=== PATIENT | female | born 1945 | race Caucasian/White ===

== ENCOUNTER 2016-11-23 08:22 | Inpatient (IN) | payer MEDICARE, BC ==
--- NOTE | 2016-11-23 09:18 | C.PDOC ---
History Of Present Illness 71 y/o female with Hx of open heart surgery and pneumonia presents to ED with complaints of sob and occasional dizziness. As per patient had fast breathing which prompted visit to ED today. Patient denies chest pain, fever, chills, n/v/d or any other complaints at this time. Time Seen by Provider: 11/23/16 08:43 Chief Complaint (Nursing): Shortness Of Breath History Per: Patient History/Exam Limitations: no limitations Onset/Duration Of Symptoms: Days Current Symptoms Are (Timing): Still Present Past Medical History Reviewed: Historical Data, Nursing Documentation, Vital Signs Vital Signs: Last Vital Signs Temp 97.5 F L 11/23/16 08:30 Pulse 50 L 11/23/16 11:43 Resp 20 11/23/16 11:43 BP 163/73 H 11/23/16 11:43 Pulse Ox 99 11/23/16 11:43 - Medical History PMH: HTN, Hypercholesterolemia Surgical History: CABG Family History: States: No Known Family Hx - Social History Hx Alcohol Use: No Hx Substance Use: No - Immunization History Hx Tetanus Toxoid Vaccination: No Hx Influenza Vaccination: Yes Hx Pneumococcal Vaccination: No Review Of Systems Except As Marked, All Systems Reviewed And Found Negative. Constitutional: Negative for: Fever, Chills Respiratory: Positive for: Shortness of Breath Gastrointestinal: Negative for: Nausea, Vomiting Skin: Negative for: Rash Neurological: Positive for: Dizziness Physical Exam - Physical Exam Appears: Non-toxic, No Acute Distress Skin: Normal Color, Warm, Dry, No Rash Head: Atraumatic, Normacephalic Eye(s): bilateral: Normal Inspection Oral Mucosa: Moist Neck: Normal ROM, Supple Chest: Symmetrical Cardiovascular: Rhythm Regular, No Murmur Respiratory: Normal Breath Sounds, No Rales, No Rhonchi, No Wheezing Gastrointestinal/Abdominal: Soft, No Tenderness, No Guarding, No Rebound Neurological/Psych: Oriented x3 Gait: Steady ED Course And Treatment - Laboratory Results Result Diagrams: 11/23/16 10:02 11/23/16 10:02 Lab Interpretation: No Acute Changes ECG: Interpreted By Me ECG Rhythm: Sinus Bradycardia, Nonspecific Changes ECG Interpretation: No Acute Changes Rate From EC O2 Sat by Pulse Oximetry: 98 (RA) Pulse Ox Interpretation: Normal - Radiology CXR: Viewed By Me - Other Rad No standard instances Interpretation: FINDINGS: LUNGS: There are diffuse reticular opacity versus prominent lung markings or pulmonary congestion seen. No evidence of focal consolidation in the lungs. PLEURA: No evidence of significant pleural effusion or pneumothorax. CARDIOVASCULAR: The cardiac silhouette is mildly enlarged. Post sternotomy changes are seen. OSSEOUS STRUCTURES: No significant abnormalities. VISUALIZED UPPER ABDOMEN: Normal. OTHER FINDINGS: None. IMPRESSION: Diffuse reticular opacities in the lungs more prominent at the lower lobes may be related to pulmonary vascular congestion. Mild cardiomegaly. Progress Note: Treated with lasix 20 mg IV. On re-evaluation lungs clear - Physician Consult Information Physician Contacted: Jeff Alvarado Outcome Of Conversation: admit Medical Decision Making Medical Decision Making: Plan: * labs * cxr * * Case discussed with Dr Alvarado who request admission to telemetry Disposition Discussed With .: Jeff Alvarado Doctor Will See Patient In The: Hospital - Disposition Disposition: HOSPITALIZED Disposition Time: 11:15 Condition: STABLE - POA Present On Arrival: None - Clinical Impression Clinical Impression: Chronic congestive heart failure, Dyspnea, Chest pain - PA / CELLO TEACHER / Resident Statement MD/DO has reviewed & agrees with the documentation as recorded. - Scribe Statement The provider has reviewed the documentation as recorded by the Jaimeibserafin Sierra All medical record entries made by the Gayla were at my direction and personally dictated by me. I have reviewed the chart and agree that the record accurately reflects my personal performance of the history, physical exam, medical decision making, and the department course for this patient. I have also personally directed, reviewed, and agree with the discharge instructions and disposition. Decision To Admit - Pt Status Changed To: Hospital Disposition Of: Inpatient - Admit Certification Admit to Inpatient:: After my assessment, the patient will require hospitalization for at least two midnights. This is because of the severity of symptoms shown, intensity of services needed, and/or the medical risk in this patient being treated as an outpatient. - InPatient: Physician Admission Certification: I certify that this patient requires 2 or more midnights of care for the following reason:: CHF. Dyspnea. Chest Pain - . Bed Request Type: Telemetry Admitting Physician: Jeff Alvarado Patient Diagnosis: Chronic congestive heart failure, Dyspnea, Chest pain
--- NOTE | 2016-11-23 09:29 | RAD ---
HISTORY: SOB COMPARISON: Comparison is made to previous study dated 01/13/2011 TECHNIQUE: Chest PA and lateral FINDINGS: LUNGS: There are diffuse reticular opacity versus prominent lung markings or pulmonary congestion seen. No evidence of focal consolidation in the lungs. PLEURA: No evidence of significant pleural effusion or pneumothorax. CARDIOVASCULAR: The cardiac silhouette is mildly enlarged. Post sternotomy changes are seen. OSSEOUS STRUCTURES: No significant abnormalities. VISUALIZED UPPER ABDOMEN: Normal. OTHER FINDINGS: None. IMPRESSION: Diffuse reticular opacities in the lungs more prominent at the lower lobes may be related to pulmonary vascular congestion. Mild cardiomegaly.
[2016-11-23 10:13] LABS: BASO % 0.7 % (0.0-2.0); HEMATOCRIT 31.9 % (34.0-47.0); LYMPH # 1.6 K/uL (1.0-4.3); LYMPH % 32.8 % (20.0-40.0); MEAN CELL VOLUME 88.7 fL (81.0-99.0); MEAN CORPUSCULAR HEMOGLOBIN 28.8 pg (27.0-31.0); MEAN CORPUSCULAR HGB CONC 32.4 g/dL (33.0-37.0); MEAN PLATELET VOLUME 9.9 fL (7.2-11.7); MONO # 0.2 K/uL (0.0-0.8); MONO % 3.6 % (0.0-10.0); NRBC % 0.1 % (0.0-2.0); RED CELL DISTRIBUTION WIDTH 18.1 % (11.5-14.5); WHITE BLOOD COUNT 4.8 K/uL (4.8-10.8)
[2016-11-23 10:15] LABS: CHLORIDE 105 mmol/L (98-107)
[2016-11-23 10:16] LABS: POTASSIUM 4.5 mmol/L (3.6-5.2); SODIUM 139 mmol/L (132-148)
[2016-11-23 10:17] LABS: RBC URINE 2 /hpf (0-3); URINE BACTERIA RARE (<OCC); URINE BILIRUBIN NEGATIVE (NEGATIVE); URINE BLOOD NEGATIVE (NEGATIVE); URINE COLOR Yellow (YELLOW); URINE GLUCOSE (UA) NORMAL (Normal); URINE KETONE NEGATIVE (NEGATIVE); URINE LEUKOCYTE ESTERASE 1+ Leu/uL (Negative); URINE PROTEIN NEGATIVE (NEGATIVE); URINE UROBILINOGEN NORMAL mg/dL (0.2-1.0); WBC URINE 5 /hpf (0-5)
[2016-11-23 10:18] LABS: ALKALINE PHOSPHATASE 84 U/L (38-126); AST/SGOT 33 U/L (14-36); BILIRUBIN,TOTAL 0.7 mg/dL (0.2-1.3); BLOOD UREA NITROGEN 28 mg/dL (7-17); CARBON DIOXIDE 21 mmol/L (22-30); GFR AFRICAN-AMERICAN > 60; TOTAL PROTEIN 8.6 g/dL (6.3-8.3)
[2016-11-23 10:19] LABS: ALT/SGPT 37 U/L (9-52); CALCIUM 8.8 mg/dl (8.6-10.4); GLUCOSE,RANDOM 123 mg/dL (65-105)
[2016-11-23] MEDS: Enoxaparin 40 mg Syringe SC SCH (16:50)
[2016-11-23] MEDS: Metoprolol Succinate 50 mg XL Tab PO SCH (17:47)
[2016-11-23] MEDS ORDERED: Metoprolol Succinate 100 mg XL Tab PO SCH (18:00)
--- NOTE | 2016-11-24 02:53 | HP ---
HISTORY OF PRESENT ILLNESS: A 71-year-old female with a history of CAD and hypertension who was brought in with shortness of breath on minimal exertion, also dizziness. Denies any fevers or chills. She has a longstanding history of hypertension and coronary artery disease. MEDICATIONS AT HOME: Includes hydrochlorothiazide 12.5 mg 1 day, Toprol 100 mg twice a day, Vytorin 10/30, valsartan 160, colchicine 0.6 one day, ergocalciferol, and metformin 500 mg p.o. daily. For the past 2 weeks, she was having increasing shortness of breath. Chest x-ray had shown mild CHF. She did not get better so came to the emergency room. PERSONAL HISTORY: As mentioned does not smoke, does not drink. ALLERGIES: DENIED. FAMILY HISTORY: Positive for diabetes and hypertension. Mother was hypertensive. Father had a diabetes. Brother at age of 45 from leukemia. REVIEW OF SYSTEMS: GENERAL: Generalized weakness, easy fatigue, going from back to bathroom she has short of breath. Denies any cough. No fever. No chills. HEENT: No visual disturbances. She does have a history of glaucoma on eye drops. No hearing loss. PULMONARY: She does have occasional cough, under the care of Dr. Turner. No hemoptysis. CARDIAC: As mentioned above. Dyspnea on minimal exertion. No chest pains. History of hypertension. No documented HI. GASTROINTESTINAL: Poor appetite, but otherwise unremarkable. GENITOURINARY: Negative for dysuria or frequency. MUSCULOSKELETAL: Arthritis involving the knee pains. PERIPHERAL VASCULAR SYSTEM: Negative for claudication. NEUROLOGIC: Dizziness. No syncope. PSYCHOLOGIC: No evidence of depression. PHYSICAL EXAMINATION: GENERAL: Shows elderly [place] female, thin built, chronically sick looking, but in no acute distress. She is 4 feet 10 inches and weighs 99 pounds. VITAL SIGNS: Her blood pressure is 163/73, heart rate of 50 and regular sinus on the telemetry, respiratory rate of 20, temperature 97.5, and pulse oximetry is 99% on room air. HEENT: Head is normocephalic. Eyes; no pallor and no icterus. NECK: Supple. LUNGS: Show decreased air entry at the bases. HEART: PMI is not localized. S1 and S2 is distant. Soft S4 gallops. Grade 1-2/6 holosystolic ejection murmur in mitral and aortic area. ABDOMEN: Soft and nontender. EXTREMITIES: No cyanosis, clubbing, or edema. Distal pulses are 1+. NEUROLOGIC: She is awake, alert and oriented x3. No focal signs. MUSCULOSKELETAL: Essentially unremarkable except arthritis changes in the both the hands and knees. PSYCHIATRIC: No evidence of depression. LABORATORY DATA: Shows hemoglobin of 10.3, BUN is 28, creatinine is 0.9, and Pro-BNP is 13,600. EKG; sinus rhythm, nonspecific ST-T changes. ASSESSMENT: A 71-year-old female with a history of congestive heart failure and coronary artery disease. She did have a normal left ventricular systolic function, presumably diastolic dysfunction. PLAN: At this point, small dose of diuretic, we will decrease the beta trudy from 100 b.i.d. to 50 b.i.d. and continue LUIS inhibitors. We will review with the echocardiogram. Jeff Alvarado MD
--- NOTE | 2016-11-24 08:13 | CARD ---
APPROVED REPORT EXAM: Two-dimensional and M-mode echocardiogram with Doppler and color Doppler. Other Information Quality : GoodRhythm : NSR INDICATION Dyspnea CAD Congestive Heart Failure COPD 2D DIMENSIONS IVSd1.5 (0.7-1.1cm)LVDd3.8 (3.9-5.9cm) PWd1.2 (0.7-1.1cm)LVDs2.5 (2.5-4.0cm) FS (%) 33.5 %LVEF (%)63.0 (>50%) M-Mode DIMENSIONS Left Atrium (MM)4.09 (2.5-4.0cm)Aortic Root2.85 (2.2-3.7cm) Aortic Cusp Exc.1.88 (1.5-2.0cm) Mitral Valve MV E Dqcvmjgq56.3cm/sMV A Txkbpsnu18.0cm/sE/A ratio1.6 TDI E/Lateral E'0.0E/Medial E'0.0 Tricuspid Valve TR Peak [id number]/sTR Peak Gr.[id number] LEFT VENTRICLE The left ventricle is normal size. There is mild concentric left ventricular hypertrophy. Left ventricle systolic function is normal. The Ejection Fraction is 60-65%. There is normal LV segmental wall motion. The left ventricular diastolic function is normal. RIGHT VENTRICLE The right ventricle is normal size. There is normal right ventricular wall thickness. The right ventricular systolic function is normal. ATRIA The left atrium size is normal. The right atrium size is normal. The interatrial septum is intact with no evidence for an atrial septal defect. AORTIC VALVE The aortic valve is normal in structure. No aortic regurgitation is present. There is no aortic valvular stenosis. There is no aortic valvular vegetation. MITRAL VALVE Mitral annular calcification is mild. There is no evidence of mitral valve prolapse. There is no mitral valve stenosis. Mitral regurgitation is mild to moderate. TRICUSPID VALVE The tricuspid valve is normal in structure. There is mild tricuspid regurgitation. Right ventricular systolic pressure is estimated at 50-60 mmHg. There is moderate pulmonary hypertension. PULMONIC VALVE The pulmonic valve is not well visualized. There is mild pulmonic valvular regurgitation. GREAT VESSELS The aortic root is normal in size. PERICARDIAL EFFUSION There is no significant pericardial effusion. <Conclusion> Left ventricle systolic function is normal. The Ejection Fraction is 60-65%. Hypertensive heart disease. No aortic regurgitation is present. Mitral regurgitation is mild to moderate. There is mild tricuspid regurgitation. There is moderate pulmonary hypertension. There is mild pulmonic valvular regurgitation.
[2016-11-24] MEDS ORDERED: Latanoprost 2.5 ml Opht Soln OD SCH ×2 (10:00→22:00)
[2016-11-24] MEDS ORDERED: Brimonidine 0.2% Opth Sol (5ml) OD SCH ×2 (10:00→22:00)
[2016-11-24] MEDS: Metoprolol Succinate 50 mg XL Tab PO SCH ×2 (10:59→17:55)
[2016-11-24] MEDS: Enoxaparin 40 mg Syringe SC SCH (11:01)
--- NOTE | 2016-11-24 13:13 | CP.PCM.PN ---
Subjective - Date & Time of Evaluation Date of Evaluation: 11/24/16 Time of Evaluation: 13:11 - Subjective Subjective: sob is better. labs noted. echo noted. normal lv systolic function. lv diastolic dysfunction grade 2. mr Objective - Vital Signs/Intake and Output Vital Signs (last 24 hours): Temp Pulse Resp BP Pulse Ox 97.4 F L 50 L 20 163/80 H 96 11/24/16 07:45 11/24/16 12:01 11/24/16 07:45 11/24/16 07:45 11/24/16 07:45 Intake and Output: 11/24/16 11/24/16 06:59 18:59 Intake Total 120 Balance 120 - Medications Medications: Current Medications Allopurinol (Zyloprim) 100 mg PO DAILY [facility] Last Admin: 11/24/16 11:06 Dose: Not Given Amlodipine Besylate (Norvasc) 5 mg PO DAILY [facility] Brimonidine Tartrate (Alphagan 0.2% Opht) 0 ml OD HS [facility] Colchicine (Colocrys) 0.6 mg PO DAILY [facility] Last Admin: 11/24/16 10:58 Dose: 0.6 mg Ezetimibe (Zetia) 10 mg PO HS [facility] Last Admin: 11/23/16 22:28 Dose: 10 mg Enoxaparin Sodium (Lovenox) 40 mg SC DAILY [facility] Last Admin: 11/24/16 11:01 Dose: 40 mg Furosemide (Lasix) 20 mg PO DAILY [facility] Latanoprost (Xalatan Opht) 0 ml OD HS [facility] Losartan Potassium (Cozaar) 100 mg PO DAILY [facility] Last Admin: 11/24/16 11:00 Dose: 100 mg Metformin HCl (Glucophage) 500 mg PO BID [facility] Last Admin: 11/24/16 10:59 Dose: 500 mg Metoprolol Succinate (Toprol Xl) 50 mg PO BID [facility] Last Admin: 11/24/16 10:59 Dose: 50 mg Pneumococcal Polyvalent Vaccine (Pneumovax 23 Vaccine) 0.5 ml IM .ONCE ONE Stop: 11/25/16 10:01 Rosuvastatin Calcium (Crestor) 5 mg PO HS [facility] Last Admin: 11/23/16 22:28 Dose: 5 mg - Labs Labs: 11/23/16 10:02 11/23/16 10:02 - Constitutional Appears: Chronically Ill - Head Exam Head Exam: NORMOCEPHALIC - Eye Exam Eye Exam: Normal appearance - ENT Exam ENT Exam: Normal Exam - Respiratory Exam Respiratory Exam: Clear to Ausculation Bilateral - Cardiovascular Exam Cardiovascular Exam: REGULAR RHYTHM, Murmur - GI/Abdominal Exam GI & Abdominal Exam: Soft - Extremities Exam Extremities Exam: absent: Pedal Edema - Neurological Exam Neurological Exam: Alert, Oriented x3 Assessment and Plan - Assessment and Plan (Free Text) Assessment: chf,diastolic. will decrease lopressor, add norvasc. hr was in 40s,50s.
[2016-11-24 17:22] LABS: CHLORIDE 103 mmol/L (98-107)
[2016-11-24 17:23] LABS: POTASSIUM 4.6 mmol/L (3.6-5.2); SODIUM 142 mmol/L (132-148)
[2016-11-24 17:25] LABS: GFR AFRICAN-AMERICAN > 60
[2016-11-24 17:26] LABS: BLOOD UREA NITROGEN 27 mg/dL (7-17); CALCIUM 9.1 mg/dl (8.6-10.4); CARBON DIOXIDE 26 mmol/L (22-30); GLUCOSE,RANDOM 112 mg/dL (65-105)
[2016-11-25 08:09] VITALS: RESP 18
[2016-11-25] MEDS: Metoprolol Succinate 50 mg XL Tab PO SCH ×2 (09:36→18:21)
[2016-11-25] MEDS: Enoxaparin 40 mg Syringe SC SCH (09:37)
[2016-11-25] MEDS ORDERED: Pneumococcal 23-Valent Vaccine IM ONE ×2 (10:00→18:24)
[2016-11-25 12:27] VITALS: PULSE 54
--- NOTE | 2016-11-25 13:20 | CP.PCM.CON ---
History of Present Illness - History of Present Illness History of Present Illness: Chief complaint: Shortness of breath. History present illness: 71-year-old female with history of hypertension, CAD, diabetes, status post open -heart surgery history of multiorgan failure in the past, pneumonia, was on ventilatory in 2005, admitted now with the increasing leg swelling, shortness of breath. 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 Patient received Lasix in the hospital, and is slowly got better. Patient also having increasing cough. Minimal wheezing noted. Weakness, generalized noted. Past medical history: History of diabetes, hypertension, renal insufficiency, history of pneumonia, CAD, status post a heart surgery. Surgical history includes appendectomy, polypectomy, carpal tunnel syndrome release, fallopian tube ligation and open-heart surgery. Allergy no known drug allergies. Personal history nonsmoker, nonalcoholic. Medications reviewed. Review of systems: No headache or visual symptoms, cough noted, wheezing noted, shortness of breath and weakness tiredness comptometer operator fatigability. Leg swelling also noted. 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 Labs: Elevated proBNP noted, etc. showing possible pulmonary congestion. CBC anemia noted Assessment/commission: 70-year-old female with history of diabetes, hypertension, hypercholesteremia, CAD, status post a stent. History of pneumonia in the past. Pleural effusion in the past. Now admitted with a possible CHF, fluid overload, and bradycardia. From the point of view patient is having increasing pelvic congestion. Diuretics advised. Blood pressure control. Bronchodilators minimally needed. Currently doing well. Continue the current treatment Past Patient History - Past Medical History & Family History Past Medical History?: Yes - Past Social History Smoking Status: Never Smoked - CARDIAC Hx Cardiac Disorders: Yes Hx Hypercholesterolemia: Yes Hx Hypertension: Yes - PULMONARY Hx Respiratory Disorders: No - NEUROLOGICAL Hx Neurological Disorder: No - HEENT Hx HEENT Problems: Yes Hx Glaucoma: Yes - RENAL Hx Chronic Kidney Disease: No - ENDOCRINE/METABOLIC Hx Diabetes Mellitus Type 2: Yes - HEMATOLOGICAL/ONCOLOGICAL Hx Blood Disorders: No - INTEGUMENTARY Hx Dermatological Problems: No - MUSCULOSKELETAL/RHEUMATOLOGICAL Hx Musculoskeletal Disorders: Yes Hx Falls: No Hx Gout: Yes - GASTROINTESTINAL Hx Gastrointestinal Disorders: No - GENITOURINARY/GYNECOLOGICAL Hx Genitourinary Disorders: No - PSYCHIATRIC Hx Psychophysiologic Disorder: No Hx Substance Use: No - SURGICAL HISTORY Hx Surgeries: Yes Hx Coronary Artery Bypass Graft: Yes - ANESTHESIA Hx Anesthesia: Yes Hx Anesthesia Reactions: No Hx Malignant Hyperthermia: No Has any member of the family had a problem w/ anesthesia?: No Meds Allergies/Adverse Reactions: Allergies Allergy/AdvReac Type Severity Reaction Status Date / Time No Known Allergies Allergy Verified 11/23/16 08:36 - Medications Medications: Current Medications Allopurinol (Zyloprim) 100 mg PO DAILY [facility] Last Admin: 11/25/16 09:36 Dose: 100 mg Amlodipine Besylate (Norvasc) 5 mg PO DAILY [facility] Last Admin: 11/25/16 09:36 Dose: 5 mg Brimonidine Tartrate (Alphagan 0.2% Opht) 0 ml OD HS [facility] Last Admin: 11/24/16 22:02 Dose: 1 drop Colchicine (Colocrys) 0.6 mg PO DAILY [facility] Last Admin: 11/25/16 09:39 Dose: Not Given Ezetimibe (Zetia) 10 mg PO HS [facility] Last Admin: 11/24/16 22:01 Dose: 10 mg Enoxaparin Sodium (Lovenox) 40 mg SC DAILY [facility] Last Admin: 11/25/16 09:37 Dose: 40 mg Furosemide (Lasix) 20 mg PO DAILY [facility] Last Admin: 11/25/16 09:36 Dose: 20 mg Latanoprost (Xalatan Opht) 0 ml OD HS [facility] Last Admin: 11/24/16 22:04 Dose: 1 ml Losartan Potassium (Cozaar) 100 mg PO DAILY [facility] Last Admin: 11/25/16 09:36 Dose: 100 mg Metformin HCl (Glucophage) 500 mg PO BID [facility] Last Admin: 11/25/16 09:36 Dose: 500 mg Metoprolol Succinate (Toprol Xl) 50 mg PO BID [facility] Last Admin: 11/25/16 09:36 Dose: 50 mg Rosuvastatin Calcium (Crestor) 5 mg PO HS [facility] Last Admin: 11/24/16 22:02 Dose: 5 mg Results - Vital Signs Recent Vital Signs: Last Vital Signs Temp 97.4 F L 11/25/16 07:05 Pulse 54 L 11/25/16 12:16 Resp 18 11/25/16 07:05 BP 139/80 11/25/16 09:36 Pulse Ox 97 11/25/16 07:05 - Labs Result Diagrams: 11/23/16 10:02 11/24/16 17:11 Labs: Laboratory Results - last 24 hr 11/24/16 11/24/16 11/24/16 16:20 17:11 21:28 Sodium 142 Potassium 4.6 Chloride 103 Carbon Dioxide 26 Anion Gap 18 BUN 27 H Creatinine 1.0 Est GFR ( Amer) > 60 Est GFR (Non-Af Amer) 54 POC Glucose (mg/dL) 123 H 107 Random Glucose 112 H Calcium 9.1 NT-Pro-B Natriuret Pep 38263 H 11/25/16 11/25/16 06:22 11:27 Sodium Potassium Chloride Carbon Dioxide Anion Gap BUN Creatinine Est GFR ( Amer) Est GFR (Non-Af Amer) POC Glucose (mg/dL) 132 H 100 Random Glucose Calcium NT-Pro-B Natriuret Pep
[2016-11-25 15:27] VITALS: BP 143/74; TEMP 97.7; O2SAT 98
--- NOTE | 2016-11-26 04:53 | DS ---
SUMMARY: A 71-year-old female was brought in with shortness of breath, found to be in mild CHF. She was admitted to telemetry. Echocardiogram had showed normal LV systolic function and LV diastolic dysfunction, moderate degree. She was given IV small dose of diuretic with improvement. Metoprolol was 100 mg twice a day with a heart rate in high 40s, which was tapered down to 50 mg one a day and Norvasc 5 mg p.o. one a day was added. She has done well. Physical therapy has been given. She is ambulating. Vital signs are stable. Lungs are clear. At this point, she will be discharged, to be continued on all other medications including valsartan and metoprolol will be 50 mg one a day in the morning and Norvasc 5 mg p.o. in the evening. She will return to see me in 2 weeks' time. FINAL DIAGNOSIS: Moderate degree of left ventricular dysfunction, hypertension, coronary artery disease status post coronary artery bypass graft. Jeff Alvarado MD
--- NOTE | 2016-11-28 22:27 | CARD ---
APPROVED REPORT EKG Measurement Heart [id number] <Conclusion> Sinus bradycardia with sinus arrhythmia Left axis deviation Left ventricular hypertrophy with repolarization abnormality Cannot rule out Septal infarct, age undetermined Prolonged QT Abnormal ECG
== END 2016-11-25 19:08 | disposition home or self-care (01) | DRG 293 ==
LOC: C.ER 08:22 → C.9E 11:04 → C.6T 17:33
PROVIDERS: ADMIT Internal Medicine Cardiovascular Disease; ATTEND Internal Medicine Cardiovascular Disease
DX: I11.0 Hypertensive heart disease with heart failure (principal); E11.9 Type 2 diabetes mellitus without complications; I50.33 Acute on chronic diastolic (congestive) heart failure; E78.00 Pure hypercholesterolemia, unspecified; H40.9 Unspecified glaucoma; I25.10 Atherosclerotic heart disease of native coronary artery without angina pectoris; N28.9 Disorder of kidney and ureter, unspecified; M10.9 Gout, unspecified; Z79.899 Other long term (current) drug therapy; Z80.6 Family history of leukemia; Z82.49 Family history of ischemic heart disease and other diseases of the circulatory system; Z87.01 Personal history of pneumonia (recurrent)

== ENCOUNTER 2017-02-10 08:09 | Inpatient (IN) | payer MEDICARE, BC ==
[2017-02-10 08:31] LABS: BASO % 0.4 % (0.0-2.0); EOS # 0.1 K/uL (0.0-0.7); EOS % 0.8 % (0.0-4.0); HEMATOCRIT 29.5 % (34.0-47.0); LYMPH # 2.5 K/uL (1.0-4.3); LYMPH % 38.1 % (20.0-40.0); MEAN CORPUSCULAR HEMOGLOBIN 30.6 pg (27.0-31.0); MEAN CORPUSCULAR HGB CONC 33.1 g/dL (33.0-37.0); MEAN PLATELET VOLUME 8.8 fL (7.2-11.7); MONO # 0.2 K/uL (0.0-0.8); MONO % 2.5 % (0.0-10.0); WHITE BLOOD COUNT 6.5 K/uL (4.8-10.8)
[2017-02-10 08:33] LABS: MEAN CELL VOLUME 92.5 fL (81.0-99.0)
[2017-02-10 08:39] LABS: INR 0.9
--- NOTE | 2017-02-10 08:56 | RAD ---
HISTORY: sob/chest pain COMPARISON: Chest x-ray performed 11/23/16 TECHNIQUE: Chest, one view. FINDINGS: LUNGS: Biapical pleural thickening. Diffuse increased interstitial markings may reflect moderate to severe edema/infection. Please note that chest x-ray has limited sensitivity for the detection of pulmonary masses. PLEURA: No significant pleural effusion identified. No definite pneumothorax . CARDIOVASCULAR: Median sternotomy wires. Cardiomegaly. OSSEOUS STRUCTURES: Degenerative changes. VISUALIZED UPPER ABDOMEN: Unremarkable. OTHER FINDINGS: None. IMPRESSION: Diffuse increased interstitial markings may reflect moderate to severe edema/infection. Biapical pleural thickening. Median sternotomy wires. Cardiomegaly.
[2017-02-10] MEDS ORDERED: Aspirin 325 mg EC Tablets PO STA (09:03)
[2017-02-10 09:06] LABS: BILIRUBIN,TOTAL 0.6 mg/dL (0.2-1.3); CALCIUM 8.8 mg/dl (8.6-10.4); POTASSIUM 4.6 mmol/L (3.6-5.2); TOTAL PROTEIN 10.7 g/dL (6.3-8.3)
[2017-02-10 09:14] LABS: TROPONIN I 0.054 ng/mL (0.00-0.120)
[2017-02-10 09:20] LABS: ALB/GLOB RATIO 0.7 (1.0-2.1)
--- NOTE | 2017-02-10 09:48 | C.PDOC ---
History Of Present Illness 71 y/o female, PMHx of CHF, HTN, hypercholesterolemia, brought in by ambulance with c/o SOB and dyspnea on exertion for 1 day. Denies fever, chills, nausea, vomiting, chest pain, weakness/numbness, or other associated symptoms. Time Seen by Provider: 02/10/17 08:23 Chief Complaint (Nursing): Chest Pain History Per: Patient History/Exam Limitations: no limitations Onset/Duration Of Symptoms: Days Current Symptoms Are (Timing): Still Present Associated Symptoms: Dyspnea. denies: Diaphoresis Recent travel outside of the [place]: No Past Medical History Reviewed: Historical Data, Nursing Documentation, Vital Signs Vital Signs: Last Vital Signs Temp 97.5 F L 02/10/17 11:04 Pulse 73 02/10/17 11:04 Resp 20 02/10/17 11:04 BP 148/70 02/10/17 11:04 Pulse Ox 98 02/10/17 11:04 - Medical History PMH: CHF, HTN, Hypercholesterolemia Surgical History: CABG Family History: States: Unknown Family Hx - Social History Hx Alcohol Use: No Hx Substance Use: No - Immunization History Hx Tetanus Toxoid Vaccination: No Hx Influenza Vaccination: No Hx Pneumococcal Vaccination: No Review Of Systems Except As Marked, All Systems Reviewed And Found Negative. Constitutional: Negative for: Fever, Chills Cardiovascular: Negative for: Chest Pain Respiratory: Positive for: Shortness of Breath, SOB with Excertion. Negative for: Cough Gastrointestinal: Negative for: Nausea, Vomiting, Abdominal Pain Skin: Negative for: Rash Physical Exam - Physical Exam Appears: Non-toxic, No Acute Distress Skin: Normal Color, Warm, Dry, No Diaphoretic Head: Atraumatic, Normacephalic Oral Mucosa: Moist Chest: Symmetrical Cardiovascular: Rhythm Regular, JVD (mild) Respiratory: Rales (basilar, mild), No Rhonchi, No Wheezing Gastrointestinal/Abdominal: Soft, No Tenderness, No Guarding, No Rebound Back: Normal Inspection Extremity: Normal ROM, No Pedal Edema, Capillary Refill (< 2 sec.) Neurological/Psych: Oriented x3, Normal Speech, Normal Cognition ED Course And Treatment - Laboratory Results Result Diagrams: 02/10/17 08:22 02/10/17 08:22 Lab Interpretation: Abnormal (elev glu, BNP 9750 H, trop neg.) ECG: Interpreted By Me ECG Rhythm: Sinus Rhythm ECG Interpretation: Normal Rate From EC O2 Sat by Pulse Oximetry: 100 Pulse Ox Interpretation: Normal - Radiology CXR: Interpreted by Me, Read By Radiologist (+CHF) Progress Note: asa given ROUGH CARPENTER, Lasix 20 IV in ER Reevaluation Time: 09:49 Reassessment Condition: Improved - Physician Consult Information Outcome Of Conversation: [phone] and [phone] d/w Dr. Jeff Alvarado- PMD- ok to Admit tele Medical Decision Making Medical Decision Making: mild/mod CHF by BNP 9750 and +CXR Disposition Doctor Will See Patient In The: Hospital Counseled Patient/Family Regarding: Studies Performed, Diagnosis - Disposition Disposition: HOSPITALIZED Disposition Time: 09:50 Condition: GOOD - Clinical Impression Clinical Impression: CHF exacerbation - Scribe Statement The provider has reviewed the documentation as recorded by the Scribe SM All medical record entries made by the Scribe were at my direction and personally dictated by me. I have reviewed the chart and agree that the record accurately reflects my personal performance of the history, physical exam, medical decision making, and the department course for this patient. I have also personally directed, reviewed, and agree with the discharge instructions and disposition.
[2017-02-10 09:55] LABS: RBC URINE 7 /hpf (0-3); URINE BACTERIA RARE (<OCC); URINE BILIRUBIN NEGATIVE (NEGATIVE); URINE BLOOD 1+ (NEGATIVE); URINE COLOR Straw (YELLOW); URINE GLUCOSE (UA) NORMAL (Normal); URINE KETONE NEGATIVE (NEGATIVE); URINE LEUKOCYTE ESTERASE NEG Leu/uL (Negative); URINE PROTEIN NEGATIVE (NEGATIVE); URINE UROBILINOGEN NORMAL mg/dL (0.2-1.0); WBC URINE 1 /hpf (0-5)
[2017-02-10] MEDS: Enoxaparin 30 mg Syringe SC SCH (17:43)
[2017-02-10] MEDS: Brimonidine 0.2% Opth Sol (5ml) OU SCH (21:28)
[2017-02-10] MEDS: Latanoprost 2.5 ml Opht Soln OU SCH (21:29)
--- NOTE | 2017-02-10 22:14 | HP ---
HISTORY OF PRESENT ILLNESS: A 71-year-old female who was brought in with shortness of breath, woke up from the sleep with a shortness of breath and profuse sweating. Came to the emergency room where chest x-ray had shown moderate congestive heart failure. Pro-BNP was 9000 plus. The patient has a longstanding history of hypertension, coronary artery disease. She underwent CABG about 2 years ago. MEDICATIONS AT HOME: Include hydrochlorothiazide 12.5 one a day, metoprolol 50 mg p.o. one a day, Vytorin, valsartan 160, colchicine , and metformin 100 mg p.o. one a day. PERSONAL HISTORY: Does not smoke, does not drink. ALLERGIES: DENIED. FAMILY HISTORY: Positive for diabetes. Mother had hypertension. Father had diabetes. Brother of [place] at 45. He also had leukemia. REVIEW OF SYSTEMS: GENERAL: Generalized weakness is noted. Sleeps on 2 pillows. HEENT: No visual disturbances. No hearing loss. PULMONARY: Negative for cough or hemoptysis. She does have a history of chronic bronchitis, under the care of Dr. Turner. CARDIAC: History of CAD, dyspnea on minimal exertion, hypertension. GASTROINTESTINAL: Appetite is getting better, otherwise unremarkable. GENITOURINARY: Negative for hematuria, dysuria, or frequency. MUSCULOSKELETAL: Joint pains in knees. VASCULAR SYSTEM: Negative for claudication. NEUROLOGIC: Dizziness. No syncope. No TIAs. No CVAs. PSYCHOLOGIC: No evidence of depression. PAST MEDICAL HISTORY: History of CABG about 2 years ago. PHYSICAL EXAMINATION: GENERAL: Shows elderly female who is conscious, alert, chronically sick looking, but in no acute distress. She is 4 feet 10 inches and weighs 102 pounds. VITAL SIGNS: Blood pressure is 158/80, heart rate of 74, respiratory rate of 20, temperature of 97. HEENT: Head is normocephalic. Eyes, no pallor and no icterus. NECK: Supple. No thyroid enlargement. LUNGS: Show decreased air entry at both the bases. Fine rales are also heard in the right lower lobe. HEART: PMI is normal. S1 and S2 is normal. Soft S4 gallop. Grade 1-2/6 early systolic murmur in mitral and aortic area. ABDOMEN: Soft and nontender. EXTREMITIES: No cyanosis, clubbing, or edema. Distal pulses are 2+. MUSCULOSKELETAL: Essentially unremarkable. PSYCHIATRIC: No evidence of depression. SKIN: Healed surgical scar of mid sternotomy is noted. LABORATORY DATA: CBC and Chem-7 were unremarkable; however, pro-BNP was elevated. EKG showed sinus rhythm, left axis deviation, LVH. Chest x-ray was reported to be CHF. PLAN: At this point, is to continue with LUIS inhibitors and beta-blockers. We will add IV Lasix. Care of plan was explained to the patient and her . Jeff Alvarado MD
[2017-02-11 09:03] LABS: CALCIUM 8.8 mg/dl (8.6-10.4); POTASSIUM 3.9 mmol/L (3.6-5.2)
[2017-02-11] MEDS: Enoxaparin 30 mg Syringe SC SCH (09:57)
[2017-02-11] MEDS: Metoprolol Succinate 50 mg XL Tab PO SCH (09:58)
[2017-02-11] MEDS: Latanoprost 2.5 ml Opht Soln OU SCH (21:14)
[2017-02-11] MEDS: Brimonidine 0.2% Opth Sol (5ml) OU SCH (21:15)
[2017-02-12] MEDS: Enoxaparin 30 mg Syringe SC SCH (09:51)
[2017-02-12] MEDS: Metoprolol Succinate 50 mg XL Tab PO SCH (09:52)
--- NOTE | 2017-02-12 15:07 | CP.PCM.PN ---
Subjective - Date & Time of Evaluation Date of Evaluation: 02/12/17 Time of Evaluation: 15:05 - Subjective Subjective: less sob.no edema.labs noted. Objective - Vital Signs/Intake and Output Vital Signs (last 24 hours): Temp Pulse Resp BP Pulse Ox 98.1 F 79 18 119/67 90 L 02/12/17 08:47 02/12/17 12:53 02/12/17 08:47 02/12/17 09:52 02/12/17 12:53 - Medications Medications: Current Medications Allopurinol (Zyloprim) 100 mg PO DAILY [facility] Last Admin: 02/12/17 09:51 Dose: 100 mg Brimonidine Tartrate (Alphagan 0.2% Opht) 0 ml OU HS [facility] Last Admin: 02/11/17 21:15 Dose: 1 drop Enoxaparin Sodium (Lovenox) 30 mg SC DAILY [facility] Last Admin: 02/12/17 09:51 Dose: 30 mg Furosemide (Lasix) 40 mg IVP DAILY [facility] Last Admin: 02/12/17 09:52 Dose: 40 mg Latanoprost (Xalatan Opht) 0 ml OU HS [facility] Last Admin: 02/11/17 21:14 Dose: 2.5 ml Losartan Potassium (Cozaar) 100 mg PO DAILY [facility] Last Admin: 02/12/17 09:51 Dose: 100 mg Metformin HCl (Glucophage) 500 mg PO BID [facility] Last Admin: 02/12/17 09:51 Dose: 500 mg Metoprolol Succinate (Toprol Xl) 50 mg PO DAILY [facility] Last Admin: 02/12/17 09:52 Dose: 50 mg Rosuvastatin Calcium (Crestor) 5 mg PO HS [facility] Last Admin: 02/11/17 21:14 Dose: 5 mg - Labs Labs: 02/10/17 08:22 02/12/17 08:56 PT 10.2 SECONDS (9.7-12.2) 02/10/17 08:22 INR 0.9 02/10/17 08:22 APTT 34 SECONDS (21-34) 02/10/17 08:22 - Constitutional Appears: No Acute Distress, Chronically Ill - Head Exam Head Exam: NORMOCEPHALIC - Respiratory Exam Respiratory Exam: Decreased Breath Sounds - Cardiovascular Exam Cardiovascular Exam: REGULAR RHYTHM - GI/Abdominal Exam GI & Abdominal Exam: Soft - Extremities Exam Extremities Exam: absent: Pedal Edema - Neurological Exam Neurological Exam: Alert, Oriented x3 Assessment and Plan - Assessment and Plan (Free Text) Plan: will recheck chest x ray.d/c in am,
[2017-02-12] MEDS: Latanoprost 2.5 ml Opht Soln OU SCH (21:18)
[2017-02-12] MEDS: Brimonidine 0.2% Opth Sol (5ml) OU SCH (21:19)
[2017-02-13 02:15] VITALS: RESP 20
[2017-02-13 08:52] LABS: CALCIUM 8.8 mg/dl (8.6-10.4); POTASSIUM 3.9 mmol/L (3.6-5.2)
[2017-02-13] MEDS: Enoxaparin 30 mg Syringe SC SCH (09:49)
[2017-02-13] MEDS: Metoprolol Succinate 50 mg XL Tab PO SCH (09:49)
--- NOTE | 2017-02-13 12:29 | RAD ---
HISTORY: COMPARISON: 02/10/2017 TECHNIQUE: Chest PA and lateral FINDINGS: LINES AND TUBES: None. LUNG AND PLEURA: The lungs are well inflated. There is mild pulmonary venous congestion and interstitial pulmonary edema, improved since the prior examination. There is linear atelectasis in the left mid lung. HEART AND MEDIASTINUM: There is persistent mild cardiomegaly and prominent central vasculature. Status post CABG. The hilar and mediastinal contours are within normal limits. SKELETAL STRUCTURES: The bony structures are within normal limits for the patient's age. VISUALIZED UPPER ABDOMEN: Normal. OTHER FINDINGS: None. IMPRESSION: Improving congestive heart failure.
--- NOTE | 2017-02-13 15:16 | PCM.HF ---
Heart Failure Core Measure - Heart Failure Ejection Fraction: 40 % or Greater LUIS Inhibitor Prescribed: No Contraindication/Reason for not providing: ARB Beta-Kristian Prescribed: Metoprolol Succinate Angiotensin II Receptor Kristian Prescribed: Yes AnticoagulationTherapy for Atrial Fibrillation/Atrialflutter: No Contraindication/Reason for not providing: NO HX OF AFIB Aldosterone Antagonist Prescribed: No Contraindication/Reason for not providing: EF IS GREATER THAN 40 Hydralazine Nitrate Prescribed: No Contraindication/Reason for not providing: EF IS GREATER THAN 40 Implantable Cardioverter Defibrillator Therapy: No Contraindication/Reason for not providing: EF IS GREATER THAN 40 Cardiac Resynchronization Therapy Prescribed: No Contraindication/Reason for not providing: EF IS GREATER THAN 40 - Follow up Will be discharged to: Home Follow Up Date (must be within 7 days from discharge): 02/20/17 Follow Up Time: 09:00
--- NOTE | 2017-02-13 15:16 | CP.PCM.PN ---
Subjective - Date & Time of Evaluation Date of Evaluation: 02/13/17 Time of Evaluation: 15:15 - Subjective Subjective: PATIENT WAS ADMITTED FOR CHF; AAOX3 DENIES SOB OR CHEST PAIN NO SIGN OF DISTRESS Objective - Vital Signs/Intake and Output Vital Signs (last 24 hours): Temp Pulse Resp BP Pulse Ox 97.6 F 74 20 109/66 97 02/13/17 07:25 02/13/17 07:25 02/13/17 07:25 02/13/17 09:49 02/13/17 07:25 - Medications Medications: Current Medications Allopurinol (Zyloprim) 100 mg PO DAILY [facility] Last Admin: 02/13/17 09:49 Dose: 100 mg Brimonidine Tartrate (Alphagan 0.2% Opht) 0 ml OU HS [facility] Last Admin: 02/12/17 21:19 Dose: 1 drop Enoxaparin Sodium (Lovenox) 30 mg SC DAILY [facility] Last Admin: 02/13/17 09:49 Dose: 30 mg Furosemide (Lasix) 40 mg IVP DAILY [facility] Last Admin: 02/13/17 09:49 Dose: 40 mg Latanoprost (Xalatan Opht) 0 ml OU HS [facility] Last Admin: 02/12/17 21:18 Dose: 1 ml Losartan Potassium (Cozaar) 100 mg PO DAILY [facility] Last Admin: 02/13/17 09:49 Dose: 100 mg Metformin HCl (Glucophage) 500 mg PO BID [facility] Last Admin: 02/13/17 09:48 Dose: 500 mg Metoprolol Succinate (Toprol Xl) 50 mg PO DAILY [facility] Last Admin: 02/13/17 09:49 Dose: 50 mg Rosuvastatin Calcium (Crestor) 5 mg PO HS [facility] Last Admin: 02/12/17 21:18 Dose: 5 mg - Labs Labs: 02/10/17 08:22 02/13/17 07:19 PT 10.2 SECONDS (9.7-12.2) 02/10/17 08:22 INR 0.9 02/10/17 08:22 APTT 34 SECONDS (21-34) 02/10/17 08:22 Assessment and Plan - Assessment and Plan (Free Text) Assessment: PATIENT WAS SEEN AND EXAMINED AT THE BEDSIDE; PMD MADE AROUND AND CLEAR THE PATIENT FOR D/C PRESCRIPTION GIVEN BY PMD; PATIENT LUNG SOUND CLEAR FOLLOW UP WITH SHELL IN A WEEK AT HIS OFFICE ---CALL HIS OFFICE FOR APPOINTMENT CONTINUE ALL YOUR HOME MEDICATIONS PER MED RECS STOP TAKING HTCZ AND NEW RX GIVEN BY PMD LASIX 40 MG PO DAILY(MONDAY TO MONDAY EXCEPT MONDAY AND MONDAY) CALL [facility] OR GO TO THE NEAREST EMERGENCY ROOM IF SYMPTOMS RETURN OR WORSENING DISCUSS WITH PATIENT FAMILY AND PATIENT WHO AGREE AND VERBALIZED UNDERSTANDING
[2017-02-13 16:05] VITALS: BP 104/61; PULSE 77; TEMP 97.9; O2SAT 99
--- NOTE | 2017-02-14 05:12 | DS ---
HISTORY OF PRESENT ILLNESS: This is a 71-year-old female who was brought in with a history of congestive heart failure. She has a history of hypertension, diabetes and high cholesterol. She previously had a CABG. Her vital signs were monitored. She was given IV Lasix with improvement. Chest x-ray has improved. Labs were acceptable. Her medications, only change was changing HydroDIURIL to Lasix 40 mg p.o. one a day five days a week. Care of plan was explained to the patient and her . She will continue with other medications including valsartan, beta-blockers, and Toprol 50 mg p.o. one a day. Last echocardiogram showed normal LV systolic function. There is no need to do any further cardiac testing at this point. FINAL DIAGNOSES: Congestive heart failure, hypertension, diabetes, coronary artery disease, status post coronary artery bypass graft. Jeff Alvarado MD
--- NOTE | 2017-02-14 11:34 | CARD ---
APPROVED REPORT EKG Measurement Heart [id number] MD [id number] <Conclusion> Sinus rhythm with sinus arrhythmia with 1st degree AV block Left axis deviation Left ventricular hypertrophy with repolarization abnormality Cannot rule out Septal infarct, age undetermined Prolonged QT Abnormal ECG
== END 2017-02-13 17:21 | disposition home or self-care (01) | DRG 292 ==
LOC: C.ER 08:09 → C.9E 09:47 → C.6T 10:21
PROVIDERS: ADMIT Internal Medicine Cardiovascular Disease; ATTEND Internal Medicine Cardiovascular Disease
DX: I11.0 Hypertensive heart disease with heart failure (principal); C95.90 Leukemia, unspecified not having achieved remission; E11.9 Type 2 diabetes mellitus without complications; Z68.1 Body mass index [BMI] 19.9 or less, adult; I25.10 Atherosclerotic heart disease of native coronary artery without angina pectoris; I50.9 Heart failure, unspecified; Z79.84 Long term (current) use of oral hypoglycemic drugs; E78.00 Pure hypercholesterolemia, unspecified; Z95.1 Presence of aortocoronary bypass graft

== ENCOUNTER 2017-04-10 02:29 | Inpatient (IN) | payer MEDICARE, BC ==
[2017-04-10 02:38] VITALS: BMI 25.6
--- NOTE | 2017-04-10 02:38 | C.PDOC ---
History Of Present Illness Patient with a history of CHF, presents to ED accompanied by for evaluation of sudden onset of shortness of breath. reports he gave patient 1 dose of SL Nitro with improvement of symptoms. Patient currently speaking in 2-3 word sentences. No other complaints. Time Seen by Provider: 04/10/17 02:37 Chief Complaint (Nursing): Shortness Of Breath History Per: Patient, Family Onset/Duration Of Symptoms: Mins Current Symptoms Are (Timing): Still Present Initiating Event: Other Exacerbating Factor(s): Exertion, Laying Flat Current Respiratory Medications: See Home Med List Severity: Severe Pain Scale Rating Of: 8 Associated Symptoms: denies: Fever, Chills, Sweating, Productive Cough, Heart Racing Reports Recently: Seen In ED, Treated By A Physician, Hospitalized Recent travel outside of the [place]: No Additional History Per: Family Past Medical History Reviewed: Historical Data, Nursing Documentation, Vital Signs Vital Signs: Last Vital Signs Temp 97.5 F L 04/10/17 02:51 Pulse 58 L 04/10/17 05:03 Resp 13 04/10/17 05:03 BP 116/41 L 04/10/17 05:03 Pulse Ox 97 04/10/17 05:03 - Medical History PMH: CHF, HTN, Hypercholesterolemia Denies: Chronic Kidney Disease Surgical History: CABG Family History: States: No Known Family Hx, Unknown Family Hx - Social History Hx Alcohol Use: No Hx Substance Use: No - Immunization History Hx Tetanus Toxoid Vaccination: No Hx Influenza Vaccination: No Hx Pneumococcal Vaccination: No Review Of Systems Constitutional: Negative for: Fever, Chills Eyes: Negative for: Redness ENT: Negative for: Throat Pain Cardiovascular: Negative for: Chest Pain Respiratory: Positive for: Shortness of Breath, SOB with Excertion Gastrointestinal: Negative for: Nausea, Vomiting Genitourinary: Negative for: Dysuria Musculoskeletal: Negative for: Leg Pain Skin: Negative for: Rash Neurological: Negative for: Weakness Psych: Negative for: Anxiety Physical Exam - Physical Exam Appears: In Acute Distress Skin: Warm, Dry Head: Normacephalic Eye(s): bilateral: Normal Inspection Oral Mucosa: Moist Neck: Trachea Midline, Supple Chest: Symmetrical, Other (CABG scar noted) Cardiovascular: Rhythm Regular, JVD Respiratory: Decreased Breath Sounds, Rales (scattered), No Rhonchi, No Wheezing Gastrointestinal/Abdominal: Bowel Sounds, Soft, No Tenderness, No Guarding, No Rebound Back: Normal Inspection Extremity: Pedal Edema (trace pedal edema bilaterally) Extremity: Bilateral: Atraumatic Pulses: Left Dorsalis Pedis: Normal, Right Dorsalis Pedis: Normal Neurological/Psych: Oriented x3, Normal Speech, Normal Cognition Gait: Unable To Assess ED Course And Treatment - Laboratory Results Result Diagrams: 04/10/17 02:50 04/10/17 02:50 ECG: Interpreted By Me, Viewed By Me ECG Rhythm: Sinus Rhythm (52), Nonspecific Changes (lad, lvh) O2 Sat by Pulse Oximetry: 98 Pulse Ox Interpretation: Normal - Radiology CXR: Interpreted by Me, Viewed By Me CXR Interpretation: Yes: Cardiomegaly, Other (chf, cabg). No: Infiltrates, Fracture Progress Note: 3:42 am repeat ekg, sinus 53 bpm, lad, lvh, 1 degree avb, nsstt changes - no acute changes from the on at 2:45. 4:05 pt not feeling well, heart rate 32. 0.5 mg iv atropine given., pt feels better. spoke with dr cervantes(icu) will come and see the pt in the ed. at bedside. 4:29 ekg nsr 55bpm, 1 degree avb, lvh occ pac's Critical Care Time - Critical Care Note Total Time (in mins): 30 Documented critical care: time excludes all time spent performing seperately billable procedures. Disposition Discussed With : Jeff Alvarado Comment: accepted the pt on his service and took over the care at 5AM Doctor Will See Patient In The: ED Counseled Patient/Family Regarding: Studies Performed, Diagnosis - Disposition Disposition: HOSPITALIZED Disposition Time: 02:37 Condition: CRITICAL Forms: [facility] (Spanish) - POA Present On Arrival: Poor Glycemic Control - Clinical Impression Clinical Impression: Acute pulmonary edema, Symptomatic bradycardia, Renal insufficiency - Scribe Statement The provider has reviewed the documentation as recorded by the Scribe (Bryanna Pagan) Provider Attestation: All medical record entries made by the Scribe were at my direction and personally dictated by me. I have reviewed the chart and agree that the record accurately reflects my personal performance of the history, physical exam, medical decision making, and the department course for this patient. I have also personally directed, reviewed, and agree with the discharge instructions and disposition. Decision To Admit - Pt Status Changed To: Hospital Disposition Of: Inpatient - Admit Certification Admit to Inpatient:: After my assessment, the patient will require hospitalization for at least two midnights. This is because of the severity of symptoms shown, intensity of services needed, and/or the medical risk in this patient being treated as an outpatient. - InPatient: Physician Admission Certification: I certify that this patient requires 2 or more midnights of care for the following reason:: After my assessment, the patient will require hospitalization for at least two midnights. This is because of the severity of symptoms shown, intensity of services needed, and/or the medical risk in this patient being treated as an outpatient. - . Bed Request Type: ICU Admitting Physician: Jeff Alvarado Patient Diagnosis: Acute pulmonary edema, Symptomatic bradycardia, Renal insufficiency
[2017-04-10 02:54] LABS: BASO % 0.4 % (0.0-2.0); EOS # 0.1 K/uL (0.0-0.7); HEMOGLOBIN 7.8 g/dL (11.0-16.0); LYMPH # 2.3 K/uL (1.0-4.3); MEAN CELL VOLUME 98.4 fL (81.0-99.0); MEAN CORPUSCULAR HEMOGLOBIN 32.7 pg (27.0-31.0); MEAN CORPUSCULAR HGB CONC 33.2 g/dL (33.0-37.0); MONO # 0.2 K/uL (0.0-0.8); MONO % 2.4 % (0.0-10.0); NEUT % 61.2 % (50.0-75.0); RBC 2.4 Mil/uL (3.80-5.20); WHITE BLOOD COUNT 6.5 K/uL (4.8-10.8)
[2017-04-10 03:05] LABS: VENOUS BLOOD GAS BASE EXCESS -7.7 mmol/L (0.0-2.0); VENOUS BLOOD GAS PCO2 34 mmHg (40-60); VENOUS BLOOD GAS PO2 16 mm/Hg (30-55); VENOUS BLOOD PH 7.32 (7.32-7.43)
[2017-04-10 03:06] LABS: ALB/GLOB RATIO 0.7 (1.0-2.1)
[2017-04-10 03:21] LABS: TROPONIN I 0.065 ng/mL (0.00-0.120)
[2017-04-10] MEDS ORDERED: Morphine 4 MG/ML VIAL ONE ×2 (03:54→05:25)
[2017-04-10] MEDS ORDERED: Atropine Sulfate 1 mg/ml Vial (1 ml) IVP STA (04:15)
[2017-04-10] MEDS ORDERED: DOPamine 400mg/250ml D5W 400 MG/250 ML BAG IV PRN (04:35)
[2017-04-10 04:47] LABS: SQUAMOUS EPITHIAL 8 /hpf (0-5); URINE AMORPHOUS SEDIMENT MODERATE /ul (<OCC); URINE BACTERIA RARE (<OCC); URINE BILIRUBIN NEGATIVE (NEGATIVE); URINE BLOOD 1+ (NEGATIVE); URINE CLARITY Hazy (Clear); URINE COLOR Yellow (YELLOW); URINE GLUCOSE (UA) NORMAL (Normal); URINE LEUKOCYTE ESTERASE NEG Leu/uL (Negative); URINE NITRATE NEGATIVE (NEGATIVE); URINE PROTEIN 1+ mg/dL (NEGATIVE); URINE UROBILINOGEN NORMAL mg/dL (0.2-1.0)
[2017-04-10] MEDS ORDERED: DOPamine 400mg/250ml D5W 400 MG/250 ML BAG IV ONE (04:50)
[2017-04-10] MEDS ORDERED: Heparin25000 units/250ml 1/2NS 25,000 UNITS/250 ML BAG IV PRN ×2 (07:06→10:34)
--- NOTE | 2017-04-10 07:56 | CP.PCM.CON ---
History of Present Illness - History of Present Illness History of Present Illness: 71 F with h/o cabg 2015, h/o htn, dm, h/o recent sob being treated empirically with ntg and lasix 4/wk, cri, patient early am c/o right lower back pain, sob, felt her being cold and felt that she passed out, gave her sub ling ntg , then she felt better and he called ems. Patient in ER was sob, cxr showed interstitial edema, patient only needed nc 2-3 lit of o2, relatively hypotensive , given lasix in ER, the she was noticed to be having sinus malvin, intermittent with 1st deg av block, when she was started on low dose dopamine. At the time of eval dopamine 3mcg running, bp 120/50, p 60's, rr 18/min, spo2 100% on 3lit nc. Only c/o right mid back ie rib cage pain which started early this morning. Patient denies orthopnea at home. Patient mentions chronic swelling of the right leg post vein harvest, but recent newer swelling in the left. PMH/psh as above Social live with , denies smoking, alcohol Meds reviewed, metformin, metoprolol, losartan, lasix, ntg prn Allergies nkda Family history not contributory Review of Systems - Review of Systems All systems: reviewed and no additional remarkable complaints except (HPI) Past Patient History - Infectious Disease Hx of Infectious Diseases: None - Past Medical History & Family History Past Medical History?: Yes - Past Social History Smoking Status: Never Smoked Alcohol: None Drugs: Denies Home Situation {Lives}: With Family Domestic Violence: Negative - CARDIAC Hx Congestive Heart Failure: Yes Hx Hypercholesterolemia: Yes Hx Hypertension: Yes - PULMONARY Hx Respiratory Disorders: No - NEUROLOGICAL Hx Neurological Disorder: No - HEENT Hx HEENT Problems: Yes Hx Glaucoma: Yes - RENAL Hx Chronic Kidney Disease: No - ENDOCRINE/METABOLIC Hx Diabetes Mellitus Type 2: Yes - HEMATOLOGICAL/ONCOLOGICAL Hx Blood Disorders: No - INTEGUMENTARY Hx Dermatological Problems: No - MUSCULOSKELETAL/RHEUMATOLOGICAL Hx Falls: No - GASTROINTESTINAL Hx Gastrointestinal Disorders: No - GENITOURINARY/GYNECOLOGICAL Hx Genitourinary Disorders: No - PSYCHIATRIC Hx Substance Use: No - SURGICAL HISTORY Hx Coronary Artery Bypass Graft: Yes - ANESTHESIA Hx Anesthesia: Yes Hx Anesthesia Reactions: No Hx Malignant Hyperthermia: No Meds Allergies/Adverse Reactions: Allergies Allergy/AdvReac Type Severity Reaction Status Date / Time No Known Allergies Allergy Verified 02/10/17 08:12 - Medications Medications: Current Medications Allopurinol (Zyloprim) 100 mg PO DAILY AMAN Brimonidine Tartrate (Alphagan 0.2% Opht) 5 ml OU HS AMAN Heparin Sodium (Porcine) (Heparin) 3,100 units 70 units/kg (3100 units) IV ONCE ONE Stop: 04/10/17 07:07 Home Med (Bimatoprost [Lumigan]) 2.5 ml OU HS AMAN Home Med (Ezetimibe/Simvastatin [Vytorin 10-20 Mg Tablet]) 1 tab PO HS AMAN Dopamine HCl/Dextrose (Dopamine 400mg/250ml D5w) 400 mg in 250 mls @ 5.052 mls/ hr IV .Q24H PRN; 3 MCG/KG/MIN PRN Reason: TITRATE PER MD ORDER Last Admin: 04/10/17 05:04 Dose: 5.052 mls/hr Heparin Sodium/Sodium Chloride (Heparin 57301 Units/250ml 1/2 Normal Saline) 25 ,000 units in 250 mls @ 5.389 mls/hr IV .Q24H PRN; Protocol; 12 UNITS/KG/HR PRN Reason: PROTOCOL Physical Exam - Additional Findings Additional findings: * HEENT ANUSHKA * Neck JVD noted, fixed * CVS Regular, bradycardia * PA soft, nt bs present * Ext 2+ edema * DIRECTORY CARRIER awake oriented x3 no fnd * Skin normal turgor Results - Vital Signs Recent Vital Signs: Last Vital Signs Temp 97.5 F L 04/10/17 02:51 Pulse 61 04/10/17 05:57 Resp 17 04/10/17 05:57 BP 119/54 L 04/10/17 05:57 Pulse Ox 99 04/10/17 05:57 - Labs Result Diagrams: 04/10/17 02:50 04/10/17 02:50 Labs: Laboratory Results - last 24 hr 04/10/17 04/10/17 04/10/17 02:38 02:50 02:50 WBC 6.5 RBC 2.40 L Hgb 7.8 L D Hct 23.6 L MCV 98.4 D MCH 32.7 H MCHC 33.2 RDW 18.0 H Plt Count 203 MPV 9.0 Neut % (Auto) 61.2 Lymph % (Auto) 35.0 [place] % (Auto) 2.4 Eos % (Auto) 1.0 Baso % (Auto) 0.4 Neut # (Auto) 4.0 Lymph # (Auto) 2.3 [place] # (Auto) 0.2 Eos # (Auto) 0.1 Baso # (Auto) 0.0 PT 11.0 INR 1.0 APTT 31 pO2 VBG pH VBG pCO2 VBG HCO3 VBG Total CO2 VBG O2 Sat (Calc) VBG Base Excess VBG Potassium Glucose Lactate Crit Value Called To Crit Value Called By Crit Value Read Back Blood Gas Notified Time Sodium Potassium Chloride Carbon Dioxide Anion Gap BUN Creatinine Est GFR ( Amer) Est GFR (Non-Af Amer) Random Glucose Calcium Total Bilirubin AST ALT Alkaline Phosphatase Troponin I NT-Pro-B Natriuret Pep Total Protein Albumin Globulin Albumin/Globulin Ratio Venous Blood Potassium Urine Color Urine Clarity Urine pH Ur Specific [place] Urine Protein Urine Glucose (UA) Urine Ketones Urine Blood Urine Nitrate Urine Bilirubin Urine Urobilinogen Ur Leukocyte Esterase Urine RBC (Auto) Ur Squamous Epith Cells Amorphous Sediment Urine Bacteria Influenza Typ A,B (EIA) Negative for flu a/b 04/10/17 04/10/17 04/10/17 02:50 03:00 04:28 WBC RBC Hgb Hct MCV MCH MCHC RDW Plt Count MPV Neut % (Auto) Lymph % (Auto) [place] % (Auto) Eos % (Auto) Baso % (Auto) Neut # (Auto) Lymph # (Auto) [place] # (Auto) Eos # (Auto) Baso # (Auto) PT INR APTT pO2 16 L VBG pH 7.32 VBG pCO2 34 L VBG HCO3 16.8 VBG Total CO2 18.5 L VBG O2 Sat (Calc) 19.1 L VBG Base Excess -7.7 L VBG Potassium 5.4 H Glucose 155 H Lactate 2.3 H Crit Value Called To Dr gray Crit Value Called By Dionna pike rt Crit Value Read Back Y Blood Gas Notified Time 302 Sodium 136 138.0 Potassium 5.5 H Chloride 104 109.0 H Carbon Dioxide 17 L Anion Gap 21 H BUN 44 H Creatinine 2.2 H Est GFR ( Amer) 26 Est GFR (Non-Af Amer) 22 Random Glucose 151 H Calcium 9.0 Total Bilirubin 0.4 AST 57 H D ALT 40 Alkaline Phosphatase 132 H D Troponin I 0.0650 NT-Pro-B Natriuret Pep 42930 H Total Protein 9.7 H Albumin 4.0 Globulin 5.7 H Albumin/Globulin Ratio 0.7 L Venous Blood Potassium 5.4 H Urine Color Yellow Urine Clarity Hazy Urine pH 5.0 Ur Specific [place] 1.014 Urine Protein 1+ H Urine Glucose (UA) Normal Urine Ketones Negative Urine Blood 1+ H Urine Nitrate Negative Urine Bilirubin Negative Urine Urobilinogen Normal Ur Leukocyte Esterase Neg Urine RBC (Auto) 13 H Ur Squamous Epith Cells 8 H Amorphous Sediment Moderate H Urine Bacteria Rare Influenza Typ A,B (EIA) Assessment & Plan - Assessment and Plan (Free Text) Assessment: * Interstitial edema without orthopnea, without significant drop in spo2 less likely from CHF * Hypergammaglobunimia with anemia macrocytic * CRI * Bradycardia temporary pt on metoprolol at home * CAD s/p cabg 2014 * H/o dm Plan: * Serum prot electrophoresis * v/q scan * echo * Venous doppler * urine prot, creat * iron, tsh, stool occult * Heparin drip mean while * PMD is 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
[2017-04-10 08:05] LABS: BASO % 0.5 % (0.0-2.0); EOS % 0.1 % (0.0-4.0); HEMOGLOBIN 7.1 g/dL (11.0-16.0); LYMPH # 0.6 K/uL (1.0-4.3); LYMPH % 13.7 % (20.0-40.0); MEAN CORPUSCULAR HEMOGLOBIN 33.5 pg (27.0-31.0); MEAN CORPUSCULAR HGB CONC 34.2 g/dL (33.0-37.0); MEAN PLATELET VOLUME 8.9 fL (7.2-11.7); MONO # 0.1 K/uL (0.0-0.8); MONO % 1.4 % (0.0-10.0); NEUT # 3.9 K/uL (1.8-7.0); NEUT % 84.3 % (50.0-75.0); RBC 2.12 Mil/uL (3.80-5.20); RED CELL DISTRIBUTION WIDTH 18.4 % (11.5-14.5); WHITE BLOOD COUNT 4.6 K/uL (4.8-10.8)
[2017-04-10 08:24] LABS: IRON 32 ug/dL (37-170)
[2017-04-10 08:37] LABS: % IRON SATURATION 12 (20-55); TOTAL IRON BINDING CAPACITY 270 ug/dL (250-450)
[2017-04-10] MEDS ORDERED: (Novolin R) Insulin Human Regular 100 units/ml vial IV ONE (08:45)
[2017-04-10] MEDS ORDERED: Dextrose 50% SYRINGE Inj (50 ml) IV ONE (08:45)
[2017-04-10 09:14] LABS: ALB/GLOB RATIO 0.7 (1.0-2.1); ALBUMIN 3.8 g/dL (3.5-5.0); CALCIUM 8.6 mg/dl (8.6-10.4); MAGNESIUM 2.2 mg/dL (1.6-2.3)
--- NOTE | 2017-04-10 09:22 | RAD ---
Chest x-ray single frontal view History: Shortness of breath. Comparison: None available. Findings: Moderate venous congestion. Rounded nodular density seen at the lateral aspect of the right mid to lower lung zone. Cardiomegaly. Status post median sternotomy and CABG. Tortuous ectatic aorta. Degenerative changes in the spine and shoulders. Impression: Moderate venous congestion. Rounded nodular density seen at the lateral aspect of the right mid to lower lung zone. Cardiomegaly. Status post median sternotomy and CABG.
[2017-04-10] MEDS ORDERED: Calcium Gluconate 4.65 mEq/10 ml Inj IVP ONE (09:44)
[2017-04-10] MEDS ORDERED: Sodium Bicarbonate (8.4%) 50 Meq Syringe IVP ONE (09:44)
[2017-04-10] MEDS ORDERED: Sodium Chloride 0.9% 1,000 ML IV SCH (10:00)
[2017-04-10 10:08] LABS: ABG ALLEN TEST POS; ARTERIAL BLOOD GAS HCO3 21.5 mmol/L (21-28); ARTERIAL BLOOD GAS HEMOGLOBIN 8.2 g/dL (11.7-17.4); ARTERIAL BLOOD GAS O2 SAT 99.7 % (95-98); ARTERIAL BLOOD GAS PCO2 29 mm/Hg (35-45); ARTERIAL BLOOD GAS PH 7.43 (7.35-7.45); ARTERIAL BLOOD GAS PO2 155 mm/Hg (80-100); ARTERIAL BLOOD GAS TCO2 20.1 mmol/L (22-28)
[2017-04-10 10:32] LABS: SQUAMOUS EPITHIAL 4 /hpf (0-5); URINE AMORPHOUS SEDIMENT RARE /ul (<OCC); URINE BILIRUBIN NEGATIVE (NEGATIVE); URINE BLOOD NEGATIVE (NEGATIVE); URINE CLARITY Hazy (Clear); URINE GLUCOSE (UA) NORMAL (Normal); URINE LEUKOCYTE ESTERASE NEG Leu/uL (Negative); URINE NITRATE NEGATIVE (NEGATIVE); URINE PROTEIN 2+ mg/dL (NEGATIVE); URINE UROBILINOGEN NORMAL mg/dL (0.2-1.0)
[2017-04-10 10:34] LABS: URINE BACTERIA MOD (<OCC); URINE COLOR YELLOW (YELLOW)
[2017-04-10 11:56] LABS: CREATININE, RANDOM URINE 95.3 mg/dL
--- NOTE | 2017-04-10 13:35 | VASCLAB ---
PROCEDURE: Lower Extremity Venous Duplex Exam. HISTORY: Shortness of breath PRIORS: None. TECHNIQUE: Bilateral common femoral, femoral, popliteal and posterior tibial, peroneal and great saphenous veins were evaluated. Flow was assessed with color Doppler, compressibility, assessment of phasic flow and augmentation response. Report prepared by SUSAN Bui FINDINGS: RIGHT: 1. Common Femoral Vein: 1.1. Compressibility - Fully compressible: Thrombus - None : Flow - Phasic: Augmentation -Normal: Reflux - None. 2. Femoral Vein: 2.1. Compressibility - Fully compressible: Thrombus - None : Flow - Phasic: Augmentation -Normal: Reflux - None. 3. Popliteal Vein: 3.1. Compressibility - Fully compressible: Thrombus - None : Flow - Phasic: Augmentation -Normal: Reflux - None. 4. Posterior Tibial Vein: 4.1. Compressibility - Fully compressible: Thrombus - None: Flow - Phasic: Augmentation -Normal: Reflux - None. 5. Peroneal Vein: 5.1. Compressibility - Fully compressible: Thrombus - None: Flow - Phasic: Augmentation -Normal: Reflux - None. 6. Great Saphenous Vein: 6.1. Previously harvested. LEFT: 1. Common Femoral Vein: 1.1. Compressibility - Fully compressible: Thrombus - None: Flow - Phasic: Augmentation -Normal: Reflux - None. 2. Femoral Vein: 2.1. Compressibility - Fully compressible: Thrombus - None: Flow - Phasic: Augmentation -Normal: Reflux - None. 3. Popliteal Vein: 3.1. Compressibility - Fully compressible: Thrombus - None : Flow - Phasic: Augmentation -Normal: Reflux - None. 4. Posterior Tibial Vein: 4.1. Compressibility - Fully compressible: Thrombus - None: Flow - Phasic: Augmentation -Normal: Reflux - None. 5. Peroneal Vein: 5.1. Compressibility - Fully compressible: Thrombus - None: Flow - Phasic: Augmentation -Normal: Reflux - None. 6. Great Saphenous Vein: 6.1. Previously harvested. OTHER FINDINGS: Right: None significant. Left: None significant. IMPRESSION: Right: No evidence of deep or superficial vein thrombosis of the right lower extremity. Pulsatile venous flow noted. Left: No evidence of deep or superficial vein thrombosis of the left lower extremity. Pulsatile venous flow noted.
[2017-04-10] MEDS: Albuterol-Ipratrop 3 mg / 0.5 (3 ml) UD INH SCH ×2 (14:44→19:15)
[2017-04-10] MEDS ORDERED: Sod Polystyrene Sulf 15 gm/60 ml Susp PO ONE (14:45)
--- NOTE | 2017-04-10 17:18 | US ---
PROCEDURE: Ultrasound of the Kidneys HISTORY: hydro COMPARISON: None available. TECHNIQUE: Sonogram of the kidneys. FINDINGS: Examination limited by bowel gas. RIGHT KIDNEY: Measures: 9.2 x 3.9 x 3.7 cm. Echogenic renal parenchyma. Lower pole perinephric fluid. No obstructing calculus or hydronephrosis identified. LEFT KIDNEY: Measures: 9.4 x 9.4 x 3.4 cm. Echogenic renal parenchyma. No obstructing calculus or hydronephrosis identified. OTHER FINDINGS: Alvarez catheter within a nondistended urinary bladder. IMPRESSION: Small fluid at the level of the right lower pole kidney. Echogenic renal parenchyma may be seen in the setting of medical renal disease. No obstructing calculus or hydronephrosis identified. Alvarez catheter within a nondistended urinary bladder.
[2017-04-10 18:35] LABS: ALB/GLOB RATIO 0.7 (1.0-2.1); ALBUMIN 3.9 g/dL (3.5-5.0); CALCIUM 9.3 mg/dl (8.6-10.4)
--- NOTE | 2017-04-10 20:43 | CARD ---
APPROVED REPORT EXAM: Two-dimensional and M-mode echocardiogram with Doppler and color Doppler. Other Information Quality : GoodRhythm : INDICATION Dyspnea Chest Pain Congestive Heart Failure 2D DIMENSIONS IVSd1.3 (0.7-1.1cm)LVDd3.9 (3.9-5.9cm) PWd1.3 (0.7-1.1cm)LVDs2.6 (2.5-4.0cm) FS (%) 35.1 %LVEF (%)65.0 (>50%) M-Mode DIMENSIONS Left Atrium (MM)4.23 (2.5-4.0cm)Aortic Root2.98 (2.2-3.7cm) Aortic Cusp Exc.1.90 (1.5-2.0cm) Mitral Valve MV E [id number]/sMV A Wbgwmxdo02.8cm/sE/A ratio3.7 TDI E/Lateral E'0.0E/Medial E'0.0 Tricuspid Valve TR Peak [id number]/sTR Peak Gr.[id number] LEFT VENTRICLE The left ventricle is normal size. There is mild concentric left ventricular hypertrophy. The left ventricular function is normal. The left ventricular ejection fraction is within the normal range. No regional wall motion abnormalities noted. No left ventricle thrombus noted on this study. There is no ventricular septal defect visualized. There is no left ventricular aneurysm. There is no mass noted in the left ventricle. RIGHT VENTRICLE The right ventricle is normal size. There is normal right ventricular wall thickness. The right ventricular systolic function is normal. ATRIA The left atrium is moderately dilated. The right atrium size is normal. The interatrial septum is intact with no evidence for an atrial septal defect. AORTIC VALVE The aortic valve is normal in structure and function. No aortic regurgitation is present. There is no aortic valvular stenosis. There is no aortic valvular vegetation. MITRAL VALVE The mitral valve is normal in structure and function. There is no evidence of mitral valve prolapse. There is no mitral valve stenosis. Mitral regurgitation is mild.MV EFFECTIVE REGURGINANT ORIFICE AREA IS 0.2 SQ. CM TRICUSPID VALVE The tricuspid valve is normal in structure and function. There is moderate tricuspid regurgitation. Right ventricular systolic pressure is estimated at greater than 60 mmHg. There is severe pulmonary hypertension. There is no tricuspid valve prolapse or vegetation. There is no tricuspid valve stenosis. PULMONIC VALVE The pulmonary valve is normal in structure and function. There is no pulmonic valvular regurgitation. There is no pulmonic valvular stenosis. GREAT VESSELS The aortic root is normal in size. The ascending aorta is normal in size. The pulmonary artery is normal. The IVC is dilated. PERICARDIAL EFFUSION The pericardium appears normal. There is no pleural effusion. <Conclusion> There is mild concentric left ventricular hypertrophy. The left ventricular function is normal. The left ventricular ejection fraction is within the normal range. No regional wall motion abnormalities noted. The left atrium is moderately dilated. Mitral regurgitation is mild.MV EFFECTIVE REGURGINANT ORIFICE AREA IS 0.2 SQ. CM There is moderate tricuspid regurgitation. Right ventricular systolic pressure is estimated at greater than 60 mmHg. There is severe pulmonary hypertension.
[2017-04-10] MEDS: Sodium Chloride 0.9% 1,000 ML IV SCH (20:54)
[2017-04-10] MEDS: Latanoprost 2.5 ml Opht Soln OU SCH (21:43)
[2017-04-10] MEDS: Brimonidine 0.2% Opth Sol (5ml) OU SCH (21:43)
--- NOTE | 2017-04-10 22:39 | CP.PCM.CON ---
History of Present Illness - History of Present Illness History of Present Illness: pt is seen and examined, full consult is dictated #[id number] Past Patient History - Infectious Disease Hx of Infectious Diseases: None - Past Medical History & Family History Past Medical History?: Yes - Past Social History Smoking Status: Never Smoked Alcohol: None Drugs: Denies Home Situation {Lives}: With Family Domestic Violence: Negative - CARDIAC Hx Congestive Heart Failure: Yes Hx Hypercholesterolemia: Yes Hx Hypertension: Yes - PULMONARY Hx Respiratory Disorders: No - NEUROLOGICAL Hx Neurological Disorder: No - HEENT Hx HEENT Problems: Yes Hx Glaucoma: Yes - RENAL Hx Chronic Kidney Disease: No - ENDOCRINE/METABOLIC Hx Diabetes Mellitus Type 2: Yes - HEMATOLOGICAL/ONCOLOGICAL Hx Blood Disorders: No - INTEGUMENTARY Hx Dermatological Problems: No - MUSCULOSKELETAL/RHEUMATOLOGICAL Hx Falls: No - GASTROINTESTINAL Hx Gastrointestinal Disorders: No - GENITOURINARY/GYNECOLOGICAL Hx Genitourinary Disorders: No - PSYCHIATRIC Hx Substance Use: No - SURGICAL HISTORY Hx Coronary Artery Bypass Graft: Yes - ANESTHESIA Hx Anesthesia: Yes Hx Anesthesia Reactions: No Hx Malignant Hyperthermia: No Meds Allergies/Adverse Reactions: Allergies Allergy/AdvReac Type Severity Reaction Status Date / Time No Known Allergies Allergy Verified 02/10/17 08:12 - Medications Medications: Current Medications Albuterol/Ipratropium (Duoneb 3 Mg/0.5 Mg (3 Ml) Ud) 3 ml INH RQ6 AMAN Last Admin: 04/10/17 19:15 Dose: 3 ml Brimonidine Tartrate (Alphagan 0.2% Opht) 5 ml OU HS AMAN Last Admin: 04/10/17 21:43 Dose: 1 drop Ezetimibe (Zetia) 10 mg PO DAILY AMAN Last Admin: 04/10/17 13:03 Dose: 10 mg Epoetin Krystian (Procrit) 10,000 unit SC TTS [facility] Famotidine (Pepcid) 20 mg PO DAILY AMAN Last Admin: 04/10/17 12:48 Dose: 20 mg Heparin Sodium (Porcine) (Heparin) 5,000 units SC Q12 AMAN Last Admin: 04/10/17 21:45 Dose: 5,000 units Sodium Chloride (Sodium Chloride 0.9%) 1,000 mls @ 50 mls/hr IV .Q20H AMAN Last Admin: 04/10/17 20:54 Dose: 50 mls/hr Latanoprost (Xalatan Opht) 0 ml OU HS AMAN Last Admin: 04/10/17 21:43 Dose: 2.5 ml Rosuvastatin Calcium (Crestor) 5 mg PO HS AMAN Last Admin: 04/10/17 21:44 Dose: 5 mg Vitamin B Complex/Vit C/Folic Acid (Nephro-Lianna) 1 tab PO 0800 [facility] Results - Vital Signs Recent Vital Signs: Last Vital Signs Temp 97.8 F 04/10/17 20:00 Pulse 87 04/10/17 17:07 Resp 18 04/10/17 17:07 BP 155/49 H 04/10/17 17:07 Pulse Ox 100 04/10/17 12:30 - Labs Result Diagrams: 04/10/17 07:56 04/10/17 18:15 Labs: Laboratory Results - last 24 hr 04/10/17 04/10/17 04/10/17 02:38 02:50 02:50 WBC 6.5 RBC 2.40 L Hgb 7.8 L D Hct 23.6 L MCV 98.4 D MCH 32.7 H MCHC 33.2 RDW 18.0 H Plt Count 203 MPV 9.0 Neut % (Auto) 61.2 Lymph % (Auto) 35.0 [place] % (Auto) 2.4 Eos % (Auto) 1.0 Baso % (Auto) 0.4 Neut # (Auto) 4.0 Lymph # (Auto) 2.3 [place] # (Auto) 0.2 Eos # (Auto) 0.1 Baso # (Auto) 0.0 PT 11.0 INR 1.0 APTT 31 Puncture Site pCO2 pO2 HCO3 ABG pH ABG Total CO2 ABG O2 Saturation ABG Base Excess ABG Hemoglobin ABG Carboxyhemoglobin POC ABG HHb (Measured) ABG Methemoglobin [place] Test VBG pH VBG pCO2 VBG HCO3 VBG Total CO2 VBG O2 Sat (Calc) VBG Base Excess VBG Potassium A-a O2 Difference Respiratory Index Hgb O2 Saturation Glucose Lactate Liter Flow FiO2 Crit Value Called To Crit Value Called By Crit Value Read Back Blood Gas Notified Time Sodium Potassium Chloride Carbon Dioxide Anion Gap BUN Creatinine Est GFR ( Amer) Est GFR (Non-Af Amer) POC Glucose (mg/dL) Random Glucose Lactic Acid Calcium Phosphorus Magnesium Iron TIBC % Saturation Total Bilirubin AST ALT Alkaline Phosphatase Troponin I NT-Pro-B Natriuret Pep Total Protein Albumin Globulin Albumin/Globulin Ratio TSH 3rd Generation Venous Blood Potassium Urine Color Urine Clarity Urine pH Ur Specific [place] Urine Protein Urine Glucose (UA) Urine Ketones Urine Blood Urine Nitrate Urine Bilirubin Urine Urobilinogen Ur Leukocyte Esterase Urine WBC (Auto) Urine RBC (Auto) Ur Squamous Epith Cells Amorphous Sediment Urine Bacteria Ur Random Creatinine U Random Total Protein Influenza Typ A,B (EIA) Negative for flu a/b Blood Type Antibody Screen 04/10/17 04/10/17 04/10/17 02:50 03:00 04:28 WBC RBC Hgb Hct MCV MCH MCHC RDW Plt Count MPV Neut % (Auto) Lymph % (Auto) [place] % (Auto) Eos % (Auto) Baso % (Auto) Neut # (Auto) Lymph # (Auto) [place] # (Auto) Eos # (Auto) Baso # (Auto) PT INR APTT Puncture Site pCO2 pO2 16 L HCO3 ABG pH ABG Total CO2 ABG O2 Saturation ABG Base Excess ABG Hemoglobin ABG Carboxyhemoglobin POC ABG HHb (Measured) ABG Methemoglobin [place] Test VBG pH 7.32 VBG pCO2 34 L VBG HCO3 16.8 VBG Total CO2 18.5 L VBG O2 Sat (Calc) 19.1 L VBG Base Excess -7.7 L VBG Potassium 5.4 H A-a O2 Difference Respiratory Index Hgb O2 Saturation Glucose 155 H Lactate 2.3 H Liter Flow FiO2 Crit Value Called To Dr gray Crit Value Called By Dionna pike rt Crit Value Read Back Y Blood Gas Notified Time 302 Sodium 136 138.0 Potassium 5.5 H Chloride 104 109.0 H Carbon Dioxide 17 L Anion Gap 21 H BUN 44 H Creatinine 2.2 H Est GFR ( Amer) 26 Est GFR (Non-Af Amer) 22 POC Glucose (mg/dL) Random Glucose 151 H Lactic Acid Calcium 9.0 Phosphorus Magnesium Iron TIBC % Saturation Total Bilirubin 0.4 AST 57 H D ALT 40 Alkaline Phosphatase 132 H D Troponin I 0.0650 NT-Pro-B Natriuret Pep 30465 H Total Protein 9.7 H Albumin 4.0 Globulin 5.7 H Albumin/Globulin Ratio 0.7 L TSH 3rd Generation Venous Blood Potassium 5.4 H Urine Color Yellow Urine Clarity Hazy Urine pH 5.0 Ur Specific [place] 1.014 Urine Protein 1+ H Urine Glucose (UA) Normal Urine Ketones Negative Urine Blood 1+ H Urine Nitrate Negative Urine Bilirubin Negative Urine Urobilinogen Normal Ur Leukocyte Esterase Neg Urine WBC (Auto) Urine RBC (Auto) 13 H Ur Squamous Epith Cells 8 H Amorphous Sediment Moderate H Urine Bacteria Rare Ur Random Creatinine U Random Total Protein Influenza Typ A,B (EIA) Blood Type Antibody Screen 04/10/17 04/10/17 04/10/17 07:56 07:56 07:56 WBC 4.6 L RBC 2.12 L Hgb 7.1 L Hct 20.8 L MCV 98.0 MCH 33.5 H MCHC 34.2 RDW 18.4 H Plt Count 178 MPV 8.9 Neut % (Auto) 84.3 H Lymph % (Auto) 13.7 L [place] % (Auto) 1.4 Eos % (Auto) 0.1 Baso % (Auto) 0.5 Neut # (Auto) 3.9 Lymph # (Auto) 0.6 L [place] # (Auto) 0.1 Eos # (Auto) 0.0 Baso # (Auto) 0.0 PT INR APTT Puncture Site pCO2 pO2 HCO3 ABG pH ABG Total CO2 ABG O2 Saturation ABG Base Excess ABG Hemoglobin ABG Carboxyhemoglobin POC ABG HHb (Measured) ABG Methemoglobin [place] Test VBG pH VBG pCO2 VBG HCO3 VBG Total CO2 VBG O2 Sat (Calc) VBG Base Excess VBG Potassium A-a O2 Difference Respiratory Index Hgb O2 Saturation Glucose Lactate Liter Flow FiO2 Crit Value Called To Crit Value Called By Crit Value Read Back Blood Gas Notified Time Sodium 132 Potassium 6.4 H* Chloride 104 Carbon Dioxide 17 L Anion Gap 17 BUN 47 H Creatinine 2.5 H Est GFR ( Amer) 23 Est GFR (Non-Af Amer) 19 POC Glucose (mg/dL) Random Glucose 187 H Lactic Acid Calcium 8.6 Phosphorus 6.1 H Magnesium 2.2 Iron 32 L TIBC 270 % Saturation 12 L Total Bilirubin 0.4 AST 56 H ALT 43 Alkaline Phosphatase 115 Troponin I NT-Pro-B Natriuret Pep Total Protein 9.3 H Albumin 3.8 Globulin 5.5 H Albumin/Globulin Ratio 0.7 L TSH 3rd Generation 7.21 H Venous Blood Potassium Urine Color Urine Clarity Urine pH Ur Specific [place] Urine Protein Urine Glucose (UA) Urine Ketones Urine Blood Urine Nitrate Urine Bilirubin Urine Urobilinogen Ur Leukocyte Esterase Urine WBC (Auto) Urine RBC (Auto) Ur Squamous Epith Cells Amorphous Sediment Urine Bacteria Ur Random Creatinine U Random Total Protein Influenza Typ A,B (EIA) Blood Type Antibody Screen 04/10/17 04/10/17 04/10/17 07:56 09:34 10:05 WBC RBC Hgb Hct MCV MCH MCHC RDW Plt Count MPV Neut % (Auto) Lymph % (Auto) [place] % (Auto) Eos % (Auto) Baso % (Auto) Neut # (Auto) Lymph # (Auto) [place] # (Auto) Eos # (Auto) Baso # (Auto) PT INR APTT Puncture Site Rr pCO2 29 L pO2 155 H HCO3 21.5 ABG pH 7.43 ABG Total CO2 20.1 L ABG O2 Saturation 99.7 H ABG Base Excess -4.4 L ABG Hemoglobin 8.2 L ABG Carboxyhemoglobin 1.7 H POC ABG HHb (Measured) 0.3 ABG Methemoglobin 0.6 [place] Test Pos VBG pH VBG pCO2 VBG HCO3 VBG Total CO2 VBG O2 Sat (Calc) VBG Base Excess VBG Potassium A-a O2 Difference 44.0 Respiratory Index 0.3 Hgb O2 Saturation 97.4 Glucose Lactate Liter Flow 4.0 FiO2 33.0 Crit Value Called To Crit Value Called By Crit Value Read Back Blood Gas Notified Time Sodium Potassium Chloride Carbon Dioxide Anion Gap BUN Creatinine Est GFR ( Amer) Est GFR (Non-Af Amer) POC Glucose (mg/dL) Random Glucose Lactic Acid 1.1 Calcium Phosphorus Magnesium Iron TIBC % Saturation Total Bilirubin AST ALT Alkaline Phosphatase Troponin I NT-Pro-B Natriuret Pep Total Protein Albumin Globulin Albumin/Globulin Ratio TSH 3rd Generation Venous Blood Potassium Urine Color Yellow Urine Clarity Hazy Urine pH 5.0 Ur Specific [place] 1.018 Urine Protein 2+ H Urine Glucose (UA) Normal Urine Ketones Trace Urine Blood Negative Urine Nitrate Negative Urine Bilirubin Negative Urine Urobilinogen Normal Ur Leukocyte Esterase Neg Urine WBC (Auto) 5 Urine RBC (Auto) 8 H Ur Squamous Epith Cells 4 Amorphous Sediment Rare H Urine Bacteria Mod H Ur Random Creatinine U Random Total Protein Influenza Typ A,B (EIA) Blood Type Antibody Screen 04/10/17 04/10/17 04/10/17 11:15 11:45 12:04 WBC RBC Hgb Hct MCV MCH MCHC RDW Plt Count MPV Neut % (Auto) Lymph % (Auto) [place] % (Auto) Eos % (Auto) Baso % (Auto) Neut # (Auto) Lymph # (Auto) [place] # (Auto) Eos # (Auto) Baso # (Auto) PT INR APTT Puncture Site pCO2 pO2 HCO3 ABG pH ABG Total CO2 ABG O2 Saturation ABG Base Excess ABG Hemoglobin ABG Carboxyhemoglobin POC ABG HHb (Measured) ABG Methemoglobin [place] Test VBG pH VBG pCO2 VBG HCO3 VBG Total CO2 VBG O2 Sat (Calc) VBG Base Excess VBG Potassium A-a O2 Difference Respiratory Index Hgb O2 Saturation Glucose Lactate Liter Flow FiO2 Crit Value Called To Crit Value Called By Crit Value Read Back Blood Gas Notified Time Sodium Potassium Chloride Carbon Dioxide Anion Gap BUN Creatinine Est GFR ( Amer) Est GFR (Non-Af Amer) POC Glucose (mg/dL) 91 Random Glucose Lactic Acid Calcium Phosphorus Magnesium Iron TIBC % Saturation Total Bilirubin AST ALT Alkaline Phosphatase Troponin I NT-Pro-B Natriuret Pep Total Protein Albumin Globulin Albumin/Globulin Ratio TSH 3rd Generation Venous Blood Potassium Urine Color Urine Clarity Urine pH Ur Specific [place] Urine Protein Urine Glucose (UA) Urine Ketones Urine Blood Urine Nitrate Urine Bilirubin Urine Urobilinogen Ur Leukocyte Esterase Urine WBC (Auto) Urine RBC (Auto) Ur Squamous Epith Cells Amorphous Sediment Urine Bacteria Ur Random Creatinine 95.3 U Random Total Protein 25.0 H Influenza Typ A,B (EIA) Blood Type O POSITIVE Antibody Screen Negative 04/10/17 04/10/17 04/10/17 17:20 18:15 21:05 WBC RBC Hgb Hct MCV MCH MCHC RDW Plt Count MPV Neut % (Auto) Lymph % (Auto) [place] % (Auto) Eos % (Auto) Baso % (Auto) Neut # (Auto) Lymph # (Auto) [place] # (Auto) Eos # (Auto) Baso # (Auto) PT INR APTT Puncture Site pCO2 pO2 HCO3 ABG pH ABG Total CO2 ABG O2 Saturation ABG Base Excess ABG Hemoglobin ABG Carboxyhemoglobin POC ABG HHb (Measured) ABG Methemoglobin [place] Test VBG pH VBG pCO2 VBG HCO3 VBG Total CO2 VBG O2 Sat (Calc) VBG Base Excess VBG Potassium A-a O2 Difference Respiratory Index Hgb O2 Saturation Glucose Lactate Liter Flow FiO2 Crit Value Called To Crit Value Called By Crit Value Read Back Blood Gas Notified Time Sodium 136 Potassium 4.6 Chloride 102 Carbon Dioxide 20 L Anion Gap 19 BUN 42 H Creatinine 2.5 H Est GFR ( Amer) 23 Est GFR (Non-Af Amer) 19 POC Glucose (mg/dL) 141 H 109 Random Glucose 136 H Lactic Acid Calcium 9.3 Phosphorus Magnesium Iron TIBC % Saturation Total Bilirubin 0.6 AST 38 H D ALT 43 Alkaline Phosphatase 113 Troponin I NT-Pro-B Natriuret Pep Total Protein 9.5 H Albumin 3.9 Globulin 5.6 H Albumin/Globulin Ratio 0.7 L TSH 3rd Generation Venous Blood Potassium Urine Color Urine Clarity Urine pH Ur Specific [place] Urine Protein Urine Glucose (UA) Urine Ketones Urine Blood Urine Nitrate Urine Bilirubin Urine Urobilinogen Ur Leukocyte Esterase Urine WBC (Auto) Urine RBC (Auto) Ur Squamous Epith Cells Amorphous Sediment Urine Bacteria Ur Random Creatinine U Random Total Protein Influenza Typ A,B (EIA) Blood Type Antibody Screen
--- NOTE | 2017-04-10 23:58 | HP ---
HISTORY OF PRESENT ILLNESS: This is a 71-year-old female who was brought in with a history of shortness of breath. She was found to have acute renal failure, creatinine jumped from 1.5 to 2.3. For the past 2-3 days, she was short of breath. She had a few episodes of vomiting, subsequently came to emergency room, where she was found to have junctional rhythm, heart rate of 30, treated for acute renal failure with IV sodium bicarb, Kayexalate and reverted back to sinus rhythm. She was subsequently admitted to ICU. About a year ago, she was also admitted to [facility] with mild congestive heart failure. Echocardiogram was unremarkable. She was admitted in 02/2017 about a month ago also for congestive heart failure. Two years ago, she had a bypass surgery. PAST MEDICAL HISTORY: CABG 2 years ago. Diabetic, being followed up by Dr. Crain. COPD, being followed by Dr. Turner. HOME MEDICATIONS: Include Lasix 20 mg one a day, metoprolol 25 mg one a day, Vytorin, valsartan 160 mg and metformin 1000 mg once a day. She has been followed by Dr. Crain. Previous blood work was unremarkable. Hemoglobin was 12 grams. PERSONAL HISTORY: She does not smoke, does not drink. ALLERGIES: DENIED. FAMILY HISTORY: Positive for diabetes in mother and hypertension. Father had diabetes. Brother at 45 of [place]. REVIEW OF SYSTEMS: GENERAL: Generalized weakness is noted, getting more so in the past one week. Sleeps on 1-2 pillows. HEENT: No visual disturbances. No hearing loss. PULMONARY: Nonproductive cough, shortness of breath and wheeze. She has been seen and followed up by Dr. Turner. CARDIAC: History of coronary artery disease. About two years ago, she had a CABG done for severe triple-vessel disease at [facility]. ABDOMEN: Denies any abdominal pain. Vomiting 2-3 days ago. GENITOURINARY: Negative for hematuria. MUSCULOSKELETAL: Negative for edema, but has had multiple joint pains. Does not take any pain medications. VASCULAR SYSTEM: Negative for claudication. NEUROLOGIC: No syncope, no TIAs, no CVAs. PSYCHOLOGIC: No evidence of depression. PHYSICAL EXAMINATION: GENERAL: Shows elderly female who is conscious, alert, chronically sick looking, somewhat pale, but in no acute distress. VITAL SIGNS: She is 4 feet 10 inches and weighs 104 pounds. Blood pressure is 120/70, heart rate of 84 and regular sinus on the monitor, respiratory rate of 20, afebrile. HEENT: Head is normocephalic. Eyes, no pallor, no icterus. NECK: Supple. No thyroid enlargement. LUNGS: Basal rales are noted. HEART: Sounds are normal. No definite gallops. Grade 1-2/6 early systolic murmur in mitral area. ABDOMEN: Soft and nontender. EXTREMITIES: No cyanosis, clubbing or edema. Distal pulses are intact. MUSCULOSKELETAL SYSTEM: Arthritis in her hands. PSYCHIATRIC: No evidence of depression. SKIN: Healed surgical scar of previous surgery of CABG in the mid sternal line. LABORATORY DATA: Hemoglobin was 7 gm, creatinine is 2.5. Chest x-ray, CHF. EKG; sinus rhythm, LVH earlier had junctional escape beats. ASSESSMENT AND PLAN: At this point, is a 71-year-old female with history of coronary artery disease, hypertension, diabetes has presented with congestive heart failure. This is the second or third episode of congestive heart failure in past 2 years post coronary artery bypass grafting. Left ventricular systolic function has been normal. The patient has also sustained acute renal failure which is being seen and followed up by Dr. Rascon at this point, the associate field service engineer. The patient is putting out good urine. We will transfuse IV Lasix, culture her up, Nephrology followup. May need repeat catheterization; however, we will wait for the renal function to stabilize; otherwise we will just schedule for nuclear stress test. Care of plan was explained to the patient's who was at the bedside. Jeff Alvarado MD
[2017-04-11] MEDS: Albuterol-Ipratrop 3 mg / 0.5 (3 ml) UD INH SCH ×4 (02:15→19:23)
--- NOTE | 2017-04-11 04:36 | CON ---
DATE: 04/10/2017 RENAL CONSULTATION LOCATION: ICU bed 14 A. REQUESTING PHYSICIAN: Dr. Jeff Alvarado. REASON FOR FOLLOWUP AND CONSULTATION: Renal failure for further evaluation, rapid deterioration of renal function in the last 3 months and shortness of breath. HISTORY OF PRESENT ILLNESS: Mrs. Alvarado is about 71 years old elderly very pleasant [place]ian female with a past medical history significant for diabetes for about 20 years, hypertension for 20 years and coronary artery disease status post CABG about 2 years ago who was admitted with chief complaints of diarrhea about 3 days ago and vomiting x2 and shortness of breath since last night, sudden onset and hence felt weakness suddenly and family called 911 and the patient was brought to the emergency room and the patient was found to have pulmonary vascular congestion and being treated for CHF and also treated initially for hyperkalemia and metabolic acidosis. The patient was seen and examined this morning. The patient was not in distress on nasal cannula. Denies any chest pain, palpitation. Denies any fever. Denies any cough. The patient has complaints of shortness of breath, no chest pain. Denies any dysuria or frequency. Denies any abdominal pain. The patient also complains of slight swelling of both legs for 1 day. Diarrhea is mostly loose, but no blood or no mucous, vomiting x2, mostly bilious in nature. PAST MEDICAL HISTORY: Significant for diabetes for 20 years, hypertension for 20 years, coronary artery disease and hyperlipidemia. PAST SURGICAL HISTORY: Status post CABG about 2 years ago and status post appendectomy long time ago. SOCIAL HISTORY: Denies any smoking, alcohol or drugs. CURRENT MEDICATIONS: Alphagan eyedrops, Crestor 5 mg at bedtime, DuoNeb inhaler and also subcu heparin 5000 q. 12 hours, Nephro-Lianna 1 tablet daily, Pepcid 20 mg p.o. daily, Procrit 10,000 units just ordered 3 times a week Monday, , Monday, Xalatan eyedrops and Zetia 10 mg p.o. daily. HOME MEDICATIONS: Include Alphagan eyedrops, allopurinol, Vytorin, Diovan, metoprolol, metformin and Lasix daily. FAMILY HISTORY: She is and she has three children. Both parents and she has one brother and four sisters, one brother . REVIEW OF SYSTEMS: Significant for sudden onset shortness of breath and the patient received 1 nitro given by the and she felt slightly better as per the patient. All other systems are reviewed and are negative. PHYSICAL EXAMINATION: VITAL SIGNS: On admission blood pressure this morning 116/41, pulse 58, respiration 13, temperature 97.5, saturation 97%. Height 4 feet 10 inches and weight is 100 pounds. GENERAL: Mrs. Alvarado is a 71 years old very pleasant elderly female, moderately built, moderately nourished, not in acute distress. HEENT: Pupils normal and reactive to light accommodation. Conjunctivae pale. Sclerae anicteric. Tongue is moist and trachea is midline. Lungs: Symmetric on both sides. Bilateral breath sounds present. Bilateral basal crackles present. CVS: [place] at the fifth intercostal space, midclavicular line. S1 and S2 audible. No murmur, no gallop. The patient has midsternal scar present from the previous CABG. ABDOMEN: Normal in appearance, soft, tympanic. No guarding. No rigidity. No hepatosplenomegaly. JUVENILE JUSTICE OFFICER: The patient is alert, awake and oriented x3. Nonfocal neuro examination. Cranial nerves II through XII grossly intact. Sensory and motor system is within normal limits. EXTREMITIES: No cyanosis, no clubbing, no edema. LABORATORY DATA: Include as follows as of 04/10/2017; WBC 4.6, hemoglobin 7.1, hematocrit is 20.8, MCV 98 and platelets 178. ABG; pH 7.43, pCO2 of 29, pO2 155, bicarb is 21.5 and saturation is 99.7. Sodium 132, potassium 6.4, chloride 104, CO2 17, BUN 47, creatinine 2.5, GFR is about 19, glucose 187, lactic acid 1.1, calcium 8.6, phosphorus 6.1, magnesium 2.2. Iron 32 and TIBC 270 and saturation is 12%. Total bili 0.4, AST 16, ALT 43, alkaline phosphatase 115, total protein 9.3, albumin is 3.8, globulin is 5.5 and TSH is 7.21.. As of 04/10/2017; sodium 136, potassium 4.6, chloride 102, CO2 20, BUN 42, creatinine 2.5, glucose 136, calcium 9.3, total bili 0.6, AST 38, ALT 43, alkaline phosphatase 113, total protein 9.5, albumin is 3.9 and globulin is 5.6 which is elevated. Urinalysis as of 04/10/2017; yellow, hazy, pH 5, specific gravity 1.018, protein 2+, glucose normal, ketones trace, blood negative, nitrites negative, bilirubin negative, urobilinogen normal, leukocyte esterase negative, wbc 5 and rbc 8 and squamous epithelial is 4, and bacteria moderate and urine creatinine is 95.3, urine protein is 25. Other laboratory data, renal ultrasound as of 04/10/2017; right kidney 9.2 x 3.9 x 3.7 cm and left kidney 9.4 x 9.4 x 3.4 cm, echogenic renal parenchyma, no obstructing calculus or hydronephrosis identified. Duplex scan of the lower extremity arteries as of 04/10/2017, impression no evidence of deep or superficial venous thrombosis of the right lower extremity, pulsatile venous flow noted and the left no a evidence of deep or superficial venous thrombosis of the left lower extremity, pulsatile venous flow noted. Chest x-ray as of 04/10/2017, status post median sternotomy and CABG and impression moderate venous congestion, rounded nodular density seen at the lateral aspect of the right mid to lower lung zone. Review of the labs from the previous admissions as of 11/23/2016; WBC 4.8, hemoglobin 10.3, hematocrit is 31.9, platelets 181. As of 02/10/2017; WBC 6.5, hemoglobin 9.8, hematocrit is 29.5, platelets 172. Other laboratory data as of 11/23/2016; sodium 139, potassium 4.5, chloride 105, CO2 21, BUN 28, creatinine 0.9, glucose 123, calcium 8.8, AST 33, ALT 37, alkaline phos 84, troponin 0.052 and proBNP 14680, total protein 8.6, albumin is 4.2 and globulin is 4.3 elevated globulin levels. As of 11/24/2016; BUN and creatinine 27/1.0. As of 02/10/2017; sodium 140, potassium 4.6, chloride 107, CO2 23, BUN 38, creatinine 1.6, glucose 161 and proBNP 9750 and total protein 10.7, albumin 4, globulin is 6.3, markedly elevated. As of 02/11/2017; BUN and creatinine 30/1.4. As of ; BUN, creatinine 37/1.6. As of 02/13/2017; BUN and creatinine 48/1.8. Influenza A and B antibodies negative as of 04/10/2017. Other reports a echocardiogram impression as of 04/10/2017; there is mild concentric left ventricular hypertrophy and left ventricular function is normal. Left ventricular ejection fraction is within normal range. No regional wall motion abnormality noted, the left atrium is moderately dilated, mitral regurgitation is mild, mitral wall effect to regurgitant orifice area is 0.2 cm2, there is moderate tricuspid regurgitation, the right ventricular systolic pressure is estimated at greater than 60 mmHg. There is severe pulmonary hypertension. ASSESSMENT: In summary, Mrs. Alvarado is about 71 years old very pleasant elderly [place] female with past medical history significant for hypertension for 20 years, diabetes for 20 years, status post coronary artery bypass graft about 2 years ago who was admitted with worsening renal failure since November 2016 with a baseline creatinine about 0.9, now with creatinine about 2.5 and also low hemoglobin and hematocrit and elevated total proteins and elevated globulins and also low iron saturation and shortness of breath with severe pulmonary hypertension. 1. Renal failure, chronic kidney disease stage IV, etiology is not clear, cannot rule out multiple myeloma in view of renal failure in view of her age and very high globulin levels, need to rule out multiple myeloma at this stage. 2. Gastritis post hyperkalemia secondary to renal failure. 3. Mild metabolic acidosis with mild respiratory alkalosis also on admission. 4. Anemia most likely secondary to multifactorial renal failure, chronic kidney disease IV, iron deficiency and also cannot rule out underlying multiple myeloma. 5. Congestive heart failure. 6. Severe pulmonary hypertension. PLAN: Continue gentle diuresis and also we will add Epogen 10,000 units 3 times a week. We will add Nephrocaps 1 tablet daily and also we will start IV iron 125 mg Ferrlecit daily x8 doses and also we will check hepatitis B and C serology, C3-C4, NANCY, compliment levels and also ANCA, and also urine protein electrophoresis, serum protein electrophoresis and also 24 hour urine protein creatinine, creatinine clearance and urine immunofixation and serum immunofixation and beta-2 microglobulin levels. We will also check serum free light chains. Thank you for allowing me to participate in your patient's care. Valerie Rascon MD [facility] # [phone]
[2017-04-11 06:36] LABS: BASO % 0.3 % (0.0-2.0); EOS % 0.4 % (0.0-4.0); HEMOGLOBIN 9.4 g/dL (11.0-16.0); LYMPH # 1.1 K/uL (1.0-4.3); LYMPH % 19.8 % (20.0-40.0); MEAN CELL VOLUME 96.2 fL (81.0-99.0); MEAN CORPUSCULAR HEMOGLOBIN 33.9 pg (27.0-31.0); MEAN CORPUSCULAR HGB CONC 35.2 g/dL (33.0-37.0); MEAN PLATELET VOLUME 9.3 fL (7.2-11.7); MONO # 0.2 K/uL (0.0-0.8); MONO % 2.9 % (0.0-10.0); NEUT # 4.2 K/uL (1.8-7.0); NEUT % 76.6 % (50.0-75.0); NRBC % 0.2 % (0.0-2.0); RBC 2.77 Mil/uL (3.80-5.20); RED CELL DISTRIBUTION WIDTH 16.7 % (11.5-14.5); WHITE BLOOD COUNT 5.5 K/uL (4.8-10.8)
[2017-04-11 06:55] LABS: ALB/GLOB RATIO 0.7 (1.0-2.1); CALCIUM 9.2 mg/dl (8.6-10.4); MAGNESIUM 1.8 mg/dL (1.6-2.3)
[2017-04-11 07:08] LABS: HEPATITIS B SURFACE AG Negative (NEGATIVE)
[2017-04-11 07:13] LABS: HEPATITIS A IGM NEGATIVE (NEGATIVE); HEPATITIS B CORE AB NEGATIVE (NEGATIVE)
[2017-04-11 07:25] LABS: HEPATITIS C ANTIBODY NEGATIVE (NEGATIVE)
[2017-04-11] MEDS ORDERED: Magnesium Sulfate 1 gm in D5W 1 GM/100 ML BAG IVPB ONE (07:34)
[2017-04-11 09:13] LABS: COMPLEMENT C4 30.3 mg/dL (14.0-44.0)
[2017-04-11] MEDS: Multivitamin Vitamin B Complex (Nephro-Vite) Tab PO SCH (09:23)
--- NOTE | 2017-04-11 09:49 | CP.PCM.PN ---
Subjective - Date & Time of Evaluation Date of Evaluation: 04/11/17 Time of Evaluation: 09:48 - Subjective Subjective: pt is seen and examined, follow up consult is dictated #[id number] consider hematology evaluation Objective - Vital Signs/Intake and Output Vital Signs (last 24 hours): Temp Pulse Resp BP Pulse Ox 98.4 F 79 22 121/47 L 100 04/11/17 00:00 04/11/17 02:00 04/11/17 02:00 04/11/17 01:36 04/11/17 02:00 Intake and Output: 04/11/17 04/11/17 06:59 18:59 Intake Total 490 Output Total 675 Balance -185 - Medications Medications: Current Medications Albuterol/Ipratropium (Duoneb 3 Mg/0.5 Mg (3 Ml) Ud) 3 ml INH RQ6 [facility] Last Admin: 04/11/17 07:08 Dose: 3 ml Brimonidine Tartrate (Alphagan 0.2% Opht) 5 ml OU HS [facility] Last Admin: 04/10/17 21:43 Dose: 1 drop Ezetimibe (Zetia) 10 mg PO DAILY [facility] Last Admin: 04/11/17 09:24 Dose: 10 mg Epoetin Krystian (Procrit) 10,000 unit SC TTS [facility] Famotidine (Pepcid) 20 mg PO DAILY [facility] Last Admin: 04/11/17 09:24 Dose: 20 mg Heparin Sodium (Porcine) (Heparin) 5,000 units SC Q12 [facility] Last Admin: 04/11/17 09:23 Dose: 5,000 units Sodium Chloride (Sodium Chloride 0.9%) 1,000 mls @ 50 mls/hr IV .Q20H [facility] Last Admin: 04/10/17 20:54 Dose: 50 mls/hr Ferric Sodium Gluconate Complex 125 mg/ Sodium Chloride 110 mls @ 110 mls/hr IVPB DAILY [facility] Stop: 04/19/17 10:01 Latanoprost (Xalatan Opht) 0 ml OU HS [facility] Last Admin: 04/10/17 21:43 Dose: 2.5 ml Rosuvastatin Calcium (Crestor) 5 mg PO HS [facility] Last Admin: 04/10/17 21:44 Dose: 5 mg Vitamin B Complex/Vit C/Folic Acid (Nephro-Lianna) 1 tab PO 0800 [facility] Last Admin: 04/11/17 09:23 Dose: 1 tab - Labs Labs: 04/11/17 06:11 04/11/17 06:11 PT 11.0 SECONDS (9.7-12.2) 04/10/17 02:38 INR 1.0 04/10/17 02:38 APTT 31 SECONDS (21-34) 04/10/17 02:38
[2017-04-11] MEDS ORDERED: Ferric Sodium Gluconat Complex 62.5 mg/5 ml Vial IVPB SCH (10:00)
[2017-04-11] MEDS: EPOETIN ALFA 10,000 UNIT/ML ML SC SCH (10:16)
[2017-04-11] MEDS: Ferric Sodium Gluconat Complex 125 MG in Sodium Chloride 0.9% 100 ML IVPB SCH (12:13)
--- NOTE | 2017-04-11 12:45 | NM ---
COMPARISON: 04/10/2017 TECHNIQUE: 11.2 mCi technetium 99-m Xe-133 Gas. 3.4 mCI technetium 99-m MAA administered intravenously. FINDINGS: VENTILATION COMPONENT: Normal. PERFUSION COMPONENT: Heterogeneous distribution of radionuclide. No geographic, segmental, lobar abnormalities apparent on the present examination. IMPRESSION: Low probability ventilation perfusion scan for pulmonary embolism.
[2017-04-11] MEDS: Sodium Chloride 0.9% 1,000 ML IV SCH (16:52)
--- NOTE | 2017-04-11 21:21 | CP.PCM.PN ---
Subjective - Date & Time of Evaluation Date of Evaluation: 04/11/17 Time of Evaluation: 21:20 - Subjective Subjective: better.labs noted. Objective - Vital Signs/Intake and Output Vital Signs (last 24 hours): Temp Pulse Resp BP Pulse Ox 98.0 F 90 22 127/52 L 100 04/11/17 16:00 04/11/17 18:00 04/11/17 02:00 04/11/17 10:16 04/11/17 02:00 Intake and Output: 04/11/17 04/12/17 18:59 06:59 Intake Total 1090 120 Output Total 1650 Balance -560 120 - Medications Medications: Current Medications Albuterol/Ipratropium (Duoneb 3 Mg/0.5 Mg (3 Ml) Ud) 3 ml INH RQ6 [facility] Last Admin: 04/11/17 19:23 Dose: 3 ml Brimonidine Tartrate (Alphagan 0.2% Opht) 5 ml OU HS [facility] Last Admin: 04/10/17 21:43 Dose: 1 drop Ezetimibe (Zetia) 10 mg PO DAILY [facility] Last Admin: 04/11/17 09:24 Dose: 10 mg Epoetin Krystian (Procrit) 10,000 unit SC TTS [facility] Last Admin: 04/11/17 10:16 Dose: 10,000 unit Famotidine (Pepcid) 20 mg PO DAILY [facility] Last Admin: 04/11/17 09:24 Dose: 20 mg Heparin Sodium (Porcine) (Heparin) 5,000 units SC Q12 [facility] Last Admin: 04/11/17 09:23 Dose: 5,000 units Ferric Sodium Gluconate Complex 125 mg/ Sodium Chloride 110 mls @ 110 mls/hr IVPB DAILY [facility] Stop: 04/19/17 10:01 Last Admin: 04/11/17 12:13 Dose: 110 mls/hr Latanoprost (Xalatan Opht) 0 ml OU HS [facility] Last Admin: 04/10/17 21:43 Dose: 2.5 ml Rosuvastatin Calcium (Crestor) 5 mg PO HS [facility] Last Admin: 04/10/17 21:44 Dose: 5 mg Vitamin B Complex/Vit C/Folic Acid (Nephro-Lianna) 1 tab PO 0800 [facility] Last Admin: 04/11/17 09:23 Dose: 1 tab - Labs Labs: 04/11/17 06:11 04/11/17 06:11 PT 11.0 SECONDS (9.7-12.2) 04/10/17 02:38 INR 1.0 04/10/17 02:38 APTT 31 SECONDS (21-34) 04/10/17 02:38 - Constitutional Appears: No Acute Distress, Chronically Ill - Eye Exam Eye Exam: Normal appearance - Respiratory Exam Respiratory Exam: Clear to Ausculation Bilateral - Cardiovascular Exam Cardiovascular Exam: REGULAR RHYTHM - GI/Abdominal Exam GI & Abdominal Exam: Soft - Extremities Exam Extremities Exam: absent: Pedal Edema - Neurological Exam Neurological Exam: Alert, Oriented x3 Assessment and Plan - Assessment and Plan (Free Text) Assessment: chf,better,renal failure better. cpm.hb 9.4.
[2017-04-11] MEDS: Brimonidine 0.2% Opth Sol (5ml) OU SCH (21:58)
[2017-04-11] MEDS: Latanoprost 2.5 ml Opht Soln OU SCH (21:58)
[2017-04-12 00:15] LABS: ALBUMIN (PEP) 3.6 g/dL (3.8-4.8); ALPHA-1-GLOBULIN (PEP) 0.5 g/dL (0.2-0.3)
[2017-04-12] MEDS: Albuterol-Ipratrop 3 mg / 0.5 (3 ml) UD INH SCH ×4 (01:42→23:00)
--- NOTE | 2017-04-12 06:33 | CON ---
DATE: 04/11/2017 FOLLOWUP RENAL CONSULTATION The patient is located in ICU, room 14 A. REQUESTED BY: Jeff Alvarado MD HISTORY OF PRESENT ILLNESS: Mrs. Alvarado is a 71-year-old elderly female with a past medical history significant for longstanding hypertension; diabetes for 20 years; coronary artery disease, status post CABG, was admitted with a baseline creatinine about 0.9 in 11/2016 with sudden onset of shortness of breath and found to be in congestive heart failure and also severe pulmonary hypertension. The patient is feeling slightly better today, status post transfusion of one unit of packed RBC yesterday. Denies any chest pain or palpitation. Denies any fever. Denies any cough. Less short of breath. No swelling of the legs today. PHYSICAL EXAMINATION: VITAL SIGNS: This morning as follows, blood pressure 127/52, pulse about 90, respirations 22, temperature 98.6, saturation 100%. Height 4 feet 10 inches and weight is 100 pounds. BMI 21.0. GENERAL: Mrs. Alvarado is a 71-year-old elderly female, thin built, not in distress. HEENT: Pupils are normal and reactive to light and accommodation. Conjunctivae pink. Sclerae anicteric. Tongue is moist and trachea is midline. LUNGS: Symmetric on both sides. Bilateral breath sounds present. Bilateral basilar crackles present. CVS: [place] at the fifth intercostal space, midclavicular area. S1 and S2 audible. No murmur. No gallop. The patient has a midsternal scar present from the previous CABG. ABDOMEN: Normal in appearance, soft, tympanitic. No guarding. No hepatosplenomegaly. RISK COMPLIANCE ANALYST: The patient is alert, awake, oriented x3. Nonfocal neuro examination. Cranial nerves II through XII grossly intact. Sensory and motor system is within normal limits. EXTREMITIES: No cyanosis, no clubbing, no edema. CURRENT MEDICATIONS: Include as follows: Alphagan eyedrops 0.2%, Crestor 5 mg at bedtime, DuoNeb inhaler 3 mL q. 6 hours, ferric gluconate 125 mg daily, subcu heparin 5000 q.12 hours, Nephro-Lianna one tablet daily, Pepcid 20 mg p.o. daily, Procrit 10,000 units three times a week, Xalatan eye drops and also Zetia 10 mg p.o. daily, Lasix 40 mg p.o. x1 dose this morning, and pneumococcal vaccine was given on 11/25/2016. LABORATORY DATA: Include as follows as of 04/11/2017, WBC 5.5, hemoglobin 9.4, hematocrit is 26.7, MCV 96.2, and platelet 164. Sodium 142, potassium 4.2, chloride 104, CO2 of 21, BUN 36, creatinine 2.2, anion gap is about 17, glucose is 168, calcium is 9.2, phosphorus is 5.9, and magnesium 1.8. Total bilirubin 0.7, AST 33, ALT 35, alkaline phosphatase is 116, total protein is 9.6, albumin is 4.0 and globulin is 5.6, and complement level C3 is 115 and C4 is 30.3. Hepatitis A antibody IgM is negative, hepatitis B surface antigen negative, hepatitis B core antibody IgM is negative, and hepatitis C antibody is negative. Other laboratory data, V/Q scan is low probability for PE. Echocardiogram as of 04/10/2017, there is mild concentric left ventricular hypertrophy and left ventricular ejection fraction is normal. Left ventricular ejection fraction within the normal range. No regional wall motion abnormality noted and the left atrium is moderately dilated, mitral regurgitation is mild and mitral valve effective regurgitant orifice area is 0.2 sq cm. There is moderate tricuspid regurgitation. Right ventricular systolic pressure is estimated greater than 60 mmHg and there is severe pulmonary hypertension. ASSESSMENT AND PLAN: In summary, Mrs. Alvarado is a 71-year-old elderly female with a history of hypertension, diabetes, coronary artery disease, status post coronary artery bypass grafting two years ago with sudden onset of shortness of breath, worsening renal function and low H and H, status post hyperkalemia and metabolic acidosis. 1. Renal failure, most likely chronic kidney disease stage 4, cannot rule out acute on chronic kidney disease versus rapidly progressive glomerulonephritis. Her baseline creatinine was about 0.9 in 11/2016. 2. Anemia secondary to renal failure. 3. Hypertension. 4. Severe pulmonary hypertension, hyperproteinemia, and hyperglobulinemia, rule out multiple myeloma, rule out monoclonal gammopathies of undetermined significance. We will check urine for 24-hour urine protein, creatinine, creatinine clearance, and serum free light chains, beta-2 microglobulins, urine protein electrophoresis, serum protein electrophoresis, urine immunofixation, and serum immunofixation, and also PTH intact level. Follow up the workup and 24-hour urine protein, creatinine clearance. Continue Nephro-Lianna and continue Epogen and continue IV iron. We will give Lasix 40 mg p.o. x1 dose today and we will reevaluate for tomorrow if need additional dose. Thank you for allowing me to participate in your patient's care. Consider Hematology evaluation. Valerie Rascon MD
[2017-04-12 08:35] LABS: U CREAT 24HOUR URINE 666.1 mg/24hr (800-2800); URINE 24 HOUR TOTAL PROTEIN 481.5 mg/24hr (42-225); URINE CREATININE 24.9 mg/dL
[2017-04-12] MEDS: Ferric Sodium Gluconat Complex 125 MG in Sodium Chloride 0.9% 100 ML IVPB SCH (09:58)
[2017-04-12] MEDS: Multivitamin Vitamin B Complex (Nephro-Vite) Tab PO SCH (09:59)
--- NOTE | 2017-04-12 10:56 | CP.PCM.PN ---
Subjective - Date & Time of Evaluation Date of Evaluation: 04/12/17 Time of Evaluation: 10:54 - Subjective Subjective: pt is seen and examined follow up consult is dictated #[id number] need hematology consult to r/o MMd/w dr. coronado requesting consult with Dr doug iDsla Objective - Vital Signs/Intake and Output Vital Signs (last 24 hours): Temp Pulse Resp BP Pulse Ox 98.2 F 91 H 21 152/59 H 94 L 04/12/17 04:00 04/12/17 01:00 04/12/17 01:00 04/11/17 23:30 04/12/17 01:00 Intake and Output: 04/12/17 04/12/17 06:59 18:59 Intake Total 240 0 Output Total 1150 Balance -910 0 - Medications Medications: Current Medications Albuterol/Ipratropium (Duoneb 3 Mg/0.5 Mg (3 Ml) Ud) 3 ml INH RQ6 [facility] Last Admin: 04/12/17 07:11 Dose: 3 ml Brimonidine Tartrate (Alphagan 0.2% Opht) 5 ml OU HS [facility] Last Admin: 04/11/17 21:58 Dose: 1 drop Ezetimibe (Zetia) 10 mg PO DAILY [facility] Last Admin: 04/12/17 09:59 Dose: 10 mg Epoetin Krystian (Procrit) 10,000 unit SC TTS [facility] Last Admin: 04/11/17 10:16 Dose: 10,000 unit Famotidine (Pepcid) 20 mg PO DAILY [facility] Last Admin: 04/12/17 09:59 Dose: 20 mg Heparin Sodium (Porcine) (Heparin) 5,000 units SC Q12 [facility] Last Admin: 04/12/17 09:58 Dose: 5,000 units Ferric Sodium Gluconate Complex 125 mg/ Sodium Chloride 110 mls @ 110 mls/hr IVPB DAILY [facility] Stop: 04/19/17 10:01 Last Admin: 04/12/17 09:58 Dose: 110 mls/hr Latanoprost (Xalatan Opht) 0 ml OU HS [facility] Last Admin: 04/11/17 21:58 Dose: 2.5 ml Rosuvastatin Calcium (Crestor) 5 mg PO HS [facility] Last Admin: 04/11/17 21:59 Dose: Not Given Vitamin B Complex/Vit C/Folic Acid (Nephro-Lianna) 1 tab PO 0800 [facility] Last Admin: 04/12/17 09:59 Dose: 1 tab - Labs Labs: 04/11/17 06:11 04/12/17 07:14 PT 11.0 SECONDS (9.7-12.2) 04/10/17 02:38 INR 1.0 04/10/17 02:38 APTT 31 SECONDS (21-34) 04/10/17 02:38
[2017-04-12 11:03] LABS: ALBUMIN (PEP) 3.7 g/dL (3.8-4.8); ALPHA-1-GLOBULIN (PEP) 0.5 g/dL (0.2-0.3)
--- NOTE | 2017-04-12 11:13 | CP.PCM.CON ---
History of Present Illness - History of Present Illness History of Present Illness: 71 year old female with a history of CAD s/p CABG, HTN, DM, admitted with pulmonary edema s/p diuresis, with monoclonal gammopathy, renal failure,with a concern for possible multiple myeloma. The patient reports to feeling better. She denies blood problems or bone problems in the past. She has not had a bone fracture. Review of her blood work shows an IgG lambda monoclonal protein of 2.7g. Her creatinine is 2.2 and hgb 9.4 Past medical history: CAD, HTN, DM Past surgical history: CABG Family history: Denies hematologic and oncologic problems Social history: Denies tobacco, alcohol, and illicit drug use. Allergies: NKA Review of systems: All remaining review of systems including HEENT, cardiovascular, respiratory, gastrointestinal, genitourinary, musculoskeletal, dermatologic, neurologic, and psychiatric are negative unless mentioned in the HPI. Past Patient History - Infectious Disease Hx of Infectious Diseases: None - Past Medical History & Family History Past Medical History?: Yes - Past Social History Smoking Status: Never Smoked Alcohol: None Drugs: Denies Home Situation {Lives}: With Family Domestic Violence: Negative - CARDIAC Hx Congestive Heart Failure: Yes Hx Hypercholesterolemia: Yes Hx Hypertension: Yes - PULMONARY Hx Respiratory Disorders: No - NEUROLOGICAL Hx Neurological Disorder: No - HEENT Hx HEENT Problems: Yes Hx Glaucoma: Yes - RENAL Hx Chronic Kidney Disease: No - ENDOCRINE/METABOLIC Hx Diabetes Mellitus Type 2: Yes - HEMATOLOGICAL/ONCOLOGICAL Hx Blood Disorders: No - INTEGUMENTARY Hx Dermatological Problems: No - MUSCULOSKELETAL/RHEUMATOLOGICAL Hx Falls: No - GASTROINTESTINAL Hx Gastrointestinal Disorders: No - GENITOURINARY/GYNECOLOGICAL Hx Genitourinary Disorders: No - PSYCHIATRIC Hx Substance Use: No - SURGICAL HISTORY Hx Coronary Artery Bypass Graft: Yes - ANESTHESIA Hx Anesthesia: Yes Hx Anesthesia Reactions: No Hx Malignant Hyperthermia: No Meds Allergies/Adverse Reactions: Allergies Allergy/AdvReac Type Severity Reaction Status Date / Time No Known Allergies Allergy Verified 02/10/17 08:12 - Medications Medications: Current Medications Albuterol/Ipratropium (Duoneb 3 Mg/0.5 Mg (3 Ml) Ud) 3 ml INH RQ6 [facility] Last Admin: 04/12/17 07:11 Dose: 3 ml Brimonidine Tartrate (Alphagan 0.2% Opht) 5 ml OU HS [facility] Last Admin: 04/11/17 21:58 Dose: 1 drop Ezetimibe (Zetia) 10 mg PO DAILY [facility] Last Admin: 04/12/17 09:59 Dose: 10 mg Epoetin Krystian (Procrit) 10,000 unit SC TTS [facility] Last Admin: 04/11/17 10:16 Dose: 10,000 unit Famotidine (Pepcid) 20 mg PO DAILY [facility] Last Admin: 04/12/17 09:59 Dose: 20 mg Furosemide (Lasix) 40 mg PO ONCE ONE Stop: 04/12/17 11:16 Heparin Sodium (Porcine) (Heparin) 5,000 units SC Q12 [facility] Last Admin: 04/12/17 09:58 Dose: 5,000 units Ferric Sodium Gluconate Complex 125 mg/ Sodium Chloride 110 mls @ 110 mls/hr IVPB DAILY [facility] Stop: 04/19/17 10:01 Last Admin: 04/12/17 09:58 Dose: 110 mls/hr Latanoprost (Xalatan Opht) 0 ml OU HS [facility] Last Admin: 04/11/17 21:58 Dose: 2.5 ml Rosuvastatin Calcium (Crestor) 5 mg PO HS [facility] Last Admin: 04/11/17 21:59 Dose: Not Given Vitamin B Complex/Vit C/Folic Acid (Nephro-Lianna) 1 tab PO 0800 [facility] Last Admin: 04/12/17 09:59 Dose: 1 tab Physical Exam - Head Exam Head Exam: ATRAUMATIC - Eye Exam Eye Exam: Normal appearance - ENT Exam ENT Exam: Mucous Membranes Dry - Respiratory Exam Respiratory Exam: NORMAL BREATHING PATTERN - Cardiovascular Exam Cardiovascular Exam: +S1, +S2 - GI/Abdominal Exam GI & Abdominal Exam: Normal Bowel Sounds - Extremities Exam Extremities exam: Positive for: normal inspection - Neurological Exam Neurological exam: Oriented x3 - Psychiatric Exam Psychiatric exam: Normal Affect, Normal Mood - Skin Skin Exam: Warm Results - Vital Signs Recent Vital Signs: Last Vital Signs Temp 98.2 F 04/12/17 04:00 Pulse 91 H 04/12/17 01:00 Resp 21 04/12/17 01:00 BP 152/59 H 04/11/17 23:30 Pulse Ox 94 L 04/12/17 01:00 - Labs Result Diagrams: 04/11/17 06:11 04/12/17 07:14 Labs: Laboratory Results - last 24 hr 04/10/17 04/11/17 04/11/17 07:56 06:11 06:11 Serum Viscosity 1.4 Creatinine POC Glucose (mg/dL) Total Protein (PEP) 9.0 H Albumin (PEP) 3.6 L 3.7 L [place]-0-Evpyruibn 0.5 H 0.5 H [place]-4-Svgcihinz 1.0 H 1.0 H Dish-1-Uqkqhltz 0.4 0.4 Itos-9-Vzjhvewy 0.3 0.3 Mchq-2-Mhxtsmfvsbzrx 8.14 H Gamma Globulins 2.9 H 3.1 H Abnorm Protein Band 1 2.58 H 2.73 H Abnorm Protein Band 2 TEST NOT PERFORMED TEST NOT PERFORMED Abnorm Protein Band 3 TEST NOT PERFORMED TEST NOT PERFORMED Urine Collection Time Urine Total Volume Ur Creatinine 24 Hour Creatinine Clearance Ur Protein 24 Hr Calc MINA & SPEP Interp See note See note Free [place] Light Chains 12.0 Free Lambda Light Chain 1056.6 H Free [place]/Lambda Ratio 0.01 L 04/11/17 04/11/17 04/11/17 12:00 16:10 21:04 Serum Viscosity Creatinine POC Glucose (mg/dL) 133 H 144 H 157 H Total Protein (PEP) Albumin (PEP) Rbqqs-7-Xfligndnx Ocxoo-2-Iyrepagcu Psqx-3-Cxtnutxt Vwza-5-Bxsrzqku Sldh-2-Kdfakrubwujpb Gamma Globulins Abnorm Protein Band 1 Abnorm Protein Band 2 Abnorm Protein Band 3 Urine Collection Time Urine Total Volume Ur Creatinine 24 Hour Creatinine Clearance Ur Protein 24 Hr Calc MINA & SPEP Interp Free [place] Light Chains Free Lambda Light Chain Free [place]/Lambda Ratio 04/12/17 04/12/17 07:14 07:38 Serum Viscosity Creatinine 2.2 H POC Glucose (mg/dL) 147 H Total Protein (PEP) Albumin (PEP) Gdchu-0-Llknsxafv Mapyw-0-Trxvgicph Gqft-9-Legafzdb Kaar-4-Zhianttb Qlib-4-Ryttxxpyffjin Gamma Globulins Abnorm Protein Band 1 Abnorm Protein Band 2 Abnorm Protein Band 3 Urine Collection Time 24 Urine Total Volume 2675 Ur Creatinine 24 Hour 666.1 L Creatinine Clearance 20.0 L Ur Protein 24 Hr Calc 481.5 H MINA & SPEP Interp Free [place] Light Chains Free Lambda Light Chain Free [place]/Lambda Ratio Assessment & Plan (1) Monoclonal gammopathy Assessment and Plan: agree with ruling out multiple myeloma discussed a bone marrow biopsy with the patient, she would like me to speak to her who I will contact will plan for biopsy tomorrow AM Status: Acute (2) Anemia Assessment and Plan: will check iron, b12, folate stores ? anemia of CKD ? multiple myeloma Thank you for this interesting consult. Status: Acute
--- NOTE | 2017-04-12 12:49 | CP.PCM.PN ---
Subjective - Date & Time of Evaluation Date of Evaluation: 04/12/17 Time of Evaluation: 12:48 - Subjective Subjective: comfortable.less sob. Objective - Vital Signs/Intake and Output Vital Signs (last 24 hours): Temp Pulse Resp BP Pulse Ox 98.2 F 91 H 21 155/59 H 94 L 04/12/17 04:00 04/12/17 01:00 04/12/17 01:00 04/12/17 11:21 04/12/17 01:00 Intake and Output: 04/12/17 04/12/17 06:59 18:59 Intake Total 240 0 Output Total 1150 Balance -910 0 - Medications Medications: Current Medications Albuterol/Ipratropium (Duoneb 3 Mg/0.5 Mg (3 Ml) Ud) 3 ml INH RQ6 [facility] Last Admin: 04/12/17 07:11 Dose: 3 ml Brimonidine Tartrate (Alphagan 0.2% Opht) 5 ml OU HS [facility] Last Admin: 04/11/17 21:58 Dose: 1 drop Ezetimibe (Zetia) 10 mg PO DAILY [facility] Last Admin: 04/12/17 09:59 Dose: 10 mg Epoetin Krystian (Procrit) 10,000 unit SC TTS [facility] Last Admin: 04/11/17 10:16 Dose: 10,000 unit Famotidine (Pepcid) 20 mg PO DAILY [facility] Last Admin: 04/12/17 09:59 Dose: 20 mg Heparin Sodium (Porcine) (Heparin) 5,000 units SC Q12 [facility] Last Admin: 04/12/17 09:58 Dose: 5,000 units Ferric Sodium Gluconate Complex 125 mg/ Sodium Chloride 110 mls @ 110 mls/hr IVPB DAILY [facility] Stop: 04/19/17 10:01 Last Admin: 04/12/17 09:58 Dose: 110 mls/hr Latanoprost (Xalatan Opht) 0 ml OU HS [facility] Last Admin: 04/11/17 21:58 Dose: 2.5 ml Rosuvastatin Calcium (Crestor) 5 mg PO HS [facility] Last Admin: 04/11/17 21:59 Dose: Not Given Vitamin B Complex/Vit C/Folic Acid (Nephro-Lianna) 1 tab PO 0800 [facility] Last Admin: 04/12/17 09:59 Dose: 1 tab - Labs Labs: 04/11/17 06:11 04/12/17 07:14 PT 11.0 SECONDS (9.7-12.2) 04/10/17 02:38 INR 1.0 04/10/17 02:38 APTT 31 SECONDS (21-34) 04/10/17 02:38 - Constitutional Appears: No Acute Distress, Chronically Ill - Head Exam Head Exam: NORMOCEPHALIC - Eye Exam Eye Exam: Normal appearance - Neck Exam Neck Exam: Normal Inspection - Respiratory Exam Respiratory Exam: Clear to Ausculation Bilateral - Cardiovascular Exam Cardiovascular Exam: REGULAR RHYTHM - GI/Abdominal Exam GI & Abdominal Exam: Soft - Extremities Exam Extremities Exam: absent: Pedal Edema - Neurological Exam Neurological Exam: Alert, Oriented x3 Assessment and Plan - Assessment and Plan (Free Text) Assessment: chf,better.anaemia,seen by hem,poss myeloma
[2017-04-12] MEDS: Latanoprost 2.5 ml Opht Soln OU SCH (21:25)
[2017-04-12] MEDS: Brimonidine 0.2% Opth Sol (5ml) OU SCH (21:26)
[2017-04-12] MEDS: Promethazine 6.25 MG/5 ML CUP PO PRN (21:34)
[2017-04-13] MEDS: Albuterol-Ipratrop 3 mg / 0.5 (3 ml) UD INH SCH ×4 (01:30→19:37)
--- NOTE | 2017-04-13 03:15 | PN ---
DATE: 04/12/2017 FOLLOWUP RENAL CONSULTATION LOCATION: The patient is located in room 650, bed A. REQUESTED BY: Jeff Alvarado MD REASON FOR RENAL FOLLOWUP: Acute renal failure, anemia, and rule out multiple myeloma. SUBJECTIVE: Mrs. Alvarado is a 71-year-old very pleasant, elderly female with a past medical history significant for longstanding hypertension and diabetes for more than 20 years; coronary artery disease, status post CABG; was admitted with chief complaint of sudden onset of shortness of breath and generalized weakness, and the patient was found to have severe anemia and also CHF. The patient is being treated for CHF and also transfused one unit of packed RBC. The patient is feeling slightly better, not in acute distress. The patient was also found to have a very high total proteins and very high globulin levels. The patient is not in acute distress at this time. OBJECTIVE: VITAL SIGNS: Her vital signs this morning as follows, blood pressure 155/59, pulse 90, respirations about 20, temperature 98.2, and saturation 98%. Height 4 feet 10 inches and weight is 100 pounds. GENERAL: Mrs. Alvarado is a 71-year-old elderly female, thin built, not in distress. HEENT: Pupils are normal and reactive to light and accommodation. Conjunctivae pink. Sclerae nonicteric. Tongue is moist. Trachea is midline. LUNGS: Symmetry on both sides. Bilateral breath sounds present. Bilateral basilar crackles present. CVS: [place] at the fifth intercostal space, midclavicular area. S1 and S2 audible. No murmur, no gallop. The patient has a midsternal scar present from the previous CABG. ABDOMEN: Normal in appearance, soft, tympanitic. No guarding. No hepatosplenomegaly. CHIEF LIBRARIAN BRANCH: The patient is alert, awake and oriented x3. Nonfocal neuro examination. Cranial nerves II through XII grossly intact. Sensory and motor system is within normal limits. EXTREMITIES: No cyanosis, no clubbing, no edema. CURRENT MEDICATIONS: Include as follows, Alphagan eye drops, Crestor 5 mg at bedtime, DuoNeb inhaler, ferric gluconate 125 mg daily, subcu heparin 5000 q.12 hours, Nephro-Lianna one tablet p.o. daily, Pepcid 20 mg p.o. daily, Phenergan syrup q.6 hours, Procrit 10,000 units three times a week, Xalatan eye drops and Zetia 10 mg p.o. daily. LABORATORY DATA: Include as follows, as of 04/12/2017, serum creatinine is 2.2, glucose is 147. A 24-hour urine volume is 2675 and urine creatinine 24 hours is 666.1 mg and creatinine clearance 20 mL. A 24-hour urine protein is 481.5 mg. Other serology, hepatitis B surface antigen negative, hepatitis B core antibody IgM negative, hepatitis C antibody negative, influenza antibody negative. Immunology, serum protein electrophoresis reveals a restricted band M spike migrating in the gamma globulin region. Serum immunofixation, IgG lambda monoclonal protein is present, and NANCY, ANCA is pending, C3 is 115.0, C4 is 30.0, free-kappa light chain is 12 and free-lambda light chain is 1056.6, and free kappa/lambda ratio is 0.01, and PTH intact level is 88. Other laboratory data, beta-2 microglobulin level is 8.14. IMPRESSION: In summary, Mrs. Alvarado is a 71-year-old elderly female with a past medical history significant for hypertension; diabetes; coronary artery disease, status post CABG with severe pulmonary hypertension, congestive heart failure, anemia, abnormal globulin levels and also very high protein levels in the blood and also rapidly deteriorating renal function since 11/2016 and also decreasing H and H for the last 3 months and now found to have abnormal M-spike in SPEP and serum immunofixation is positive for IgG lambda monoclonal protein and also elevated free light chains in the blood about to 1056 mg/L and with TSH of 7.21. 1. 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 2. Anemia secondary to most likely multiple myeloma. 3. Severe pulmonary hypertension. 4. Hypertension. 5. Diabetes. PLAN: We will give Lasix 40 mg p.o. x1 dose today and repeat CBC and CMP in a.m. Case discussed with Dr. Jeff Alvarado regarding possible multiple myeloma and need for Hematology consult who requested Dr. Jesus Alberto Disla for Hematology consult to rule out multiple myeloma and for possible bone marrow biopsy. Continue her current medications. Continue IV iron and continue Epogen, and we will wait for further recommendation by card hand, Dr. Jesus Alberto Disla. Thank you for allowing me to participate in your patient's care. Valerie Rascon MD
[2017-04-13] MEDS ORDERED: Albuterol-Ipratrop 3 mg / 0.5 (3 ml) UD INH PRN (05:20)
[2017-04-13 08:05] LABS: HEMOGLOBIN 10.4 g/dL (11.0-16.0); MEAN CELL VOLUME 96.3 fL (81.0-99.0); MEAN CORPUSCULAR HEMOGLOBIN 33.2 pg (27.0-31.0); MEAN CORPUSCULAR HGB CONC 34.5 g/dL (33.0-37.0); MEAN PLATELET VOLUME 8.9 fL (7.2-11.7); RBC 3.14 Mil/uL (3.80-5.20); RED CELL DISTRIBUTION WIDTH 16.5 % (11.5-14.5); WHITE BLOOD COUNT 4.5 K/uL (4.8-10.8)
[2017-04-13 08:16] LABS: ALB/GLOB RATIO 0.7 (1.0-2.1); ALBUMIN 3.8 g/dL (3.5-5.0); ALT/SGPT 27 U/L (9-52); AST/SGOT 27 U/L (14-36); BLOOD UREA NITROGEN 23 mg/dL (7-17); CALCIUM 9.2 mg/dl (8.6-10.4); GFR AFRICAN-AMERICAN 41; GFR NON-AFRICAN AMERICAN 34
[2017-04-13] MEDS ORDERED: Potassium Chloride 20 mEq/15 ml LIQ UD PO STA (08:20)
[2017-04-13 08:58] LABS: FOLATE > 20.0 ng/mL
[2017-04-13] MEDS: EPOETIN ALFA 10,000 UNIT/ML ML SC SCH (09:17)
[2017-04-13] MEDS: Multivitamin Vitamin B Complex (Nephro-Vite) Tab PO SCH (09:17)
[2017-04-13] MEDS: Ferric Sodium Gluconat Complex 125 MG in Sodium Chloride 0.9% 100 ML IVPB SCH (11:17)
--- NOTE | 2017-04-13 13:11 | CP.PCM.PN ---
Subjective - Date & Time of Evaluation Date of Evaluation: 04/13/17 Time of Evaluation: 13:10 - Subjective Subjective: hb 10.0.k noted.ambulating.feels better. Objective - Vital Signs/Intake and Output Vital Signs (last 24 hours): Temp Pulse Resp BP Pulse Ox 97.9 F 77 18 144/69 99 04/13/17 07:25 04/13/17 11:59 04/13/17 07:25 04/13/17 07:25 04/13/17 07:25 Intake and Output: 04/13/17 04/13/17 06:59 18:59 Intake Total 300 Output Total 250 Balance 50 - Medications Medications: Current Medications Albuterol/Ipratropium (Duoneb 3 Mg/0.5 Mg (3 Ml) Ud) 3 ml INH RQ6 [facility] Last Admin: 04/13/17 07:00 Dose: 3 ml Brimonidine Tartrate (Alphagan 0.2% Opht) 5 ml OU HS [facility] Last Admin: 04/12/17 21:26 Dose: 1 drop Ezetimibe (Zetia) 10 mg PO DAILY [facility] Last Admin: 04/13/17 09:17 Dose: 10 mg Epoetin Krystian (Procrit) 10,000 unit SC TTS [facility] Last Admin: 04/13/17 09:17 Dose: 10,000 unit Famotidine (Pepcid) 20 mg PO DAILY [facility] Last Admin: 04/13/17 09:17 Dose: 20 mg Heparin Sodium (Porcine) (Heparin) 5,000 units SC Q12 [facility] Last Admin: 04/13/17 09:18 Dose: 5,000 units Ferric Sodium Gluconate Complex 125 mg/ Sodium Chloride 110 mls @ 110 mls/hr IVPB DAILY [facility] Stop: 04/19/17 10:01 Last Admin: 04/13/17 11:17 Dose: 110 mls/hr Latanoprost (Xalatan Opht) 0 ml OU HS [facility] Last Admin: 04/12/17 21:25 Dose: 2.5 ml Promethazine HCl (Phenergan Syrup) 6.25 mg PO Q6H PRN PRN Reason: Cough Last Admin: 04/12/17 21:34 Dose: 6.25 mg Rosuvastatin Calcium (Crestor) 5 mg PO HS [facility] Last Admin: 02/07/18 21:05 Dose: 5 mg Sitagliptin Phosphate (Januvia) 25 mg PO DAILY [facility] Vitamin B Complex/Vit C/Folic Acid (Nephro-Lianna) 1 tab PO 0800 [facility] Last Admin: 04/13/17 09:17 Dose: 1 tab - Labs Labs: 04/13/17 07:13 04/13/17 07:13 PT 11.0 SECONDS (9.7-12.2) 04/10/17 02:38 INR 1.0 04/10/17 02:38 APTT 31 SECONDS (21-34) 04/10/17 02:38 - Constitutional Appears: No Acute Distress, Chronically Ill - Eye Exam Eye Exam: Normal appearance - Neck Exam Neck Exam: Normal Inspection - Respiratory Exam Respiratory Exam: Clear to Ausculation Bilateral - Cardiovascular Exam Cardiovascular Exam: REGULAR RHYTHM, Murmur - GI/Abdominal Exam GI & Abdominal Exam: Soft - Extremities Exam Extremities Exam: absent: Pedal Edema - Neurological Exam Neurological Exam: Alert, Oriented x3 Assessment and Plan - Assessment and Plan (Free Text) Assessment: for bone marrow.diss with .will d/c metformin.
--- NOTE | 2017-04-13 16:49 | CP.PCM.PN ---
Subjective - Date & Time of Evaluation Date of Evaluation: 04/13/17 Time of Evaluation: 16:49 - Subjective Subjective: pt is seen and examined, follow up consult is dictated #[id number] Objective - Vital Signs/Intake and Output Vital Signs (last 24 hours): Temp Pulse Resp BP Pulse Ox 98.3 F 95 H 20 144/67 96 04/13/17 16:24 04/13/17 16:24 04/13/17 16:24 04/13/17 16:24 04/13/17 16:24 Intake and Output: 04/13/17 04/13/17 06:59 18:59 Intake Total 300 Output Total 250 Balance 50 - Medications Medications: Current Medications Albuterol/Ipratropium (Duoneb 3 Mg/0.5 Mg (3 Ml) Ud) 3 ml INH RQ6 [facility] Last Admin: 04/13/17 13:23 Dose: 3 ml Brimonidine Tartrate (Alphagan 0.2% Opht) 5 ml OU HS [facility] Last Admin: 04/12/17 21:26 Dose: 1 drop Ezetimibe (Zetia) 10 mg PO DAILY [facility] Last Admin: 04/13/17 09:17 Dose: 10 mg Epoetin Krystian (Procrit) 10,000 unit SC TTS [facility] Last Admin: 04/13/17 09:17 Dose: 10,000 unit Famotidine (Pepcid) 20 mg PO DAILY [facility] Last Admin: 04/13/17 09:17 Dose: 20 mg Heparin Sodium (Porcine) (Heparin) 5,000 units SC Q12 [facility] Last Admin: 04/13/17 09:18 Dose: 5,000 units Ferric Sodium Gluconate Complex 125 mg/ Sodium Chloride 110 mls @ 110 mls/hr IVPB DAILY [facility] Stop: 04/19/17 10:01 Last Admin: 04/13/17 11:17 Dose: 110 mls/hr Latanoprost (Xalatan Opht) 0 ml OU HS [facility] Last Admin: 04/12/17 21:25 Dose: 2.5 ml Promethazine HCl (Phenergan Syrup) 6.25 mg PO Q6H PRN PRN Reason: Cough Last Admin: 04/12/17 21:34 Dose: 6.25 mg Rosuvastatin Calcium (Crestor) 5 mg PO HS [facility] Last Admin: 04/12/17 21:05 Dose: 5 mg Sitagliptin Phosphate (Januvia) 25 mg PO DAILY [facility] Vitamin B Complex/Vit C/Folic Acid (Nephro-Lianna) 1 tab PO 0800 [facility] Last Admin: 04/13/17 09:17 Dose: 1 tab - Labs Labs: 04/13/17 07:13 04/13/17 07:13 PT 11.0 SECONDS (9.7-12.2) 04/10/17 02:38 INR 1.0 04/10/17 02:38 APTT 31 SECONDS (21-34) 04/10/17 02:38
[2017-04-13] MEDS ORDERED: Lidocaine 2% Inj (20ml) INFIL ONE (17:12)
--- NOTE | 2017-04-13 17:45 | RAD ---
PROCEDURE: HISTORY: ELEVATED GAMMA GLOBULINS COMPARISON: None TECHNIQUE: AP and lateral cervical spine ; 2 frontal and 1 lateral skull view ; 2 frontal and 1 lateral view thoracic spine ; 1 frontal and 1 lateral lumbar spine ; one frontal pelvis ; 2 frontal views of the right femur and 2 frontal views of the left femur ; single frontal right humerus and single frontal left humerus views FINDINGS: Lytic lesions: None Alignment:Lumbar prominent levoscoliosis Mineralization: Diffuse generalized osteopenia Joints: Exuberant lumbar spondylosis Degenerative disc disease present especially mid to inferior lumbar spine Other findings: Transitional elements of the lumbar spine and thoracic spine are inferred. There are 6 non rib-bearing lumbar vertebrae present. Mid lumbar vertebrae has degenerative type wedging of its right half prominent anterior spondylosis here noted. No comparisons for stability here or available Status post midline sternotomy and coronary artery bypass clips present IMPRESSION: No gross radiographic evidence of multiple myeloma. Other findings as above please note the above finding regarding the degenerative type compressive wedging of a mid lumbar vertebrae and the prominent scoliosis
--- NOTE | 2017-04-13 19:54 | CP.PCM.PN ---
Subjective - Date & Time of Evaluation Date of Evaluation: 04/13/17 Time of Evaluation: 17:00 - Subjective Subjective: Bone marrow aspiration and biopsy procedure Indication: Monoclonal gammopathy, renal failure; rule out multiple myeloma - Time-out was called to confirm: patients name and date of , procedure, side and site of biopsy, safety procedures followed. - Informed consent: signed by patient. - Aspiration and biopsy site: [right] superior posterior iliac crest. - Patient position: [left lateral decubitus] - Preparation and technique: sterile preparation of site with [place]ady[place], Chloraprep, draped to expose aspirate/biopsy area, local anesthesia with 2% lidocaine (approximately 10ml), frequent pressure application on incision to maintain hemostasis. - Tissue obtained: bone marrow aspirate and biopsy were successfully obtained in sterile manner. - Toleration of procedure and any complications: slight localized bleeding (<1ml ). Patient tolerated procedure well with minimal pain. Objective - Vital Signs/Intake and Output Vital Signs (last 24 hours): Temp Pulse Resp BP Pulse Ox 98.3 F 95 H 20 144/67 96 04/13/17 16:24 04/13/17 16:24 04/13/17 16:24 04/13/17 16:24 04/13/17 16:24 - Medications Medications: Current Medications Albuterol/Ipratropium (Duoneb 3 Mg/0.5 Mg (3 Ml) Ud) 3 ml INH RQ6 [facility] Last Admin: 04/13/17 19:37 Dose: 3 ml Brimonidine Tartrate (Alphagan 0.2% Opht) 5 ml OU HS [facility] Last Admin: 04/12/17 21:26 Dose: 1 drop Ezetimibe (Zetia) 10 mg PO DAILY [facility] Last Admin: 04/13/17 09:17 Dose: 10 mg Epoetin Krystian (Procrit) 10,000 unit SC TTS [facility] Last Admin: 04/13/17 09:17 Dose: 10,000 unit Famotidine (Pepcid) 20 mg PO DAILY [facility] Last Admin: 04/13/17 09:17 Dose: 20 mg Heparin Sodium (Porcine) (Heparin) 5,000 units SC Q12 [facility] Last Admin: 04/13/17 09:18 Dose: 5,000 units Ferric Sodium Gluconate Complex 125 mg/ Sodium Chloride 110 mls @ 110 mls/hr IVPB DAILY [facility] Stop: 04/19/17 10:01 Last Admin: 04/13/17 11:17 Dose: 110 mls/hr Latanoprost (Xalatan Opht) 0 ml OU HS [facility] Last Admin: 04/12/17 21:25 Dose: 2.5 ml Promethazine HCl (Phenergan Syrup) 6.25 mg PO Q6H PRN PRN Reason: Cough Last Admin: 04/12/17 21:34 Dose: 6.25 mg Rosuvastatin Calcium (Crestor) 5 mg PO HS [facility] Last Admin: 04/12/17 21:05 Dose: 5 mg Sitagliptin Phosphate (Januvia) 25 mg PO DAILY [facility] Vitamin B Complex/Vit C/Folic Acid (Nephro-Lianna) 1 tab PO 0800 [facility] Last Admin: 04/13/17 09:17 Dose: 1 tab - Labs Labs: 04/13/17 07:13 04/13/17 07:13 PT 11.0 SECONDS (9.7-12.2) 04/10/17 02:38 INR 1.0 04/10/17 02:38 APTT 31 SECONDS (21-34) 04/10/17 02:38 - Head Exam Head Exam: ATRAUMATIC - Eye Exam Eye Exam: Normal appearance - ENT Exam ENT Exam: Mucous Membranes Dry - Respiratory Exam Respiratory Exam: NORMAL BREATHING PATTERN - Cardiovascular Exam Cardiovascular Exam: +S1, +S2 - GI/Abdominal Exam GI & Abdominal Exam: Normal Bowel Sounds Assessment and Plan (1) Monoclonal gammopathy Assessment & Plan: f/u bone marrow biopsy Status: Acute (2) Anemia Status: Acute
[2017-04-13] MEDS: Brimonidine 0.2% Opth Sol (5ml) OU SCH (21:24)
[2017-04-13] MEDS: Latanoprost 2.5 ml Opht Soln OU SCH (21:24)
[2017-04-14] MEDS: Albuterol-Ipratrop 3 mg / 0.5 (3 ml) UD INH SCH ×4 (01:55→19:20)
--- NOTE | 2017-04-14 07:11 | PN ---
DATE: The patient is located in room 650 bed A. REQUESTED BY: Jeff Alvarado MD REASON FOR FOLLOWUP: Acute renal failure, anemia, for further evaluation. SUBJECTIVE: Mrs. Alvarado is a 71-year-old elderly very pleasant female with a past medical history significant for longstanding hypertension, diabetes for 20 years, coronary artery disease, status post CABG about 2 years ago, was admitted with sudden onset of shortness of breath and generalized weakness. She was found to have a low H and H and worsening renal function, and also elevated total protein, and elevated globulin. Serum immunofixation is positive for IgG lambda and also serum protein electrophoresis positive for M spike and urine protein electrophoresis was pending, but serum free light chains positive for lambda. The patient is feeling better, not in acute distress. Denies any chest pain or palpitations. Denies any fever or cough. No abdominal pain. No nausea, vomiting, or diarrhea. PHYSICAL EXAMINATION: VITAL SIGNS: As follows: Blood pressure 144/67, pulse 95, respirations 20, temperature 98.3, saturation 96%. Height 4 feet 10 inches, weight is 100 pounds. GENERAL: Mrs. Alvarado is a 71 year old elderly female of thin build, not in distress. HEENT: Pupils normal and reactive to light and accommodation. Conjunctivae pink. Sclerae anicteric. Tongue is moist, thick in midline. LUNGS: Symmetric on both sides. Bilateral breath sounds present. Clear on auscultation. CVS: [place] at the fifth intercostal space, midclavicular line. S1 and S2 audible. No murmur or gallop. ABDOMEN: Normal in appearance, soft, tympanic. No guarding, no rigidity. No hepatosplenomegaly. VIDEOGAME DESIGNER: The patient is alert, awake, oriented x3. Nonfocal neuro examination. Cranial nerves II through grossly intact. Sensory and motor system is within normal limits. EXTREMITIES: No cyanosis, no clubbing, no edema. CURRENT MEDICATIONS: Include as follows: Alphagan eye drops, Crestor 5 mg at bedtime, DuoNeb inhaler q.6 hours, ferrous gluconate 125 mg daily, subcu heparin q.12 hours, Januvia 25 mg p.o. daily, Nephro-Lianna 1 tablet daily, Pepcid 20 mg daily, Phenergan cough syrup 5 mL q.6 hours, Epogen 10,000 units 3 times a week, Xalatan eye drops, and also Zetia 10 mg p.o. at bedtime. LABORATORY DATA: Include as follows: As of 04/13/2017, WBC 4.5, hemoglobin 10.4, hematocrit is 30.3, MCV 96, and platelets 200. Sodium 141, potassium 3.3, chloride 103, CO 24, BUN 23, creatinine 1.5, glucose 138, calcium 9.2, ferritin is 354, total bili 0.6, AST 27, ALT 27, alkaline phosphatase 120, total protein 9.5, albumin is 3.8, globulin 5.7, B12 is more than 12,000, folic acid is more than 20. Serum protein electrophoresis positive for M spike, and serum immunofixation positive for IgG lambda, monoclonal protein is present, and urine immunofixation, no IgG lambda monoclonal protein is present. NANCY is negative. 0.01. IMPRESSION: In summary, Mrs. Alvarado is a 71-year-old elderly female with hypertension, diabetes, coronary artery disease, status post coronary artery bypass graft, congestive heart failure with sudden onset of shortness of breath and severe pulmonary hypertension, low hemoglobin and hematocrit, and BUN and creatinine. 1. Renal failure, acute on chronic kidney disease, rule out light chain nephropathy. 2. Anemia, most likely secondary to multifactorial renal failure, light chain disease and iron deficiency anemia. 3. Status post congestive heart failure. 4. Hypertension. 5. Diabetes. Follow up with Dr. Disla for bone marrow biopsy and for further management of possible multiple myeloma, light chain nephropathy. We will follow with you. Thank you for allowing me to participate in your patient's care. Discussed with the patient's at bedside and the patient also. Valerie Rascon MD
[2017-04-14] MEDS: Multivitamin Vitamin B Complex (Nephro-Vite) Tab PO SCH (08:01)
[2017-04-14] MEDS: Ferric Sodium Gluconat Complex 125 MG in Sodium Chloride 0.9% 100 ML IVPB SCH (09:56)
[2017-04-14] MEDS: Promethazine 6.25 MG/5 ML CUP PO PRN (09:56)
[2017-04-14 11:15] LABS: HEMOGLOBIN 10.2 g/dL (11.0-16.0); MEAN CELL VOLUME 97.1 fL (81.0-99.0); MEAN CORPUSCULAR HEMOGLOBIN 33.3 pg (27.0-31.0); MEAN CORPUSCULAR HGB CONC 34.3 g/dL (33.0-37.0); MEAN PLATELET VOLUME 8.7 fL (7.2-11.7); RBC 3.06 Mil/uL (3.80-5.20); RED CELL DISTRIBUTION WIDTH 16.3 % (11.5-14.5); WHITE BLOOD COUNT 4.3 K/uL (4.8-10.8)
--- NOTE | 2017-04-14 11:44 | CP.PCM.PN ---
Subjective - Date & Time of Evaluation Date of Evaluation: 04/14/17 Time of Evaluation: 11:42 - Subjective Subjective: better.bone marrow done. Objective - Vital Signs/Intake and Output Vital Signs (last 24 hours): Temp Pulse Resp BP Pulse Ox 98.0 F 80 16 124/75 100 04/14/17 08:00 04/14/17 08:00 04/14/17 08:00 04/14/17 08:00 04/14/17 08:00 - Medications Medications: Current Medications Albuterol/Ipratropium (Duoneb 3 Mg/0.5 Mg (3 Ml) Ud) 3 ml INH RQ6 [facility] Last Admin: 04/14/17 07:00 Dose: 3 ml Brimonidine Tartrate (Alphagan 0.2% Opht) 5 ml OU HS [facility] Last Admin: 04/13/17 21:24 Dose: 1 drop Ezetimibe (Zetia) 10 mg PO DAILY [facility] Last Admin: 04/14/17 09:55 Dose: 10 mg Epoetin Krystian (Procrit) 10,000 unit SC TTS [facility] Last Admin: 04/13/17 09:17 Dose: 10,000 unit Famotidine (Pepcid) 20 mg PO DAILY [facility] Last Admin: 04/14/17 09:55 Dose: 20 mg Ferric Sodium Gluconate Complex 125 mg/ Sodium Chloride 110 mls @ 110 mls/hr IVPB DAILY [facility] Stop: 04/19/17 10:01 Last Admin: 04/14/17 09:56 Dose: 110 mls/hr Latanoprost (Xalatan Opht) 0 ml OU HS [facility] Last Admin: 04/13/17 21:24 Dose: 2.5 ml Promethazine HCl (Phenergan Syrup) 6.25 mg PO Q6H PRN PRN Reason: Cough Last Admin: 04/14/17 09:56 Dose: 6.25 mg Rosuvastatin Calcium (Crestor) 5 mg PO HS [facility] Last Admin: 04/13/17 21:24 Dose: 5 mg Sitagliptin Phosphate (Januvia) 25 mg PO DAILY [facility] Last Admin: 04/14/17 09:55 Dose: 25 mg Vitamin B Complex/Vit C/Folic Acid (Nephro-Lianna) 1 tab PO 0800 [facility] Last Admin: 04/14/17 08:01 Dose: 1 tab - Labs Labs: 04/14/17 11:05 04/13/17 07:13 PT 11.0 SECONDS (9.7-12.2) 04/10/17 02:38 INR 1.0 04/10/17 02:38 APTT 31 SECONDS (21-34) 04/10/17 02:38 - Constitutional Appears: No Acute Distress, Chronically Ill - Head Exam Head Exam: NORMOCEPHALIC - ENT Exam ENT Exam: Mucous Membranes Moist, Normal Oropharynx - Neck Exam Neck Exam: Normal Inspection - Respiratory Exam Respiratory Exam: Clear to Ausculation Bilateral - Cardiovascular Exam Cardiovascular Exam: REGULAR RHYTHM - GI/Abdominal Exam GI & Abdominal Exam: Soft - Extremities Exam Extremities Exam: absent: Pedal Edema - Neurological Exam Neurological Exam: Alert, Oriented x3 Assessment and Plan - Assessment and Plan (Free Text) Assessment: chf resolved. marrow pending.renal failure.
[2017-04-14 11:51] LABS: CALCIUM 8.8 mg/dl (8.6-10.4)
[2017-04-14 14:47] LABS: ALBUMIN 39.5 Relative %; ALPHA-1 GLOBULIN 7.3 Relative %
--- NOTE | 2017-04-14 17:33 | CP.PCM.PN ---
Subjective - Date & Time of Evaluation Date of Evaluation: 04/14/17 Time of Evaluation: 17:32 - Subjective Subjective: pt is seen and examined, follow up consult is dictated #[id number] f/u bm bx Objective - Vital Signs/Intake and Output Vital Signs (last 24 hours): Temp Pulse Resp BP Pulse Ox 98.1 F 92 H 20 132/67 97 04/14/17 16:00 04/14/17 16:00 04/14/17 16:00 04/14/17 16:00 04/14/17 16:00 - Medications Medications: Current Medications Albuterol/Ipratropium (Duoneb 3 Mg/0.5 Mg (3 Ml) Ud) 3 ml INH RQ6 [facility] Last Admin: 04/14/17 13:22 Dose: 3 ml Brimonidine Tartrate (Alphagan 0.2% Opht) 5 ml OU HS [facility] Last Admin: 04/13/17 21:24 Dose: 1 drop Ezetimibe (Zetia) 10 mg PO DAILY [facility] Last Admin: 04/14/17 09:55 Dose: 10 mg Epoetin Krystian (Procrit) 10,000 unit SC TTS [facility] Last Admin: 04/13/17 09:17 Dose: 10,000 unit Famotidine (Pepcid) 20 mg PO DAILY [facility] Last Admin: 04/14/17 09:55 Dose: 20 mg Ferric Sodium Gluconate Complex 125 mg/ Sodium Chloride 110 mls @ 110 mls/hr IVPB DAILY [facility] Stop: 04/19/17 10:01 Last Admin: 04/14/17 09:56 Dose: 110 mls/hr Latanoprost (Xalatan Opht) 0 ml OU HS [facility] Last Admin: 04/13/17 21:24 Dose: 2.5 ml Promethazine HCl (Phenergan Syrup) 6.25 mg PO Q6H PRN PRN Reason: Cough Last Admin: 04/14/17 09:56 Dose: 6.25 mg Rosuvastatin Calcium (Crestor) 5 mg PO HS [facility] Last Admin: 04/13/17 21:24 Dose: 5 mg Sitagliptin Phosphate (Januvia) 25 mg PO DAILY [facility] Last Admin: 04/14/17 09:55 Dose: 25 mg Vitamin B Complex/Vit C/Folic Acid (Nephro-Lianna) 1 tab PO 0800 [facility] Last Admin: 04/14/17 08:01 Dose: 1 tab - Labs Labs: 04/14/17 11:05 04/14/17 11:05 PT 11.0 SECONDS (9.7-12.2) 04/10/17 02:38 INR 1.0 04/10/17 02:38 APTT 31 SECONDS (21-34) 04/10/17 02:38
--- NOTE | 2017-04-14 21:28 | CP.PCM.PN ---
Subjective - Date & Time of Evaluation Date of Evaluation: 04/14/17 Time of Evaluation: 19:00 - Subjective Subjective: Mild soreness at bone marrow biopsy site Objective - Vital Signs/Intake and Output Vital Signs (last 24 hours): Temp Pulse Resp BP Pulse Ox 98.1 F 92 H 20 132/67 97 04/14/17 16:00 04/14/17 16:00 04/14/17 16:00 04/14/17 16:00 04/14/17 16:00 - Medications Medications: Current Medications Albuterol/Ipratropium (Duoneb 3 Mg/0.5 Mg (3 Ml) Ud) 3 ml INH RQ6 [facility] Last Admin: 04/14/17 19:20 Dose: 3 ml Brimonidine Tartrate (Alphagan 0.2% Opht) 5 ml OU HS [facility] Last Admin: 04/13/17 21:24 Dose: 1 drop Ezetimibe (Zetia) 10 mg PO DAILY [facility] Last Admin: 04/14/17 09:55 Dose: 10 mg Epoetin Krystian (Procrit) 10,000 unit SC TTS [facility] Last Admin: 04/13/17 09:17 Dose: 10,000 unit Famotidine (Pepcid) 20 mg PO DAILY [facility] Last Admin: 04/14/17 09:55 Dose: 20 mg Ferric Sodium Gluconate Complex 125 mg/ Sodium Chloride 110 mls @ 110 mls/hr IVPB DAILY [facility] Stop: 04/19/17 10:01 Last Admin: 04/14/17 09:56 Dose: 110 mls/hr Latanoprost (Xalatan Opht) 0 ml OU HS [facility] Last Admin: 04/13/17 21:24 Dose: 2.5 ml Promethazine HCl (Phenergan Syrup) 6.25 mg PO Q6H PRN PRN Reason: Cough Last Admin: 04/14/17 09:56 Dose: 6.25 mg Rosuvastatin Calcium (Crestor) 5 mg PO HS [facility] Last Admin: 04/13/17 21:24 Dose: 5 mg Sitagliptin Phosphate (Januvia) 25 mg PO DAILY [facility] Last Admin: 04/14/17 09:55 Dose: 25 mg Vitamin B Complex/Vit C/Folic Acid (Nephro-Lianna) 1 tab PO 0800 [facility] Last Admin: 04/14/17 08:01 Dose: 1 tab - Labs Labs: 04/14/17 11:05 04/14/17 11:05 PT 11.0 SECONDS (9.7-12.2) 04/10/17 02:38 INR 1.0 04/10/17 02:38 APTT 31 SECONDS (21-34) 04/10/17 02:38 - Head Exam Head Exam: ATRAUMATIC - Eye Exam Eye Exam: Normal appearance - ENT Exam ENT Exam: Mucous Membranes Dry - Respiratory Exam Respiratory Exam: NORMAL BREATHING PATTERN - Cardiovascular Exam Cardiovascular Exam: +S1, +S2 - GI/Abdominal Exam GI & Abdominal Exam: Normal Bowel Sounds - Extremities Exam Extremities Exam: Normal Inspection Assessment and Plan (1) Monoclonal gammopathy Assessment & Plan: s/p bone marrow biopsy ?multiple myeloma Status: Acute (2) Anemia Assessment & Plan: renal disease ? multiple myeloma Status: Acute
[2017-04-14] MEDS: Brimonidine 0.2% Opth Sol (5ml) OU SCH (22:27)
[2017-04-14] MEDS: Latanoprost 2.5 ml Opht Soln OU SCH (22:27)
[2017-04-15] MEDS: Albuterol-Ipratrop 3 mg / 0.5 (3 ml) UD INH SCH ×3 (01:26→13:20)
[2017-04-15 04:04] LABS: ANCA SCREEN NEGATIVE (NEGATIVE)
--- NOTE | 2017-04-15 04:12 | PN ---
DATE: 04/14/2017 FOLLOWUP RENAL CONSULTATION LOCATION: The patient is located in room 650, bed A. REQUESTED BY: Jeff Alvarado MD REASON FOR FOLLOWUP: Acute renal failure, anemia, rule out multiple myeloma. SUBJECTIVE: Mrs. Alvarado is a 71-year-old elderly, thin-built, female with a history of longstanding hypertension, diabetes for more than 20 years, coronary artery disease, status post CABG, who was admitted with sudden onset of shortness of breath, generalized weakness, and found to have a low H and H and also CHF and increased BUN and creatinine, rapidly deteriorating renal function in the last 3 months from baseline 0.9 in 11/2016, now admitted with 2.5. The patient is feeling better, not in acute distress. No chest pain. No palpitation. No fever. No cough. No abdominal pain. No nausea, vomiting, diarrhea. Status post bone marrow biopsy yesterday. PHYSICAL EXAMINATION: VITAL SIGNS: As follows, blood pressure is 132/67, pulse 92, respirations 20, temperature 98.1, saturation 97%, height 4 feet 10 inches, and weight is 92 pounds. GENERAL: On physical exam, Mrs. Alvarado is a 71-year-old elderly female, thin built, not in distress. HEENT: Pupils normal and reactive to light and accommodation. Conjunctivae pink. Sclerae anicteric. Tongue is moist. Trachea is midline. LUNGS: Symmetric on both sides. Bilateral breath sounds present. Clear on auscultation. CVS: [place] at the fifth intercostal space, midclavicular area. S1 and S2 audible. No murmur. No gallop. Status post CABG and midsternal scar present. ABDOMEN: Normal in appearance, soft, tympanitic. No guarding. No hepatosplenomegaly. DIRECTOR DATA PROCESSING: The patient is alert, awake, and oriented x3. Nonfocal neuro examination. Cranial nerves II through XII grossly intact. Sensory and motor system is within normal limits. Extremities: No cyanosis, no clubbing, no edema. CURRENT MEDICATIONS: Include as follows: Alphagan eye drops, Crestor 5 mg p.o at bedtime, DuoNeb inhaler, ferric gluconate 125 mg p.o. daily, Januvia 25 mg p.o. daily, Nephro-Lianna one tablet daily, Pepcid 20 mg daily, Phenergan syrup 6.25 mg in 5 mL q.6 hours p.r.n, Procrit 10,000 units three times a week, Xalatan eye drops, and Zetia 10 mg p.o. daily. LABORATORY DATA: Her laboratory data include as follows as of 04/14/2017, WBC 4.3, hemoglobin 10.2, hematocrit is 29.7, and platelets 195. Sodium 137, potassium 3.7, chloride 102, CO2 of 22, BUN 27.5, creatinine 1.7, GFR is 29, glucose 254, and calcium is 8.8. Other reports, bone density, status post midline sternotomy and coronary artery bypass clips present and no gross radiographic evidence of multiple myeloma. Other findings as above regarding degenerative type compressive wedging of mid lumbar vertebra and prominent scoliosis and diffuse generalized osteopenia. IMPRESSION: In summary, Mrs. Alvarado is a 71-year-old elderly female with a history of hypertension, diabetes, coronary artery disease, status post coronary artery bypass graft, anemia with worsening renal function since 11/2016 from the baseline creatinine 0.9, was admitted with 2.5, and now the creatinine is 1.7 today. 1. Acute renal failure, rule out light chain disease, rule out multiple myeloma. 2. Anemia secondary to multifactorial renal failure and multiple myeloma and iron-deficiency anemia. Continue IV iron and continue Procrit. Continue Nephrocaps. 3. Hypertension. 4. Status post congestive heart failure, now lungs are much better. 5. Status post bone marrow biopsy on 04/13/2017. PLAN: Continue to follow up with pneumatic jacketer and renal function is slowly improving. We will follow with you. Thank you for allowing me to participate in your patient's care. Valerie Rascon MD
[2017-04-15 08:25] VITALS: BP 120/69; RESP 18; TEMP 98.2; O2SAT 100
[2017-04-15] MEDS: Multivitamin Vitamin B Complex (Nephro-Vite) Tab PO SCH (08:38)
[2017-04-15] MEDS: Ferric Sodium Gluconat Complex 125 MG in Sodium Chloride 0.9% 100 ML IVPB SCH (10:00)
--- NOTE | 2017-04-15 10:48 | CP.PCM.PN ---
Subjective - Date & Time of Evaluation Date of Evaluation: 04/15/17 Time of Evaluation: 10:48 - Subjective Subjective: pt is seen and examined, follow up consult is dictated #[id number] Objective - Vital Signs/Intake and Output Vital Signs (last 24 hours): Temp Pulse Resp BP Pulse Ox 98.2 F 90 18 120/69 100 04/15/17 07:00 04/15/17 07:00 04/15/17 07:00 04/15/17 07:00 04/15/17 07:00 Intake and Output: 04/15/17 04/15/17 06:59 18:59 Intake Total 120 Balance 120 - Medications Medications: Current Medications Albuterol/Ipratropium (Duoneb 3 Mg/0.5 Mg (3 Ml) Ud) 3 ml INH RQ6 [facility] Last Admin: 04/15/17 07:09 Dose: 3 ml Brimonidine Tartrate (Alphagan 0.2% Opht) 5 ml OU HS [facility] Last Admin: 04/14/17 22:27 Dose: 1 drop Ezetimibe (Zetia) 10 mg PO DAILY [facility] Last Admin: 04/15/17 10:14 Dose: 10 mg Epoetin Krystian (Procrit) 10,000 unit SC TTS [facility] Last Admin: 04/13/17 09:17 Dose: 10,000 unit Famotidine (Pepcid) 20 mg PO DAILY [facility] Last Admin: 04/15/17 10:13 Dose: 20 mg Ferric Sodium Gluconate Complex 125 mg/ Sodium Chloride 110 mls @ 110 mls/hr IVPB DAILY [facility] Stop: 04/19/17 10:01 Last Admin: 04/14/17 09:56 Dose: 110 mls/hr Latanoprost (Xalatan Opht) 0 ml OU HS [facility] Last Admin: 04/14/17 22:27 Dose: 2.5 ml Promethazine HCl (Phenergan Syrup) 6.25 mg PO Q6H PRN PRN Reason: Cough Last Admin: 04/14/17 09:56 Dose: 6.25 mg Rosuvastatin Calcium (Crestor) 5 mg PO HS [facility] Last Admin: 04/14/17 22:27 Dose: 5 mg Sitagliptin Phosphate (Januvia) 25 mg PO DAILY [facility] Last Admin: 04/15/17 10:13 Dose: 25 mg Vitamin B Complex/Vit C/Folic Acid (Nephro-Lianna) 1 tab PO 0800 [facility] Last Admin: 04/15/17 08:38 Dose: 1 tab - Labs Labs: 04/14/17 11:05 04/14/17 11:05 PT 11.0 SECONDS (9.7-12.2) 04/10/17 02:38 INR 1.0 04/10/17 02:38 APTT 31 SECONDS (21-34) 04/10/17 02:38
[2017-04-15] MEDS: EPOETIN ALFA 10,000 UNIT/ML ML SC SCH (10:57)
--- NOTE | 2017-04-15 14:54 | PCM.HF ---
Heart Failure Core Measure - Heart Failure Ejection Fraction: 40 % or Greater LUIS Inhibitor Prescribed: No Contraindication/Reason for not providing: on arb Beta-Kristian Prescribed: Metoprolol Succinate Angiotensin II Receptor Kristian Prescribed: Yes Contraindication/Reason for not providing: no hx of a fib Aldosterone Antagonist Prescribed: No Contraindication/Reason for not providing: ef.>45 Hydralazine Nitrate Prescribed: No Contraindication/Reason for not providing: EF >45 Implantable Cardioverter Defibrillator Therapy: No Contraindication/Reason for not providing: ef>45 Cardiac Resynchronization Therapy Prescribed: No Contraindication/Reason for not providing: ef>45 - Follow up Will be discharged to: Home Follow Up Date (must be within 7 days from discharge): 04/21/17 Follow Up Time: 09:00
[2017-04-15 15:59] VITALS: PULSE 95
--- NOTE | 2017-04-15 17:24 | CP.PCM.PN ---
Subjective - Date & Time of Evaluation Date of Evaluation: 04/15/17 Time of Evaluation: 12:00 - Subjective Subjective: No complaints. Objective - Vital Signs/Intake and Output Vital Signs (last 24 hours): Temp Pulse Resp BP Pulse Ox 98.2 F 95 H 18 120/69 100 04/15/17 07:00 04/15/17 07:10 04/15/17 07:00 04/15/17 07:00 04/15/17 07:00 Intake and Output: 04/15/17 04/15/17 06:59 18:59 Intake Total 120 350 Balance 120 350 - Labs Labs: 04/14/17 11:05 04/14/17 11:05 PT 11.0 SECONDS (9.7-12.2) 04/10/17 02:38 INR 1.0 04/10/17 02:38 APTT 31 SECONDS (21-34) 04/10/17 02:38 - Head Exam Head Exam: ATRAUMATIC - Eye Exam Eye Exam: Normal appearance - ENT Exam ENT Exam: Mucous Membranes Dry - Respiratory Exam Respiratory Exam: NORMAL BREATHING PATTERN - Cardiovascular Exam Cardiovascular Exam: +S1, +S2 - GI/Abdominal Exam GI & Abdominal Exam: Normal Bowel Sounds Assessment and Plan (1) Monoclonal gammopathy Assessment & Plan: s/p bone marrow biopsy outpatient f/u of results. Status: Acute (2) Anemia Status: Acute
--- NOTE | 2017-04-16 01:19 | PN ---
DATE: 04/15/2017. LOCATION: Room 650, bed A. REQUESTED BY: Dr. Jeff Alvarado. REASON FOR FOLLOWUP: Acute renal failure, chronic kidney disease versus RPGN. SUBJECTIVE: Mrs. Alvarado is a 71 years old elderly female with a past medical history significant for diabetes, hypertension for about 20 years and coronary artery disease status post CABG about 2 years ago who was admitted with chief complaints of generalized weakness and shortness of breath, sudden onset. The patient was found to have CHF and also severe pulmonary hypertension. The patient was also found to have rapidly deteriorating renal function since November 2016. Initial baseline creatinine was about 0.9, now the patient was admitted with creatinine 2.5 and also severe anemia. The patient was also found to have elevated free lambda light chains in the bladder . Serum immunofixation and urine immunofixation was positive for monoclonal spike and also IgG lambda. The patient underwent bone marrow biopsy 2 days ago. The patient is feeling much better, resting comfortably. No chest pain, no palpitation. No fever. No cough. The patient received pneumococcal vaccine on 11/25/2016. Denies any other complaints. PHYSICAL EXAMINATION: VITAL SIGNS: As follows; blood pressure 120/69, pulse 90, respiration 18, temperature 98.2, saturation 100%. Height 4 feet 10 inches and weight is 93 pounds. GENERAL: Mrs. Alvarado is a 71 years old elderly female, thin built, not in distress. HEENT: Pupils normal, reactive to light and accommodation. Conjunctivae pink. Sclerae anicteric. Tongue is moist. Trachea is midline. LUNGS: Symmetric on both sides. Bilateral breath sounds present. Clear on auscultation. CVS: [place] at the fifth intercostal space, midclavicular area. S1 and S2 audible. No murmur or gallop. ABDOMEN: Normal in appearance, soft, tympanic. No guarding, no rigidity. No hepatosplenomegaly. EMT DRIVER: The patient is alert, awake and oriented x3. Nonfocal neuro examination. Cranial nerves II through XII grossly intact. Sensory and motor system is within normal limits. EXTREMITIES: No cyanosis, no clubbing, no edema. CURRENT MEDICATIONS: Include as follows; Alphagan eyedrops, allopurinol 300 mg p.o. daily, ezetimibe, simvastatin, Vytorin 10/20 mg combination 1 tablet at bedtime, Diovan 160 mg p.o. daily, metoprolol 50 mg p.o. daily, Lasix 40 mg p.o. daily and Januvia 25 mg p.o. daily. LABORATORY DATA: No new labs are available for today. As of 04/14/2017; WBC 4.3, hemoglobin 10.2, hematocrit is 29.7, platelets 195. Sodium 137, potassium 3.7, chloride 102, CO2 22, BUN 25, creatinine 1.7, glucose 254, calcium 8.8 and Accu-Cheks 135 and 225. Hepatitis C antibody IgM is negative, hepatitis B surface antigen negative, hepatitis B core antibody IgM is negative, hepatitis C antibody is negative, influenza antibody is negative and serum protein electrophorese M spike detected and serum immunofixation positive for IgG lambda and urine immunofixation positive for IgG lambda and NANCY is negative, ANCA is negative, C3 is 115, C4 is 30.3, free kappa light chains in the serum is 12 and lambda is 1056, free kappa to lambda ratio 0.01. Bone densitometry consistent with diffuse osteoporosis. ASSESSMENT: In summary, Mrs. Alvarado is a 71 years old elderly female with history of longstanding hypertension, diabetes, coronary artery disease status post coronary artery bypass graft with severe pulmonary hypertension, congestive heart failure, rapidly deteriorating renal function from November from 0.9 to 2.5 with positive urine immunofixation, serum immunofixation and status post bone marrow biopsy and positive for free lambda light chains in the blood, and 24 hour urine protein only about 481 mg. 1. Renal failure most likely acute renal failure and cannot rule out rapidly progressive glomerulonephritis rule out light chain disease, rule out cast nephropathy. 2. Anemia secondary to multifactorial renal failure and iron deficiency and rule out multiple myeloma. 3. Congestive heart failure. 4. Severe pulmonary hypertension. 5. Hypertension. 6. Diabetes status post IV iron therapy and Epogen. PLAN: Continue gentle diuresis and followup with front office supervisor as an outpatient and patient can be followed in the office in 2 to 3 weeks after discharge. We will follow with you. Thank you for allowing me to participate in your patient's care. Valerie Rascon MD
--- NOTE | 2017-04-16 14:21 | DS ---
HOSPITAL COURSE: This is a 71-year-old female with a history of hypertension, coronary artery disease, previous CABG, who was brought in with renal failure. Creatinine was found to be 2.5. Her hemoglobin was 7.1. She was admitted twice here. Transfusions were given. Nephrology consultation was evaluated by Dr. Rascon. The patient was treated with IV bicarb because of the bradyarrhythmias and potassium of 6.4. Renal failure has improved. She was also seen by Dr. Disla. Possibility of myeloma is considered. Bone marrow biopsy has been done. The results are awaited. Repeat hemoglobin is 9.1. Vital signs are stable. She is ambulatory. At this point, she is being discharged. To be continued on Januvia 25 mg p.o. one a day. Metformin was discontinued. She will continue Lipitor, Feosol, multiple vitamin one a day, Pepcid one a day, Zetia one a day along with LUIS inhibitors that she has been on at home. BMP will be repeated in one week's time. She is also on Lasix 40 mg p.o. 4 days a week, will be continued. Her LVEF is normal. Bone marrow results are awaited. She will follow up with Dr. Disla and Dr. Rascon. Outpatient will be taken care by Dr. Rascon daily. FINAL DIAGNOSES: Congestive heart failure, hypertension, electrolyte disorder, acute renal failure, resolving. Today's creatinine is 1.7, creatinine clearance is about 39. Care of plan was explained to the patient and family. Jeff Alvarado MD
--- NOTE | 2017-04-17 11:36 | CARD ---
APPROVED REPORT EKG Measurement Heart [id number] [place] [id number] [id number] <Conclusion> Sinus bradycardia with sinus arrhythmia Left axis deviation Left ventricular hypertrophy with repolarization abnormality Cannot rule out Septal infarct, age undetermined Abnormal ECG
--- NOTE | 2017-04-17 11:36 | CARD ---
APPROVED REPORT EKG Measurement Heart [id number] [place] [id number] <Conclusion> Sinus bradycardia with 1st degree AV block with premature atrial complexes Left axis deviation Minimal voltage criteria for LVH, may be normal variant Septal infarct, age undetermined ST & T wave abnormality, consider lateral ischemia Abnormal ECG
--- NOTE | 2017-04-17 11:36 | CARD ---
APPROVED REPORT EKG Measurement Heart [id number] [place] 240P [id number] <Conclusion> Sinus bradycardia with 1st degree AV block with premature atrial complexes Left axis deviation Left ventricular hypertrophy with QRS widening and repolarization abnormality Anteroseptal infarct, age undetermined Abnormal ECG
== END 2017-04-15 16:25 | disposition home or self-care (01) | DRG 683 ==
LOC: C.ER 02:29 → C.9I 05:09 → C.6T 04-12 14:55
PROVIDERS: ADMIT Internal Medicine Cardiovascular Disease; ATTEND Internal Medicine Cardiovascular Disease
PROC: 07DR3ZX Extraction of Iliac Bone Marrow, Percutaneous Approach, Diagnostic (ICD-10-PCS; principal; 2017-04-13)
DX: N17.9 Acute kidney failure, unspecified (principal); I13.0 Hypertensive heart and chronic kidney disease with heart failure and stage 1 through stage 4 chronic kidney disease, or unspecified chronic kidney disease; E87.4 Mixed disorder of acid-base balance; E11.22 Type 2 diabetes mellitus with diabetic chronic kidney disease; D47.2 Monoclonal gammopathy; E88.09 Other disorders of plasma-protein metabolism, not elsewhere classified; I27.20 Pulmonary hypertension, unspecified; E87.5 Hyperkalemia; N18.4 Chronic kidney disease, stage 4 (severe); J44.9 Chronic obstructive pulmonary disease, unspecified; I25.10 Atherosclerotic heart disease of native coronary artery without angina pectoris; I44.0 Atrioventricular block, first degree; I50.9 Heart failure, unspecified; K29.70 Gastritis, unspecified, without bleeding; N05.9 Unspecified nephritic syndrome with unspecified morphologic changes; R77.1 Abnormality of globulin; D63.1 Anemia in chronic kidney disease; D50.9 Iron deficiency anemia, unspecified; E78.5 Hyperlipidemia, unspecified; E78.00 Pure hypercholesterolemia, unspecified; H40.9 Unspecified glaucoma; Z79.84 Long term (current) use of oral hypoglycemic drugs; Z83.3 Family history of diabetes mellitus; Z90.49 Acquired absence of other specified parts of digestive tract; Z95.1 Presence of aortocoronary bypass graft; Z79.899 Other long term (current) drug therapy

== ENCOUNTER 2017-04-20 03:12 | Inpatient (IN) | payer MEDICARE, BC ==
[2017-04-20 03:13] VITALS: BMI 25.6
--- NOTE | 2017-04-20 03:52 | C.PDOC ---
History Of Present Illness Patient presents with burning sensation in her chest and shortness of breath, worsening over the last few hours. Speaking in 3-4 word sentences. No f/c/n/v Time Seen by Provider: 04/20/17 03:51 Chief Complaint (Nursing): Chest Pain History Per: Patient History/Exam Limitations: no limitations Onset/Duration Of Symptoms: Hrs Current Symptoms Are (Timing): Still Present Context: Other Severity: Moderate Pain Scale Rating Of: 4 Quality: Dull, Burning Associated Symptoms: Dyspnea. denies: Nausea Modifying Factors: None Exacerbating Factors: None Alleviating Factors: None Recent travel outside of the [place]: No Additional History Per: Patient Past Medical History Reviewed: Historical Data, Nursing Documentation, Vital Signs Vital Signs: Last Vital Signs Temp 97.6 F 04/20/17 03:26 Pulse 48 L 04/20/17 04:33 Resp 22 04/20/17 04:33 BP 126/45 L 04/20/17 04:33 Pulse Ox 100 04/20/17 04:33 - Medical History PMH: CHF, HTN, Hypercholesterolemia Denies: Chronic Kidney Disease Surgical History: CABG Family History: States: No Known Family Hx - Social History Hx Alcohol Use: No Hx Substance Use: No - Immunization History Hx Tetanus Toxoid Vaccination: No Hx Influenza Vaccination: No Hx Pneumococcal Vaccination: No Review Of Systems Constitutional: Negative for: Fever, Chills Eyes: Negative for: Redness ENT: Negative for: Throat Pain Cardiovascular: Positive for: Chest Pain Respiratory: Positive for: Shortness of Breath, SOB with Excertion Gastrointestinal: Negative for: Nausea, Vomiting, Abdominal Pain Genitourinary: Negative for: Dysuria Musculoskeletal: Negative for: Back Pain Skin: Negative for: Rash Neurological: Negative for: Weakness Psych: Negative for: Anxiety Physical Exam - Physical Exam Appears: Non-toxic Skin: Warm, Dry Head: Normacephalic Eye(s): bilateral: Normal Inspection Oral Mucosa: Moist Throat: No Erythema Neck: Supple Chest: Symmetrical, Other (cabg scar) Cardiovascular: Rhythm Regular Respiratory: Rales, No Rhonchi, No Wheezing Gastrointestinal/Abdominal: Soft, No Tenderness, No Distention Back: Normal Inspection Extremity: No Tenderness Extremity: Bilateral: Atraumatic Pulses: Left Dorsalis Pedis: Normal, Right Dorsalis Pedis: Normal Neurological/Psych: Oriented x3 Gait: Unable To Assess ED Course And Treatment - Laboratory Results Result Diagrams: 04/20/17 04:20 04/20/17 04:20 ECG: Interpreted By Me, Viewed By Me ECG Rhythm: Sinus Bradycardia (46), 1st Degree HB, Nonspecific Changes (lvh with repol abn) O2 Sat by Pulse Oximetry: 100 Pulse Ox Interpretation: Normal - Radiology CXR: Interpreted by Me, Viewed By Me Disposition Discussed With DrLobo: Jeff Alvarado Comment: accepted the pt on his service and took over the care at 5:45 AM Doctor Will See Patient In The: Hospital Counseled Patient/Family Regarding: Studies Performed, Diagnosis - Disposition Disposition: HOSPITALIZED Disposition Time: 05:45 Condition: FAIR Forms: Product Hunt (Malaysian) - POA Present On Arrival: Poor Glycemic Control - Clinical Impression Clinical Impression: Chest discomfort, Pulmonary edema, Renal insufficiency Decision To Admit - Pt Status Changed To: Hospital Disposition Of: Inpatient - Admit Certification Admit to Inpatient:: After my assessment, the patient will require hospitalization for at least two midnights. This is because of the severity of symptoms shown, intensity of services needed, and/or the medical risk in this patient being treated as an outpatient. - InPatient: Physician Admission Certification: I certify that this patient requires 2 or more midnights of care for the following reason:: After my assessment, the patient will require hospitalization for at least two midnights. This is because of the severity of symptoms shown, intensity of services needed, and/or the medical risk in this patient being treated as an outpatient. - . Bed Request Type: Telemetry Admitting Physician: Jeff Avlarado Patient Diagnosis: Chest discomfort, Pulmonary edema, Renal insufficiency
[2017-04-20] MEDS ORDERED: Aspirin 325 mg EC Tablets PO STA (03:57)
[2017-04-20] MEDS ORDERED: Aspirin 325 mg EC Tablets PO ONE (04:19)
[2017-04-20 04:24] LABS: BASO % 0.4 % (0.0-2.0); EOS % 0.8 % (0.0-4.0); LYMPH # 1.7 K/uL (1.0-4.3); LYMPH % 26.6 % (20.0-40.0); MEAN CELL VOLUME 99.5 fL (81.0-99.0); MEAN CORPUSCULAR HGB CONC 33.2 g/dL (33.0-37.0); MEAN PLATELET VOLUME 9.7 fL (7.2-11.7); MONO # 0.2 K/uL (0.0-0.8); MONO % 3.8 % (0.0-10.0); NEUT # 4.5 K/uL (1.8-7.0); NEUT % 68.4 % (50.0-75.0); NRBC % 0.1 % (0.0-2.0); RBC 3.02 Mil/uL (3.80-5.20); RED CELL DISTRIBUTION WIDTH 17.4 % (11.5-14.5); WHITE BLOOD COUNT 6.5 K/uL (4.8-10.8)
[2017-04-20 04:32] LABS: PROTHROMBIN TIME 11.1 SECONDS (9.7-12.2)
[2017-04-20 04:39] LABS: VENOUS BLOOD GAS BASE EXCESS -4.5 mmol/L (0.0-2.0); VENOUS BLOOD GAS PCO2 36 mmHg (40-60); VENOUS BLOOD GAS PO2 21 mm/Hg (30-55); VENOUS BLOOD PH 7.36 (7.32-7.43)
[2017-04-20 05:11] LABS: TROPONIN I 0.077 ng/mL (0.00-0.120)
[2017-04-20 06:21] LABS: ALB/GLOB RATIO 0.7 (1.0-2.1); ALBUMIN 3.8 g/dL (3.5-5.0); CALCIUM 8.6 mg/dl (8.6-10.4)
[2017-04-20 08:09] LABS: SQUAMOUS EPITHIAL 1 /hpf (0-5); URINE BACTERIA OCC (<OCC); URINE BILIRUBIN NEGATIVE (NEGATIVE); URINE BLOOD 1+ (NEGATIVE); URINE CLARITY Clear (Clear); URINE COLOR Straw (YELLOW); URINE GLUCOSE (UA) NORMAL (Normal); URINE LEUKOCYTE ESTERASE 1+ Leu/uL (Negative); URINE NITRATE NEGATIVE (NEGATIVE); URINE PROTEIN NEGATIVE (NEGATIVE); URINE UROBILINOGEN NORMAL mg/dL (0.2-1.0)
--- NOTE | 2017-04-20 08:36 | RAD ---
PROCEDURE: CHEST RADIOGRAPH, 1 VIEW HISTORY: SOB COMPARISON: 04/10/2017 FINDINGS: LUNGS: Bilateral interstitial and airspace opacities are present. Moderate pulmonary venous congestion -inferred. PLEURA: No pneumothorax or pleural fluid seen. CARDIOVASCULAR: Mild cardiomegaly. Midline sternotomy and coronary artery bypass surgery clips present OSSEOUS STRUCTURES: No significant abnormalities. VISUALIZED UPPER ABDOMEN: Normal. OTHER FINDINGS: None. IMPRESSION: Similar moderate pulmonary venous congestion. No additional pathology noted. (Comments previously referenced rounded nodular density lateral aspect the right mid to lower lung zone not clearly depicted on this exam. For this, consider elective follow-up CT chest imaging
--- NOTE | 2017-04-20 09:05 | CP.PCM.PN ---
Subjective - Date & Time of Evaluation Date of Evaluation: 04/20/17 Time of Evaluation: 09:05 - Subjective Subjective: pt is seen and examined follow up consult is dictated #[id number] Objective - Vital Signs/Intake and Output Vital Signs (last 24 hours): Temp Pulse Resp BP Pulse Ox 97.3 F L 66 18 121/65 97 04/20/17 08:00 04/20/17 08:00 04/20/17 08:00 04/20/17 08:00 04/20/17 08:00 - Medications Medications: Current Medications Furosemide (Lasix) 40 mg IVP BID [facility] Stop: 04/23/17 10:01 Heparin Sodium (Porcine) (Heparin) 5,000 units SC BID [facility] Last Admin: 04/20/17 09:03 Dose: 5,000 units Losartan Potassium (Cozaar) 50 mg PO DAILY [facility] Last Admin: 04/20/17 09:04 Dose: 50 mg Nitroglycerin (Nitro-Bid 2% Oint) 1 ea TOP Q6 [facility] - Labs Labs: 04/20/17 04:20 04/20/17 04:20 PT 11.1 SECONDS (9.7-12.2) 04/20/17 04:20 INR 1.0 04/20/17 04:20 APTT 29 SECONDS (21-34) 04/20/17 04:20
[2017-04-20] MEDS: Nitroglycerin 2% Ointment Foilpak UD TOP SCH ×2 (13:00→18:02)
--- NOTE | 2017-04-20 21:25 | CP.PCM.CON ---
History of Present Illness - History of Present Illness History of Present Illness: 71 year old female with a history of CAD s/p CABG, HTN, DM, recently diagnosed with multiple myeloma, admitted with shortness of breath. The patient underwent a bone marrow biopsy 1 week ago which was consistent with multiple myeloma with anemia and renal failure. A skeletal survey was negative for lytic bone lesions. Past medical history: CAD, HTN, DM Past surgical history: CABG Family history: Denies hematologic and oncologic problems Social history: Denies tobacco, alcohol, and illicit drug use. Allergies: NKA Review of systems: All remaining review of systems including HEENT, cardiovascular, respiratory, gastrointestinal, genitourinary, musculoskeletal, dermatologic, neurologic, and psychiatric are negative unless mentioned in the HPI. Past Patient History - Infectious Disease Hx of Infectious Diseases: None - Past Medical History & Family History Past Medical History?: Yes - Past Social History Smoking Status: Never Smoked - CARDIAC Hx Cardiac Disorders: Yes (CABG) Hx Congestive Heart Failure: Yes Hx Hypercholesterolemia: Yes Hx Hypertension: Yes - PULMONARY Hx Respiratory Disorders: No - NEUROLOGICAL Hx Neurological Disorder: No - HEENT Hx HEENT Problems: Yes Hx Glaucoma: Yes - RENAL Hx Chronic Kidney Disease: No - ENDOCRINE/METABOLIC Hx Diabetes Mellitus Type 2: Yes - HEMATOLOGICAL/ONCOLOGICAL Hx Blood Disorders: No - INTEGUMENTARY Hx Dermatological Problems: No - MUSCULOSKELETAL/RHEUMATOLOGICAL Hx Falls: No - GASTROINTESTINAL Hx Gastrointestinal Disorders: No - GENITOURINARY/GYNECOLOGICAL Hx Genitourinary Disorders: No - PSYCHIATRIC Hx Substance Use: No - SURGICAL HISTORY Hx Surgeries: Yes Hx Coronary Artery Bypass Graft: Yes - ANESTHESIA Hx Anesthesia: Yes Hx Anesthesia Reactions: No Hx Malignant Hyperthermia: No Has any member of the family had a problem w/ anesthesia?: No Meds Allergies/Adverse Reactions: Allergies Allergy/AdvReac Type Severity Reaction Status Date / Time No Known Allergies Allergy Verified 04/20/17 03:32 - Medications Medications: Current Medications Allopurinol (Zyloprim) 100 mg PO DAILY [facility] Brimonidine Tartrate (Alphagan 0.2% Opht) 0 ml OU HS [facility] Carvedilol (Coreg) 3.125 mg PO BID [facility] Last Admin: 04/20/17 18:04 Dose: 3.125 mg Ezetimibe (Zetia) 10 mg PO HS [facility] Furosemide (Lasix) 40 mg IVP BID [facility] Stop: 02/18/18 10:01 Last Admin: 04/20/17 17:55 Dose: 40 mg Heparin Sodium (Porcine) (Heparin) 5,000 units SC Q12H [facility] Losartan Potassium (Cozaar) 50 mg PO DAILY [facility] Last Admin: 04/20/17 09:04 Dose: 50 mg Nitroglycerin (Nitro-Bid 2% Oint) 1 ea TOP Q6 [facility] Last Admin: 04/20/17 18:02 Dose: 1 ea Rosuvastatin Calcium (Crestor) 5 mg PO HS [facility] Sitagliptin Phosphate (Januvia) 25 mg PO DAILY [facility] Physical Exam - Head Exam Head Exam: ATRAUMATIC - Eye Exam Eye Exam: Normal appearance - ENT Exam ENT Exam: Mucous Membranes Dry - Respiratory Exam Respiratory Exam: NORMAL BREATHING PATTERN - Cardiovascular Exam Cardiovascular Exam: +S1, +S2 - GI/Abdominal Exam GI & Abdominal Exam: Normal Bowel Sounds - Extremities Exam Extremities exam: Positive for: normal inspection - Neurological Exam Neurological exam: Oriented x3 - Psychiatric Exam Psychiatric exam: Normal Affect, Normal Mood - Skin Skin Exam: Warm Results - Vital Signs Recent Vital Signs: Last Vital Signs Temp 97.8 F 04/20/17 17:43 Pulse 75 04/20/17 17:43 Resp 20 04/20/17 17:43 BP 142/78 04/20/17 17:55 Pulse Ox 96 04/20/17 17:43 - Labs Result Diagrams: 04/20/17 04:20 04/20/17 04:20 Labs: Laboratory Results - last 24 hr 04/20/17 04/20/17 04/20/17 04:20 04:20 04:20 WBC 6.5 D RBC 3.02 L Hgb 10.0 L Hct 30.1 L MCV 99.5 H D MCH 33.0 H MCHC 33.2 RDW 17.4 H Plt Count 194 MPV 9.7 Neut % (Auto) 68.4 Lymph % (Auto) 26.6 Cottle % (Auto) 3.8 Eos % (Auto) 0.8 Baso % (Auto) 0.4 Neut # (Auto) 4.5 Lymph # (Auto) 1.7 Cottle # (Auto) 0.2 Eos # (Auto) 0.0 Baso # (Auto) 0.0 PT 11.1 INR 1.0 APTT 29 pO2 VBG pH VBG pCO2 VBG HCO3 VBG Total CO2 VBG O2 Sat (Calc) VBG Base Excess VBG Potassium Glucose Lactate Crit Value Called To Crit Value Called By Crit Value Read Back Blood Gas Notified Time Sodium Potassium Chloride Carbon Dioxide Anion Gap BUN Creatinine Est GFR ( Amer) Est GFR (Non-Af Amer) Random Glucose Calcium Total Bilirubin AST ALT Alkaline Phosphatase Troponin I NT-Pro-B Natriuret Pep Total Protein Albumin Globulin Albumin/Globulin Ratio Venous Blood Potassium Urine Color Urine Clarity Urine pH Ur Specific [place] Urine Protein Urine Glucose (UA) Urine Ketones Urine Blood Urine Nitrate Urine Bilirubin Urine Urobilinogen Ur Leukocyte Esterase Urine WBC (Auto) Urine RBC (Auto) Ur Squamous Epith Cells Urine Bacteria Influenza Typ A,B (EIA) Negative for flu a/b 04/20/17 04/20/17 04/20/17 04:20 04:30 07:22 WBC RBC Hgb Hct MCV MCH MCHC RDW Plt Count MPV Neut % (Auto) Lymph % (Auto) [place] % (Auto) Eos % (Auto) Baso % (Auto) Neut # (Auto) Lymph # (Auto) [place] # (Auto) Eos # (Auto) Baso # (Auto) PT INR APTT pO2 21 L VBG pH 7.36 VBG pCO2 36 L VBG HCO3 19.6 VBG Total CO2 21.4 L VBG O2 Sat (Calc) 34.4 L VBG Base Excess -4.5 L VBG Potassium 4.7 Glucose 150 H Lactate 0.8 Crit Value Called To Dr gray Crit Value Called By Dionna pike rt Crit Value Read Back Y Blood Gas Notified Time 438 Sodium 132 135.0 Potassium 5.0 Chloride 99 109.0 H Carbon Dioxide 21 L Anion Gap 18 BUN 58 H Creatinine 2.4 H Est GFR ( Amer) 24 Est GFR (Non-Af Amer) 20 Random Glucose 160 H Calcium 8.6 Total Bilirubin 0.7 AST 130 H D ALT 109 H D Alkaline Phosphatase 162 H D Troponin I 0.0770 NT-Pro-B Natriuret Pep 30149 H Total Protein 9.3 H Albumin 3.8 Globulin 5.5 H Albumin/Globulin Ratio 0.7 L Venous Blood Potassium 4.7 Urine Color Straw Urine Clarity Clear Urine pH 5.0 Ur Specific [place] 1.005 Urine Protein Negative Urine Glucose (UA) Normal Urine Ketones Negative Urine Blood 1+ H Urine Nitrate Negative Urine Bilirubin Negative Urine Urobilinogen Normal Ur Leukocyte Esterase 1+ H Urine WBC (Auto) 4 Urine RBC (Auto) 4 H Ur Squamous Epith Cells 1 Urine Bacteria Occ H Influenza Typ A,B (EIA) Assessment & Plan (1) Multiple myeloma Assessment and Plan: case discussed with hematopathologist today; 50% monoclonal plasma cells detected given anemia and renal failure and monoclonality, this is consistent with multiple myeloma further cytogenetic/FISH analysis pending will give a dose of dexamethasone; wants to confer with family this weekend before deciding on a dose of oral cyclophosphamide I will plan to meet with the patients family on Monday as requested Thank you for this interesting consult. Status: Acute
--- NOTE | 2017-04-20 21:30 | HP ---
DATE: HISTORY OF PRESENT ILLNESS: A 71-year-old female who was brought in with chest discomfort, burning sensation over the chest and she was found to be in CHF. This is one of the recurrent admissions for her. She is known to have a history of hypertension, diabetes, chronic kidney disease, which recently got worse. She has been seen and followed by Dr. Rascon. She was recently found to have anemia also, was seen by Dr. Disla and workup for myeloma was considered. Bone marrow biopsy was done, the reports are pending. She was discharged on diuretic Lasix. Continued Diovan, nitro paste, baby aspirin, and simvastatin. She was in her usual state of health up until last night, when at around 2 o' clock in the morning, she had some substernal burning in the chest, could not breathe, came to the ER and was found to be in CHF. The patient has a history of hypertension, had a coronary artery disease, had a CABG done about two years ago. Recent LV function was normal. Echo was repeated x2. PERSONAL HISTORY: Does not smoke and does not drink. ALLERGIES: Denied. PAST MEDICAL HISTORY: History of hypertension, chronic kidney disease, coronary artery disease, and CABG. FAMILY HISTORY: Negative for premature coronary artery disease. REVIEW OF SYSTEMS: Generalized weakness is noted, but no fever, no chills, no cough, no hemoptysis. Shortness of breath with exertion. GI workup, stool for occult blood has been negative. B12 has been normal. The patient has been seen by GI men's custom hair piece consultant in the past. SKIN: No rash. URINARY: No complaints. No dysuria. No hematuria. NEUROLOGICAL: Negative for TIA or CVA. PSYCH: No evidence of depression. Negative for anxiety. PHYSICAL EXAMINATION: GENERAL: Exam shows elderly female who is in no acute distress. VITAL SIGNS: She is 5 feet 2 inches, weighs 110 pounds. Her blood pressure is 126/50, heart rate of 52 and regular, respiratory rate of 14, afebrile, O2 sat was 100%, and temperature 97.6. HEENT: Head is normocephalic. Eyes, no pallor. No icterus. NECK: Supple. No lymphadenopathy. LUNGS: Shows bibasilar rales. HEART: PMI is normal. S1 and S2 is distant, but normal. Grade 2/6 holosystolic murmur in mitral area. ABDOMEN: Soft, nontender. EXTREMITIES: No cyanosis, clubbing, or edema. Distal pulses are intact. NEUROLOGIC: The patient is awake, alert, and oriented x3. No focal signs. SKIN: Shows healed surgical scar of previous CABG. LABORATORY DATA: Hemoglobin is 10 g, white count is normal, platelet count is 194. BUN is 58, creatinine is 2.4, and potassium is 5. EKG; sinus bradycardia, LVH, U waves. Chest x-ray, CHF. IMPRESSION: This is a 71-year-old female with the history of coronary artery disease, hypertension, diabetes, has presented with recurrent congestive heart failure. PLAN: At this point to stabilize her medically again and we will await the report of the bone marrow biopsy. Possibility to repeat cardiac catheterization will be considered in view of her recurrent CHF with ischemic etiology. However, given the recent worsening of renal failure, we will hold off with that and may be noninvasive nuclear stress test might be of benefit. Care of plan will be discussed again with the patient's for nuclear medicine stress test versus angiograph and will discuss again with Nephrology. Jeff Alvarado MD
[2017-04-20] MEDS: Brimonidine 0.2% Opth Sol (5ml) OU SCH (21:45)
[2017-04-21] MEDS: Nitroglycerin 2% Ointment Foilpak UD TOP SCH ×4 (00:34→17:19)
[2017-04-21 06:37] LABS: BASO % 0.4 % (0.0-2.0); HEMOGLOBIN 10.7 g/dL (11.0-16.0); LYMPH # 0.7 K/uL (1.0-4.3); LYMPH % 20.1 % (20.0-40.0); MEAN CELL VOLUME 98.2 fL (81.0-99.0); MEAN CORPUSCULAR HEMOGLOBIN 33.5 pg (27.0-31.0); MEAN CORPUSCULAR HGB CONC 34.2 g/dL (33.0-37.0); MEAN PLATELET VOLUME 9.3 fL (7.2-11.7); MONO # 0.1 K/uL (0.0-0.8); MONO % 1.8 % (0.0-10.0); NEUT # 2.8 K/uL (1.8-7.0); NEUT % 77.7 % (50.0-75.0); NRBC % 0.1 % (0.0-2.0); RBC 3.19 Mil/uL (3.80-5.20); WHITE BLOOD COUNT 3.6 K/uL (4.8-10.8)
--- NOTE | 2017-04-21 07:12 | PN ---
DATE: 04/20/2017 FOLLOWUP RENAL CONSULTATION LOCATION: The patient is located in room 550, bed A. REQUESTED BY: Jeff Alvarado MD REASON FOR FOLLOWUP: Acute renal failure, chronic kidney disease, shortness of breath, hypertension, diabetes, and rule out multiple myeloma. SUBJECTIVE: Mrs. Alvarado is a 71 years old elderly female, located in room 550, bed A, with a past medical history significant for hypertension for 20 years, diabetes for 20 years, coronary artery disease, status post CABG about 2 years ago who was admitted with chief complaints of shortness of breath, sudden onset and slight chest discomfort. Family decided to bring to the hospital. The patient was found to be in CHF. The patient is resting comfortably, not in acute distress. No chest pain at this time. No nausea, vomiting, diarrhea. No fever. No cough. PAST MEDICAL HISTORY: Significant for diabetes for 20 years, hypertension 20 years, coronary artery disease, status post CABG, anemia, renal failure. PAST SURGICAL HISTORY: CABG done 2 years ago. ALLERGIES: NO KNOWN DRUG ALLERGIES. SOCIAL HISTORY: No smoking. No alcohol. No drugs. FAMILY HISTORY: Not significant. She has a very supportive family. CURRENT MEDICATIONS: Include as follows: Alphagan eye drops and Coreg 3.125 mg p.o. b.i.d., losartan 50 mg p.o. daily, Crestor 5 mg at bedtime, subcu heparin 5000 q.12 hours, Januvia 25 mg p.o. daily, Lasix 40 mg IV b.i.d., and nitroglycerin ointment 1 inch to chest wall q.6 hours, Zetia 10 mg p.o. at bedtime, allopurinol 100 mg p.o. daily. REVIEW OF SYSTEMS: Significant for chest discomfort and shortness of breath. All other review of systems are reviewed and negative. PHYSICAL EXAMINATION: VITAL SIGNS: As follows: This morning, blood pressure 123/63, pulse 79, respirations 20, temperature 97.8, saturation 96%. Height 5 feet 2 inches and weight is 110 pounds. GENERAL: Mrs. Alvarado is a 71 years elderly female, thin-built, not in acute distress. HEENT: Pupils normal and reactive to light and accommodation. Conjunctivae pink. Sclerae anicteric. Tongue is moist. Trachea is midline. LUNGS: Symmetric on both sides. Bilateral breath sounds present. Bilateral basal crackles present. CVS: [place] at the fifth intercostal space, midclavicular line. S1, S2 audible. No murmur or gallop. ABDOMEN: Normal in appearance. Soft, tympanitic. No guarding. No rigidity. No hepatosplenomegaly. LIMOUSINE DRIVER: The patient is alert, awake, oriented x3. Nonfocal neuro examination. Cranial nerves II through XII grossly intact. Sensory and motor system is within normal limits. EXTREMITIES: No cyanosis, no clubbing or edema. LABORATORY DATA: Include as follows: As of 04/20/2017, WBC 6.5, hemoglobin 10, hematocrit is 30.1, and platelets 194. PT 11.1 and PTT 29. ABG, pH 7.36, pO2 of 21, and pCO2 of 36. Sodium 132, potassium is 5, chloride 99, CO2 of 21, BUN 58, creatinine 2.4, glucose 160, calcium 8.6. Total bili 0.7, AST 130, ALT 109, alkaline phosphatase is 162. Troponin 0.077, proBNP 17,300, and total protein 9.3, albumin is 3.8, and globulin is 5.5. Urine is straw color, clear, and pH 5, specific gravity 1.005, protein negative, glucose normal, ketones negative, blood 1+, nitrites negative, and bilirubin negative, urobilinogen normal, leukocyte esterase 1+, wbc 4, rbc 4, bacteria occasional. Influenza A and B antibodies negative. Chest x-ray as of 04/20/2017, impression, similar moderate pulmonary by venous congestion, no additional pathology noted. Comments, previously referenced rounded nodular density in the lateral aspect of the right mid and lower lung zone, not clearly depicted on this exam. For this, consider electively followup CT chest imaging. IMPRESSION: In summary, Mrs. Alvarado is a 71 years old elderly female with a history of longstanding hypertension, diabetes, coronary artery disease, status post coronary artery bypass graft, hyperlipidemia, moderate to severe pulmonary hypertension, congestive heart failure with anemia and with a baseline creatinine about 0.10 in November now with creatinine about 2.4. 1. Renal failure, rapidly progressing renal failure, cannot rule out chronic kidney disease versus acute kidney injury. The patient has a positive UPEP, SPEP, urine immunofixation, serum immunofixation, and also elevated free lambda chains in the blood and ratio of kappa to lambda is 0.12 and status post bone marrow biopsy last week. Continue to monitor renal function. 2. Rule out multiple myeloma, rule out monoclonal gammopathy of renal significance. 3. 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 Follow with the bone marrow biopsy. 4. Hyperglobulinemia. Rule out multiple myeloma again. 5. Congestive heart failure. 6. Moderate severe pulmonary hypertension. Restrict fluids to 1 liter per day, and continue Lasix 40 mg IV b.i.d. We will follow with you. We will also add Nephrocaps 1 tablet p.o. daily. Thank you for allowing me to participate in your patient's care. Valerie Rascon MD
--- NOTE | 2017-04-21 14:04 | CP.PCM.PN ---
Subjective - Date & Time of Evaluation Date of Evaluation: 04/21/17 Time of Evaluation: 14:02 - Subjective Subjective: breathing better.seen by kaity johnson. Objective - Vital Signs/Intake and Output Vital Signs (last 24 hours): Temp Pulse Resp BP Pulse Ox 97.6 F 75 18 123/66 97 04/21/17 07:00 04/21/17 07:30 04/21/17 07:00 04/21/17 09:46 04/21/17 07:00 - Medications Medications: Current Medications Allopurinol (Zyloprim) 100 mg PO DAILY [facility] Last Admin: 04/21/17 09:46 Dose: 100 mg Brimonidine Tartrate (Alphagan 0.2% Opht) 0 ml OU HS [facility] Last Admin: 04/20/17 21:45 Dose: 2 drop Carvedilol (Coreg) 3.125 mg PO BID [facility] Last Admin: 04/21/17 09:46 Dose: 3.125 mg Ezetimibe (Zetia) 10 mg PO HS [facility] Last Admin: 04/20/17 21:40 Dose: 10 mg Furosemide (Lasix) 40 mg IVP DAILY [facility] Stop: 04/22/17 10:01 Furosemide (Lasix) 40 mg PO DAILY [facility] Heparin Sodium (Porcine) (Heparin) 5,000 units SC Q12H [facility] Last Admin: 04/21/17 09:47 Dose: 5,000 units Losartan Potassium (Cozaar) 50 mg PO DAILY [facility] Last Admin: 04/21/17 09:46 Dose: 50 mg Nitroglycerin (Nitro-Bid 2% Oint) 1 ea TOP Q6 [facility] Last Admin: 04/21/17 12:48 Dose: 1 ea Rosuvastatin Calcium (Crestor) 5 mg PO HS [facility] Last Admin: 04/20/17 21:40 Dose: 5 mg Sitagliptin Phosphate (Januvia) 25 mg PO DAILY [facility] Last Admin: 04/21/17 09:46 Dose: 25 mg - Labs Labs: 04/21/17 06:30 04/21/17 06:30 PT 11.1 SECONDS (9.7-12.2) 04/20/17 04:20 INR 1.0 04/20/17 04:20 APTT 29 SECONDS (21-34) 04/20/17 04:20 - Constitutional Appears: No Acute Distress, Chronically Ill - Head Exam Head Exam: NORMOCEPHALIC - ENT Exam ENT Exam: Mucous Membranes Moist - Neck Exam Neck Exam: Normal Inspection - Cardiovascular Exam Cardiovascular Exam: REGULAR RHYTHM - GI/Abdominal Exam GI & Abdominal Exam: Soft - Extremities Exam Extremities Exam: absent: Pedal Edema - Neurological Exam Neurological Exam: Alert, Oriented x3 Assessment and Plan - Assessment and Plan (Free Text) Assessment: chf,better.will decrease lasix to od. accu check while on steroids.diss with ,
--- NOTE | 2017-04-21 19:20 | CP.PCM.PN ---
Subjective - Date & Time of Evaluation Date of Evaluation: 04/21/17 Time of Evaluation: 19:20 - Subjective Subjective: pt is seen and examined, follow up consult is dictated #[id number] Objective - Vital Signs/Intake and Output Vital Signs (last 24 hours): Temp Pulse Resp BP Pulse Ox 97.4 F L 83 18 111/56 L 96 04/21/17 16:05 04/21/17 18:36 04/21/17 16:05 04/21/17 17:21 04/21/17 16:05 Intake and Output: 04/21/17 04/22/17 18:59 06:59 Intake Total 380 Balance 380 - Medications Medications: Current Medications Allopurinol (Zyloprim) 100 mg PO DAILY [facility] Last Admin: 04/21/17 09:46 Dose: 100 mg Benzocaine/Menthol (Cepacol Sore Throat) 1 tamir MT Q4H PRN PRN Reason: Sore Throat Brimonidine Tartrate (Alphagan 0.2% Opht) 0 ml OU HS [facility] Last Admin: 04/20/17 21:45 Dose: 2 drop Carvedilol (Coreg) 3.125 mg PO BID [facility] Last Admin: 04/21/17 17:19 Dose: 3.125 mg Ezetimibe (Zetia) 10 mg PO HS [facility] Last Admin: 04/20/17 21:40 Dose: 10 mg Furosemide (Lasix) 40 mg IVP DAILY [facility] Stop: 04/22/17 10:01 Furosemide (Lasix) 40 mg PO DAILY [facility] Heparin Sodium (Porcine) (Heparin) 5,000 units SC Q12H [facility] Last Admin: 04/21/17 09:47 Dose: 5,000 units Losartan Potassium (Cozaar) 50 mg PO DAILY [facility] Last Admin: 04/21/17 09:46 Dose: 50 mg Nitroglycerin (Nitro-Bid 2% Oint) 1 ea TOP Q6 [facility] Last Admin: 04/21/17 17:19 Dose: 1 ea Rosuvastatin Calcium (Crestor) 5 mg PO HS [facility] Last Admin: 04/20/17 21:40 Dose: 5 mg Sitagliptin Phosphate (Januvia) 25 mg PO DAILY [facility] Last Admin: 04/21/17 09:46 Dose: 25 mg - Labs Labs: 04/21/17 06:30 PT 11.1 SECONDS (9.7-12.2) 04/20/17 04:20 INR 1.0 04/20/17 04:20 APTT 29 SECONDS (21-34) 04/20/17 04:20
--- NOTE | 2017-04-21 21:09 | CP.PCM.PN ---
Subjective - Date & Time of Evaluation Date of Evaluation: 04/21/17 Time of Evaluation: 19:35 - Subjective Subjective: Breathing better s/p dexamethasone family meeting tomorrow Objective - Vital Signs/Intake and Output Vital Signs (last 24 hours): Temp Pulse Resp BP Pulse Ox 97.4 F L 83 18 111/56 L 96 04/21/17 16:05 04/21/17 18:36 04/21/17 16:05 04/21/17 17:21 04/21/17 16:05 Intake and Output: 04/21/17 04/22/17 18:59 06:59 Intake Total 380 Balance 380 - Medications Medications: Current Medications Allopurinol (Zyloprim) 100 mg PO DAILY [facility] Last Admin: 04/21/17 09:46 Dose: 100 mg Benzocaine/Menthol (Cepacol Sore Throat) 1 tamir MT Q4H PRN PRN Reason: Sore Throat Brimonidine Tartrate (Alphagan 0.2% Opht) 0 ml OU HS [facility] Last Admin: 04/20/17 21:45 Dose: 2 drop Carvedilol (Coreg) 3.125 mg PO BID [facility] Last Admin: 04/21/17 17:19 Dose: 3.125 mg Ezetimibe (Zetia) 10 mg PO HS [facility] Last Admin: 04/20/17 21:40 Dose: 10 mg Furosemide (Lasix) 40 mg IVP DAILY [facility] Stop: 18 10:01 Furosemide (Lasix) 40 mg PO DAILY [facility] Heparin Sodium (Porcine) (Heparin) 5,000 units SC Q12H [facility] Last Admin: 04/21/17 20:44 Dose: 5,000 units Losartan Potassium (Cozaar) 50 mg PO DAILY [facility] Last Admin: 04/21/17 09:46 Dose: 50 mg Nitroglycerin (Nitro-Bid 2% Oint) 1 ea TOP Q6 [facility] Last Admin: 04/21/17 17:19 Dose: 1 ea Rosuvastatin Calcium (Crestor) 5 mg PO HS [facility] Last Admin: 04/20/17 21:40 Dose: 5 mg Sitagliptin Phosphate (Januvia) 25 mg PO DAILY [facility] Last Admin: 04/21/17 09:46 Dose: 25 mg - Labs Labs: 04/21/17 06:30 04/21/17 06:30 PT 11.1 SECONDS (9.7-12.2) 04/20/17 04:20 INR 1.0 04/20/17 04:20 APTT 29 SECONDS (21-34) 04/20/17 04:20 - Head Exam Head Exam: ATRAUMATIC - Eye Exam Eye Exam: Normal appearance - ENT Exam ENT Exam: Mucous Membranes Dry - Respiratory Exam Respiratory Exam: NORMAL BREATHING PATTERN - Cardiovascular Exam Cardiovascular Exam: +S1, +S2 - GI/Abdominal Exam GI & Abdominal Exam: Normal Bowel Sounds Assessment and Plan (1) Multiple myeloma Assessment & Plan: s/p dexamethasone inpatient cyclophosphamide if family agreeable tomorrow outpatient treatment Status: Acute
[2017-04-21] MEDS: Brimonidine 0.2% Opth Sol (5ml) OU SCH (21:26)
[2017-04-21] MEDS: Benzocaine/Menthol (Cepacol) Lozenge MT PRN (21:28)
--- NOTE | 2017-04-21 23:22 | CARD ---
APPROVED REPORT EKG Measurement Heart Irrg21QUOD CO [id number] <Conclusion> Sinus bradycardia with premature atrial complexes in a pattern of bigeminy Left axis deviation Left ventricular hypertrophy with repolarization abnormality Anteroseptal infarct, age undetermined Abnormal ECG
[2017-04-22] MEDS: Nitroglycerin 2% Ointment Foilpak UD TOP SCH ×4 (00:39→18:07)
[2017-04-22 08:24] LABS: HEMOGLOBIN 10.7 g/dL (11.0-16.0); LYMPH # 0.6 K/uL (1.0-4.3); LYMPH % 8.7 % (20.0-40.0); MEAN CELL VOLUME 97.8 fL (81.0-99.0); MEAN CORPUSCULAR HEMOGLOBIN 34.2 pg (27.0-31.0); MEAN PLATELET VOLUME 9.8 fL (7.2-11.7); MONO # 0.2 K/uL (0.0-0.8); MONO % 2.8 % (0.0-10.0); NEUT # 6.5 K/uL (1.8-7.0); NEUT % 88.5 % (50.0-75.0); NRBC % 0.1 % (0.0-2.0); PLATELET COUNT 190 K/uL (130-400); RBC 3.13 Mil/uL (3.80-5.20); RED CELL DISTRIBUTION WIDTH 17.7 % (11.5-14.5)
[2017-04-22 08:40] LABS: WHITE BLOOD COUNT 7.3 K/uL (4.8-10.8)
[2017-04-22 08:43] LABS: CALCIUM 8.7 mg/dl (8.6-10.4)
[2017-04-22 09:55] LABS: ANISOCYTOSIS SLIGHT; BANDS 1 % (0-2); LYMPHOCYTE 9 % (20-40); MONOCYTE 2 % (0-10); NEUTROPHIL 88 % (50-75); PLATELET ESTIMATE NORMAL (NORMAL); TOTAL CELLS COUNTED 100
[2017-04-22 09:56] LABS: OVALOCYTES SLIGHT; POLYCHROMIC SLIGHT
[2017-04-22] MEDS: Benzocaine/Menthol (Cepacol) Lozenge MT PRN ×2 (14:22→21:25)
--- NOTE | 2017-04-22 17:28 | CP.PCM.PN ---
Subjective - Date & Time of Evaluation Date of Evaluation: 04/22/17 Time of Evaluation: 15:00 - Subjective Subjective: Breathing better Family at bedside and we had a family meeting to discuss the patients diagnosis , prognosis, and treatment. Objective - Vital Signs/Intake and Output Vital Signs (last 24 hours): Temp Pulse Resp BP Pulse Ox 97.4 F L 76 20 117/64 96 04/22/17 16:00 04/22/17 16:00 04/22/17 16:00 04/22/17 16:00 04/22/17 16:00 Intake and Output: 04/22/17 04/22/17 06:59 18:59 Intake Total 50 650 Balance 50 650 - Medications Medications: Current Medications Allopurinol (Zyloprim) 100 mg PO DAILY [facility] Last Admin: 04/22/17 09:39 Dose: 100 mg Benzocaine/Menthol (Cepacol Sore Throat) 1 tamir MT Q4H PRN PRN Reason: Sore Throat Last Admin: 04/22/17 14:22 Dose: 1 tamir Brimonidine Tartrate (Alphagan 0.2% Opht) 0 ml OU HS [facility] Last Admin: 04/21/17 21:26 Dose: 1 drop Carvedilol (Coreg) 3.125 mg PO BID [facility] Last Admin: 04/22/17 09:38 Dose: 3.125 mg Ezetimibe (Zetia) 10 mg PO HS [facility] Last Admin: 04/21/17 21:26 Dose: 10 mg Furosemide (Lasix) 40 mg PO BID [facility] Heparin Sodium (Porcine) (Heparin) 5,000 units SC Q12H [facility] Last Admin: 04/22/17 09:39 Dose: 5,000 units Losartan Potassium (Cozaar) 50 mg PO DAILY [facility] Last Admin: 04/22/17 09:39 Dose: Not Given Nitroglycerin (Nitro-Bid 2% Oint) 1 ea TOP Q6 [facility] Last Admin: 04/22/17 12:39 Dose: 1 ea Rosuvastatin Calcium (Crestor) 5 mg PO HS [facility] Last Admin: 04/21/17 21:26 Dose: 5 mg Sitagliptin Phosphate (Januvia) 25 mg PO DAILY [facility] Last Admin: 04/22/17 09:38 Dose: 25 mg - Labs Labs: 04/22/17 08:13 04/22/17 08:13 PT 11.1 SECONDS (9.7-12.2) 04/20/17 04:20 INR 1.0 04/20/17 04:20 APTT 29 SECONDS (21-34) 04/20/17 04:20 - Head Exam Head Exam: ATRAUMATIC - Eye Exam Eye Exam: Normal appearance - ENT Exam ENT Exam: Mucous Membranes Dry - Respiratory Exam Respiratory Exam: NORMAL BREATHING PATTERN - Cardiovascular Exam Cardiovascular Exam: +S1, +S2 - GI/Abdominal Exam GI & Abdominal Exam: Normal Bowel Sounds - Extremities Exam Extremities Exam: Normal Inspection Assessment and Plan (1) Multiple myeloma Assessment & Plan: s/p dexamethasone outpatient treatment Status: Acute
--- NOTE | 2017-04-22 18:15 | CP.PCM.PN ---
Subjective - Date & Time of Evaluation Date of Evaluation: 04/22/17 Time of Evaluation: 18:15 - Subjective Subjective: pt is seen and examined, follow up consult is dictated #[id number] Objective - Vital Signs/Intake and Output Vital Signs (last 24 hours): Temp Pulse Resp BP Pulse Ox 97.4 F L 76 20 125/67 96 04/22/17 16:00 04/22/17 16:00 04/22/17 16:00 04/22/17 18:07 04/22/17 16:00 Intake and Output: 04/22/17 04/22/17 06:59 18:59 Intake Total 50 650 Balance 50 650 - Medications Medications: Current Medications Allopurinol (Zyloprim) 100 mg PO DAILY [facility] Last Admin: 04/22/17 09:39 Dose: 100 mg Benzocaine/Menthol (Cepacol Sore Throat) 1 tamir MT Q4H PRN PRN Reason: Sore Throat Last Admin: 04/22/17 14:22 Dose: 1 tamir Brimonidine Tartrate (Alphagan 0.2% Opht) 0 ml OU HS [facility] Last Admin: 04/21/17 21:26 Dose: 1 drop Carvedilol (Coreg) 3.125 mg PO BID [facility] Last Admin: 04/22/17 18:07 Dose: 3.125 mg Ezetimibe (Zetia) 10 mg PO HS [facility] Last Admin: 04/21/17 21:26 Dose: 10 mg Furosemide (Lasix) 40 mg PO BID [facility] Last Admin: 04/22/17 18:07 Dose: 40 mg Heparin Sodium (Porcine) (Heparin) 5,000 units SC Q12H [facility] Last Admin: 04/22/17 09:39 Dose: 5,000 units Losartan Potassium (Cozaar) 50 mg PO DAILY [facility] Last Admin: 04/22/17 09:39 Dose: Not Given Nitroglycerin (Nitro-Bid 2% Oint) 1 ea TOP Q6 [facility] Last Admin: 04/22/17 18:07 Dose: 1 ea Rosuvastatin Calcium (Crestor) 5 mg PO HS [facility] Last Admin: 04/21/17 21:26 Dose: 5 mg Sitagliptin Phosphate (Januvia) 25 mg PO DAILY [facility] Last Admin: 04/22/17 09:38 Dose: 25 mg - Labs Labs: 04/22/17 08:13 04/22/17 08:13 PT 11.1 SECONDS (9.7-12.2) 04/20/17 04:20 INR 1.0 04/20/17 04:20 APTT 29 SECONDS (21-34) 04/20/17 04:20
[2017-04-22] MEDS: Brimonidine 0.2% Opth Sol (5ml) OU SCH (21:26)
[2017-04-23] MEDS: Nitroglycerin 2% Ointment Foilpak UD TOP SCH ×5 (07:16→23:54)
[2017-04-23 09:08] LABS: CALCIUM 8.6 mg/dl (8.6-10.4)
[2017-04-23] MEDS: Benzocaine/Menthol (Cepacol) Lozenge MT PRN (09:40)
[2017-04-23] MEDS: Promethazine DM 12.5 mg-30 mg/10 ml Syrup PO PRN (14:07)
--- NOTE | 2017-04-23 15:18 | CP.PCM.PN ---
Subjective - Date & Time of Evaluation Date of Evaluation: 04/23/17 Time of Evaluation: 15:17 - Subjective Subjective: pt is seen and examined, follow up consult is dictated #[id number] s/p iv steroids x1 for possible MM Objective - Vital Signs/Intake and Output Vital Signs (last 24 hours): Temp Pulse Resp BP Pulse Ox 98.0 F 70 20 114/64 98 04/23/17 07:00 04/23/17 09:35 04/23/17 07:00 04/23/17 09:35 04/23/17 07:00 Intake and Output: 04/23/17 04/23/17 06:59 18:59 Intake Total 100 Balance 100 - Medications Medications: Current Medications Allopurinol (Zyloprim) 100 mg PO DAILY [facility] Last Admin: 04/23/17 09:34 Dose: 100 mg Benzocaine/Menthol (Cepacol Sore Throat) 1 tamir MT Q4H PRN PRN Reason: Sore Throat Last Admin: 04/23/17 09:40 Dose: 1 tamir Brimonidine Tartrate (Alphagan 0.2% Opht) 0 ml OU HS [facility] Last Admin: 04/22/17 21:26 Dose: 1 drop Carvedilol (Coreg) 3.125 mg PO BID [facility] Last Admin: 04/23/17 09:35 Dose: 3.125 mg Ezetimibe (Zetia) 10 mg PO HS [facility] Last Admin: 04/22/17 21:25 Dose: 10 mg Furosemide (Lasix) 40 mg PO BID [facility] Last Admin: 04/23/17 09:35 Dose: 40 mg Heparin Sodium (Porcine) (Heparin) 5,000 units SC Q12H [facility] Last Admin: 04/23/17 09:34 Dose: 5,000 units Losartan Potassium (Cozaar) 50 mg PO DAILY [facility] Last Admin: 04/23/17 09:36 Dose: Not Given Nitroglycerin (Nitro-Bid 2% Oint) 1 ea TOP Q6 [facility] Last Admin: 04/23/17 11:19 Dose: 1 ea Promethazine HCl/Dextromethorphan (Phenergan Dm Syrup) 10 ml PO QID PRN PRN Reason: Cough Last Admin: 04/23/17 14:07 Dose: 10 ml Rosuvastatin Calcium (Crestor) 5 mg PO HS [facility] Last Admin: 04/22/17 21:25 Dose: 5 mg Sitagliptin Phosphate (Januvia) 25 mg PO DAILY [facility] Last Admin: 04/23/17 09:34 Dose: 25 mg - Labs Labs: 04/22/17 08:13 04/23/17 08:24 PT 11.1 SECONDS (9.7-12.2) 04/20/17 04:20 INR 1.0 04/20/17 04:20 APTT 29 SECONDS (21-34) 04/20/17 04:20
--- NOTE | 2017-04-23 15:20 | CP.PCM.PN ---
Subjective - Date & Time of Evaluation Date of Evaluation: 04/23/17 Time of Evaluation: 15:19 - Subjective Subjective: weak,cough Objective - Vital Signs/Intake and Output Vital Signs (last 24 hours): Temp Pulse Resp BP Pulse Ox 98.0 F 70 20 114/64 98 04/23/17 07:00 04/23/17 09:35 04/23/17 07:00 04/23/17 09:35 04/23/17 07:00 Intake and Output: 04/23/17 04/23/17 06:59 18:59 Intake Total 100 Balance 100 - Medications Medications: Current Medications Allopurinol (Zyloprim) 100 mg PO DAILY [facility] Last Admin: 04/23/17 09:34 Dose: 100 mg Benzocaine/Menthol (Cepacol Sore Throat) 1 tamir MT Q4H PRN PRN Reason: Sore Throat Last Admin: 04/23/17 09:40 Dose: 1 tamir Brimonidine Tartrate (Alphagan 0.2% Opht) 0 ml OU HS [facility] Last Admin: 04/22/17 21:26 Dose: 1 drop Carvedilol (Coreg) 3.125 mg PO BID [facility] Last Admin: 04/23/17 09:35 Dose: 3.125 mg Ezetimibe (Zetia) 10 mg PO HS [facility] Last Admin: 04/22/17 21:25 Dose: 10 mg Furosemide (Lasix) 40 mg PO BID [facility] Last Admin: 04/23/17 09:35 Dose: 40 mg Heparin Sodium (Porcine) (Heparin) 5,000 units SC Q12H [facility] Last Admin: 04/23/17 09:34 Dose: 5,000 units Losartan Potassium (Cozaar) 50 mg PO DAILY [facility] Last Admin: 04/23/17 09:36 Dose: Not Given Nitroglycerin (Nitro-Bid 2% Oint) 1 ea TOP Q6 [facility] Last Admin: 04/23/17 11:19 Dose: 1 ea Promethazine HCl/Dextromethorphan (Phenergan Dm Syrup) 10 ml PO QID PRN PRN Reason: Cough Last Admin: 04/23/17 14:07 Dose: 10 ml Rosuvastatin Calcium (Crestor) 5 mg PO HS [facility] Last Admin: 04/22/17 21:25 Dose: 5 mg Sitagliptin Phosphate (Januvia) 25 mg PO DAILY [facility] Last Admin: 04/23/17 09:34 Dose: 25 mg - Labs Labs: 04/22/17 08:13 04/23/17 08:24 PT 11.1 SECONDS (9.7-12.2) 04/20/17 04:20 INR 1.0 04/20/17 04:20 APTT 29 SECONDS (21-34) 04/20/17 04:20 - Constitutional Appears: No Acute Distress, Chronically Ill - Head Exam Head Exam: NORMOCEPHALIC - Neck Exam Neck Exam: Normal Inspection - Respiratory Exam Respiratory Exam: Rhonchi - Cardiovascular Exam Cardiovascular Exam: REGULAR RHYTHM, Murmur - GI/Abdominal Exam GI & Abdominal Exam: Soft - Extremities Exam Extremities Exam: absent: Pedal Edema - Neurological Exam Neurological Exam: Alert, Oriented x3 Assessment and Plan - Assessment and Plan (Free Text) Assessment: [email or web address],[email or web address] d/c in am
--- NOTE | 2017-04-23 18:09 | RAD ---
HISTORY: copd chf COMPARISON: Comparison is made with 04/20/2017 TECHNIQUE: Chest PA and lateral FINDINGS: LUNGS: Interval significant improvement in the lungs since the previous exam. PLEURA: No significant pleural effusion identified. No pneumothorax apparent. CARDIOVASCULAR: Normal. OSSEOUS STRUCTURES: No significant abnormalities. VISUALIZED UPPER ABDOMEN: Normal. OTHER FINDINGS: None. IMPRESSION: Interval improvement in the lungs since the previous exam.
--- NOTE | 2017-04-23 19:10 | CP.PCM.CON ---
History of Present Illness - History of Present Illness History of Present Illness: Chief complaint: Shortness of breath History of present illness: 71-year-old female with a history of CAD, status post CABG, hypertension, diabetes 2 weeks ago patient was hospitalized with anemia and renal failure, found to have multiple myeloma confirmed after the biopsy including bone marrow biopsy, being seen by oncologist. The patient initial skeletal survey was negative for any lytic lesions. Patient now admitted with increasing shortness of breath. Complaining of weakness, easy fatigability, and minimal exertion causes SOB. She denies any chest pain. sob noted Weight loss present. Muscle mass increasingly decreasing. Patient is mostly lying down now. Denies any chest pain. Cough is minimally noted. She has no fever or chills. Past medical history: CAD, status post CABG, hypertension, diabetes, anemia. Surgical history coronary a bypass grafting. Family history significant for anemia and hypertension. Nonalcoholic, nonsmoker. Review of systems: Currently patient is having no headache, but his weakness and generalized fatigability noted. poor appetite present. No sore throat. Minimally cough noted. Exertional dyspnea noted. Chest pain negative No nausea or vomiting. Leg swelling negative Vital signs reviewed No neck vein distention noted minimal bilateral wheezing and as noted CVS regular heart sound, no murmur noted Abdomen soft, nontender. Extremities no pedal edema [employer] alert awake oriented -3, no functional neurological deficit Recent labs reviewed in Hemoglobin is better Chest x-ray showing increasing bronchovascular markings. Initial chest x-ray showing infiltrative pattern, but the current x-ray significant improvement noted Assessment and recommendation: 70-year-old female with a history of CAD, status post CABG, hypertension and diabetes admitted with shortness of breath. Recently diagnosed with multiple myeloma, plasmacytoma. Given the changes in the chest x-ray patient may have infiltrative disease in the lungs secondary to multiple myeloma We'll get a CT of the chest without contrast. Bronchodilators. Follow-up the patient Past Patient History - Infectious Disease Hx of Infectious Diseases: None - Past Medical History & Family History Past Medical History?: Yes - Past Social History Smoking Status: Never Smoked - CARDIAC Hx Cardiac Disorders: Yes (CABG) Hx Congestive Heart Failure: Yes Hx Hypercholesterolemia: Yes Hx Hypertension: Yes - PULMONARY Hx Respiratory Disorders: No - NEUROLOGICAL Hx Neurological Disorder: No - HEENT Hx HEENT Problems: Yes Hx Glaucoma: Yes - RENAL Hx Chronic Kidney Disease: No - ENDOCRINE/METABOLIC Hx Diabetes Mellitus Type 2: Yes - HEMATOLOGICAL/ONCOLOGICAL Hx Blood Disorders: No - INTEGUMENTARY Hx Dermatological Problems: No - MUSCULOSKELETAL/RHEUMATOLOGICAL Hx Falls: No - GASTROINTESTINAL Hx Gastrointestinal Disorders: No - GENITOURINARY/GYNECOLOGICAL Hx Genitourinary Disorders: No - PSYCHIATRIC Hx Substance Use: No - SURGICAL HISTORY Hx Surgeries: Yes Hx Coronary Artery Bypass Graft: Yes - ANESTHESIA Hx Anesthesia: Yes Hx Anesthesia Reactions: No Hx Malignant Hyperthermia: No Has any member of the family had a problem w/ anesthesia?: No Meds Allergies/Adverse Reactions: Allergies Allergy/AdvReac Type Severity Reaction Status Date / Time No Known Allergies Allergy Verified 04/20/17 03:32 - Medications Medications: Current Medications Albuterol/Ipratropium (Duoneb 3 Mg/0.5 Mg (3 Ml) Ud) 3 ml INH RQ6 [facility] Allopurinol (Zyloprim) 100 mg PO DAILY [facility] Last Admin: 04/23/17 09:34 Dose: 100 mg Benzocaine/Menthol (Cepacol Sore Throat) 1 tamir MT Q4H PRN PRN Reason: Sore Throat Last Admin: 04/23/17 09:40 Dose: 1 tamir Brimonidine Tartrate (Alphagan 0.2% Opht) 0 ml OU HS [facility] Last Admin: 04/22/17 21:26 Dose: 1 drop Carvedilol (Coreg) 3.125 mg PO BID [facility] Last Admin: 04/23/17 17:41 Dose: 3.125 mg Ezetimibe (Zetia) 10 mg PO HS [facility] Last Admin: 04/22/17 21:25 Dose: 10 mg Furosemide (Lasix) 40 mg PO BID [facility] Last Admin: 04/23/17 17:41 Dose: 40 mg Heparin Sodium (Porcine) (Heparin) 5,000 units SC Q12H [facility] Last Admin: 04/23/17 09:34 Dose: 5,000 units Losartan Potassium (Cozaar) 50 mg PO DAILY [facility] Last Admin: 04/23/17 09:36 Dose: Not Given Nitroglycerin (Nitro-Bid 2% Oint) 1 ea TOP Q6 [facility] Last Admin: 04/23/17 17:41 Dose: 1 ea Promethazine HCl/Dextromethorphan (Phenergan Dm Syrup) 10 ml PO QID PRN PRN Reason: Cough Last Admin: 04/23/17 14:07 Dose: 10 ml Rosuvastatin Calcium (Crestor) 5 mg PO HS [facility] Last Admin: 04/22/17 21:25 Dose: 5 mg Sitagliptin Phosphate (Januvia) 25 mg PO DAILY [facility] Last Admin: 04/23/17 09:34 Dose: 25 mg Results - Vital Signs Recent Vital Signs: Last Vital Signs Temp 98.0 F 04/23/17 16:39 Pulse 71 04/23/17 16:39 Resp 20 04/23/17 16:39 BP 128/72 04/23/17 17:41 Pulse Ox 99 04/23/17 16:39 - Labs Result Diagrams: 04/22/17 08:13 04/23/17 08:24 Labs: Laboratory Results - last 24 hr 04/22/17 04/22/17 04/23/17 16:52 21:13 06:42 Sodium Potassium Chloride Carbon Dioxide Anion Gap BUN Creatinine Est GFR ( Amer) Est GFR (Non-Af Amer) POC Glucose (mg/dL) 202 H 208 H 158 H Random Glucose Calcium Lactate Dehydrogenase 04/23/17 04/23/17 08:24 11:12 Sodium 136 Potassium 3.7 Chloride 99 Carbon Dioxide 25 Anion Gap 16 BUN 69 H Creatinine 2.0 H Est GFR ( Amer) 30 Est GFR (Non-Af Amer) 24 POC Glucose (mg/dL) 144 H Random Glucose 150 H Calcium 8.6 Lactate Dehydrogenase 586
[2017-04-23] MEDS: Albuterol-Ipratrop 3 mg / 0.5 (3 ml) UD INH SCH (20:39)
[2017-04-23] MEDS: Brimonidine 0.2% Opth Sol (5ml) OU SCH (22:01)
[2017-04-24] MEDS: Albuterol-Ipratrop 3 mg / 0.5 (3 ml) UD INH SCH ×4 (02:00→19:50)
[2017-04-24] MEDS: Nitroglycerin 2% Ointment Foilpak UD TOP SCH ×3 (06:11→18:13)
--- NOTE | 2017-04-24 07:35 | PN ---
DATE: 04/23/2017 FOLLOWUP RENAL CONSULTATION LOCATION: The patient is located in room 550, bed A. REQUESTED BY: Dr. Jeff Alvarado HISTORY OF PRESENT ILLNESS: Mrs. Alvarado is a 71 years elderly female with a past medical history significant for longstanding hypertension; diabetes for more than 20 years; coronary artery disease, status post CABG; and severe pulmonary hypertension, and CHF, was admitted with shortness of breath, sudden onset, and also mild chest discomfort and the patient is being treated for exacerbation of acute CHF. The patient is feeling much better with diuretics. No chest pain or palpitation. No fever. No cough. No swelling of the legs. PHYSICAL EXAMINATION: As follows - VITAL SIGNS: Blood pressure 130/71, pulse 71, respirations 20, temperature 98, saturation 99%. Height 5 feet 2 inches and weight is 110 pounds. On 2 liters nasal cannula. GENERAL: On physical exam, Mrs. Alvarado is a 71 years elderly female, thin built, not in acute distress. HEENT: Pupils normal and reactive to light and accommodation. Conjunctivae pink. Sclerae anicteric. Tongue is moist. Trachea is midline. LUNGS: Symmetric on both sides. Bilateral breath sounds present. Occasional basal crackles present. CVS: [place] at the fifth intercostal space, midclavicular area. S1 and S2 audible. No murmur or gallop. ABDOMEN: Normal in appearance, soft, tympanic. No guarding. No hepatosplenomegaly. 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 Nonfocal neuro examination. Cranial nerves II through XII grossly intact. Sensory and motor system is within normal limits. EXTREMITIES: No cyanosis, no clubbing, no edema. CURRENT MEDICATIONS: Include as follows, Alphagan eye drops, Cepacol throat lozenges, Coreg 3.125 mg p.o. b.i.d., losartan 50 mg p.o. daily, Crestor 5 mg at bedtime, DuoNeb inhaler 3 mL q.6h. and Januvia 25 mg p.o. daily, Lasix 40 mg p.o. b.i.d., and nitroglycerin ointment 1 inch topical q.6h., and Phenergan DM syrup 10 mL p.o. q.i.d. p.r.n., and GTN 10 mg p.o. at bedtime, allopurinol 100 mg p.o. daily. LABORATORY DATA: Includes as follows as of 04/23/2017, sodium 136; potassium 3.7; chloride 99; CO2 27; BUN 69; creatinine 2.0; and glucose is 150; calcium 8.6; LDH is 586; and Accu-Cheks 158, 144. ASSESSMENT: In summary, Mrs. Alvarado is a 71 years old elderly female with a history of hypertension; diabetes; hyperlipidemia; and coronary artery disease, status post CABG, with anemia, renal failure with a baseline creatinine about 0.9 in November and subsequently renal function deteriorated to creatinine 2.5 during her previous admission and also found to be anemic and found to have a positive SPEP, UPEP urine immunofixation and serum immunofixation, elevated beta-2 globulins, and also elevated IgG lambda free light chains, and kappa to lambda ratio 0.12, and subsequently the patient underwent bone marrow biopsy. FINAL DIAGNOSES: Now bone marrow biopsy, normocellular marrow shows myeloma, IgG lambda with more than 50% cellularity involvement and residual trilineage hematopoiesis. Bone marrow aspirate was done on 04/13/2017. 1. Chronic kidney disease, stage IV, most likely secondary to multiple myeloma, rule out light chain nephropathy, cannot rule out cast nephropathy or myeloma kidney. 2. Anemia secondary to multiple myeloma and iron-deficiency anemia, H and H is improving, continue p.o. iron supplement. 3. Hypertension. Blood pressure is stable. Continue her current medications Coreg, losartan. 4. Severe pulmonary hypertension. 5. Status post CHF. 6. Multiple myeloma. 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 Jesus Alberto Disla and for further recommendations. Renal function is stable today, creatinine 2.0. We will follow with you. Thank you for allowing me to participate in your patient's care. Valerie Rascon MD
--- NOTE | 2017-04-24 10:22 | CT ---
PROCEDURE: CT Chest without contrast HISTORY: plasmocytoma COMPARISON: None. TECHNIQUE: Contiguous axial images were obtained through the chest without intravenous contrast enhancement. Sagittal and coronal reconstructions were performed. Radiation dose (DLP): 135.29 mGy-cm. This CT exam was performed using one or more of the following dose reduction techniques: Automated exposure control, adjustment of the mA and/or kV according to patient size, and/or use of iterative reconstruction technique. FINDINGS: LUNGS: No pulmonary infiltrate. There is a 4 mm noncalcified nodule in the anterior segment of the right upper lobe, for which no follow-up is advised as per Fleischner society criteria. No other pulmonary mass is identified. There is mild mosaic attenuation at the lung bases which may reflect obstructive small airways disease or parenchymal disease. Vascular occlusive disease is felt to be less likely. MEDIASTINUM: Unremarkable thoracic aorta. No aneurysm. Cardiomegaly. CABG. Main pulmonary artery unremarkable. No vascular congestion. Shotty subcentimeter lymph nodes. PLEURA: No pleural fluid. No pneumothorax. BONES: No fracture. Minimal thoracic dextroscoliotic curvature. UPPER ABDOMEN: Bilateral adrenal hypertrophy, nonspecific. OTHER FINDINGS: None. IMPRESSION: 4 mm noncalcified nodule anterior segment right upper lobe. No other pulmonary mass. Mild mosaic attenuation in lower lobes common nonspecific.
--- NOTE | 2017-04-24 10:30 | PN ---
FOLLOWUP RENAL CONSULTATION DATE: 04/22/2017 LOCATION: The patient is located in room 550, bed A. REQUESTED BY: Jeff Alvarado MD REASON FOR FOLLOWUP: Chronic kidney disease. SUBJECTIVE: Mrs. Alvarado is a 71-year-old very pleasant elderly female with history of hypertension, diabetes for more than 20 years, coronary artery disease, status post CABG, was admitted with shortness of breath, and also found to have CHF, and also with severe pulmonary hypertension. The patient was initially treated with diuretics. The patient is feeling much better after diuresis. No chest pain. No palpitation. No fever. No cough. No abdominal pain. No nausea, vomiting, or diarrhea. The patient was also found to have elevated proteins, elevated globulins, positive for urine immunofixation, serum immunofixation, UPEP, SPEP for abnormal monoclonal spike, and the patient was also found to have elevated beta-2 globulins and elevated IgG lambda light chains in the blood, status post bone marrow biopsy, preliminary consistent with more than 50% of plasma cells in the bone marrow, status post Decadron high dose x1 dose as per the Hematology recommendation. The patient is not in acute distress. Denies any complaints today. PHYSICAL EXAMINATION: GENERAL: Mrs. Alvarado is a 71-year-old very pleasant elderly female, moderately-built, moderately nourished, and not in distress. VITAL SIGNS: As follows; blood pressure 125/67, pulse 76, respirations 20, temperature 97.4, and saturation 96%. Height 5 feet 2 inches and weight is 110 pounds. HEENT: Pupils are normal and reactive to light and accommodation. Conjunctivae pink. Sclerae anicteric. Tongue is moist and trachea is midline. LUNGS: Symmetric on both sides. Bilateral breath sounds present. Occasional basal crackles present. CARDIOVASCULAR: [place] at the fifth intercostal space, midclavicular line. S1 and S2 audible. No murmur or gallop. ABDOMEN: Normal in appearance, soft, and tympanic. No guarding. No rigidity. No hepatosplenomegaly. CENTRAL NERVOUS SYSTEM: The patient is alert, awake, and oriented x3. Nonfocal neuro examination. Cranial nerves II through XII grossly intact. Sensory and motor system is within normal limits. EXTREMITIES: No cyanosis. No clubbing. No edema. CURRENT MEDICATIONS: Include as follows; Alphagan eyedrops, Cepacol throat lozenges, Coreg 3.125 mg p.o. b.i.d., losartan 50 mg p.o. daily, Crestor 5 mg p.o. at bedtime, subcutaneous heparin 5000 q.12 hours, Januvia 25 mg p.o. daily, Lasix 40 mg p.o. b.i.d., Nitro-Bid ointment 1-inch topical q.6 hours, Zetia 10 mg p.o. at bedtime, and allopurinol 100 mg p.o. daily. LABORATORY DATA: Include as follows: As of 04/22/2017; WBC 7.3, hemoglobin 10.7, hematocrit 30.6, MCV 97.8, platelets 190, neutrophils 88, bands 1, lymph 9, and monos 2. Sodium 136, potassium 4.3, chloride 102, CO2 of 21, BUN 66, creatinine 2.1, glucose 187, and calcium 8.7. Accu-checks 188 and 102. ASSESSMENT: In summary, Mrs. Alvarado is a 71-year-old elderly female with hypertension, diabetes, coronary artery disease, status post coronary artery bypass grafting, severe pulmonary hypertension, congestive heart failure with increased BUN and creatinine since 11/2016 with baseline creatinine 0.9, subsequently her creatinine went up to 2.7 during her last admission 2 weeks ago with low hemoglobin and hematocrit and found to have positive SPEP, UPEP, urine immunofixation, serum immunofixation, and elevated IgG lambda light chains in the blood and beta-2 microglobulins, status post bone marrow biopsy, and readmitted with shortness of breath. 1. Chronic kidney disease stage III, rule out light chain disease, rule out cast nephropathy. 2. Anemia, hemoglobin and hematocrit is improving secondary to iron deficiency anemia and multiple myeloma. 3. Hypertension. 4. Congestive heart failure. 5. Severe pulmonary hypertension. PLAN: Restrict fluids to 1 L per day and continue Lasix 40 mg p.o. b.i.d. as per Dr. Jeff Alvarado, status post Decadron x1 dose yesterday. Follow up with member services coordinator, Dr. Jesus Alberto Disla for his further recommendation. As per the patient's , he had a meeting with Dr. Disla. He went over with the options. We will follow with you. Thank you for allowing me to participate in your patient's care. Valerie Rascon MD
[2017-04-24 12:00] LABS: BASO % 0.3 % (0.0-2.0); EOS % 0.1 % (0.0-4.0); HEMOGLOBIN 11.7 g/dL (11.0-16.0); LYMPH # 0.9 K/uL (1.0-4.3); LYMPH % 19.7 % (20.0-40.0); MEAN CELL VOLUME 98.3 fL (81.0-99.0); MEAN CORPUSCULAR HEMOGLOBIN 33.8 pg (27.0-31.0); MEAN CORPUSCULAR HGB CONC 34.4 g/dL (33.0-37.0); MEAN PLATELET VOLUME 9.7 fL (7.2-11.7); MONO # 0.4 K/uL (0.0-0.8); MONO % 7.5 % (0.0-10.0); NEUT # 3.4 K/uL (1.8-7.0); NEUT % 72.4 % (50.0-75.0); NRBC % 0.1 % (0.0-2.0); RBC 3.46 Mil/uL (3.80-5.20); RED CELL DISTRIBUTION WIDTH 18.3 % (11.5-14.5); WHITE BLOOD COUNT 4.7 K/uL (4.8-10.8)
[2017-04-24 12:21] LABS: ALB/GLOB RATIO 0.7 (1.0-2.1); ALBUMIN 3.6 g/dL (3.5-5.0); CALCIUM 8.8 mg/dl (8.6-10.4)
[2017-04-24] MEDS ORDERED: Potassium Chloride 20 mEq ER Tab PO ONE (13:15)
--- NOTE | 2017-04-24 13:41 | CP.PCM.PN ---
Subjective - Date & Time of Evaluation Date of Evaluation: 04/24/17 Time of Evaluation: 13:38 - Subjective Subjective: headaches,dizzy spells.labs noted. Objective - Vital Signs/Intake and Output Vital Signs (last 24 hours): Temp Pulse Resp BP Pulse Ox 98.2 F 77 18 111/60 96 04/24/17 07:00 04/24/17 07:00 04/24/17 07:00 04/24/17 13:13 04/24/17 07:00 - Medications Medications: Current Medications Albuterol/Ipratropium (Duoneb 3 Mg/0.5 Mg (3 Ml) Ud) 3 ml INH RQ6 [facility] Last Admin: 04/24/17 07:10 Dose: 3 ml Allopurinol (Zyloprim) 100 mg PO DAILY [facility] Last Admin: 04/24/17 10:14 Dose: 100 mg Benzocaine/Menthol (Cepacol Sore Throat) 1 tamir MT Q4H PRN PRN Reason: Sore Throat Last Admin: 04/23/17 09:40 Dose: 1 tamir Brimonidine Tartrate (Alphagan 0.2% Opht) 0 ml OU HS [facility] Last Admin: 04/23/17 22:01 Dose: 1 drop Carvedilol (Coreg) 3.125 mg PO BID [facility] Last Admin: 04/24/17 10:14 Dose: 3.125 mg Ezetimibe (Zetia) 10 mg PO HS [facility] Last Admin: 04/23/17 22:01 Dose: 10 mg Furosemide (Lasix) 40 mg PO BID [facility] Last Admin: 04/24/17 13:13 Dose: 40 mg Losartan Potassium (Cozaar) 25 mg PO DAILY [facility] Nitroglycerin (Nitro-Bid 2% Oint) 1 ea TOP Q6 [facility] Last Admin: 04/24/17 13:36 Dose: Not Given Promethazine HCl/Dextromethorphan (Phenergan Dm Syrup) 10 ml PO QID PRN PRN Reason: Cough Last Admin: 04/23/17 14:07 Dose: 10 ml Rosuvastatin Calcium (Crestor) 5 mg PO HS [facility] Last Admin: 04/23/17 22:00 Dose: 5 mg Sitagliptin Phosphate (Januvia) 25 mg PO DAILY [facility] Last Admin: 04/24/17 10:14 Dose: 25 mg - Labs Labs: 04/24/17 11:48 04/24/17 11:48 PT 11.1 SECONDS (9.7-12.2) 04/20/17 04:20 INR 1.0 04/20/17 04:20 APTT 29 SECONDS (21-34) 04/20/17 04:20 - Constitutional Appears: No Acute Distress, Chronically Ill - Eye Exam Eye Exam: Normal appearance - ENT Exam ENT Exam: Normal Exam - Respiratory Exam Respiratory Exam: Clear to Ausculation Bilateral - GI/Abdominal Exam GI & Abdominal Exam: Soft - Extremities Exam Extremities Exam: absent: Pedal Edema - Neurological Exam Neurological Exam: Alert, Oriented x3 Assessment and Plan - Assessment and Plan (Free Text) Assessment: cr is 2.5,will holds lasix.ct & chest x ray noted.will obtain ct head.
--- NOTE | 2017-04-24 13:42 | CP.PCM.PN ---
Subjective - Date & Time of Evaluation Date of Evaluation: 04/24/17 Time of Evaluation: 13:41 - Subjective Subjective: pt is seen and examined, follow up consult is dictated #[id number] agree to hlod lasix as per dr Lobo Alvarado encourage po intake bmp in am Objective - Vital Signs/Intake and Output Vital Signs (last 24 hours): Temp Pulse Resp BP Pulse Ox 98.2 F 77 18 111/60 96 04/24/17 07:00 04/24/17 07:00 04/24/17 07:00 04/24/17 13:13 04/24/17 07:00 - Medications Medications: Current Medications Albuterol/Ipratropium (Duoneb 3 Mg/0.5 Mg (3 Ml) Ud) 3 ml INH RQ6 [facility] Last Admin: 04/24/17 07:10 Dose: 3 ml Allopurinol (Zyloprim) 100 mg PO DAILY [facility] Last Admin: 04/24/17 10:14 Dose: 100 mg Benzocaine/Menthol (Cepacol Sore Throat) 1 tamir MT Q4H PRN PRN Reason: Sore Throat Last Admin: 04/23/17 09:40 Dose: 1 tamir Brimonidine Tartrate (Alphagan 0.2% Opht) 0 ml OU HS [facility] Last Admin: 04/23/17 22:01 Dose: 1 drop Carvedilol (Coreg) 3.125 mg PO BID [facility] Last Admin: 04/24/17 10:14 Dose: 3.125 mg Ezetimibe (Zetia) 10 mg PO HS [facility] Last Admin: 04/23/17 22:01 Dose: 10 mg Furosemide (Lasix) 40 mg PO BID [facility] Last Admin: 04/24/17 13:13 Dose: 40 mg Losartan Potassium (Cozaar) 25 mg PO DAILY [facility] Nitroglycerin (Nitro-Bid 2% Oint) 1 ea TOP Q6 [facility] Last Admin: 04/24/17 13:36 Dose: Not Given Promethazine HCl/Dextromethorphan (Phenergan Dm Syrup) 10 ml PO QID PRN PRN Reason: Cough Last Admin: 04/23/17 14:07 Dose: 10 ml Rosuvastatin Calcium (Crestor) 5 mg PO HS [facility] Last Admin: 04/23/17 22:00 Dose: 5 mg Sitagliptin Phosphate (Januvia) 25 mg PO DAILY [facility] Last Admin: 04/24/17 10:14 Dose: 25 mg - Labs Labs: 04/24/17 11:48 04/24/17 11:48 PT 11.1 SECONDS (9.7-12.2) 04/20/17 04:20 INR 1.0 04/20/17 04:20 APTT 29 SECONDS (21-34) 04/20/17 04:20
[2017-04-24] MEDS ORDERED: Potassium Chloride 20 mEq/15 ml LIQ UD PO STA ×2 (13:44→13:48)
--- NOTE | 2017-04-24 15:14 | CT ---
PROCEDURE: CT HEAD WITHOUT CONTRAST. HISTORY: headache COMPARISON: None available. TECHNIQUE: Axial computed tomography images were obtained through the head/brain without intravenous contrast. Radiation dose: Total exam DLP = 639.80 mGy-cm. This CT exam was performed using one or more of the following dose reduction techniques: Automated exposure control, adjustment of the mA and/or kV according to patient size, and/or use of iterative reconstruction technique. FINDINGS: HEMORRHAGE: No intracranial hemorrhage. BRAIN: No mass effect or edema. Mild to moderate diffuse age-appropriate cerebral atrophy. Mild to moderate periventricular white matter lucency consistent with age-related microvascular ischemic change. No evidence of acute infarct. VENTRICLES: Unremarkable. No hydrocephalus. CALVARIUM: Unremarkable. PARANASAL SINUSES: Unremarkable as visualized. No significant inflammatory changes. MASTOID AIR CELLS: Unremarkable as visualized. No inflammatory changes. OTHER FINDINGS: None. IMPRESSION: No intracranial mass, hemorrhage or evidence of acute infarct. Age related involutional change.
[2017-04-24] MEDS: Promethazine DM 12.5 mg-30 mg/10 ml Syrup PO PRN (21:44)
[2017-04-24] MEDS: Brimonidine 0.2% Opth Sol (5ml) OU SCH (21:44)
--- NOTE | 2017-04-24 23:29 | CP.PCM.PN ---
Subjective - Date & Time of Evaluation Date of Evaluation: 04/24/17 Time of Evaluation: 18:15 - Subjective Subjective: [place] dizzy. Oral chemo medication authorized, for home delivery updated Objective - Vital Signs/Intake and Output Vital Signs (last 24 hours): Temp Pulse Resp BP Pulse Ox 97.9 F 67 20 99/57 L 96 04/24/17 16:27 04/24/17 18:00 04/24/17 16:27 04/24/17 16:27 04/24/17 16:27 Intake and Output: 04/24/17 04/25/17 18:59 06:59 Intake Total 480 Balance 480 - Medications Medications: Current Medications Albuterol/Ipratropium (Duoneb 3 Mg/0.5 Mg (3 Ml) Ud) 3 ml INH RQ6 [facility] Last Admin: 04/24/17 19:50 Dose: 3 ml Allopurinol (Zyloprim) 100 mg PO DAILY [facility] Last Admin: 04/24/17 10:14 Dose: 100 mg Benzocaine/Menthol (Cepacol Sore Throat) 1 tamir MT Q4H PRN PRN Reason: Sore Throat Last Admin: 04/23/17 09:40 Dose: 1 tamir Brimonidine Tartrate (Alphagan 0.2% Opht) 0 ml OU HS [facility] Last Admin: 04/24/17 21:44 Dose: 1 drop Carvedilol (Coreg) 3.125 mg PO BID [facility] Last Admin: 04/24/17 18:13 Dose: Not Given Ezetimibe (Zetia) 10 mg PO HS [facility] Last Admin: 04/24/17 21:43 Dose: 10 mg Furosemide (Lasix) 40 mg PO BID [facility] Last Admin: 04/24/17 13:13 Dose: 40 mg Losartan Potassium (Cozaar) 25 mg PO DAILY [facility] Nitroglycerin (Nitro-Bid 2% Oint) 1 ea TOP Q6 [facility] Last Admin: 04/24/17 18:13 Dose: Not Given Promethazine HCl/Dextromethorphan (Phenergan Dm Syrup) 10 ml PO QID PRN PRN Reason: Cough Last Admin: 04/24/17 21:44 Dose: 10 ml Rosuvastatin Calcium (Crestor) 5 mg PO HS [facility] Last Admin: 04/24/17 21:43 Dose: 5 mg Sitagliptin Phosphate (Januvia) 25 mg PO DAILY [facility] Last Admin: 04/24/17 10:14 Dose: 25 mg - Labs Labs: 04/24/17 11:48 04/24/17 11:48 PT 11.1 SECONDS (9.7-12.2) 04/20/17 04:20 INR 1.0 04/20/17 04:20 APTT 29 SECONDS (21-34) 04/20/17 04:20 - Head Exam Head Exam: ATRAUMATIC - Eye Exam Eye Exam: Normal appearance - ENT Exam ENT Exam: Mucous Membranes Dry - Respiratory Exam Respiratory Exam: NORMAL BREATHING PATTERN - Cardiovascular Exam Cardiovascular Exam: +S1, +S2 - GI/Abdominal Exam GI & Abdominal Exam: Normal Bowel Sounds Assessment and Plan (1) Multiple myeloma Assessment & Plan: s/p dexamethasone oral chemo to be delivered at home Status: Acute
[2017-04-25] MEDS: Sodium Chloride 0.45% 1,000 ML IV SCH ×3 (00:21→21:35)
[2017-04-25] MEDS: Nitroglycerin 2% Ointment Foilpak UD TOP SCH ×4 (00:21→17:14)
[2017-04-25] MEDS: Albuterol-Ipratrop 3 mg / 0.5 (3 ml) UD INH SCH ×4 (01:03→20:29)
[2017-04-25 07:41] LABS: BASO % 0.2 % (0.0-2.0); EOS % 0.5 % (0.0-4.0); HEMOGLOBIN 12.2 g/dL (11.0-16.0); LYMPH # 1.3 K/uL (1.0-4.3); LYMPH % 22.3 % (20.0-40.0); MEAN CELL VOLUME 99.3 fL (81.0-99.0); MEAN CORPUSCULAR HEMOGLOBIN 33.4 pg (27.0-31.0); MEAN CORPUSCULAR HGB CONC 33.7 g/dL (33.0-37.0); MEAN PLATELET VOLUME 9.6 fL (7.2-11.7); MONO # 0.2 K/uL (0.0-0.8); NEUT # 4.1 K/uL (1.8-7.0); NRBC % 0.1 % (0.0-2.0); RBC 3.64 Mil/uL (3.80-5.20); RED CELL DISTRIBUTION WIDTH 18.2 % (11.5-14.5); WHITE BLOOD COUNT 5.6 K/uL (4.8-10.8)
[2017-04-25 07:44] LABS: ALB/GLOB RATIO 0.7 (1.0-2.1); ALBUMIN 3.5 g/dL (3.5-5.0); CALCIUM 8.6 mg/dl (8.6-10.4)
--- NOTE | 2017-04-25 10:14 | CON ---
DATE: 04/24/2017 LOCATION: The patient is located in room 550, bed A. REQUESTING PHYSICIAN: Jeff Alvarado MD REASON FOR FOLLOWUP: Acute renal failure, chronic kidney disease and multiple myeloma. HISTORY OF PRESENT ILLNESS: Mrs. Alvarado is 71 years elderly, very pleasant female with a history of hypertension, diabetes, coronary artery disease status post CABG and was admitted with shortness of breath and also chest x-ray with CHF and being treated for exacerbation of CHF and also severe pulmonary hypertension. The patient was recently diagnosed during this admission with multiple myeloma by bone marrow biopsy from the last visit. The patient is not in acute distress. Denies any headache or dizziness. Denies any chest pain or palpitation. Denies any fever or cough. No abdominal pain. No nausea, vomiting, or diarrhea. PHYSICAL EXAMINATION: VITAL SIGNS: As follows. Blood pressure 101/56, pulse 77, respirations 18, temperature 98.2, saturation 96%. Height 5 feet 2 inches, weight is 110 pounds. GENERAL: Mrs. Alvarado is a 71-year-old elderly female, moderately built, moderate nourished, not in distress. HEENT: Pupils are normal and reactive to light and accommodation. Conjunctivae pink. Sclerae anicteric. Tongue is moist and trachea is midline. LUNGS: Symmetry on both sides. Bilateral breath sounds present. Occasional left basal crackles present. CVS: [place] at the fifth intercostal space, midclavicular line. S1 and S2 audible. No murmur, gallop. ABDOMEN: Normal in appearance, soft, tympanic. No guarding. No rigidity. No hepatosplenomegaly. GEOSCIENCE LABORATORY TECHNICIAN: The patient is alert, awake, oriented x3. Nonfocal neuro examination. Cranial nerves II through XII grossly intact.. Sensory motor system is within normal limits. EXTREMITIES: No cyanosis, no clubbing, no edema. CURRENT MEDICATIONS: Include as follows; Alphagan eyedrops, Cepacol throat lozenges, Coreg 3.125 mg p.o. b.i.d., losartan 25 mg p.o. daily, Crestor 5 mg daily, DuoNeb inhaler, Januvia 25 mg daily, Lasix on hold, nitroglycerin ointment 1 inch topical q. 6 hours, Phenergan syrup, Zetia, and allopurinol 100 mg p.o. daily. LABORATORY DATA: Include as follows as of 04/24/2017, WBC 4.7, hemoglobin 11.7, hematocrit is 34, platelets 176. Sodium 134, potassium 3.5, chloride 96, CO2 of 23, BUN 72, creatinine 2.5, glucose 179, calcium 8.8 and total bili 0.4, AST 28, ALT 51, alkaline phos is 122, total protein 8.9, albumin is 3.6, globulin 5.3. CT of the chest and head as follows. CT of the chest: Impression 4-mm noncalcified nodule anterior segment right upper lobe, no other primary pulmonary mass, mild mosaic attenuation in the lower lobes, nonspecific. bilateral adrenal hypertrophy, nonspecific. No vascular congestion, short subcentimeter lymph nodes. CT of the head as of 04/24/2017, no intracranial mass, hemorrhage, evidence of acute infarct, is related involutional change. IMPRESSION: In summary, Mrs. Alvarado is a 71-year-old elderly female with hypertension, diabetes, status for congestive heart failure, status post bone marrow biopsy consisted multiple myeloma, renal failure with a baseline creatinine about 0.9 in 11/2016, now creatinine is about 2.5. 1. Acute renal failure on chronic kidney disease. 2. Multiple myeloma. 3. Diabetes. 4. Severe pulmonary hypertension. 5. Hypertension despite holding Lasix. PLAN: Continue to start IV fluids half normal saline at 50 mL/hour for 12 hours and repeat BMP in a.m. We will follow with you. Thank you for allowing me to participate in your patient's care. Valerie Rascon MD
--- NOTE | 2017-04-25 10:16 | PN ---
FOLLOWUP RENAL CONSULTATION DATE: 04/21/2017 The patient is located in room 550, bed 8. REQUESTED BY: Jeff Alvarado MD HISTORY OF PRESENT ILLNESS: Mrs. Alvarado is a 71-year-old elderly female with past medical history significant for longstanding hypertension, diabetes more than 20 years, coronary artery disease status post CABG who was admitted with chief complaints of shortness of breath and CHF, x2 in the last 2 weeks. The patient is feeling much better. The patient was also found to have a rapidly deteriorating renal function since the November and during the last admission, the patient was found to have positive UPEP/SPEP, urine immunofixation, serum immunofixation and high elevated beta 2 microglobulins and also increased free light chains, IgG lambda and status post bone marrow biopsy during her last admission and now consistent with plasma cells more than 50% on bone marrow biopsy. Awaiting for the final results. The patient is not in acute distress today. Resting comfortably. No chest pain. No palpitation. No fever. No cough and no abdominal pain. No nausea, vomiting or diarrhea. No swelling of the legs. PHYSICAL EXAMINATION VITAL SIGNS: Blood pressure 111/56, pulse 84, respirations 18, temperature 97.4 and saturation 96%. Height 5 feet 2 inches and weight is 110 pounds. GENERAL: Mrs. Alvarado is a 71-year-old elderly female, thin build, not in distress. HEENT: Pupils normal reactive to light and accommodation. Conjunctivae pink. Sclerae anicteric. Tongue is moist. Trachea is midline. LUNGS: Symmetrical on both side. Bilateral breath sounds present. Bilateral crackles present on both sides, left more than the right. CARDIOVASCULAR: [place] at the fifth intercostal space, midclavicular line. S1 and S2 audible. No murmur or gallop. ABDOMEN: Normal in appearance, soft, tympanic. No guarding. No rigidity. No hepatosplenomegaly. CATERING SALES MANAGER: The patient is alert, awake and oriented x3. Nonfocal neuro examination. Cranial nerves II through XII grossly intact. Sensory motor system is within normal limits. EXTREMITIES: No cyanosis, no clubbing, no edema. CURRENT MEDICATIONS: Include as follows; Alphagan eyedrops, Cepacol throat lozenges, Coreg 3.125 mg p.o. b.i.d., Cozaar 50 mg p.o. daily, Crestor 50 mg p.o. at bedtime and Decadron 40 mg p.o. x1 dose, aspirin 325 mg p.o. daily, subcutaneous heparin 5000 q.12 hours, Januvia 25 mg p.o. daily, Lasix 40 mg IV daily, nitroglycerin ointment 2% one inch topical q.6 hours, Pepcid 20 mg IV daily, Zetia 10 mg at bedtime and allopurinol 100 mg p.o. daily. LABORATORY DATA: As follows; as of WBC 3.6, hemoglobin 10.7, hematocrit is 31.4 and platelets 192. Sodium 136, potassium 4.3, chloride 99, CO2 of 24, BUN 55, creatinine 2.4, glucose 214, calcium is 9.0 and influenza A and B antibody is negative. ASSESSMENT: In summary, Mrs. Alvarado is a 71-year-old elderly female with stable longstanding hypertension, diabetes, coronary artery disease status post coronary artery bypass grafting with rapidly deteriorating renal function in the last 4 months and now positive for urine protein electrophoresis/serum protein electrophoresis, urine immunofixation, serum immunofixation, elevated IgG lambda and free light chain in the blood with low H and H and also admitted with shortness of breath. 1. 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 2. Anemia most likely secondary to combination of iron-deficiency anemia and rule out multiple myeloma. 3. Congestive heart failure. 4. Hypertension. 5. Diabetes. PLAN: The patient was given one dose of Decadron today by sterile instrument technician Dr. Jesus Alberto Disla. Continue to monitor BMP and renal function. We will follow with you. Thank you for allowing me to participate in your patient's care. Case discussed with Dr. Jesus Alberto Disla in rounds. Valerie Rascon MD
--- NOTE | 2017-04-25 12:18 | CP.PCM.PN ---
Subjective - Date & Time of Evaluation Date of Evaluation: 04/25/17 Time of Evaluation: 12:18 - Subjective Subjective: pt is sen and examined, follow up consult is dictated #[id number] Objective - Vital Signs/Intake and Output Vital Signs (last 24 hours): Temp Pulse Resp BP Pulse Ox 97.9 F 61 18 106/61 96 04/25/17 07:05 04/25/17 07:05 04/25/17 07:05 04/25/17 07:05 04/25/17 07:05 Intake and Output: 04/25/17 04/25/17 06:59 18:59 Intake Total 450 Balance 450 - Medications Medications: Current Medications Albuterol/Ipratropium (Duoneb 3 Mg/0.5 Mg (3 Ml) Ud) 3 ml INH RQ6 [facility] Last Admin: 04/25/17 07:00 Dose: 3 ml Allopurinol (Zyloprim) 100 mg PO DAILY [facility] Last Admin: 04/25/17 10:16 Dose: 100 mg Benzocaine/Menthol (Cepacol Sore Throat) 1 tamir MT Q4H PRN PRN Reason: Sore Throat Last Admin: 04/23/17 09:40 Dose: 1 tamir Brimonidine Tartrate (Alphagan 0.2% Opht) 0 ml OU HS [facility] Last Admin: 04/24/17 21:44 Dose: 1 drop Carvedilol (Coreg) 3.125 mg PO BID [facility] Last Admin: 04/25/17 10:17 Dose: Not Given Ezetimibe (Zetia) 10 mg PO HS [facility] Last Admin: 04/24/17 21:43 Dose: 10 mg Furosemide (Lasix) 40 mg PO BID [facility] Last Admin: 04/24/17 13:13 Dose: 40 mg Sodium Chloride (Sodium Chloride 0.45%) 1,000 mls @ 50 mls/hr IV .Q20H [facility] Last Admin: 04/25/17 00:21 Dose: 50 mls/hr Losartan Potassium (Cozaar) 25 mg PO DAILY [facility] Last Admin: 04/25/17 10:16 Dose: Not Given Nitroglycerin (Nitro-Bid 2% Oint) 1 ea TOP Q6 [facility] Last Admin: 04/25/17 05:10 Dose: Not Given Promethazine HCl/Dextromethorphan (Phenergan Dm Syrup) 10 ml PO QID PRN PRN Reason: Cough Last Admin: 04/24/17 21:44 Dose: 10 ml Rosuvastatin Calcium (Crestor) 5 mg PO HS [facility] Last Admin: 04/24/17 21:43 Dose: 5 mg Sitagliptin Phosphate (Januvia) 25 mg PO DAILY [facility] Last Admin: 04/25/17 10:16 Dose: 25 mg - Labs Labs: 04/25/17 07:16 04/25/17 07:16 PT 11.1 SECONDS (9.7-12.2) 04/20/17 04:20 INR 1.0 04/20/17 04:20 APTT 29 SECONDS (21-34) 04/20/17 04:20
--- NOTE | 2017-04-25 13:27 | CP.PCM.PN ---
Subjective - Date & Time of Evaluation Date of Evaluation: 04/25/17 Time of Evaluation: 13:25 - Subjective Subjective: cr still same.on iv fluids Objective - Vital Signs/Intake and Output Vital Signs (last 24 hours): Temp Pulse Resp BP Pulse Ox 97.9 F 85 18 103/61 96 04/25/17 07:05 04/25/17 10:15 04/25/17 07:05 04/25/17 10:15 04/25/17 07:05 Intake and Output: 04/25/17 04/25/17 06:59 18:59 Intake Total 450 Balance 450 - Medications Medications: Current Medications Albuterol/Ipratropium (Duoneb 3 Mg/0.5 Mg (3 Ml) Ud) 3 ml INH RQ6 [facility] Last Admin: 04/25/17 13:14 Dose: 3 ml Allopurinol (Zyloprim) 100 mg PO DAILY [facility] Last Admin: 04/25/17 10:16 Dose: 100 mg Benzocaine/Menthol (Cepacol Sore Throat) 1 tamir MT Q4H PRN PRN Reason: Sore Throat Last Admin: 04/23/17 09:40 Dose: 1 tamir Brimonidine Tartrate (Alphagan 0.2% Opht) 0 ml OU HS [facility] Last Admin: 04/24/17 21:44 Dose: 1 drop Carvedilol (Coreg) 3.125 mg PO BID [facility] Last Admin: 04/25/17 10:17 Dose: Not Given Ezetimibe (Zetia) 10 mg PO HS [facility] Last Admin: 04/24/17 21:43 Dose: 10 mg Furosemide (Lasix) 40 mg PO BID [facility] Last Admin: 04/24/17 13:13 Dose: 40 mg Sodium Chloride (Sodium Chloride 0.45%) 1,000 mls @ 50 mls/hr IV .Q20H [facility] Last Admin: 04/25/17 00:21 Dose: 50 mls/hr Losartan Potassium (Cozaar) 25 mg PO DAILY [facility] Last Admin: 04/25/17 10:16 Dose: Not Given Nitroglycerin (Nitro-Bid 2% Oint) 1 ea TOP Q6 [facility] Last Admin: 04/25/17 12:21 Dose: 1 ea Promethazine HCl/Dextromethorphan (Phenergan Dm Syrup) 10 ml PO QID PRN PRN Reason: Cough Last Admin: 04/24/17 21:44 Dose: 10 ml Rosuvastatin Calcium (Crestor) 5 mg PO HS [facility] Last Admin: 04/24/17 21:43 Dose: 5 mg Sitagliptin Phosphate (Januvia) 25 mg PO DAILY [facility] Last Admin: 04/25/17 10:16 Dose: 25 mg - Labs Labs: 04/25/17 07:16 04/25/17 07:16 PT 11.1 SECONDS (9.7-12.2) 04/20/17 04:20 INR 1.0 04/20/17 04:20 APTT 29 SECONDS (21-34) 04/20/17 04:20 - Respiratory Exam Respiratory Exam: Clear to Ausculation Bilateral - Cardiovascular Exam Cardiovascular Exam: REGULAR RHYTHM - GI/Abdominal Exam GI & Abdominal Exam: Soft - Extremities Exam Extremities Exam: absent: Pedal Edema - Neurological Exam Neurological Exam: Alert, Oriented x3 Assessment and Plan - Assessment and Plan (Free Text) Assessment: chf,copd.ckd. will ct hydration.hold the d/c.recheck labs in am
[2017-04-25 15:46] VITALS: RESP 20
[2017-04-25] MEDS: Benzocaine/Menthol (Cepacol) Lozenge MT PRN (17:17)
--- NOTE | 2017-04-25 21:29 | CP.PCM.PN ---
Subjective - Date & Time of Evaluation Date of Evaluation: 04/25/17 Time of Evaluation: 21:29 - Subjective Subjective: Patient is feeling slightly weaker this morning. Less cough noted. She's not eating well. Poor appetite noted. Generalized weakness On examination: Vital signs stable. Room air oxygen saturation is 96%. Chest good air entry. Minimal expiratory wheezing noted. Regular heart sounds nontender abdomen No pedal edema CT of the chest is showing evidence of a geographic pattern, possibility of air trapping with the bronchiolitis, right upper lung nodule noted. Assessment and recommendation: 70-year-old female with a history of CAD, status post CABG, hypertension. Recently diagnosed with multiple myeloma, and acute renal insufficiency and anemia. Patient is having some nonspecific CT of the chest, likely interstitial changes. Bronchiolitis noted. Continue the bronchodilators. Patient may benefit by a Zithromax for the bronchiolitis. I'll follow the patient. Patient also has evidence of right upper lung nodule, nonspecific, may need to be followed up. Objective - Vital Signs/Intake and Output Vital Signs (last 24 hours): Temp Pulse Resp BP Pulse Ox 98.2 F 71 20 112/61 96 04/25/17 15:00 04/25/17 15:00 04/25/17 15:00 04/25/17 15:00 04/25/17 15:00 Intake and Output: 04/25/17 04/26/17 18:59 06:59 Intake Total 730 Balance 730 - Medications Medications: Current Medications Albuterol/Ipratropium (Duoneb 3 Mg/0.5 Mg (3 Ml) Ud) 3 ml INH RQ6 [facility] Last Admin: 04/25/17 20:29 Dose: 3 ml Allopurinol (Zyloprim) 100 mg PO DAILY [facility] Last Admin: 04/25/17 10:16 Dose: 100 mg Benzocaine/Menthol (Cepacol Sore Throat) 1 tamir MT Q4H PRN PRN Reason: Sore Throat Last Admin: 04/25/17 17:17 Dose: 1 tamir Brimonidine Tartrate (Alphagan 0.2% Opht) 0 ml OU HS [facility] Last Admin: 04/24/17 21:44 Dose: 1 drop Carvedilol (Coreg) 3.125 mg PO BID [facility] Last Admin: 04/25/17 17:14 Dose: Not Given Ezetimibe (Zetia) 10 mg PO HS [facility] Last Admin: 04/24/17 21:43 Dose: 10 mg Furosemide (Lasix) 40 mg PO BID [facility] Last Admin: 04/24/17 13:13 Dose: 40 mg Sodium Chloride (Sodium Chloride 0.45%) 1,000 mls @ 50 mls/hr IV .Q20H [facility] Last Admin: 04/25/17 20:43 Dose: Not Given Losartan Potassium (Cozaar) 25 mg PO DAILY [facility] Last Admin: 04/25/17 10:16 Dose: Not Given Nitroglycerin (Nitro-Bid 2% Oint) 1 ea TOP Q6 [facility] Last Admin: 04/25/17 17:14 Dose: Not Given Promethazine HCl/Dextromethorphan (Phenergan Dm Syrup) 10 ml PO QID PRN PRN Reason: Cough Last Admin: 04/24/17 21:44 Dose: 10 ml Rosuvastatin Calcium (Crestor) 5 mg PO HS [facility] Last Admin: 04/24/17 21:43 Dose: 5 mg Sitagliptin Phosphate (Januvia) 25 mg PO DAILY [facility] Last Admin: 04/25/17 10:16 Dose: 25 mg - Labs Labs: 04/25/17 07:16 04/25/17 07:16 PT 11.1 SECONDS (9.7-12.2) 04/20/17 04:20 INR 1.0 04/20/17 04:20 APTT 29 SECONDS (21-34) 04/20/17 04:20
[2017-04-25] MEDS: Promethazine DM 12.5 mg-30 mg/10 ml Syrup PO PRN (21:34)
[2017-04-25] MEDS: Brimonidine 0.2% Opth Sol (5ml) OU SCH (21:34)
--- NOTE | 2017-04-25 22:46 | CP.PCM.PN ---
Subjective - Date & Time of Evaluation Date of Evaluation: 04/25/17 Time of Evaluation: 18:30 - Subjective Subjective: No complaints. Objective - Vital Signs/Intake and Output Vital Signs (last 24 hours): Temp Pulse Resp BP Pulse Ox 98.2 F 71 20 112/61 96 04/25/17 15:00 04/25/17 15:00 04/25/17 15:00 04/25/17 15:00 04/25/17 15:00 Intake and Output: 04/25/17 04/26/17 18:59 06:59 Intake Total 730 Balance 730 - Medications Medications: Current Medications Albuterol/Ipratropium (Duoneb 3 Mg/0.5 Mg (3 Ml) Ud) 3 ml INH RQ6 [facility] Last Admin: 04/25/17 20:29 Dose: 3 ml Allopurinol (Zyloprim) 100 mg PO DAILY [facility] Last Admin: 04/25/17 10:16 Dose: 100 mg Benzocaine/Menthol (Cepacol Sore Throat) 1 tamir MT Q4H PRN PRN Reason: Sore Throat Last Admin: 04/25/17 17:17 Dose: 1 tamir Brimonidine Tartrate (Alphagan 0.2% Opht) 0 ml OU HS [facility] Last Admin: 04/25/17 21:34 Dose: 1 drop Carvedilol (Coreg) 3.125 mg PO BID [facility] Last Admin: 04/25/17 17:14 Dose: Not Given Ezetimibe (Zetia) 10 mg PO HS [facility] Last Admin: 04/25/17 21:34 Dose: 10 mg Furosemide (Lasix) 40 mg PO BID [facility] Last Admin: 04/24/17 13:13 Dose: 40 mg Sodium Chloride (Sodium Chloride 0.45%) 1,000 mls @ 50 mls/hr IV .Q20H [facility] Last Admin: 04/25/17 21:35 Dose: 50 mls/hr Losartan Potassium (Cozaar) 25 mg PO DAILY [facility] Last Admin: 04/25/17 10:16 Dose: Not Given Nitroglycerin (Nitro-Bid 2% Oint) 1 ea TOP Q6 [facility] Last Admin: 04/25/17 17:14 Dose: Not Given Promethazine HCl/Dextromethorphan (Phenergan Dm Syrup) 10 ml PO QID PRN PRN Reason: Cough Last Admin: 04/25/17 21:34 Dose: 10 ml Rosuvastatin Calcium (Crestor) 5 mg PO HS [facility] Last Admin: 04/25/17 21:34 Dose: 5 mg Sitagliptin Phosphate (Januvia) 25 mg PO DAILY [facility] Last Admin: 04/25/17 10:16 Dose: 25 mg - Labs Labs: 04/25/17 07:16 04/25/17 07:16 PT 11.1 SECONDS (9.7-12.2) 04/20/17 04:20 INR 1.0 04/20/17 04:20 APTT 29 SECONDS (21-34) 04/20/17 04:20 - Head Exam Head Exam: ATRAUMATIC - Eye Exam Eye Exam: Normal appearance - ENT Exam ENT Exam: Mucous Membranes Dry - Respiratory Exam Respiratory Exam: NORMAL BREATHING PATTERN - Cardiovascular Exam Cardiovascular Exam: +S1, +S2 - GI/Abdominal Exam GI & Abdominal Exam: Normal Bowel Sounds Assessment and Plan (1) Multiple myeloma Assessment & Plan: s/p dexamethasone outpatient treatment Status: Acute
[2017-04-26] MEDS: Albuterol-Ipratrop 3 mg / 0.5 (3 ml) UD INH SCH ×3 (01:44→13:25)
--- NOTE | 2017-04-26 06:57 | PN ---
DATE: FOLLOWUP RENAL CONSULTATION LOCATION: The patient is located in room 550, Bed A. REQUESTED BY: Jeff Alvarado MD REASON FOR FOLLOWUP: Acute renal failure, chronic kidney disease, multiple myeloma. HISTORY OF PRESENT ILLNESS: Mrs. Alvarado is a 71 years elderly, very pleasant female with a past medical history significant for longstanding hypertension, diabetes, coronary artery disease, status post CABG about 2 years ago, was found to have a worsening renal function two weeks ago with baseline creatinine of 0.9 and admitted with 2.5 and shortness of breath, and also severe pulmonary hypertension and CHF. The patient was found to have anemia and also found to have abnormal UPEP, SPEP, urine immunofixation, serum immunofixation, elevated beta-2 globulins, and elevated IgG lambda light chains in the blood, and subsequently, the patient underwent a bone marrow biopsy and discharged home now. The patient was admitted last week with shortness of breath against sudden onset and being treated for CHF. The patient went hypotensive yesterday and started on IV fluids. Due to vigorous diuresis, Lasix is on hold. The patient is started on half normal saline at 50 mL/hour. The patient is feeling better, not in acute distress and denies any complaints this morning. PHYSICAL EXAMINATION: VITAL SIGNS: This morning as follows, blood pressure 103/61, pulse 85, respirations 20, temperature 98.2, saturation 96%. Height 5 feet 2 inches and weight is 108 pounds. GENERAL: Mrs. Alvarado is a 71 years elderly female, moderately built, moderate nourished, not in distress. HEENT: Pupils normal and reactive to light and accommodation. Conjunctivae pink. Sclerae anicteric. Tongue is moist. Trachea is midline. LUNGS: Symmetric on both sides. Bilateral breath sounds present. Bilateral occasional basal crackles present, left more than the right. CVS: [place] at the fifth intercostal space, midclavicular line. S1, S2 audible. No murmur or gallop. ABDOMEN: Normal in appearance, soft, tympanic. No guarding. No rigidity. No hepatosplenomegaly. CERT OCCUPATIONAL THERAPY ASST: The patient is alert, awake, oriented x3. Nonfocal neuro examination. Cranial nerves II through XII grossly intact. Sensory and motor system is within normal limits. EXTREMITIES: No cyanosis, no clubbing, no edema. CURRENT MEDICATIONS: Include as follows: Alphagan eyedrops, Cepacol throat lozenges, Coreg 3.125 mg p.o. b.i.d., Cozaar 25 mg daily, Crestor 5 mg at bedtime, DuoNeb inhaler, Januvia 25 mg p.o. daily, Lasix on hold, nitroglycerin ointment 1 inch topical q.6 hours, Phenergan DM syrup 4 times daily, and IV fluids half-normal saline at 50 mL/hour, Zetia 10 mg at bedtime, allopurinol 100 mg p.o. daily. LABORATORY DATA: Include as follows. As of 04/25/2017, WBC 5.6, hemoglobin 12.2, hematocrit is 36.1, and platelets 174. Sodium 134, potassium of 4.2, chloride 101, CO of 22, BUN 72, creatinine 2.5, glucose 143, calcium 8.6. Total bili 0.5, AST 30, ALT 41, alkaline phosphatase 117, total protein 8.7, albumin is 3.5, and globulin is 5.2. IMPRESSION: In summary, Mrs. Alvarado is a 71 years old elderly female with hypertension, diabetes, coronary artery disease, status post coronary artery bypass graft, severe pulmonary hypertension, and congestive heart failure with recently diagnosed multiple myeloma, on diuretics. 1. Chronic kidney disease stage IV versus acute on chronic kidney disease. 2. Hypotension secondary to vigorous diuresis. 3. Multiple myeloma. 4. Congestive heart failure. 5. Severe pulmonary hypertension. Agreed to hold Lasix, and blood pressure is stable, we will hold IV fluids now, and continue to follow up with Hematology for further treatment options for multiple myeloma. We will follow with you. Thank you for allowing me to participate in your patient's care Valerie Rascon MD
[2017-04-26] MEDS: Nitroglycerin 2% Ointment Foilpak UD TOP SCH ×3 (06:59→12:00)
[2017-04-26 08:37] LABS: BASO % 0.3 % (0.0-2.0); EOS # 0.1 K/uL (0.0-0.7); EOS % 1.1 % (0.0-4.0); HEMOGLOBIN 12.1 g/dL (11.0-16.0); LYMPH # 1.2 K/uL (1.0-4.3); LYMPH % 19.3 % (20.0-40.0); MEAN CELL VOLUME 97.6 fL (81.0-99.0); MEAN CORPUSCULAR HEMOGLOBIN 33.8 pg (27.0-31.0); MEAN CORPUSCULAR HGB CONC 34.6 g/dL (33.0-37.0); MONO # 0.3 K/uL (0.0-0.8); MONO % 5.2 % (0.0-10.0); NEUT # 4.5 K/uL (1.8-7.0); NEUT % 74.1 % (50.0-75.0); RBC 3.57 Mil/uL (3.80-5.20); RED CELL DISTRIBUTION WIDTH 18.2 % (11.5-14.5); WHITE BLOOD COUNT 6.1 K/uL (4.8-10.8)
[2017-04-26 09:23] LABS: ALB/GLOB RATIO 0.7 (1.0-2.1); ALBUMIN 3.5 g/dL (3.5-5.0); CALCIUM 8.9 mg/dl (8.6-10.4)
--- NOTE | 2017-04-26 12:23 | CP.PCM.PN ---
Subjective - Date & Time of Evaluation Date of Evaluation: 04/26/17 Time of Evaluation: 12:23 - Subjective Subjective: PATIENT WAS SEEN AND EXAMINED AT THE BEDSIDE LUNG SOUND CLEAR PER DR WHITAKER PATIENT WILL DO OUT PATIENT CHEMO HEAD CT WAS DONE AND NEG FOR MASS OR INFARCT CREATINE IMPROVE LAST LEVEL IS 1.[address] WU WHO AGREE AND CLEAR PATIENT FOR DC FOLLOW UP WITH DR WU IN ONE WEEK---CALL FOR APPOINTMENT HAVE YOUR BLOOD CHEMISTRY WORK DONE AT YOUR VISIT FOLLOW UP WITH DR WHITAKER IN 1-2 WEEK AT HIS OFFICE ---CALL FOR APPOINTMENT CONTINUE ALL YOUR HOME MEDICATION ORDER ACTIVITY TOLERATED CALL DR WU OR GO TO THE EMERGENCY ROOM IF SYMPTOMS RETURN OR WORSENING DISCUSS WITH PATIENT AND PATIENT'S FAMILY WHO AGREE AND VERBALIZED UNDERSTANDING Objective - Vital Signs/Intake and Output Vital Signs (last 24 hours): Temp Pulse Resp BP Pulse Ox 98.2 F 59 L 20 126/62 96 04/25/17 15:00 04/26/17 10:15 04/25/17 15:00 04/26/17 10:15 04/25/17 15:00 - Medications Medications: Current Medications Albuterol/Ipratropium (Duoneb 3 Mg/0.5 Mg (3 Ml) Ud) 3 ml INH RQ6 [facility] Last Admin: 04/26/17 07:00 Dose: 3 ml Allopurinol (Zyloprim) 100 mg PO DAILY [facility] Last Admin: 04/26/17 10:20 Dose: 100 mg Benzocaine/Menthol (Cepacol Sore Throat) 1 tamir MT Q4H PRN PRN Reason: Sore Throat Last Admin: 04/25/17 17:17 Dose: 1 tamir Brimonidine Tartrate (Alphagan 0.2% Opht) 0 ml OU HS [facility] Last Admin: 04/25/17 21:34 Dose: 1 drop Carvedilol (Coreg) 3.125 mg PO BID [facility] Last Admin: 04/26/17 10:20 Dose: Not Given Ezetimibe (Zetia) 10 mg PO HS [facility] Last Admin: 04/25/17 21:34 Dose: 10 mg Furosemide (Lasix) 40 mg PO BID [facility] Last Admin: 04/24/17 13:13 Dose: 40 mg Losartan Potassium (Cozaar) 25 mg PO DAILY [facility] Last Admin: 04/26/17 10:20 Dose: 25 mg Nitroglycerin (Nitro-Bid 2% Oint) 1 ea TOP Q6 [facility] Last Admin: 04/26/17 06:59 Dose: Not Given Promethazine HCl/Dextromethorphan (Phenergan Dm Syrup) 10 ml PO QID PRN PRN Reason: Cough Last Admin: 04/25/17 21:34 Dose: 10 ml Rosuvastatin Calcium (Crestor) 5 mg PO HS [facility] Last Admin: 04/25/17 21:34 Dose: 5 mg Fluticasone/Salmeterol (Advair Diskus 250/50) 1 puff INH RQ12 [facility] Sitagliptin Phosphate (Januvia) 25 mg PO DAILY [facility] Last Admin: 04/26/17 10:19 Dose: 25 mg - Labs Labs: 04/26/17 08:23 04/26/17 08:23 PT 11.1 SECONDS (9.7-12.2) 04/20/17 04:20 INR 1.0 04/20/17 04:20 APTT 29 SECONDS (21-34) 04/20/17 04:20
[2017-04-26 16:42] VITALS: BP 133/68; PULSE 68; TEMP 98.9; O2SAT 96
[2017-04-26] MEDS ORDERED: Fluticasone-Salmeterol 250-50mcg Diskus INH SCH (20:00)
--- NOTE | 2017-04-26 23:58 | CP.PCM.PN ---
Subjective - Date & Time of Evaluation Date of Evaluation: 04/26/17 Time of Evaluation: 23:58 - Subjective Subjective: Patient is currently stable. No chest pain noted. But because some tiredness and easy fatigability noted. Patient scheduled to have a CAT scan. Vital signs reviewed No neck vein distention noted Chest good air entry bilaterally, no wheezing or rales noted CVS regular heart sound, no murmur noted Abdomen soft, nontender. 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 Elevated creatinine level noted Assessment and recognition: 71-year-old female with a history of coronary artery disease, status post CABG hypertension and diabetes. Patient admitted with acute renal insufficiency, and renal failure. Multiple myeloma recently diagnosed. Chronic bronchitis, stable. Mrs. Saba stable. She can be discharged home. Will follow the patient as needed pulmonary point of view stable Objective - Vital Signs/Intake and Output Vital Signs (last 24 hours): Temp Pulse Resp BP Pulse Ox 98.9 F 68 20 133/68 96 04/26/17 16:41 04/26/17 16:41 04/26/17 16:41 04/26/17 16:41 04/26/17 16:41 - Labs Labs: 04/26/17 08:23 04/26/17 08:23 PT 11.1 SECONDS (9.7-12.2) 04/20/17 04:20 INR 1.0 04/20/17 04:20 APTT 29 SECONDS (21-34) 04/20/17 04:20
--- NOTE | 2017-04-27 00:03 | CP.PCM.PN ---
Subjective - Date & Time of Evaluation Date of Evaluation: 04/24/17 Time of Evaluation: 17:25 - Subjective Subjective: Patient is currently stable. No chest pain noted. But because some tiredness and easy fatigability noted. Patient scheduled to have a CAT scan. Vital signs reviewed No neck vein distention noted Chest good air entry bilaterally, no wheezing or rales noted CVS regular heart sound, no murmur noted Abdomen soft, nontender. 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 Elevated creatinine level noted Assessment and recognition: 71-year-old female with a history of coronary artery disease, status post CABG hypertension and diabetes. Patient admitted with acute renal insufficiency, and renal failure. Multiple myeloma recently diagnosed. Chronic bronchitis, stable. We'll get the CAT scan and will start the patient Objective - Vital Signs/Intake and Output Vital Signs (last 24 hours): Temp Pulse Resp BP Pulse Ox 98.9 F 68 20 133/68 96 04/26/17 16:41 04/26/17 16:41 04/26/17 16:41 04/26/17 16:41 04/26/17 16:41 - Labs Labs: 04/26/17 08:23 04/26/17 08:23 PT 11.1 SECONDS (9.7-12.2) 04/20/17 04:20 INR 1.0 04/20/17 04:20 APTT 29 SECONDS (21-34) 04/20/17 04:20
--- NOTE | 2017-04-27 10:27 | DS ---
HOSPITAL COURSE: A 71-year-old female was brought in with congestive heart failure. She was in pulmonary edema. IV diuretic was given with improvement. Her creatinine was 2.2. She does have chronic kidney disease. She also had anemia and workup including biopsy had been done. Bone marrow biopsy was done by Dr. Disla and biopsy turned out to be multiple myeloma. Care of plan was explained to the patient, because of the myeloma, her heart failure might have gotten worse. She was treated with steroids and for further chemotherapy to be treated as an outpatient. Care of plan was explained by me to the patient and the family. The patient also had a long discussion with Dr. Disla and Dr. Rascon, the Senior Qc Technician. Her creatinine got worse to 2.7 and was hydrated and Lasix was withheld and current creatinine is 1.9. She does have cough. Lungs are clear. CT of the chest was unremarkable. She is afebrile. Vital signs are stable. At this point, she will be discharged to be followed up as an outpatient. She is on allopurinol 100 mg one a day, valsartan will be continued, Lasix was decreased to 40 mg one a day, Januvia 25 mg p.o. one a day. CT of the head was unremarkable. The patient was seen and followed by Dr. Turner. At the time of discharge she was advised a sales expert home theater, visiting nurse and also given a prescription for cane. FINAL DIAGNOSES: 1. Congestive heart failure. 2. Hypertension. 3. Diabetes. 4. Acute kidney injury, gotten worse on chronic kidney disease. 5. Multiple myeloma. FOLLOWUPS: The patient will see Dr. Disla next week and Dr. Rascon, Dr. Turner and myself. Jeff Alvarado MD
--- NOTE | 2017-04-27 21:16 | PQF CHF ---
This form is a permanent part of the medical record PLEASE, CLARIFY TYPE OF CHF Clarification of your documentation is requested to better reflect the severity of illness and intensity of treatment of your patient. Indicators present [X] Diagnosis of CHF and/or history of CHF [X] BNP > 200 [] Imaging Finding of Pulmonary Edema /Pleural Effusions [] Fluid/Volume Overload [] Pitting edema [] Ejection Fraction < 40% (Indicative of Systolic Heart Failure) [] Ejection Fraction > 40% (Indicative of Diastolic Heart Failure) [X] Dyspnea / Orthopenea / Paroxysmal Nocturnal Dyspnea [X] Other: SOB Location in the medical record that reflects the above clinical findings: [ P.NOTES, D/C SUMMARY] Treatment Provided: [IV LASIX 40MG ] PHYSICIAN'S RESPONSE Based on your medical judgment of the clinical indicators outlined above, are you treating this patient for a known or suspected: [] Acute CHF [] Systolic [] Diastolic [] Combined [] Chronic CHF [] Systolic [] Diastolic [] Combined [] Acute on Chronic CHF []Systolic [] Diastolic [] Combined [] CHF due hypertension [] Acute systolic []Chronic systolic [] Acute/ chronic systolic [] Other, please indicate: [] [] If Unable to Determine, please check the box, sign and date. Present On Admission (POA) Indicator: [] Present at the time of admission [] Not present at the time of admission [] Clinically Undetermined In responding to this query, please exercise your independent professional judgment. The fact that a question is asked does not imply that any particular answer is desired or expected. Thank you for your clarification on this documentation. If you have any questions please call:[ [phone]] * Thank you, [ Bebe Martinez, CCS, SCRAP SORTER] parts control clerk ALBERT
--- NOTE | 2017-04-28 08:51 | PCM.HF ---
Heart Failure Core Measure - Heart Failure Ejection Fraction: 40 % or Greater LUIS Inhibitor Prescribed: No Contraindication/Reason for not providing: ON ARB Beta-Kristian Prescribed: Metoprolol Succinate Angiotensin II Receptor Kristian Prescribed: Yes AnticoagulationTherapy for Atrial Fibrillation/Atrialflutter: No Contraindication/Reason for not providing: NO HX OF AFIB Aldosterone Antagonist Prescribed: No Contraindication/Reason for not providing: EF IS GREATER THAN 45% Hydralazine Nitrate Prescribed: No Contraindication/Reason for not providing: EF IS GREATER THAN 45% Implantable Cardioverter Defibrillator Therapy: No Contraindication/Reason for not providing: EF IS GREATER THAN 45% Cardiac Resynchronization Therapy Prescribed: No Contraindication/Reason for not providing: EF IS GREATER THAN 45% - Follow up Will be discharged to: Home Follow Up Date (must be within 7 days from discharge): 05/03/17 Follow Up Time: 09:00
== END 2017-04-26 17:30 | disposition home or self-care (01) | DRG 291 ==
LOC: C.ER 03:12 → C.9E 05:47 → C.5S 07:06
PROVIDERS: ADMIT Internal Medicine Cardiovascular Disease; ATTEND Internal Medicine Cardiovascular Disease
DX: I13.0 Hypertensive heart and chronic kidney disease with heart failure and stage 1 through stage 4 chronic kidney disease, or unspecified chronic kidney disease (principal); I50.31 Acute diastolic (congestive) heart failure; N18.4 Chronic kidney disease, stage 4 (severe); C90.00 Multiple myeloma not having achieved remission; D89.2 Hypergammaglobulinemia, unspecified; N17.9 Acute kidney failure, unspecified; I27.20 Pulmonary hypertension, unspecified; E11.22 Type 2 diabetes mellitus with diabetic chronic kidney disease; J44.9 Chronic obstructive pulmonary disease, unspecified; I25.10 Atherosclerotic heart disease of native coronary artery without angina pectoris; D50.9 Iron deficiency anemia, unspecified; D63.0 Anemia in neoplastic disease; E78.5 Hyperlipidemia, unspecified; E78.00 Pure hypercholesterolemia, unspecified; R77.1 Abnormality of globulin; H40.9 Unspecified glaucoma; Z79.84 Long term (current) use of oral hypoglycemic drugs; Z95.1 Presence of aortocoronary bypass graft

== ENCOUNTER 2017-05-29 14:56 | Inpatient (IN) | payer MEDICARE, BC ==
[2017-05-29 14:56] VITALS: BMI 25.6
[2017-05-29] MEDS ORDERED: Sodium Chloride 0.9% 500 ML IV STA (15:27)
[2017-05-29] MEDS ORDERED: Sodium Chloride 0.9% 1,000 ML ONE (15:47)
[2017-05-29 16:18] LABS: BASO % 0.3 % (0.0-2.0); LYMPH # 0.9 K/uL (1.0-4.3); LYMPH % 12.1 % (20.0-40.0); MEAN CORPUSCULAR HEMOGLOBIN 32.7 pg (27.0-31.0); MEAN CORPUSCULAR HGB CONC 32.7 g/dL (33.0-37.0); MEAN PLATELET VOLUME 10.6 fL (7.2-11.7); MONO # 0.3 K/uL (0.0-0.8); MONO % 3.5 % (0.0-10.0); NEUT % 84.1 % (50.0-75.0); NRBC % 0.1 % (0.0-2.0); RBC 2.65 Mil/uL (3.80-5.20); RED CELL DISTRIBUTION WIDTH 19.3 % (11.5-14.5); WHITE BLOOD COUNT 7.1 K/uL (4.8-10.8)
--- NOTE | 2017-05-29 16:18 | C.PDOC ---
History Of Present Illness 71 year old female with PMHx of HTN, DM, multiple Myeloma is sent to the ED by her PMD Dr. Alvarado for evaluation of generalized weakness. Patient's reports patient has been feeling weak for approximately a month now. Patient is also not able to swallow fluids very well. Patient had bypass surgery done 2 years ago. Patient also started feeling SOB yesterday, it was noted by her family. Patient denies CP, nausea, vomit, diarrhea, headache, recent travel, sick contacts. Time Seen by Provider: 05/29/17 15:26 Chief Complaint (Nursing): Weakness/Neurological Deficit History Per: Family History/Exam Limitations: no limitations Onset/Duration Of Symptoms: Days Current Symptoms Are (Timing): Still Present Activity At Onset Of Symptoms: Walking Associated Symptoms Preceding Syncopal Episode: No Predromal Symptoms (Sudden Onset) Seizure Or Post-ictal Symptoms: None Fall Associated With With Symptoms: No Severity: None Recent travel outside of the [place]: No Additional History Per: EMS Past Medical History Reviewed: Historical Data, Nursing Documentation, Vital Signs Vital Signs: Last Vital Signs Temp 97.5 F L 05/29/17 15:03 Pulse 62 05/29/17 15:03 Resp 18 05/29/17 15:03 BP 147/77 05/29/17 15:03 Pulse Ox 98 05/29/17 18:31 - Medical History PMH: CHF, HTN, Hypercholesterolemia Denies: Chronic Kidney Disease Surgical History: CABG - [facility] Procedures EXTRACTION OF ILIAC BONE MARROW, PERC APPROACH, DIAGN (04/10/17) Family History: States: Unknown Family Hx - Social History Hx Alcohol Use: No Hx Substance Use: No - Immunization History Hx Tetanus Toxoid Vaccination: No Hx Influenza Vaccination: No Hx Pneumococcal Vaccination: No Review Of Systems Constitutional: Positive for: Weakness. Negative for: Fever, Chills Cardiovascular: Negative for: Chest Pain Respiratory: Negative for: Cough, Shortness of Breath Gastrointestinal: Negative for: Nausea, Vomiting, Abdominal Pain Genitourinary: Negative for: Dysuria Neurological: Positive for: Dizziness. Negative for: Weakness, Numbness, Headache Physical Exam - Physical Exam Appears: Non-toxic, Chronically Ill Skin: Warm, Dry, Pale Head: Atraumatic, Normacephalic Eye(s): bilateral: Normal Inspection Nose: No Discharge Oral Mucosa: Moist Neck: Normal ROM, Supple Chest: Symmetrical, Other (Midsternal scar noted) Cardiovascular: Rhythm Regular, No Murmur Respiratory: Rales (crackles B/L), No Rhonchi, No Wheezing Gastrointestinal/Abdominal: Soft, No Tenderness, No Guarding, No Rebound Extremity: Normal ROM, No Calf Tenderness, Capillary Refill (< 2 seconds), Swelling (B/L edema right leg > left leg) Pulses: Left Dorsalis Pedis: Normal, Right Dorsalis Pedis: Normal Neurological/Psych: Oriented x3 Gait: Unable To Assess ED Course And Treatment - Laboratory Results Result Diagrams: 05/29/17 16:13 05/29/17 16:13 O2 Sat by Pulse Oximetry: 98 (On RA) Pulse Ox Interpretation: Normal - Other Rad CXR X-Ray: Viewed By Me, Read By Radiologist Interpretation: Accession No. : [id number]. Patient Name / ID : BRYCE BELTRE / [id number]. Exam Date : 05/29/2017 15:58:49 ( Approved ). Study Comment : Sex / Age : F / 71Y. Creator : Yoshi Ruiz MD. Dictator : Yoshi Ruiz MD. Final Application Reviewer : Sole Layer : Yoshi Ruiz MD. Approver2 : Report Date : 05/29/2017 17:47:16. My Comment : . PROCEDURE: CHEST RADIOGRAPH, 1 VIEW. HISTORY: weakness. COMPARISON: 04/23/2017. FINDINGS: LUNGS: Clear. PLEURA: No pneumothorax or pleural fluid seen. CARDIOVASCULAR: No radiographic findings to suggest acute or significant cardiovascular disease. Incidental Finding(s): Postoperative changes related to sternotomy. OSSEOUS STRUCTURES: No significant abnormalities. VISUALIZED UPPER ABDOMEN: Normal. OTHER FINDINGS: None. IMPRESSION: No active disease. No acute/significant interval changes. Progress Note: Case was d/w . Rocephin IV started. Patient will be admitted to telemetry. Medical Decision Making Medical Decision Making: Impression: generalized weakness Plan: * Labs * VBG * CXR * IV fluids * UA Disposition - Disposition Disposition: HOSPITALIZED Disposition Time: 17:46 Condition: FAIR - Clinical Impression Clinical Impression: Chest pain, Multiple myeloma, UTI (urinary tract infection) - PA / BOTTLE LINE WORKER / Resident Statement MD/DO has reviewed & agrees with the documentation as recorded. - Scribe Statement The provider has reviewed the documentation as recorded by the Scribe Gaudencio Valdovinos All medical record entries made by the Scribe were at my direction and personally dictated by me. I have reviewed the chart and agree that the record accurately reflects my personal performance of the history, physical exam, medical decision making, and the department course for this patient. I have also personally directed, reviewed, and agree with the discharge instructions and disposition. Decision To Admit - Pt Status Changed To: Hospital Disposition Of: Inpatient - Admit Certification Admit to Inpatient:: After my assessment, the patient will require hospitalization for at least two midnights. This is because of the severity of symptoms shown, intensity of services needed, and/or the medical risk in this patient being treated as an outpatient. - InPatient: Physician Admission Certification: I certify that this patient requires 2 or more midnights of care for the following reason:: Patient with CP, positive troponin, UTI, h/o multiple myeloma, DM, Anemia. She will need more then 2 days of admission. - . Bed Request Type: Telemetry Admitting Physician: Jeff Alvarado Patient Diagnosis: Chest pain, Multiple myeloma, UTI (urinary tract infection)
[2017-05-29 16:22] LABS: HEMOGLOBIN 8.7 g/dL (11.0-16.0); MEAN CELL VOLUME 100.1 fL (81.0-99.0)
[2017-05-29 16:26] LABS: INR 1.5; PROTHROMBIN TIME 17.2 SECONDS (9.7-12.2)
[2017-05-29 16:29] LABS: VENOUS BLOOD GAS BASE EXCESS -0.2 mmol/L (0.0-2.0); VENOUS BLOOD GAS PCO2 41 mmHg (40-60); VENOUS BLOOD GAS PO2 20 mm/Hg (30-55); VENOUS BLOOD PH 7.39 (7.32-7.43)
[2017-05-29 16:30] LABS: ALB/GLOB RATIO 0.6 (1.0-2.1); ALBUMIN 2.3 g/dL (3.5-5.0); ALT/SGPT 28 U/L (9-52); AMYLASE 104 U/L (30-110); AST/SGOT 30 U/L (14-36); BLOOD UREA NITROGEN 23 mg/dL (7-17); CALCIUM 7.7 mg/dl (8.6-10.4); GFR AFRICAN-AMERICAN > 60; GFR NON-AFRICAN AMERICAN > 60; LIPASE 183 U/L (23-300)
[2017-05-29 16:43] LABS: CK-MB 8.48 ng/mL (0.0-3.38)
[2017-05-29 16:54] LABS: SQUAMOUS EPITHIAL 1 /hpf (0-5); URINE BACTERIA OCC (<OCC); URINE BILIRUBIN NEGATIVE (NEGATIVE); URINE CLARITY Hazy (Clear); URINE COLOR Yellow (YELLOW); URINE GLUCOSE (UA) 3+ mg/dL (Normal); URINE PROTEIN NEGATIVE (NEGATIVE); URINE UROBILINOGEN NORMAL mg/dL (0.2-1.0)
[2017-05-29 16:55] LABS: URINE BLOOD 3+ (NEGATIVE); URINE LEUKOCYTE ESTERASE 3+ Leu/uL (Negative)
[2017-05-29 17:04] LABS: B-TYPE NATRIURETIC PEPTIDE 37600 pg/mL (0-900)
[2017-05-29] MEDS ORDERED: cefTRIAXone IV 1 gm in Dextros 50 ML IVPB STA (17:42)
--- NOTE | 2017-05-29 17:48 | RAD ---
PROCEDURE: CHEST RADIOGRAPH, 1 VIEW HISTORY: weakness COMPARISON: 04/23/2017 FINDINGS: LUNGS: Clear. PLEURA: No pneumothorax or pleural fluid seen. CARDIOVASCULAR: No radiographic findings to suggest acute or significant cardiovascular disease. Incidental Finding(s): Postoperative changes related to sternotomy. OSSEOUS STRUCTURES: No significant abnormalities. VISUALIZED UPPER ABDOMEN: Normal. OTHER FINDINGS: None. IMPRESSION: No active disease. No acute/significant interval changes.
[2017-05-29] MEDS ORDERED: cefTRIAXone IV 1 gm in Dextros 50 ML IVPB ONE (17:51)
[2017-05-29] MEDS ORDERED: guaiFENesin DM 100 mg-10 mg/5 ml UD PO PRN (21:14)
[2017-05-29] MEDS ORDERED: Sodium Chloride 0.9% 1,000 ML IV SCH (21:45)
[2017-05-29] MEDS: (Novolin R) Insulin Human Regular 100 units/ml vial SC SCH (22:04)
[2017-05-30 01:09] LABS: CK-MB 9.81 ng/mL (0.0-3.38); TROPONIN I 0.142 ng/mL (0.00-0.120)
[2017-05-30] MEDS: Albuterol 0.042% Inhal Sol (1.25 mg/3 mL) UD IH SCH ×5 (03:00→20:17)
[2017-05-30] MEDS: (Novolin R) Insulin Human Regular 100 units/ml vial SC SCH ×4 (07:22→21:23)
[2017-05-30 08:31] LABS: CK-MB 10.1 ng/mL (0.0-3.38); TROPONIN I 0.13 ng/mL (0.00-0.120)
--- NOTE | 2017-05-30 08:52 | HP ---
HISTORY OF PRESENT ILLNESS: A 71-year-old female was brought in with history of generalized weakness, shortness of breath, fatigue, increasing over past few days and Accu-Cheks running in 300s. She has known to have history of multiple myeloma, chronic kidney disease, history of coronary artery disease, previous CABG. She was seen in the office with the extreme weakness, fatigue, and appeared acutely sick, sent to the emergency room. PERSONAL HISTORY: Does not smoke. Does not drink. ALLERGIES: DENIED. PAST MEDICAL HISTORY: History of CABG in 1995. Diabetes history followed by Dr. Crain. COPD, she has been seen by Dr. Turner. MEDICATIONS AT HOME: Include Lasix, Medrol 8 mg once a day, metoprolol 20 mg, Vytorin. She used to be on valsartan and Januvia 25 mg p.o. once a day. FAMILY HISTORY: Positive for diabetes in her mother with hypertension. Father had diabetes. Brother at 45 of [place]. REVIEW OF SYSTEMS: CONSTITUTIONAL: Generalized weakness, extremely fatigue. Unable to walk from bed to bathroom. Sleeps on two pillows. Walks around with the walker. HEENT: No visual disturbances. No hearing loss. PULMONARY: Nonproductive cough, shortness of breath, wheeze. CARDIAC: History of CAD. Denies any chest pains. ABDOMEN: GI negative for hematemesis or melena. NEUROLOGICAL: Negative for TIAs or CVAs. : Negative for hematuria. Current urine test showed UTI. MUSCULOSKELETAL: She does have history of knee pain. NEUROLOGICAL: No TIAs, no CVAs, no syncope. PSYCHIATRIC: No evidence of depression. PHYSICAL EXAMINATION: GENERAL: Shows elderly female who is acutely and chronically sick looking, in no acute distress. VITAL SIGNS: She is 4 feet 10 inches and weighs 100 pounds. Blood pressure is 132/70, heart rate of 80, respiratory rate of 20, temperature of 97. HEENT: Head is normocephalic. Eyes, no pallor, no icterus. LUNGS: Few basal rales. HEART: PMI is normal. S1, S2 is normal. Soft holosystolic murmur in mitral area. ABDOMEN: Soft and nontender. EXTREMITIES: 1 to 2+ edema in both ankles. Distal pulses are feeble. MUSCULOSKELETAL: Arthritis in hands. PSYCH: No evidence of depression. SKIN: Healed surgical scar of previous CABG in the mid sternal line. LABORATORY DATA: CBC and Chem-7 are acceptable. BUN is 23, creatinine is 0.7. Troponin was mildly elevated. Hemoglobin is 8.4. Platelet counts are 80,000. ASSESSMENT AND PLAN: A 71-year-old female with history of coronary artery disease, coronary artery bypass graft, hypertension, diabetes, presented with generalized weakness, possible non-ST elevation myocardial infarction. The patient was recently admitted to [facility]. During that time, findings were discussed with . The patient does have a history of nonsustained supraventricular tachycardia, bradycardia, and nonsustained ventricular tachycardia. Consideration for permanent pacemaker was explained to the patient. At this point, the plan is to admit to telemetry, obtain serial EKGs, cardiac enzymes and may need permanent pacemaker, IV hydration. Follow with Dr. Disla and Dr. Rascon. Care of plan was explained to the patient's . Jeff Alvarado MD
--- NOTE | 2017-05-30 11:53 | CP.PCM.CON ---
History of Present Illness - History of Present Illness History of Present Illness: pt is seen and examined, full consult is dictated #[id number] Past Patient History - Infectious Disease Hx of Infectious Diseases: None - Past Medical History & Family History Past Medical History?: Yes - Past Social History Smoking Status: Never Smoked - CARDIAC Hx Congestive Heart Failure: Yes Hx Hypertension: Yes - PULMONARY Hx Respiratory Disorders: No - NEUROLOGICAL Hx Neurological Disorder: No - HEENT Hx HEENT Problems: Yes Hx Glaucoma: Yes - RENAL Hx Chronic Kidney Disease: No - ENDOCRINE/METABOLIC Hx Diabetes Mellitus Type 2: Yes - HEMATOLOGICAL/ONCOLOGICAL Hx Blood Disorders: No - INTEGUMENTARY Hx Dermatological Problems: No - MUSCULOSKELETAL/RHEUMATOLOGICAL Hx Falls: No - GASTROINTESTINAL Hx Gastrointestinal Disorders: No - GENITOURINARY/GYNECOLOGICAL Hx Genitourinary Disorders: No - PSYCHIATRIC Hx Substance Use: No - SURGICAL HISTORY Hx Coronary Artery Bypass Graft: Yes - ANESTHESIA Hx Anesthesia: Yes Hx Anesthesia Reactions: No Hx Malignant Hyperthermia: No Meds Allergies/Adverse Reactions: Allergies Allergy/AdvReac Type Severity Reaction Status Date / Time No Known Allergies Allergy Verified 04/20/17 03:32 - Medications Medications: Current Medications Albuterol Sulfate (Albuterol 0.042% Inhal Radha (1.25mg/3ml) Ud) 1.25 mg IH RQ6 [facility] Last Admin: 05/30/17 08:44 Dose: 1.25 mg Allopurinol (Zyloprim) 100 mg PO DAILY [facility] Last Admin: 05/30/17 09:17 Dose: 100 mg Famotidine (Pepcid) 20 mg PO DAILY [facility] Last Admin: 05/30/17 09:17 Dose: 20 mg Ferrous Sulfate (Feosol) 325 mg PO TID [facility] Last Admin: 05/30/17 09:17 Dose: 325 mg Guaifenesin/Dextromethorphan (Robitussin Dm) 5 ml PO Q6 PRN PRN Reason: Cough Sodium Chloride (Sodium Chloride 0.9%) 1,000 mls @ 30 mls/hr IV .Q24H [facility] Last Admin: 05/29/17 22:05 Dose: 30 mls/hr Insulin Human Regular (Novolin R) 0 unit SC ACHS [facility] PRN Reason: Protocol Last Admin: 05/30/17 11:16 Dose: Not Given Rosuvastatin Calcium (Crestor) 5 mg PO HS [facility] Sitagliptin Phosphate (Januvia) 25 mg PO DAILY [facility] Last Admin: 05/30/17 09:17 Dose: 25 mg Results - Vital Signs Recent Vital Signs: Last Vital Signs Temp 97.6 F 05/30/17 07:50 Pulse 55 L 05/30/17 07:50 Resp 18 05/30/17 07:50 BP 136/67 05/30/17 07:50 Pulse Ox 96 05/30/17 07:50 - Labs Result Diagrams: 05/29/17 16:13 05/29/17 16:13 Labs: Laboratory Results - last 24 hr 05/29/17 05/29/17 05/29/17 16:13 16:13 16:13 WBC 7.1 RBC 2.65 L Hgb 8.7 L D Hct 26.6 L MCV 100.1 H D MCH 32.7 H MCHC 32.7 L RDW 19.3 H Plt Count 80 L D MPV 10.6 Neut % (Auto) 84.1 H Lymph % (Auto) 12.1 L [place] % (Auto) 3.5 Eos % (Auto) 0.0 Baso % (Auto) 0.3 Neut # (Auto) 6.0 Lymph # (Auto) 0.9 L [place] # (Auto) 0.3 Eos # (Auto) 0.0 Baso # (Auto) 0.0 Differential Comment Retic Count 1.7 H D PT 17.2 H INR 1.5 APTT 32 pO2 VBG pH VBG pCO2 VBG HCO3 VBG Total CO2 VBG O2 Sat (Calc) VBG Base Excess VBG Potassium Glucose Lactate FiO2 Sodium 138 Potassium 4.1 Chloride 105 Carbon Dioxide 24 Anion Gap 13 BUN 23 H Creatinine 0.9 Est GFR ( Amer) > 60 Est GFR (Non-Af Amer) > 60 POC Glucose (mg/dL) Random Glucose 263 H Calcium 7.7 L Magnesium 1.6 Total Bilirubin 0.4 AST 30 ALT 28 Alkaline Phosphatase 126 Total Creatine Kinase 47 CK-MB (Mass) 8.48 H Troponin I 0.1270 H* NT-Pro-B Natriuret Pep 62553 H Total Protein 6.3 Albumin 2.3 L D Globulin 3.9 Albumin/Globulin Ratio 0.6 L Amylase 104 Lipase 183 Venous Blood Potassium Urine Color Urine Clarity Urine pH Ur Specific [place] Urine Protein Urine Glucose (UA) Urine Ketones Urine Blood Urine Nitrate Urine Bilirubin Urine Urobilinogen Ur Leukocyte Esterase Urine WBC (Auto) Urine RBC (Auto) Ur Squamous Epith Cells Ur Transition Epith Cell Urine Bacteria Urine Yeast (Budding) Blood Type Antibody Screen 05/29/17 05/29/17 05/29/17 16:25 16:45 17:29 WBC RBC Hgb Hct MCV MCH MCHC RDW Plt Count MPV Neut % (Auto) Lymph % (Auto) [place] % (Auto) Eos % (Auto) Baso % (Auto) Neut # (Auto) Lymph # (Auto) [place] # (Auto) Eos # (Auto) Baso # (Auto) Differential Comment Retic Count PT INR APTT pO2 20 L VBG pH 7.39 VBG pCO2 41 VBG HCO3 23.0 VBG Total CO2 26.1 VBG O2 Sat (Calc) 42.0 VBG Base Excess -0.2 L VBG Potassium 3.7 Glucose 243 H Lactate 2.8 H FiO2 21.0 Sodium 142.0 Potassium Chloride 112.0 H Carbon Dioxide Anion Gap BUN Creatinine Est GFR ( Amer) Est GFR (Non-Af Amer) POC Glucose (mg/dL) Random Glucose Calcium Magnesium Total Bilirubin AST ALT Alkaline Phosphatase Total Creatine Kinase CK-MB (Mass) Troponin I NT-Pro-B Natriuret Pep Total Protein Albumin Globulin Albumin/Globulin Ratio Amylase Lipase Venous Blood Potassium 3.7 Urine Color Yellow Urine Clarity Hazy Urine pH 5.0 Ur Specific [place] 1.016 Urine Protein Negative Urine Glucose (UA) 3+ H Urine Ketones Negative Urine Blood 3+ H Urine Nitrate Negative Urine Bilirubin Negative Urine Urobilinogen Normal Ur Leukocyte Esterase 3+ H Urine WBC (Auto) 88 H Urine RBC (Auto) 79 H Ur Squamous Epith Cells 1 Ur Transition Epith Cell 3 Urine Bacteria Occ H Urine Yeast (Budding) Many H Blood Type O POSITIVE Antibody Screen Negative 05/29/17 05/30/17 05/30/17 21:08 00:26 06:42 WBC RBC Hgb Hct MCV MCH MCHC RDW Plt Count MPV Neut % (Auto) Lymph % (Auto) [place] % (Auto) Eos % (Auto) Baso % (Auto) Neut # (Auto) Lymph # (Auto) [place] # (Auto) Eos # (Auto) Baso # (Auto) Differential Comment Retic Count PT INR APTT pO2 VBG pH VBG pCO2 VBG HCO3 VBG Total CO2 VBG O2 Sat (Calc) VBG Base Excess VBG Potassium Glucose Lactate FiO2 Sodium Potassium Chloride Carbon Dioxide Anion Gap BUN Creatinine Est GFR ( Amer) Est GFR (Non-Af Amer) POC Glucose (mg/dL) 173 H 124 H Random Glucose Calcium Magnesium Total Bilirubin AST ALT Alkaline Phosphatase Total Creatine Kinase 45 CK-MB (Mass) 9.81 H Troponin I 0.1420 H* NT-Pro-B Natriuret Pep Total Protein Albumin Globulin Albumin/Globulin Ratio Amylase Lipase Venous Blood Potassium Urine Color Urine Clarity Urine pH Ur Specific [place] Urine Protein Urine Glucose (UA) Urine Ketones Urine Blood Urine Nitrate Urine Bilirubin Urine Urobilinogen Ur Leukocyte Esterase Urine WBC (Auto) Urine RBC (Auto) Ur Squamous Epith Cells Ur Transition Epith Cell Urine Bacteria Urine Yeast (Budding) Blood Type Antibody Screen 05/30/17 07:40 WBC RBC Hgb Hct MCV MCH MCHC RDW Plt Count MPV Neut % (Auto) Lymph % (Auto) [place] % (Auto) Eos % (Auto) Baso % (Auto) Neut # (Auto) Lymph # (Auto) [place] # (Auto) Eos # (Auto) Baso # (Auto) Differential Comment Retic Count PT INR APTT pO2 VBG pH VBG pCO2 VBG HCO3 VBG Total CO2 VBG O2 Sat (Calc) VBG Base Excess VBG Potassium Glucose Lactate FiO2 Sodium Potassium Chloride Carbon Dioxide Anion Gap BUN Creatinine Est GFR ( Amer) Est GFR (Non-Af Amer) POC Glucose (mg/dL) Random Glucose Calcium Magnesium Total Bilirubin AST ALT Alkaline Phosphatase Total Creatine Kinase 42 CK-MB (Mass) 10.1 H Troponin I 0.1300 H* NT-Pro-B Natriuret Pep Total Protein Albumin Globulin Albumin/Globulin Ratio Amylase Lipase Venous Blood Potassium Urine Color Urine Clarity Urine pH Ur Specific [place] Urine Protein Urine Glucose (UA) Urine Ketones Urine Blood Urine Nitrate Urine Bilirubin Urine Urobilinogen Ur Leukocyte Esterase Urine WBC (Auto) Urine RBC (Auto) Ur Squamous Epith Cells Ur Transition Epith Cell Urine Bacteria Urine Yeast (Budding) Blood Type Antibody Screen
--- NOTE | 2017-05-30 12:29 | CP.PCM.PN ---
Subjective - Date & Time of Evaluation Date of Evaluation: 05/30/17 Time of Evaluation: 12:27 - Subjective Subjective: weak.fell x 2 this am. Objective - Vital Signs/Intake and Output Vital Signs (last 24 hours): Temp Pulse Resp BP Pulse Ox 97.6 F 55 L 18 136/67 96 05/30/17 07:50 05/30/17 07:50 05/30/17 07:50 05/30/17 07:50 05/30/17 07:50 Intake and Output: 05/30/17 05/30/17 06:59 18:59 Intake Total 240 240 Balance 240 240 - Medications Medications: Current Medications Albuterol Sulfate (Albuterol 0.042% Inhal Radha (1.25mg/3ml) Ud) 1.25 mg IH RQ6 [facility] Last Admin: 05/30/17 08:44 Dose: 1.25 mg Allopurinol (Zyloprim) 100 mg PO DAILY [facility] Last Admin: 05/30/17 09:17 Dose: 100 mg Famotidine (Pepcid) 20 mg PO DAILY [facility] Last Admin: 05/30/17 09:17 Dose: 20 mg Ferrous Sulfate (Feosol) 325 mg PO TID [facility] Last Admin: 05/30/17 09:17 Dose: 325 mg Guaifenesin/Dextromethorphan (Robitussin Dm) 5 ml PO Q6 PRN PRN Reason: Cough Insulin Human Regular (Novolin R) 0 unit SC ACHS [facility] PRN Reason: Protocol Last Admin: 05/30/17 11:16 Dose: Not Given Rosuvastatin Calcium (Crestor) 5 mg PO [facility] Sitagliptin Phosphate (Januvia) 25 mg PO DAILY [facility] Last Admin: 05/30/17 09:17 Dose: 25 mg - Labs Labs: 05/29/17 16:13 05/29/17 16:13 PT 17.2 SECONDS (9.7-12.2) H 05/29/17 16:13 INR 1.5 05/29/17 16:13 APTT 32 SECONDS (21-34) 05/29/17 16:13 - Constitutional Appears: No Acute Distress, Chronically Ill - Head Exam Head Exam: NORMOCEPHALIC - Neck Exam Neck Exam: Normal Inspection - Respiratory Exam Respiratory Exam: Rhonchi - Cardiovascular Exam Cardiovascular Exam: REGULAR RHYTHM, Murmur - GI/Abdominal Exam GI & Abdominal Exam: Soft - Extremities Exam Extremities Exam: absent: Pedal Edema - Neurological Exam Neurological Exam: Alert, Oriented x3 Assessment and Plan - Assessment and Plan (Free Text) Plan: will d/c iv.tro up,no ekg changes.doubt cardiac.nsr & sinus malvin on tele.will observe.holter.
--- NOTE | 2017-05-30 17:29 | CP.PCM.CON ---
History of Present Illness - History of Present Illness History of Present Illness: This is a 71 year old woman diagnosed with multiple myeloma last month who was admitted with generalized weakness. GI is consulted for difficulty swallowing. Patient was diagnosed with multiple myeloma by bone marrow biopsy 04/13/2017 showing 50% plasma cells with renal failure and anemia. She was started on dexamethasone. Patient was referred to [facility] ER for [place]. fatigue, shortness of breath and DM out of control, with Accu-Cheks over 300. Patient was evaluated by the speech therapist. During the evaluation, she took only small amounts of pureed solids and thin liquids during testing without obvious aspiration. She did, however, complain that liquids "don't go down properly" and feels discomfort in the mid/upper chest. Patient confirms today that she must limit herself to small amounts of food. She denies having chest pain or abdominal pain, nausea, vomiting, heartburn. She also denies having constipation, diarrhea, and rectal bleeding. Review of Systems - Constitutional Constitutional: Fatigue, Weakness. absent: Chills, Fever - Cardiovascular Cardiovascular: absent: Chest Pain - Respiratory Respiratory: Cough, Dyspnea, Wheezing - Gastrointestinal Gastrointestinal: Dysphagia. absent: Constipation, Diarrhea, Heartburn, Hematemesis, Melena, Nausea, Vomiting - Genitourinary Genitourinary: absent: Dysuria - Neurological Neurological: Dizziness. absent: Numbness Past Patient History - Infectious Disease Hx of Infectious Diseases: None - Past Medical History & Family History Past Medical History?: Yes - Past Social History Smoking Status: Never Smoked - CARDIAC Hx Congestive Heart Failure: Yes Hx Hypertension: Yes - PULMONARY Hx Respiratory Disorders: No - NEUROLOGICAL Hx Neurological Disorder: No - HEENT Hx HEENT Problems: Yes Hx Glaucoma: Yes - RENAL Hx Chronic Kidney Disease: No - ENDOCRINE/METABOLIC Hx Diabetes Mellitus Type 2: Yes - HEMATOLOGICAL/ONCOLOGICAL Hx Blood Disorders: No - INTEGUMENTARY Hx Dermatological Problems: No - MUSCULOSKELETAL/RHEUMATOLOGICAL Hx Falls: No - GASTROINTESTINAL Hx Gastrointestinal Disorders: No - GENITOURINARY/GYNECOLOGICAL Hx Genitourinary Disorders: No - PSYCHIATRIC Hx Substance Use: No - SURGICAL HISTORY Hx Coronary Artery Bypass Graft: Yes - ANESTHESIA Hx Anesthesia: Yes Hx Anesthesia Reactions: No Hx Malignant Hyperthermia: No Meds Allergies/Adverse Reactions: Allergies Allergy/AdvReac Type Severity Reaction Status Date / Time No Known Allergies Allergy Verified 04/20/17 03:32 - Medications Medications: Current Medications Albuterol Sulfate (Albuterol 0.042% Inhal Radha (1.25mg/3ml) Ud) 1.25 mg IH RQ6 [facility] Last Admin: 05/30/17 13:58 Dose: Not Given Allopurinol (Zyloprim) 100 mg PO DAILY [facility] Last Admin: 05/30/17 09:17 Dose: 100 mg Famotidine (Pepcid) 20 mg PO DAILY [facility] Last Admin: 05/30/17 09:17 Dose: 20 mg Ferrous Sulfate (Feosol) 325 mg PO TID [facility] Last Admin: 05/30/17 13:54 Dose: 325 mg Guaifenesin/Dextromethorphan (Robitussin Dm) 5 ml PO Q6 PRN PRN Reason: Cough Ceftriaxone Sodium 1 gm/ (Sodium Chloride) 100 mls @ 100 mls/hr IVPB DAILY [facility] PRN Reason: Protocol Stop: 06/04/17 13:01 Last Admin: 05/30/17 13:54 Dose: 100 mls/hr Insulin Human Regular (Novolin R) 0 unit SC ACHS [facility] PRN Reason: Protocol Last Admin: 05/30/17 17:08 Dose: Not Given Rosuvastatin Calcium (Crestor) 5 mg PO [facility] Sitagliptin Phosphate (Januvia) 25 mg PO DAILY [facility] Last Admin: 05/30/17 09:17 Dose: 25 mg Physical Exam - Constitutional Appears: No Acute Distress - Head Exam Head Exam: ATRAUMATIC, NORMOCEPHALIC - Eye Exam Eye Exam: EOMI, PERRL - Neck Exam Neck exam: Negative for: Lymphadenopathy, Thyromegaly - Respiratory Exam Respiratory Exam: NORMAL BREATHING PATTERN. absent: Rales, Rhonchi, Wheezes - Cardiovascular Exam Cardiovascular Exam: REGULAR RHYTHM, +S1, +S2. absent: Gallop, Rubs, Systolic Murmur - GI/Abdominal Exam GI & Abdominal Exam: Normal Bowel Sounds, Soft. absent: Mass, Organomegaly, Tenderness - Rectal Exam Rectal Exam: Deferred - Extremities Exam Extremities exam: Negative for: calf tenderness, pedal edema Results - Vital Signs Recent Vital Signs: Last Vital Signs Temp 97.6 F 05/30/17 15:14 Pulse 62 05/30/17 15:14 Resp 20 05/30/17 15:14 BP 145/70 03/27/18 15:14 Pulse Ox 95 05/30/17 15:14 - Labs Result Diagrams: 05/29/17 16:13 05/29/17 16:13 Labs: Laboratory Results - last 24 hr 05/29/17 05/29/17 05/30/17 17:29 21:08 00:26 POC Glucose (mg/dL) 173 H Total Creatine Kinase 45 CK-MB (Mass) 9.81 H Troponin I 0.1420 H* Blood Type O POSITIVE Antibody Screen Negative 05/30/17 05/30/17 05/30/17 06:42 07:40 11:14 POC Glucose (mg/dL) 124 H 143 H Total Creatine Kinase 42 CK-MB (Mass) 10.1 H Troponin I 0.1300 H* Blood Type Antibody Screen 05/30/17 16:57 POC Glucose (mg/dL) 118 H Total Creatine Kinase CK-MB (Mass) Troponin I Blood Type Antibody Screen Assessment & Plan (1) Other dysphagia Assessment and Plan: Patient has recent difficulty swallowing more than small amounts of food. Patient was recently diagnosed with multiple myeloma and has been started on dexamethasone and medrol. In this setting, candidiasis or viral infection would be the most likely explanation for new-onset dysphagia. Suggest EGD, which will be scheduled. Status: Acute
--- NOTE | 2017-05-30 18:09 | CP.PCM.CON ---
History of Present Illness - History of Present Illness History of Present Illness: 71 year old female with a history of CAD s/p CABG, HTN, DM, multiple myeloma diagnosed in 04/2017, admitted with fatigue, weakness and dehydration, hyperglycemia. The patient was recently discharged from [facility] for similar complaints. In regards to her myeloma treatment, she has been receiving dexamethasone and Velcade intermittently. She was on acyclovir prophylaxis which was most recently discontinued during her hospitalization at [facility]. Due to hyperglycemia, she has had her dexamethasone tapered from 40mg once weekly to now 8mg once weekly with continued hyperglycemia. She notes to inability to tolerate much PO due to chest pain and food not going down well. She does note to feeling better after IV hydration. Past medical history: CAD, HTN, DM Past surgical history: CABG Family history: Denies hematologic and oncologic problems Social history: Denies tobacco, alcohol, and illicit drug use. Allergies: NKA Review of systems: All remaining review of systems including HEENT, cardiovascular, respiratory, gastrointestinal, genitourinary, musculoskeletal, dermatologic, neurologic, and psychiatric are negative unless mentioned in the HPI. Past Patient History - Infectious Disease Hx of Infectious Diseases: None - Past Medical History & Family History Past Medical History?: Yes - Past Social History Smoking Status: Never Smoked - CARDIAC Hx Congestive Heart Failure: Yes Hx Hypertension: Yes - PULMONARY Hx Respiratory Disorders: No - NEUROLOGICAL Hx Neurological Disorder: No - HEENT Hx HEENT Problems: Yes Hx Glaucoma: Yes - RENAL Hx Chronic Kidney Disease: No - ENDOCRINE/METABOLIC Hx Diabetes Mellitus Type 2: Yes - HEMATOLOGICAL/ONCOLOGICAL Hx Blood Disorders: No - INTEGUMENTARY Hx Dermatological Problems: No - MUSCULOSKELETAL/RHEUMATOLOGICAL Hx Falls: No - GASTROINTESTINAL Hx Gastrointestinal Disorders: No - GENITOURINARY/GYNECOLOGICAL Hx Genitourinary Disorders: No - PSYCHIATRIC Hx Substance Use: No - SURGICAL HISTORY Hx Coronary Artery Bypass Graft: Yes - ANESTHESIA Hx Anesthesia: Yes Hx Anesthesia Reactions: No Hx Malignant Hyperthermia: No Meds Allergies/Adverse Reactions: Allergies Allergy/AdvReac Type Severity Reaction Status Date / Time No Known Allergies Allergy Verified 04/20/17 03:32 - Medications Medications: Current Medications Albuterol Sulfate (Albuterol 0.042% Inhal Radha (1.25mg/3ml) Ud) 1.25 mg IH RQ6 [facility] Last Admin: 05/30/17 13:58 Dose: Not Given Allopurinol (Zyloprim) 100 mg PO DAILY [facility] Last Admin: 05/30/17 09:17 Dose: 100 mg Famotidine (Pepcid) 20 mg PO DAILY [facility] Last Admin: 05/30/17 09:17 Dose: 20 mg Ferrous Sulfate (Feosol) 325 mg PO TID [facility] Last Admin: 05/30/17 13:54 Dose: 325 mg Guaifenesin/Dextromethorphan (Robitussin Dm) 5 ml PO Q6 PRN PRN Reason: Cough Ceftriaxone Sodium 1 gm/ (Sodium Chloride) 100 mls @ 100 mls/hr IVPB DAILY [facility] PRN Reason: Protocol Stop: 06/04/17 13:01 Last Admin: 05/30/17 13:54 Dose: 100 mls/hr Insulin Human Regular (Novolin R) 0 unit SC ACHS [facility] PRN Reason: Protocol Last Admin: 05/30/17 17:08 Dose: Not Given Rosuvastatin Calcium (Crestor) 5 mg PO [facility] Sitagliptin Phosphate (Januvia) 25 mg PO DAILY [facility] Last Admin: 05/30/17 09:17 Dose: 25 mg Physical Exam - Head Exam Head Exam: ATRAUMATIC - Eye Exam Eye Exam: Normal appearance - ENT Exam ENT Exam: Mucous Membranes Dry - Respiratory Exam Respiratory Exam: NORMAL BREATHING PATTERN - Cardiovascular Exam Cardiovascular Exam: +S1, +S2 - GI/Abdominal Exam GI & Abdominal Exam: Normal Bowel Sounds Results - Vital Signs Recent Vital Signs: Last Vital Signs Temp 97.6 F 05/30/17 15:14 Pulse 62 05/30/17 15:14 Resp 20 05/30/17 15:14 BP 145/70 05/30/17 15:14 Pulse Ox 95 05/30/17 15:14 - Labs Result Diagrams: 05/29/17 16:13 05/29/17 16:13 Labs: Laboratory Results - last 24 hr 05/29/17 05/30/17 05/30/17 21:08 00:26 06:42 POC Glucose (mg/dL) 173 H 124 H Total Creatine Kinase 45 CK-MB (Mass) 9.81 H Troponin I 0.1420 H* 05/30/17 05/30/17 05/30/17 07:40 11:14 16:57 POC Glucose (mg/dL) 143 H 118 H Total Creatine Kinase 42 CK-MB (Mass) 10.1 H Troponin I 0.1300 H* Assessment & Plan (1) Thrombocytopenia Assessment and Plan: may be related to infection, cont. to monitor Status: Acute (2) Anemia Assessment and Plan: anemia of CKD and chronic disease multiple myeloma Status: Acute (3) Multiple myeloma Assessment and Plan: Newly diagnosed steroid treatment attempt has been complicated by hyperglycemia and subsequent dehydration will plan to hold steroids she has received intermittent Velcade opportunistic infection of GI tract evaluation given dysphagia; of note, pt was on acyclovir and had this discontinued at [facility] outpatient treatment Thank you for this interesting consult. Status: Acute
[2017-05-31] MEDS: Albuterol 0.042% Inhal Sol (1.25 mg/3 mL) UD IH SCH ×4 (02:36→19:47)
--- NOTE | 2017-05-31 03:36 | PN ---
DATE: 05/30/2017 FOLLOWUP RENAL CONSULTATION LOCATION: The patient is located in room 568, bed B. REQUESTED BY: Jeff Alvarado MD REASON FOR FOLLOWUP: Mrs. Alvarado is a 71 years old elderly very pleasant thin-built, female with a past medical history significant for longstanding hypertension, diabetes, hyperlipidemia, coronary artery disease, status post CABG, CHF, COPD, severe pulmonary hypertension, recently diagnosed with multiple myeloma, acute renal failure, anemia, thrombocytopenia, status post acute renal failure, hyperkalemia, and cardiac arrhythmias requiring hemodialysis x1 in the past in [facility] about 3 to 4 weeks ago, now the patient was admitted with chief complaints of severe weakness and uncontrolled sugars. The patient is not in acute distress. Denies any chest pain. Denies any palpitation. Denies any nausea, vomiting, diarrhea. Denies any abdominal pain. The patient has complaints of weakness and weight loss and decreased appetite. PAST MEDICAL HISTORY: Significant for longstanding hypertension, diabetes, hyperlipidemia, coronary artery disease, status post CABG, status post treatment for pneumonia many years ago, COPD, severe pulmonary hypertension. PAST SURGICAL HISTORY: Status post CABG and status post bone marrow biopsy, consistent with multiple myeloma. ALLERGIES: NO KNOWN DRUG ALLERGIES. SOCIAL HISTORY: No smoking. No alcohol or drugs. PERSONAL HISTORY: She is and she has a very supportive family. FAMILY HISTORY: Not significant. MEDICATIONS: Her current medications include as follows, albuterol inhaler 125 mg every 6 hours, Rocephin 1 gm daily, Crestor 5 mg at bedtime, Feosol 325 mg p.o. t.i.d., Januvia 25 mg p.o. daily, Novolin R for sliding scale, Pepcid 20 mg p.o. daily, Robitussin DM 5 mL p.o. every 6 hours, allopurinol 100 mg p.o. daily. REVIEW OF SYSTEMS: Significant for decreased appetite, weakness, and uncontrolled diabetes, and also positive for anemia. PHYSICAL EXAMINATION: VITAL SIGNS: Blood pressure 136/67, pulse 55, respirations 18, temperature 97.6, saturation 96%. Height 4 feet 10 inches and weight is 98 pounds. GENERAL: Mrs. Alvarado is a 71 years old elderly female, thin built, not in distress, on nasal cannula. HEENT: Pupils normal and reactive to light and accommodation. Conjunctivae slightly pale. Sclerae anicteric. Tongue is moist. Trachea is midline. LUNGS: Symmetric on both sides. Bilateral crackles present up to half of the chest, left more than the right. CVS: [place] at the fifth intercostal space, midclavicular line. S1, S2 audible. No murmur, no gallop. The patient has a midsternal scar present from the previous CABG. ABDOMEN: Normal in appearance, soft, tympanic. No guarding. No rigidity. No hepatosplenomegaly. 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 Nonfocal neuro examination. Cranial nerves II through XII grossly intact. Sensory and motor system is within normal limits. EXTREMITIES: No cyanosis, no clubbing, no edema. LABORATORY DATA: Her lab data include as follows, as of 05/29/2017, WBC 7.1, hemoglobin 8.7, hematocrit is 26.6, MCV 100.1, platelets 80. Retic count 1.7. PT 17.2, PTT 32. ABG, pH 7.39, pO2 of 20, pCO2 of 41, bicarb is 23. Sodium 138, potassium 4.1, chloride 105, CO2 of 24, BUN 23, creatinine 0.9, glucose is 263, calcium 7.7, magnesium 1.6. Total bili 0.4, AST 30, ALT 28, alkaline phosphatase 126, CPK 47, CK-MB is 8.48. Troponin 0.127, 0.142, 0.130; and proBNP 37,600. Total protein 6.3, albumin is 2.3. Amylase is 104 and lipase is 183. Urinalysis, yellow, hazy, pH 5 , specific gravity 1.016, protein negative, glucose 3+, ketones negative, blood 3+, nitrites negative, bilirubin is negative, urobilinogen normal, leukocyte esterase 3+, wbc 88, rbc 79, epithelial cells 1, bacteria occasional, budding yeast many. Urine culture positive for yeast identified today, and other laboratory data, and chest x-ray as of 05/29 2017, no active disease. No acute or significant interval change. No pneumothorax or pleural fluid seen. IMPRESSION: In summary, Mrs. Alvarado is about 71 years old elderly female with a history of hypertension, diabetes, hyperlipidemia, coronary artery disease, chronic obstructive pulmonary disease, congestive heart failure, severe pulmonary hypertension, status post acute renal failure, multiple myeloma, on chemotherapy, Decadron, and Velcade. 1. Status post acute renal failure. Renal function improved from her baseline creatinine about 2 to 2.5. Now creatinine is back to her baseline about 6 months ago which was about 0.9 to 1.0. 2. Anemia. 3. Thrombocytopenia, most likely secondary to multiple myeloma. 4. Uncontrolled diabetes secondary to steroids. 5. Hypertension. 6. Non-ST elevation myocardial infarction. 7. Urinary tract infection. The patient was started on Rocephin yesterday and continued. Now the urine culture is positive for yeast. We will discontinue Rocephin, and we will start her on Diflucan 100 mg IV daily. We will follow with you. Thank you for allowing me to participate in your patient's care and followup with table machine operator, Dr. Jesus Alberto Disla. Discussed with Dr. Jeff Alvarado in rounds this morning. Valerie Rascon MD
[2017-05-31] MEDS: (Novolin R) Insulin Human Regular 100 units/ml vial SC SCH ×4 (07:49→22:11)
--- NOTE | 2017-05-31 11:08 | CP.PCM.PN ---
Subjective - Date & Time of Evaluation Date of Evaluation: 05/31/17 Time of Evaluation: 11:06 - Subjective Subjective: gi & hem consult [email or web address] cancelled.tro up.[email or web address] on. Objective - Vital Signs/Intake and Output Vital Signs (last 24 hours): Temp Pulse Resp BP Pulse Ox 97.4 F L 70 18 147/72 95 05/31/17 07:00 05/31/17 08:00 05/31/17 07:00 05/31/17 07:00 05/31/17 07:00 - Medications Medications: Current Medications Albuterol Sulfate (Albuterol 0.042% Inhal Radha (1.25mg/3ml) Ud) 1.25 mg IH RQ6 [facility] Last Admin: 05/31/17 08:01 Dose: 1.25 mg Allopurinol (Zyloprim) 100 mg PO DAILY [facility] Last Admin: 05/31/17 10:41 Dose: 100 mg Famotidine (Pepcid) 20 mg PO DAILY [facility] Last Admin: 05/31/17 10:40 Dose: 20 mg Ferrous Sulfate (Feosol) 325 mg PO TID [facility] Last Admin: 05/31/17 10:41 Dose: 325 mg Guaifenesin/Dextromethorphan (Robitussin Dm) 5 ml PO Q6 PRN PRN Reason: Cough Ceftriaxone Sodium 1 gm/ (Sodium Chloride) 100 mls @ 100 mls/hr IVPB DAILY [facility] PRN Reason: Protocol Stop: 06/04/17 13:01 Last Admin: 05/31/17 10:41 Dose: 100 mls/hr Insulin Human Regular (Novolin R) 0 unit SC ACHS [facility] PRN Reason: Protocol Last Admin: 05/31/17 07:49 Dose: Not Given Rosuvastatin Calcium (Crestor) 5 mg PO HS [facility] Last Admin: 05/30/17 22:44 Dose: 5 mg Sitagliptin Phosphate (Januvia) 25 mg PO DAILY [facility] Last Admin: 05/31/17 10:41 Dose: Not Given - Labs Labs: 05/29/17 16:13 05/29/17 16:13 PT 17.2 SECONDS (9.7-12.2) H 05/29/17 16:13 INR 1.5 05/29/17 16:13 APTT 32 SECONDS (21-34) 03/26/18 16:13 - Constitutional Appears: No Acute Distress, Chronically Ill - Head Exam Head Exam: NORMOCEPHALIC - Neck Exam Neck Exam: Normal Inspection - Respiratory Exam Respiratory Exam: Rales - Cardiovascular Exam Cardiovascular Exam: REGULAR RHYTHM, Murmur - GI/Abdominal Exam GI & Abdominal Exam: Soft - Extremities Exam Extremities Exam: absent: Pedal Edema - Neurological Exam Neurological Exam: Alert, Oriented x3 Assessment and Plan - Assessment and Plan (Free Text) Assessment: will obtain holter.check ekg.hold off for egd for 48 hrs.
[2017-05-31 11:19] LABS: BASO % 0.7 % (0.0-2.0); EOS % 0.1 % (0.0-4.0); HEMOGLOBIN 9.2 g/dL (11.0-16.0); LYMPH # 0.8 K/uL (1.0-4.3); LYMPH % 17.3 % (20.0-40.0); MEAN CORPUSCULAR HEMOGLOBIN 32.9 pg (27.0-31.0); MEAN CORPUSCULAR HGB CONC 32.9 g/dL (33.0-37.0); MEAN PLATELET VOLUME 10.8 fL (7.2-11.7); MONO # 0.1 K/uL (0.0-0.8); MONO % 2.2 % (0.0-10.0); NEUT # 3.7 K/uL (1.8-7.0); NEUT % 79.7 % (50.0-75.0); NRBC % 0.1 % (0.0-2.0); RBC 2.81 Mil/uL (3.80-5.20); RED CELL DISTRIBUTION WIDTH 20.4 % (11.5-14.5); WHITE BLOOD COUNT 4.7 K/uL (4.8-10.8)
[2017-05-31 11:29] LABS: ALB/GLOB RATIO 0.6 (1.0-2.1); ALBUMIN 2.2 g/dL (3.5-5.0); ALT/SGPT 16 U/L (9-52); AST/SGOT 27 U/L (14-36); BLOOD UREA NITROGEN 14 mg/dL (7-17); CALCIUM 7.6 mg/dl (8.6-10.4); GFR AFRICAN-AMERICAN > 60; GFR NON-AFRICAN AMERICAN > 60
--- NOTE | 2017-05-31 16:51 | CP.PCM.PN ---
Subjective - Date & Time of Evaluation Date of Evaluation: 05/31/17 Time of Evaluation: 16:49 - Subjective Subjective: Patient states that the swallowing is unchanged. She denies having nausea or vomiting. Her appetite is poor. She had one formed bowel movment today. EGD has been postponed so that the cardiac work up can be completed. Objective - Vital Signs/Intake and Output Vital Signs (last 24 hours): Temp Pulse Resp BP Pulse Ox 98 F 77 20 135/69 100 05/31/17 15:25 05/31/17 15:25 05/31/17 15:25 05/31/17 15:25 05/31/17 15:25 Intake and Output: 05/31/17 05/31/17 06:59 18:59 Intake Total 400 Output Total 400 Balance 0 - Medications Medications: Current Medications Albuterol Sulfate (Albuterol 0.042% Inhal Radha (1.25mg/3ml) Ud) 1.25 mg IH RQ6 [facility] Last Admin: 05/31/17 13:43 Dose: 1.25 mg Allopurinol (Zyloprim) 100 mg PO DAILY [facility] Last Admin: 05/31/17 10:41 Dose: 100 mg Famotidine (Pepcid) 20 mg PO DAILY [facility] Last Admin: 05/31/17 10:40 Dose: 20 mg Ferrous Sulfate (Feosol) 325 mg PO TID [facility] Last Admin: 05/31/17 14:04 Dose: 325 mg Guaifenesin/Dextromethorphan (Robitussin Dm) 5 ml PO Q6 PRN PRN Reason: Cough Ceftriaxone Sodium 1 gm/ (Sodium Chloride) 100 mls @ 100 mls/hr IVPB DAILY [facility] PRN Reason: Protocol Stop: 06/04/17 13:01 Last Admin: 05/31/17 10:41 Dose: 100 mls/hr Insulin Human Regular (Novolin R) 0 unit SC ACHS [facility] PRN Reason: Protocol Last Admin: 05/31/17 12:02 Dose: Not Given Rosuvastatin Calcium (Crestor) 5 mg PO HS [facility] Last Admin: 05/30/17 22:44 Dose: 5 mg Sitagliptin Phosphate (Januvia) 25 mg PO DAILY [facility] Last Admin: 05/31/17 10:41 Dose: Not Given - Labs Labs: 05/31/17 11:09 05/31/17 11:09 PT 17.2 SECONDS (9.7-12.2) H 05/29/17 16:13 INR 1.5 05/29/17 16:13 APTT 32 SECONDS (21-34) 05/29/17 16:13 - Constitutional Appears: No Acute Distress - Head Exam Head Exam: ATRAUMATIC, NORMOCEPHALIC - Eye Exam Eye Exam: EOMI, PERRL - Neck Exam Neck Exam: absent: Lymphadenopathy, Thyromegaly - Respiratory Exam Respiratory Exam: NORMAL BREATHING PATTERN. absent: Rales, Rhonchi, Wheezes - Cardiovascular Exam Cardiovascular Exam: REGULAR RHYTHM, +S1, +S2. absent: Gallop, Rubs, Murmur - GI/Abdominal Exam GI & Abdominal Exam: Soft, Normal Bowel Sounds. absent: Tenderness, Mass, Organomegaly - Rectal Exam Rectal Exam: Deferred - Extremities Exam Extremities Exam: absent: Calf Tenderness, Pedal Edema Assessment and Plan (1) Other dysphagia Assessment & Plan: Dysphagia is unchanged. Plan is for EGD when cleared by cardiology, possibly Monday. Status: Acute
--- NOTE | 2017-05-31 18:20 | CP.PCM.PN ---
Subjective - Date & Time of Evaluation Date of Evaluation: 05/31/17 Time of Evaluation: 18:20 - Subjective Subjective: pt is seen and examined, follow up consult is dictated #[id number] Objective - Vital Signs/Intake and Output Vital Signs (last 24 hours): Temp Pulse Resp BP Pulse Ox 98 F 77 20 135/69 100 05/31/17 15:25 05/31/17 15:25 05/31/17 15:25 05/31/17 15:25 05/31/17 15:25 Intake and Output: 05/31/17 05/31/17 06:59 18:59 Intake Total 400 Output Total 400 Balance 0 - Medications Medications: Current Medications Albuterol Sulfate (Albuterol 0.042% Inhal Radha (1.25mg/3ml) Ud) 1.25 mg IH RQ6 [facility] Last Admin: 05/31/17 13:43 Dose: 1.25 mg Allopurinol (Zyloprim) 100 mg PO DAILY [facility] Last Admin: 05/31/17 10:41 Dose: 100 mg Famotidine (Pepcid) 20 mg PO DAILY [facility] Last Admin: 05/31/17 10:40 Dose: 20 mg Ferrous Sulfate (Feosol) 325 mg PO TID [facility] Last Admin: 05/31/17 14:04 Dose: 325 mg Guaifenesin/Dextromethorphan (Robitussin Dm) 5 ml PO Q6 PRN PRN Reason: Cough Ceftriaxone Sodium 1 gm/ (Sodium Chloride) 100 mls @ 100 mls/hr IVPB DAILY [facility] PRN Reason: Protocol Stop: 06/04/17 13:01 Last Admin: 05/31/17 10:41 Dose: 100 mls/hr Insulin Human Regular (Novolin R) 0 unit SC ACHS [facility] PRN Reason: Protocol Last Admin: 05/31/17 17:29 Dose: 1 unit Rosuvastatin Calcium (Crestor) 5 mg PO HS [facility] Last Admin: 05/30/17 22:44 Dose: 5 mg Sitagliptin Phosphate (Januvia) 25 mg PO DAILY [facility] Last Admin: 05/31/17 10:41 Dose: Not Given - Labs Labs: 05/31/17 11:09 05/31/17 11:09 PT 17.2 SECONDS (9.7-12.2) H 05/29/17 16:13 INR 1.5 05/29/17 16:13 APTT 32 SECONDS (21-34) 05/29/17 16:13
[2017-05-31] MEDS: Fluconazole IV 100mg/50 ml NS 50 ML IVPB SCH (20:22)
--- NOTE | 2017-05-31 23:09 | CARD ---
APPROVED REPORT EKG Measurement Heart [id number] [place] [id number] <Conclusion> Sinus bradycardia Incomplete left bundle branch block ST & T wave abnormality, consider lateral ischemia Abnormal ECG
--- NOTE | 2017-05-31 23:24 | CARD ---
APPROVED REPORT EKG Measurement Heart [id number] [place] [id number] <Conclusion> Normal sinus rhythm Left axis deviation Incomplete left bundle branch block Left ventricular hypertrophy with repolarization abnormality Abnormal ECG
[2017-06-01] MEDS: Albuterol 0.042% Inhal Sol (1.25 mg/3 mL) UD IH SCH ×4 (01:52→19:40)
--- NOTE | 2017-06-01 02:38 | CON ---
DATE: 05/31/2017 RENAL PROGRESS NOTE LOCATION: The patient is located in room 568, bed B. REQUESTING PHYSICIAN: Jeff Alvarado MD REASON FOR FOLLOWUP: Status post acute renal failure and UTI. HISTORY OF PRESENT ILLNESS: Mrs. Alvarado is a 71-year-old very thin-built [place]ian female with a past medical history significant for longstanding hypertension, diabetes, hyperlipidemia, coronary artery disease status post CABG who was recently diagnosed with acute renal failure and found to have hyperproteinemia, hyperglobulinemia, anemia. Subsequently, the patient underwent bone marrow biopsy with positive SPEP, UPEP, and found to have multiple myeloma; started on chemotherapy, steroids, and also Velcade. Subsequently, the patient was also admitted to [facility] with cardiac arrhythmias, severe hyperkalemia, metabolic acidosis, and acute renal failure, chronic kidney disease, requiring initiation of the acute hemodialysis. Subsequently, the patient was discharged home. Now the patient was admitted with the chief complaints of feeling weak and difficulty to swallow and also uncontrolled sugars and generalized weakness. The patient is feeling slightly better today, not in acute distress. Denies any headache. Denies any dizziness. No chest pain, palpitation. No edema of the legs. PHYSICAL EXAMINATION: VITAL SIGNS: As follows: Blood pressure 135/69, pulse 77, respiration 20, temperature 98, saturation 100%. Height 4 feet 10 inches, weight is 98 pounds. GENERAL: Mrs. Alvarado is a 71-year-old elderly female, thin-built, not in distress, resting comfortably. HEENT: Pupils normal and reactive to light and accommodation. Conjunctivae slightly pale. Sclerae anicteric. Tongue is moist and trachea is midline. LUNGS: Symmetric on both sides. Bilateral breath sounds present. Bilateral diffuse crackles present. CVS: Slemp at the fifth intercostal space, midclavicular line. S1 and S2 audible. No murmur or gallop. ABDOMEN: Normal in appearance, soft, tympanic. No guarding. No rigidity. No hepatosplenomegaly. 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 Nonfocal neuro examination. Cranial nerves II through XII grossly intact. Sensory and motor system is within normal limits. EXTREMITIES: No cyanosis, no clubbing, no edema. CURRENT MEDICATIONS: Include as follows; albuterol inhaler q.6h. and Crestor 5 mg at bedtime and Rocephin 1 g daily and Feosol 325 mg p.o. t.i.d., Januvia 25 mg p.o. daily, Novolin R for sliding scale and Pepcid 20 mg p.o. daily, Robitussin DM 5 mL p.o. q.6h. and allopurinol 100 mg p.o. daily. LABORATORY DATA: Includes as follows; As of 05/31/2017, WBC 4.7, hemoglobin 9.2, hematocrit is 28.1, platelets 70. Sodium 141, potassium 3.7, chloride 108, CO2 of 24, BUN 14, creatinine 0.8, glucose 140, calcium 7.6. Total bili 0.6, AST 27, ALT 16, alkaline phosphatase 116, total protein 5.8, albumin is 2.2. Urine culture positive for yeast as of 05/29/2017. In summary, Mrs. Alvarado is a 71-year-old elderly female with hypertension, diabetes, coronary artery disease, severe pulmonary hypertension, acute renal failure, recently diagnosed multiple myeloma status post hemodialysis x1 with acute renal failure, hyperkalemia, now admitted with uncontrolled sugars with Decadron for chemotherapy and also occasional dysphagia. 1. 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 Now renal function is normal with chemotherapy. 2. Pancytopenia most likely secondary to chemotherapy. 3. Hypertension. 4. Uncontrolled diabetes. Continue Januvia. Continue insulin coverage. 5. Urinary tract infection. We will discontinue Rocephin and we will start her on Diflucan 100 mg IV piggyback daily, first dose now. Follow up with guest service aide, Dr. Jesus Alberto Disla. We will follow with you. Thank you for allowing me to participate in your patient's care. Valerie Rascon MD MTDD
[2017-06-01] MEDS: (Novolin R) Insulin Human Regular 100 units/ml vial SC SCH ×4 (07:35→21:19)
[2017-06-01 07:42] LABS: BASO % 0.5 % (0.0-2.0); EOS % 0.2 % (0.0-4.0); HEMOGLOBIN 8.5 g/dL (11.0-16.0); LYMPH # 0.9 K/uL (1.0-4.3); LYMPH % 18.2 % (20.0-40.0); MEAN CELL VOLUME 99.5 fL (81.0-99.0); MEAN CORPUSCULAR HEMOGLOBIN 32.9 pg (27.0-31.0); MEAN CORPUSCULAR HGB CONC 33.1 g/dL (33.0-37.0); MEAN PLATELET VOLUME 11.5 fL (7.2-11.7); MONO # 0.2 K/uL (0.0-0.8); MONO % 5.1 % (0.0-10.0); NEUT # 3.7 K/uL (1.8-7.0); NRBC % 0.1 % (0.0-2.0); RBC 2.58 Mil/uL (3.80-5.20); RED CELL DISTRIBUTION WIDTH 20.5 % (11.5-14.5); WHITE BLOOD COUNT 4.8 K/uL (4.8-10.8)
--- NOTE | 2017-06-01 09:06 | CP.PCM.PN ---
Subjective - Date & Time of Evaluation Date of Evaluation: 06/01/17 Time of Evaluation: 09:05 - Subjective Subjective: pt is seen and examined, follow up consult is dictated# Objective - Vital Signs/Intake and Output Vital Signs (last 24 hours): Temp Pulse Resp BP Pulse Ox 97.4 F L 69 20 156/81 H 100 06/01/17 07:30 06/01/17 07:30 06/01/17 07:30 06/01/17 07:30 06/01/17 07:30 Intake and Output: 06/01/17 06/01/17 06:59 18:59 Intake Total 530 Balance 530 - Medications Medications: Current Medications Albuterol Sulfate (Albuterol 0.042% Inhal Radha (1.25mg/3ml) Ud) 1.25 mg IH RQ6 [facility] Last Admin: 06/01/17 07:58 Dose: 1.25 mg Allopurinol (Zyloprim) 100 mg PO DAILY [facility] Last Admin: 05/31/17 10:41 Dose: 100 mg Famotidine (Pepcid) 20 mg PO DAILY [facility] Last Admin: 05/31/17 10:40 Dose: 20 mg Ferrous Sulfate (Feosol) 325 mg PO TID [facility] Last Admin: 05/31/17 19:05 Dose: 325 mg Guaifenesin/Dextromethorphan (Robitussin Dm) 5 ml PO Q6 PRN PRN Reason: Cough Fluconazole (Diflucan Iv 100 Mg/50 Ml Ns) 50 mls @ 50 mls/hr IVPB Q24H [facility] PRN Reason: Protocol Last Admin: 05/31/17 20:22 Dose: 50 mls/hr Insulin Human Regular (Novolin R) 0 unit SC ACHS [facility] PRN Reason: Protocol Last Admin: 06/01/17 07:35 Dose: Not Given Rosuvastatin Calcium (Crestor) 5 mg PO HS [facility] Last Admin: 05/31/17 21:12 Dose: 5 mg Sitagliptin Phosphate (Januvia) 25 mg PO DAILY [facility] Last Admin: 05/31/17 10:41 Dose: Not Given - Labs Labs: 06/01/17 07:13 05/31/17 11:09 PT 17.2 SECONDS (9.7-12.2) H 05/29/17 16:13 INR 1.5 05/29/17 16:13 APTT 32 SECONDS (21-34) 05/29/17 16:13
[2017-06-01 09:46] LABS: ALB/GLOB RATIO 0.6 (1.0-2.1); ALT/SGPT 16 U/L (9-52); AST/SGOT 30 U/L (14-36); BLOOD UREA NITROGEN 13 mg/dL (7-17); CALCIUM 7.4 mg/dl (8.6-10.4); GFR AFRICAN-AMERICAN > 60; GFR NON-AFRICAN AMERICAN > 60
--- NOTE | 2017-06-01 11:15 | CP.PCM.PN ---
Subjective - Date & Time of Evaluation Date of Evaluation: 06/01/17 Time of Evaluation: 11:13 - Subjective Subjective: weak.holter is off.nsr on tele Objective - Vital Signs/Intake and Output Vital Signs (last 24 hours): Temp Pulse Resp BP Pulse Ox 97.4 F L 69 20 156/81 H 100 06/01/17 07:30 06/01/17 07:30 06/01/17 07:30 06/01/17 07:30 06/01/17 07:30 Intake and Output: 06/01/17 06/01/17 06:59 18:59 Intake Total 530 Balance 530 - Medications Medications: Current Medications Albuterol Sulfate (Albuterol 0.042% Inhal Radha (1.25mg/3ml) Ud) 1.25 mg IH RQ6 [facility] Last Admin: 06/01/17 07:58 Dose: 1.25 mg Allopurinol (Zyloprim) 100 mg PO DAILY [facility] Last Admin: 06/01/17 09:10 Dose: 100 mg Famotidine (Pepcid) 20 mg PO DAILY [facility] Last Admin: 06/01/17 09:10 Dose: 20 mg Ferrous Sulfate (Feosol) 325 mg PO TID [facility] Last Admin: 06/01/17 09:10 Dose: 325 mg Guaifenesin/Dextromethorphan (Robitussin Dm) 5 ml PO Q6 PRN PRN Reason: Cough Fluconazole (Diflucan Iv 100 Mg/50 Ml Ns) 50 mls @ 50 mls/hr IVPB Q24H [facility] PRN Reason: Protocol Last Admin: 05/31/17 20:22 Dose: 50 mls/hr Insulin Human Regular (Novolin R) 0 unit SC ACHS [facility] PRN Reason: Protocol Last Admin: 06/01/17 07:35 Dose: Not Given Rosuvastatin Calcium (Crestor) 5 mg PO HS [facility] Last Admin: 05/31/17 21:12 Dose: 5 mg Sitagliptin Phosphate (Januvia) 25 mg PO DAILY [facility] Last Admin: 06/01/17 09:10 Dose: 25 mg - Labs Labs: 06/01/17 07:13 06/01/17 07:13 PT 17.2 SECONDS (9.7-12.2) H 05/29/17 16:13 INR 1.5 05/29/17 16:13 APTT 32 SECONDS (21-34) 05/29/17 16:13 - Constitutional Appears: No Acute Distress, Chronically Ill - Head Exam Head Exam: NORMOCEPHALIC - Neck Exam Neck Exam: Normal Inspection - Respiratory Exam Respiratory Exam: Rales - Cardiovascular Exam Cardiovascular Exam: REGULAR RHYTHM, Murmur - GI/Abdominal Exam GI & Abdominal Exam: Soft - Extremities Exam Extremities Exam: absent: Pedal Edema - Neurological Exam Neurological Exam: Alert, Oriented x3 Assessment and Plan - Assessment and Plan (Free Text) Assessment: poss nstemi.nsr,cleared for egd in am at low risk.
--- NOTE | 2017-06-01 14:13 | PN ---
DATE: 06/01/2017 The patient is located in room 568, bed B. Requested by Dr. Jeff Alvarado. REASON FOR FOLLOWUP: Status post acute renal failure, multiple myeloma, and UTI. SUBJECTIVE: Ms. Alvarado is a 71-year-old elderly [place] female with past medical history significant for longstanding hypertension, diabetes, coronary artery disease, status post CABG, pulmonary hypertension, was recently diagnosed with multiple myeloma when patient was presented with shortness of breath, anemia, hyperproteinemia, and hyperglobulinemia. Workup consistent with multiple myeloma in the SPEP and UPEP and subsequently underwent bone marrow biopsy which showed more than 30% of plasma cells and was started on chemotherapy, steroids, and Velcade. The patient was admitted to [facility] a few days ago with chief complaint of generalized weakness, uncontrolled sugars, and difficult to swallow on and off, able to manage thick liquids. The patient is feeling better, not in distress. No chest pain. No palpitation. No fever. No cough. No abdominal pain. No nausea, vomiting, or diarrhea today. She started having Diflucan yesterday. PHYSICAL EXAMINATION VITAL SIGNS: As follows: Blood pressure 156/81, pulse 69, respirations 20, temperature 97.4, saturation 100%. Height 4 feet 10 inches, weight is 98 pounds. GENERAL: Ms. Alvarado is a 71-year-old elderly female, thin-built, not in distress, resting comfortably. HEENT: Pupils normal and reactive to light and accommodation. Conjunctivae slightly pale. Sclerae anicteric. Tongue is moist. Trachea is midline. LUNGS: Symmetric on both sides. Bilateral breath sounds present. Occasional basal crackles present. CVS: [place] at the fifth intercostal space, midclavicular line. S1 and S2 audible. No murmur or gallop. ABDOMEN: Normal in appearance, soft, tympanic. No guarding. No rigidity. No hepatosplenomegaly. 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 Nonfocal neuro examination. Cranial nerves II through XII grossly intact. Sensory and motor system are within normal limits. EXTREMITIES: No cyanosis, no clubbing, no edema. CURRENT MEDICATIONS: Include as follows: Albuterol inhaler, Crestor 5 mg at bedtime, Diflucan 100 mg daily, Feosol 325 mg p.o. t.i.d., Januvia 25 mg p.o. daily, Pepcid 20 mg p.o. daily, Robitussin DM 5 mL every 6 hours, allopurinol 100 mg p.o. daily. LABORATORY DATA: Include as follows, as of 06/01/2017; WBC is 4.8, hemoglobin 8.5, hematocrit is 25.6, platelets 71. Accu-Cheks yesterday 140, 180, and 193. As of this morning, Accu-Chek is 101. As of 05/31/2017, sodium 141, potassium 3.7, chloride 108, CO2 24, BUN 14, creatinine 0.8, baseline creatinine as of 11/23/2016 is 0.9, as of 11/24/2016 is 1.0, and as of 02/10/2017 is 1.6, as of 04/12/2017 is 2.2, as of 04/10/2017 is 2.5, as of 04/25/2017 creatinine is 2.5, as of 04/26/2017 creatinine is 1.9. ASSESSMENT AND PLAN: In summary, Mrs. Alvarado is a 71-year-old elderly female with history of hypertension, diabetes, coronary artery disease, status post coronary artery bypass graft, pulmonary hypertension, multiple myeloma, was started on chemotherapy. 1. 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 Renal function is back to her baseline at 0.8 to 0.9, which was about 5 months ago. PLAN: 1. Continue to follow up with Hematology, Dr. Jesus Alberto Disla. 2. Hypertension, blood pressure is stable. Continue on current medications. 3. Uncontrolled sugars. Her sugars are better now after discontinuing steroids. 4. Anemia, thrombocytopenia, leukopenia secondary to myeloma and chemotherapy. 5. UTI. Continue Diflucan 100 mg IV daily. We will follow with you. Thank you for allowing me to participate in your patient's care. Valerie Rascon MD 06/01/201711:05:58<
--- NOTE | 2017-06-01 14:53 | CARD ---
APPROVED REPORT EKG Measurement Heart [id number] FL [id number] [id number] <Conclusion> Normal sinus rhythm, intraventricular conduction delay Left axis deviation Septal infarct, age undetermined ST & T wave abnormality, consider lateral ischemia Abnormal ECG
[2017-06-01] MEDS: Fluconazole IV 100mg/50 ml NS 50 ML IVPB SCH (19:45)
--- NOTE | 2017-06-01 23:25 | CP.PCM.PN ---
Subjective - Date & Time of Evaluation Date of Evaluation: 06/01/17 Time of Evaluation: 19:40 - Subjective Subjective: Feels weak, tired. Objective - Vital Signs/Intake and Output Vital Signs (last 24 hours): Temp Pulse Resp BP Pulse Ox 97.5 F L 87 20 127/67 96 06/01/17 16:00 06/01/17 16:00 06/01/17 16:00 06/01/17 16:00 06/01/17 16:00 - Medications Medications: Current Medications Albuterol Sulfate (Albuterol 0.042% Inhal Radha (1.25mg/3ml) Ud) 1.25 mg IH RQ6 [facility] Last Admin: 06/01/17 19:40 Dose: Not Given Allopurinol (Zyloprim) 100 mg PO DAILY [facility] Last Admin: 06/01/17 09:10 Dose: 100 mg Famotidine (Pepcid) 20 mg PO DAILY [facility] Last Admin: 06/01/17 09:10 Dose: 20 mg Ferrous Sulfate (Feosol) 325 mg PO TID [facility] Last Admin: 06/01/17 19:45 Dose: 325 mg Guaifenesin/Dextromethorphan (Robitussin Dm) 5 ml PO Q6 PRN PRN Reason: Cough Fluconazole (Diflucan Iv 100 Mg/50 Ml Ns) 50 mls @ 50 mls/hr IVPB Q24H [facility] PRN Reason: Protocol Last Admin: 06/01/17 19:45 Dose: 50 mls/hr Insulin Human Regular (Novolin R) 0 unit SC ACHS [facility] PRN Reason: Protocol Last Admin: 06/01/17 21:19 Dose: Not Given Rosuvastatin Calcium (Crestor) 5 mg PO HS [facility] Last Admin: 06/01/17 21:20 Dose: 5 mg Sitagliptin Phosphate (Januvia) 25 mg PO DAILY [facility] Last Admin: 06/01/17 09:10 Dose: 25 mg - Labs Labs: 06/01/17 07:13 06/01/17 07:13 PT 17.2 SECONDS (9.7-12.2) H 05/29/17 16:13 INR 1.5 05/29/17 16:13 APTT 32 SECONDS (21-34) 05/29/17 16:13 - Head Exam Head Exam: ATRAUMATIC - Eye Exam Eye Exam: Normal appearance - ENT Exam ENT Exam: Mucous Membranes Dry - Respiratory Exam Respiratory Exam: NORMAL BREATHING PATTERN - Cardiovascular Exam Cardiovascular Exam: +S1, +S2 - GI/Abdominal Exam GI & Abdominal Exam: Normal Bowel Sounds Assessment and Plan (1) Thrombocytopenia Assessment & Plan: mild likely infection related Status: Acute (2) Anemia Assessment & Plan: chronic disease, multiple myeloma transfusion support PRN Status: Acute (3) Multiple myeloma Assessment & Plan: off steroids treatment on hold until more clinically improved Status: Acute
[2017-06-02] MEDS: Albuterol 0.042% Inhal Sol (1.25 mg/3 mL) UD IH SCH ×5 (01:58→19:41)
[2017-06-02] MEDS ORDERED: Lactated Ringer's 1,000 ML IV ONE (07:55)
[2017-06-02] MEDS ORDERED: Propofol 10 mg/ml Inj (20 ML) ONE (08:00)
[2017-06-02] MEDS: (Novolin R) Insulin Human Regular 100 units/ml vial SC SCH ×4 (08:10→21:44)
[2017-06-02] MEDS ORDERED: Phenylephrine 10 mg/ml Inj ONE (08:18)
[2017-06-02] MEDS ORDERED: Esmolol 100 mg/10ml Inj IV ONE (08:18)
[2017-06-02] MEDS ORDERED: Etomidate 20 mg/10ml Inj IV ONE (08:18)
[2017-06-02] MEDS ORDERED: Lactated Ringer's 500 ML IV ONE (08:20)
--- NOTE | 2017-06-02 11:40 | CP.PCM.PN ---
Subjective - Date & Time of Evaluation Date of Evaluation: 06/02/17 Time of Evaluation: 11:38 - Subjective Subjective: weak.seen by dr orozco & dr matamoros,for egd. Objective - Vital Signs/Intake and Output Vital Signs (last 24 hours): Temp Pulse Resp BP Pulse Ox 99.5 F 78 20 155/87 H 100 06/02/17 08:39 06/02/17 08:50 06/02/17 08:50 06/02/17 08:50 06/02/17 08:50 Intake and Output: 06/02/17 06/02/17 06:59 18:59 Intake Total 290 Output Total 300 Balance -10 - Medications Medications: Current Medications Albuterol Sulfate (Albuterol 0.042% Inhal Radha (1.25mg/3ml) Ud) 1.25 mg IH RQ6 [facility] Last Admin: 06/02/17 10:38 Dose: 1.25 mg Allopurinol (Zyloprim) 100 mg PO DAILY [facility] Last Admin: 06/02/17 09:58 Dose: 100 mg Famotidine (Pepcid) 20 mg PO DAILY [facility] Last Admin: 06/02/17 09:58 Dose: 20 mg Ferrous Sulfate (Feosol) 325 mg PO TID [facility] Last Admin: 06/02/17 09:58 Dose: 325 mg Guaifenesin/Dextromethorphan (Robitussin Dm) 5 ml PO Q6 PRN PRN Reason: Cough Fluconazole (Diflucan Iv 100 Mg/50 Ml Ns) 50 mls @ 50 mls/hr IVPB Q24H [facility] PRN Reason: Protocol Last Admin: 06/01/17 19:45 Dose: 50 mls/hr Insulin Human Regular (Novolin R) 0 unit SC ACHS [facility] PRN Reason: Protocol Last Admin: 06/02/17 08:10 Dose: Not Given Rosuvastatin Calcium (Crestor) 5 mg PO HS [facility] Last Admin: 06/01/17 21:20 Dose: 5 mg Sitagliptin Phosphate (Januvia) 25 mg PO DAILY [facility] Last Admin: 06/02/17 09:58 Dose: 25 mg - Labs Labs: 06/01/17 07:13 06/01/17 07:13 PT 17.2 SECONDS (9.7-12.2) H 05/29/17 16:13 INR 1.5 05/29/17 16:13 APTT 32 SECONDS (21-34) 05/29/17 16:13 - Constitutional Appears: No Acute Distress, Chronically Ill - Head Exam Head Exam: NORMOCEPHALIC - Neck Exam Neck Exam: Normal Inspection - Respiratory Exam Respiratory Exam: Clear to Ausculation Bilateral - Cardiovascular Exam Cardiovascular Exam: REGULAR RHYTHM - GI/Abdominal Exam GI & Abdominal Exam: Soft - Extremities Exam Extremities Exam: absent: Pedal Edema - Neurological Exam Neurological Exam: Alert, Oriented x3 Assessment and Plan - Assessment and Plan (Free Text) Assessment: holter has non sustained v tach. will add small dose of toprol.no malvin arry seen.
--- NOTE | 2017-06-02 17:45 | CARD ---
APPROVED REPORT EKG Measurement Heart [id number] DE 180P45 [id number] <Conclusion> Normal sinus rhythm Left axis deviation Left ventricular hypertrophy with repolarization abnormality Cannot rule out Septal infarct, age undetermined versus LVH Abnormal ECG
[2017-06-02] MEDS: Fluconazole IV 100mg/50 ml NS 50 ML IVPB SCH (20:39)
--- NOTE | 2017-06-02 22:47 | CP.PCM.PN ---
Subjective - Date & Time of Evaluation Date of Evaluation: 06/02/17 Time of Evaluation: 12:00 - Subjective Subjective: Weak but reports shes better today. s/p EGD Objective - Vital Signs/Intake and Output Vital Signs (last 24 hours): Temp Pulse Resp BP Pulse Ox 97.9 F 79 20 150/70 100 06/02/17 15:25 06/02/17 15:25 06/02/17 15:25 06/02/17 15:25 06/02/17 15:25 - Medications Medications: Current Medications Albuterol Sulfate (Albuterol 0.042% Inhal Radha (1.25mg/3ml) Ud) 1.25 mg IH RQ6 [facility] Last Admin: 06/02/17 19:41 Dose: 1.25 mg Allopurinol (Zyloprim) 100 mg PO DAILY [facility] Last Admin: 06/02/17 09:58 Dose: 100 mg Famotidine (Pepcid) 20 mg PO DAILY [facility] Last Admin: 06/02/17 09:58 Dose: 20 mg Ferrous Sulfate (Feosol) 325 mg PO TID [facility] Last Admin: 06/02/17 18:22 Dose: 325 mg Guaifenesin/Dextromethorphan (Robitussin Dm) 5 ml PO Q6 PRN PRN Reason: Cough Fluconazole (Diflucan Iv 100 Mg/50 Ml Ns) 50 mls @ 50 mls/hr IVPB Q24H [facility] PRN Reason: Protocol Last Admin: 06/02/17 20:39 Dose: 50 mls/hr Insulin Human Regular (Novolin R) 0 unit SC ACHS [facility] PRN Reason: Protocol Last Admin: 06/02/17 21:44 Dose: Not Given Metoprolol Succinate (Toprol Xl) 12.5 mg PO DAILY [facility] Rosuvastatin Calcium (Crestor) 5 mg PO HS [facility] Last Admin: 06/02/17 21:14 Dose: 5 mg Sitagliptin Phosphate (Januvia) 25 mg PO DAILY [facility] Last Admin: 06/02/17 09:58 Dose: 25 mg - Labs Labs: 06/01/17 07:13 06/01/17 07:13 PT 17.2 SECONDS (9.7-12.2) H 05/29/17 16:13 INR 1.5 05/29/17 16:13 APTT 32 SECONDS (21-34) 05/29/17 16:13 - Head Exam Head Exam: ATRAUMATIC - Eye Exam Eye Exam: Normal appearance - ENT Exam ENT Exam: Mucous Membranes Dry - Respiratory Exam Respiratory Exam: NORMAL BREATHING PATTERN - Cardiovascular Exam Cardiovascular Exam: +S1, +S2 - GI/Abdominal Exam GI & Abdominal Exam: Normal Bowel Sounds Assessment and Plan (1) Thrombocytopenia Assessment & Plan: mild, stable ? infection related Status: Acute (2) Anemia Assessment & Plan: chronic disease and multiple myeloma Status: Acute (3) Multiple myeloma Assessment & Plan: steroids discontinued due to hyperglycemia outpatient treatment Status: Acute
[2017-06-03] MEDS: Albuterol 0.042% Inhal Sol (1.25 mg/3 mL) UD IH SCH ×4 (01:05→19:27)
[2017-06-03 07:41] LABS: HEMOGLOBIN 8.8 g/dL (11.0-16.0); MEAN CELL VOLUME 99.2 fL (81.0-99.0); MEAN CORPUSCULAR HEMOGLOBIN 33.2 pg (27.0-31.0); MEAN CORPUSCULAR HGB CONC 33.5 g/dL (33.0-37.0); RBC 2.64 Mil/uL (3.80-5.20); WHITE BLOOD COUNT 5.6 K/uL (4.8-10.8)
[2017-06-03] MEDS: (Novolin R) Insulin Human Regular 100 units/ml vial SC SCH ×4 (07:59→21:20)
[2017-06-03] MEDS: Metoprolol Succinate 12.5 mg XL PO SCH (10:31)
--- NOTE | 2017-06-03 11:18 | CP.PCM.PN ---
Subjective - Date & Time of Evaluation Date of Evaluation: 06/03/17 Time of Evaluation: 11:16 - Subjective Subjective: Covering Dr Cruz Failure to thrive, fair appetite EGD- negative Objective - Vital Signs/Intake and Output Vital Signs (last 24 hours): Temp Pulse Resp BP Pulse Ox 97.7 F 71 20 152/70 H 95 06/03/17 07:00 06/03/17 07:00 06/03/17 07:00 06/03/17 07:00 06/03/17 07:00 Intake and Output: 06/03/17 06/03/17 06:59 18:59 Intake Total 350 Balance 350 - Medications Medications: Current Medications Albuterol Sulfate (Albuterol 0.042% Inhal Radha (1.25mg/3ml) Ud) 1.25 mg IH RQ6 [facility] Last Admin: 06/03/17 07:43 Dose: 1.25 mg Allopurinol (Zyloprim) 100 mg PO DAILY [facility] Last Admin: 06/03/17 10:31 Dose: 100 mg Famotidine (Pepcid) 20 mg PO DAILY [facility] Last Admin: 06/03/17 10:31 Dose: 20 mg Ferrous Sulfate (Feosol) 325 mg PO TID [facility] Last Admin: 06/03/17 10:31 Dose: 325 mg Guaifenesin/Dextromethorphan (Robitussin Dm) 5 ml PO Q6 PRN PRN Reason: Cough Fluconazole (Diflucan Iv 100 Mg/50 Ml Ns) 50 mls @ 50 mls/hr IVPB Q24H [facility] PRN Reason: Protocol Last Admin: 06/02/17 20:39 Dose: 50 mls/hr Insulin Human Regular (Novolin R) 0 unit SC ACHS [facility] PRN Reason: Protocol Last Admin: 06/03/17 07:59 Dose: Not Given Metoprolol Succinate (Toprol Xl) 12.5 mg PO DAILY [facility] Last Admin: 06/03/17 10:31 Dose: 12.5 mg Rosuvastatin Calcium (Crestor) 5 mg PO HS [facility] Last Admin: 06/02/17 21:14 Dose: 5 mg Sitagliptin Phosphate (Januvia) 25 mg PO DAILY [facility] Last Admin: 06/03/17 10:31 Dose: 25 mg - Labs Labs: 06/03/17 07:25 03/29/18 07:13 PT 17.2 SECONDS (9.7-12.2) H 05/29/17 16:13 INR 1.5 05/29/17 16:13 APTT 32 SECONDS (21-34) 05/29/17 16:13 - Constitutional Appears: Chronically Ill - Head Exam Head Exam: NORMOCEPHALIC - Eye Exam Eye Exam: absent: Scleral icterus - Respiratory Exam Respiratory Exam: NORMAL BREATHING PATTERN - Cardiovascular Exam Cardiovascular Exam: REGULAR RHYTHM - GI/Abdominal Exam GI & Abdominal Exam: Soft. absent: Tenderness Assessment and Plan (1) Multiple myeloma Assessment & Plan: Followed by Oncologist Status: Acute (2) Other dysphagia Assessment & Plan: Normal EGD. ? Treated Eulalia Esophagitis? Complete empiric Fluconazole Status: Acute
--- NOTE | 2017-06-03 12:30 | CP.PCM.PN ---
Subjective - Date & Time of Evaluation Date of Evaluation: 06/03/17 Time of Evaluation: 12:27 - Subjective Subjective: weak.labs oted on iv diflucan.holter noted. Objective - Vital Signs/Intake and Output Vital Signs (last 24 hours): Temp Pulse Resp BP Pulse Ox 97.7 F 71 20 152/70 H 95 06/03/17 07:00 06/03/17 07:00 06/03/17 07:00 06/03/17 07:00 06/03/17 07:00 Intake and Output: 06/03/17 06/03/17 06:59 18:59 Intake Total 350 Balance 350 - Medications Medications: Current Medications Albuterol Sulfate (Albuterol 0.042% Inhal Radha (1.25mg/3ml) Ud) 1.25 mg IH RQ6 [facility] Last Admin: 06/03/17 07:43 Dose: 1.25 mg Allopurinol (Zyloprim) 100 mg PO DAILY [facility] Last Admin: 06/03/17 10:31 Dose: 100 mg Famotidine (Pepcid) 20 mg PO DAILY [facility] Last Admin: 06/03/17 10:31 Dose: 20 mg Ferrous Sulfate (Feosol) 325 mg PO TID [facility] Last Admin: 06/03/17 10:31 Dose: 325 mg Guaifenesin/Dextromethorphan (Robitussin Dm) 5 ml PO Q6 PRN PRN Reason: Cough Fluconazole (Diflucan Iv 100 Mg/50 Ml Ns) 50 mls @ 50 mls/hr IVPB Q24H [facility] PRN Reason: Protocol Last Admin: 06/02/17 20:39 Dose: 50 mls/hr Insulin Human Regular (Novolin R) 0 unit SC ACHS [facility] PRN Reason: Protocol Last Admin: 06/03/17 07:59 Dose: Not Given Metoprolol Succinate (Toprol Xl) 12.5 mg PO DAILY [facility] Last Admin: 06/03/17 10:31 Dose: 12.5 mg Rosuvastatin Calcium (Crestor) 5 mg PO HS [facility] Last Admin: 06/02/17 21:14 Dose: 5 mg Sitagliptin Phosphate (Januvia) 25 mg PO DAILY [facility] Last Admin: 06/03/17 10:31 Dose: 25 mg - Labs Labs: 06/03/17 07:25 06/01/17 07:13 PT 17.2 SECONDS (9.7-12.2) H 05/29/17 16:13 INR 1.5 05/29/17 16:13 APTT 32 SECONDS (21-34) 05/29/17 16:13 - Constitutional Appears: No Acute Distress, Chronically Ill - Head Exam Head Exam: NORMOCEPHALIC - Neck Exam Neck Exam: Normal Inspection - Respiratory Exam Respiratory Exam: Clear to Ausculation Bilateral - Cardiovascular Exam Cardiovascular Exam: REGULAR RHYTHM, Murmur - GI/Abdominal Exam GI & Abdominal Exam: Soft - Neurological Exam Neurological Exam: Alert, Oriented x3 Assessment and Plan - Assessment and Plan (Free Text) Assessment: uti,v tach on holter.will add small dose of toprol.no need for pacemaker at this time.wheel chair.
[2017-06-03] MEDS: Fluconazole IV 100mg/50 ml NS 50 ML IVPB SCH (20:08)
--- NOTE | 2017-06-03 20:41 | CP.PCM.PN ---
Subjective - Date & Time of Evaluation Date of Evaluation: 06/03/17 Time of Evaluation: 14:00 - Subjective Subjective: Feeling better, ambulated today Objective - Vital Signs/Intake and Output Vital Signs (last 24 hours): Temp Pulse Resp BP Pulse Ox 98.3 F 80 18 128/66 95 06/03/17 15:50 06/03/17 16:00 06/03/17 15:50 06/03/17 15:50 06/03/17 15:50 - Medications Medications: Current Medications Albuterol Sulfate (Albuterol 0.042% Inhal Radha (1.25mg/3ml) Ud) 1.25 mg IH RQ6 [facility] Last Admin: 06/03/17 19:27 Dose: 1.25 mg Allopurinol (Zyloprim) 100 mg PO DAILY [facility] Last Admin: 06/03/17 10:31 Dose: 100 mg Famotidine (Pepcid) 20 mg PO DAILY [facility] Last Admin: 06/03/17 10:31 Dose: 20 mg Ferrous Sulfate (Feosol) 325 mg PO TID [facility] Last Admin: 06/03/17 17:24 Dose: 325 mg Guaifenesin/Dextromethorphan (Robitussin Dm) 5 ml PO Q6 PRN PRN Reason: Cough Fluconazole (Diflucan Iv 100 Mg/50 Ml Ns) 50 mls @ 50 mls/hr IVPB Q24H [facility] PRN Reason: Protocol Last Admin: 06/03/17 20:08 Dose: 50 mls/hr Insulin Human Regular (Novolin R) 0 unit SC ACHS [facility] PRN Reason: Protocol Last Admin: 06/03/17 16:46 Dose: Not Given Metoprolol Succinate (Toprol Xl) 12.5 mg PO DAILY [facility] Last Admin: 06/03/17 10:31 Dose: 12.5 mg Rosuvastatin Calcium (Crestor) 5 mg PO HS [facility] Last Admin: 06/02/17 21:14 Dose: 5 mg Sitagliptin Phosphate (Januvia) 25 mg PO DAILY [facility] Last Admin: 06/03/17 10:31 Dose: 25 mg - Labs Labs: 06/03/17 07:25 06/01/17 07:13 PT 17.2 SECONDS (9.7-12.2) H 05/29/17 16:13 INR 1.5 05/29/17 16:13 APTT 32 SECONDS (21-34) 05/29/17 16:13 - Head Exam Head Exam: ATRAUMATIC - Eye Exam Eye Exam: Normal appearance - ENT Exam ENT Exam: Mucous Membranes Dry - Respiratory Exam Respiratory Exam: NORMAL BREATHING PATTERN - Cardiovascular Exam Cardiovascular Exam: +S1, +S2 - GI/Abdominal Exam GI & Abdominal Exam: Normal Bowel Sounds Assessment and Plan (1) Thrombocytopenia Assessment & Plan: ? related to infection cont. to monitor Status: Acute (2) Anemia Assessment & Plan: chronic disease and myeloma Status: Acute (3) Multiple myeloma Assessment & Plan: steroids discontinued outpatient treatment Status: Acute
[2017-06-04] MEDS: (Novolin R) Insulin Human Regular 100 units/ml vial SC SCH ×4 (08:43→20:59)
[2017-06-04] MEDS: Metoprolol Succinate 12.5 mg XL PO SCH (09:39)
[2017-06-04] MEDS: Fluconazole IV 100mg/50 ml NS 50 ML IVPB SCH (20:02)
[2017-06-05] MEDS: (Novolin R) Insulin Human Regular 100 units/ml vial SC SCH ×4 (07:30→21:50)
[2017-06-05] MEDS: Metoprolol Succinate 12.5 mg XL PO SCH (09:35)
[2017-06-05] MEDS ORDERED: DEXAMETHASONE 8 MG PO SCH (10:00)
--- NOTE | 2017-06-05 13:15 | CARD ---
APPROVED REPORT Reason for Test: CHEST PAIN / SSS Hookup date: 2017-05-31 Scan date: 2017-06-02 Recording time: 23 HR 59 MIN Heart Rate Data Total Beats: 04262 Min HR: 50 BPM at 5:29AM Avg HR: 71 BPM Max HR: 88 BPM at 9:41PM Ventricular Ectopy Total VE Beats: 310 (0.3%) Vent Runs: 4 Beats: 32 Longest: 11 Fastest: 141 BPM Triplets: 2 Events Couplets: 6 Events Single/Interp PVC: 238/0 Single/Late VE's: 22/0 Supraventricular Ectopy Total VE Beats: 83 (0.1%) Atrial Runs: 1 Beats: 3 Longest: 3 Fastest: 158 BPM Atrial Pairs: 3 Events Drop/Late: 0/14 Longest R-R: 1.8 sec at 4:27 AM Single PAC's: 60 Conclusion 23 hours and 59 minutes of adequate Holter recording were analyzed. Baseline rhythm is sinus between 50 and 88 beats per minutes, bradycardia was at the hours of sleep. Frequent atrial premature contractions with occasional runs of triplets. 4 runs of wide-complex tachycardia up to 11 beats and rate of 140. It is irregular suggestive of supraventricular origin with aberration. Infrequent ventricular premature contractions. No entry into the diary to evaluate symptoms. Significant for frequent atrial premature contractions and runs of probable atrial fibrillation.
--- NOTE | 2017-06-05 14:21 | CP.PCM.PN ---
Subjective - Date & Time of Evaluation Date of Evaluation: 06/05/17 Time of Evaluation: 14:18 - Subjective Subjective: PT SEEN BY DR. WU, CLEARED FOR D/C TODAY. PLAN IS TO D/C TO [facility] PER PT'S 'S REQUEST ON MONDAY. DISCUSSED WITH TRE LORENZO AND PT IS JUST PENDING A BED AVAILABILITY AT [facility]--MAY BE TODAY OR TOMORROW. I HAVE NOTIFIED THE PT AND OF THIS AND THEY ARE IN AGREEMENT WITH PLAN. PT MEDICALLY CLEARED AND D/C TODAY; PENDING BED AT [facility]. RX IN CHART PER DR. WU TO BE GIVEN UPON D/C. NO FURTHER ORDERS. Objective - Vital Signs/Intake and Output Vital Signs (last 24 hours): Temp Pulse Resp BP Pulse Ox 97.4 F L 72 18 155/77 H 96 06/05/17 07:00 06/05/17 07:05 06/05/17 07:00 06/05/17 07:00 06/05/17 07:00 Intake and Output: 06/05/17 06/05/17 06:59 18:59 Intake Total 300 Balance 300 - Medications Medications: Current Medications Allopurinol (Zyloprim) 100 mg PO DAILY [facility] Last Admin: 06/05/17 09:22 Dose: 100 mg Famotidine (Pepcid) 20 mg PO DAILY [facility] Last Admin: 06/05/17 09:22 Dose: 20 mg Ferrous Sulfate (Feosol) 325 mg PO TID [facility] Last Admin: 06/05/17 12:59 Dose: 325 mg Guaifenesin/Dextromethorphan (Robitussin Dm) 5 ml PO Q6 PRN PRN Reason: Cough Fluconazole (Diflucan Iv 100 Mg/50 Ml Ns) 50 mls @ 50 mls/hr IVPB Q24H [facility] PRN Reason: Protocol Last Admin: 06/04/17 20:02 Dose: 50 mls/hr Insulin Human Regular (Novolin R) 0 unit SC ACHS [facility] PRN Reason: Protocol Last Admin: 06/05/17 11:30 Dose: Not Given Metoprolol Succinate (Toprol Xl) 12.5 mg PO DAILY [facility] Last Admin: 06/05/17 09:35 Dose: 12.5 mg Rosuvastatin Calcium (Crestor) 5 mg PO HS [facility] Last Admin: 04/01/18 21:15 Dose: 5 mg Sitagliptin Phosphate (Januvia) 25 mg PO DAILY [facility] Last Admin: 06/05/17 09:22 Dose: 25 mg - Labs Labs: 06/03/17 07:25 06/01/17 07:13 PT 17.2 SECONDS (9.7-12.2) H 05/29/17 16:13 INR 1.5 05/29/17 16:13 APTT 32 SECONDS (21-34) 05/29/17 16:13
[2017-06-05 15:55] VITALS: RESP 20
--- NOTE | 2017-06-05 19:52 | CP.PCM.PN ---
Subjective - Date & Time of Evaluation Date of Evaluation: 06/05/17 Time of Evaluation: 19:15 - Subjective Subjective: No complaints Objective - Vital Signs/Intake and Output Vital Signs (last 24 hours): Temp Pulse Resp BP Pulse Ox 97.4 F L 78 20 149/72 97 06/05/17 15:00 06/05/17 15:00 06/05/17 15:00 06/05/17 15:00 06/05/17 15:00 Intake and Output: 06/05/17 06/06/17 18:59 06:59 Intake Total 300 Balance 300 - Medications Medications: Current Medications Allopurinol (Zyloprim) 100 mg PO DAILY [facility] Last Admin: 06/05/17 09:22 Dose: 100 mg Famotidine (Pepcid) 20 mg PO DAILY [facility] Last Admin: 06/05/17 09:22 Dose: 20 mg Ferrous Sulfate (Feosol) 325 mg PO TID [facility] Last Admin: 06/05/17 17:20 Dose: 325 mg Guaifenesin/Dextromethorphan (Robitussin Dm) 5 ml PO Q6 PRN PRN Reason: Cough Fluconazole (Diflucan Iv 100 Mg/50 Ml Ns) 50 mls @ 50 mls/hr IVPB Q24H [facility] PRN Reason: Protocol Last Admin: 06/04/17 20:02 Dose: 50 mls/hr Insulin Human Regular (Novolin R) 0 unit SC ACHS [facility] PRN Reason: Protocol Last Admin: 06/05/17 16:39 Dose: Not Given Metoprolol Succinate (Toprol Xl) 12.5 mg PO DAILY [facility] Last Admin: 06/05/17 09:35 Dose: 12.5 mg Rosuvastatin Calcium (Crestor) 5 mg PO HS [facility] Last Admin: 06/04/17 21:15 Dose: 5 mg Sitagliptin Phosphate (Januvia) 25 mg PO DAILY [facility] Last Admin: 06/05/17 09:22 Dose: 25 mg - Labs Labs: 06/03/17 07:25 06/01/17 07:13 PT 17.2 SECONDS (9.7-12.2) H 05/29/17 16:13 INR 1.5 05/29/17 16:13 APTT 32 SECONDS (21-34) 05/29/17 16:13 - Head Exam Head Exam: ATRAUMATIC - Eye Exam Eye Exam: Normal appearance - ENT Exam ENT Exam: Mucous Membranes Dry - Respiratory Exam Respiratory Exam: NORMAL BREATHING PATTERN - Cardiovascular Exam Cardiovascular Exam: +S1, +S2 - GI/Abdominal Exam GI & Abdominal Exam: Normal Bowel Sounds Assessment and Plan (1) Thrombocytopenia Assessment & Plan: mild ? infection related Status: Acute (2) Anemia Assessment & Plan: chronic disease, multiple myeloma Status: Acute (3) Multiple myeloma Assessment & Plan: outpatient treatment Status: Acute
[2017-06-05] MEDS: Fluconazole IV 100mg/50 ml NS 50 ML IVPB SCH (20:06)
[2017-06-06 00:58] VITALS: O2SAT 96
--- NOTE | 2017-06-06 01:44 | DS ---
SUBJECTIVE: A 71-year-old female who was brought in with generalized weakness and chest pain. Three sets of troponins were elevated. The patient has [id number] MD. She is also diabetic, continue with the Januvia. Creatinine was stable. She has multiple myelomas, seen by Dr. Disla. Chemotherapy with Medrol was stopped. The patient was treated conservatively. She had upper endoscopy done because of recurrent dysphagia and swallowing evaluation. Gastritis was noted. This was done by Dr. Cruz. The patient is on Pepcid 20 mg. Holter monitor had shown nonsustained ventricular tachycardia. Metoprolol 12.5 mg p.o. was added. She is stable now. Telemetry had shown sinus rhythm. At this point, she would be discharged to be followed up as an outpatient. She will be on metoprolol 12.5 mg along with other medications that she is at home which includes Januvia 25 mg, Crestor, iron pill, Pepcid, and allopurinol 100 mg p.o. one a day. She will be followed by Dr. Disla for myeloma. I will see her back in two weeks' time. She may go to rehab. Care of plan was explained to the patient's family on several occasions. FINAL DIAGNOSES: [id number] myocardial infarction, multiple myeloma, hypertension, diabetes, coronary artery disease, status post coronary artery bypass graft. Jeff Alvarado MD
[2017-06-06 04:43] VITALS: TEMP 97.6
[2017-06-06] MEDS: (Novolin R) Insulin Human Regular 100 units/ml vial SC SCH ×2 (07:29→11:45)
[2017-06-06 07:53] VITALS: BP 149/76; PULSE 67
[2017-06-06] MEDS: Metoprolol Succinate 12.5 mg XL PO SCH (11:28)
== END 2017-06-06 12:38 | DRG 280 ==
LOC: C.ER 14:56 → C.9E 17:43 → C.5S 18:25 → C.6T 06-01 14:00
PROVIDERS: ADMIT Internal Medicine Cardiovascular Disease; ATTEND Internal Medicine Cardiovascular Disease
PROC: 0DB68ZX Excision of Stomach, Via Natural or Artificial Opening Endoscopic, Diagnostic (ICD-10-PCS; principal; 2017-06-02 08:00)
DX: I21.4 Non-ST elevation (NSTEMI) myocardial infarction (principal); D61.810 Antineoplastic chemotherapy induced pancytopenia; C90.00 Multiple myeloma not having achieved remission; I47.1 Supraventricular tachycardia; N39.0 Urinary tract infection, site not specified; B37.0 Candidal stomatitis; I13.0 Hypertensive heart and chronic kidney disease with heart failure and stage 1 through stage 4 chronic kidney disease, or unspecified chronic kidney disease; N17.9 Acute kidney failure, unspecified; E11.65 Type 2 diabetes mellitus with hyperglycemia; E11.22 Type 2 diabetes mellitus with diabetic chronic kidney disease; I25.10 Atherosclerotic heart disease of native coronary artery without angina pectoris; J44.9 Chronic obstructive pulmonary disease, unspecified; Z95.1 Presence of aortocoronary bypass graft; I27.20 Pulmonary hypertension, unspecified; N18.9 Chronic kidney disease, unspecified; Z79.4 Long term (current) use of insulin; E86.0 Dehydration; T45.1X5A Adverse effect of antineoplastic and immunosuppressive drugs, initial encounter; T38.0X5A Adverse effect of glucocorticoids and synthetic analogues, initial encounter; I50.9 Heart failure, unspecified; N05.9 Unspecified nephritic syndrome with unspecified morphologic changes

== ENCOUNTER 2017-07-10 04:39 | Inpatient (IN) | payer MEDICARE, BC ==
[2017-07-10 04:39] VITALS: BMI 18.8
--- NOTE | 2017-07-10 04:44 | C.PDOC ---
History Of Present Illness Patient presents to the ER via EMS for a complaint of SOB and chest discomfort that began [employer]. Patient received 324mg of aspirin, 3 sublingual nitro, and 20mg IV lasix enroute. Patient is currently speaking in 4-5 word sentences; denies fever or chills. Time Seen by Provider: 07/10/17 04:44 Chief Complaint (Nursing): Chest Pain History Per: Patient History/Exam Limitations: no limitations Onset/Duration Of Symptoms: Hrs Current Symptoms Are (Timing): Still Present Severity: Moderate Pain Scale Rating Of: 5 Quality: Other (Discomfort) Associated Symptoms: Dyspnea. denies: Nausea, Diaphoresis, Syncope Modifying Factors: None Exacerbating Factors: None Alleviating Factors: None Nitro Therapy Administered: 3, Per EMS Recent travel outside of the [place]: No Past Medical History Reviewed: Historical Data, Nursing Documentation, Vital Signs Vital Signs: Last Vital Signs Temp 97.7 F 07/10/17 04:41 Pulse 67 07/10/17 04:41 Resp 22 07/10/17 04:41 BP 134/63 07/10/17 04:41 Pulse Ox 100 07/10/17 04:41 - Medical History PMH: Anemia, CHF, COPD, HTN, Hypercholesterolemia Surgical History: CABG - [facility] Procedures EXCISION OF STOMACH, ENDO, DIAGN (05/29/17) EXERCISE TREATMENT OF MUSCULOSK WHOLE USING ASSIST EQUIPMENT (06/06/17) EXTRACTION OF ILIAC BONE MARROW, PERC APPROACH, DIAGN (04/10/17) GAIT TRAINING/AMBULAT TREATMENT USING ASSIST EQUIPMENT (06/06/17) HOME MANAGEMENT TREATMENT USING ASSIST EQUIPMENT (06/06/17) Family History: States: No Known Family Hx - Social History Hx Alcohol Use: No Hx Substance Use: No - Immunization History Hx Tetanus Toxoid Vaccination: No Hx Influenza Vaccination: No Hx Pneumococcal Vaccination: No Review Of Systems Constitutional: Negative for: Fever, Chills Cardiovascular: Positive for: Chest Pain. Negative for: Palpitations Respiratory: Positive for: Shortness of Breath Gastrointestinal: Negative for: Nausea, Vomiting Genitourinary: Negative for: Dysuria, Hematuria Musculoskeletal: Negative for: Neck Pain Skin: Negative for: Rash Neurological: Negative for: Weakness, Numbness Physical Exam - Physical Exam Appears: Non-toxic Skin: Warm, Dry Head: Normacephalic Eye(s): bilateral: Normal Inspection Oral Mucosa: Moist Throat: No Erythema, No Exudate Neck: Trachea Midline, No Midline Cervical Tenderness, No Paracervical Tenderness, No Step Off Deformity, Supple Chest: No Tenderness, Other (CABG scar) Cardiovascular: Rhythm Regular Respiratory: Rales (At the bases), No Rhonchi, No Wheezing Gastrointestinal/Abdominal: Soft, No Tenderness Back: No CVA Tenderness Extremity: Pedal Edema (Bilateral pitting) Neurological/Psych: Oriented x3 ED Course And Treatment - Laboratory Results Result Diagrams: 07/10/17 04:57 07/10/17 04:57 ECG: Interpreted By Me, Viewed By Me ECG Rhythm: Sinus Rhythm (65), Nonspecific Changes (lvh) Pulse Ox Interpretation: Normal - Radiology CXR: Interpreted by Me, Viewed By Me CXR Interpretation: Yes: Cardiomegaly, Other (chf, cabg). No: Infiltrates, Fracture Progress Note: EKG, blood work, CXR, and urinalysis ordered. Aspirin and lasix administered. Disposition Discussed With DrLobo: Jeff Alvarado Comment: accepted the pt on his service and took over the care at 5:50 AM Doctor Will See Patient In The: Hospital Counseled Patient/Family Regarding: Studies Performed, Diagnosis - Disposition Disposition: HOSPITALIZED Disposition Time: 04:44 Condition: FAIR Forms: Embedded Chat (Uzbek) - Clinical Impression Clinical Impression: Chest pain, Dyspnea, Congestive heart failure - Scribe Statement The provider has reviewed the documentation as recorded by the Scribe Eddy Melendez All medical record entries made by the Scribe were at my direction and personally dictated by me. I have reviewed the chart and agree that the record accurately reflects my personal performance of the history, physical exam, medical decision making, and the department course for this patient. I have also personally directed, reviewed, and agree with the discharge instructions and disposition. Decision To Admit - Pt Status Changed To: Hospital Disposition Of: Inpatient - Admit Certification Admit to Inpatient:: After my assessment, the patient will require hospitalization for at least two midnights. This is because of the severity of symptoms shown, intensity of services needed, and/or the medical risk in this patient being treated as an outpatient. - InPatient: Physician Admission Certification: I certify that this patient requires 2 or more midnights of care for the following reason:: After my assessment, the patient will require hospitalization for at least two midnights. This is because of the severity of symptoms shown, intensity of services needed, and/or the medical risk in this patient being treated as an outpatient. - . Bed Request Type: Telemetry Admitting Physician: Jeff Alvarado Patient Diagnosis: Chest pain, Dyspnea, Congestive heart failure
[2017-07-10] MEDS ORDERED: Aspirin 325 mg EC Tablets PO STA (04:48)
[2017-07-10 05:00] LABS: EOS # 0.1 K/uL (0.0-0.7); HEMOGLOBIN 7.9 g/dL (11.0-16.0); MONO # 0.1 K/uL (0.0-0.8); WHITE BLOOD COUNT 4.5 K/uL (4.8-10.8)
[2017-07-10 05:08] LABS: PROTHROMBIN TIME 11.2 SECONDS (9.7-12.2)
[2017-07-10 05:08] LABS: BASO % 0.4 % (0.0-2.0); EOS % 1.2 % (0.0-4.0); LYMPH # 1.2 K/uL (1.0-4.3); LYMPH % 25.6 % (20.0-40.0); MEAN CELL VOLUME 101.9 fL (81.0-99.0); MEAN CORPUSCULAR HEMOGLOBIN 33.3 pg (27.0-31.0); MEAN CORPUSCULAR HGB CONC 32.6 g/dL (33.0-37.0); MEAN PLATELET VOLUME 12.9 fL (7.2-11.7); MONO % 3.2 % (0.0-10.0); NEUT # 3.2 K/uL (1.8-7.0); NEUT % 69.6 % (50.0-75.0); NRBC % 0.4 % (0.0-2.0); RBC 2.38 Mil/uL (3.80-5.20); RED CELL DISTRIBUTION WIDTH 20.2 % (11.5-14.5)
[2017-07-10 05:15] LABS: ALB/GLOB RATIO 0.7 (1.0-2.1); ALBUMIN 2.8 g/dL (3.5-5.0); CALCIUM 8.2 mg/dl (8.6-10.4)
[2017-07-10 05:30] LABS: TROPONIN I 0.141 ng/mL (0.00-0.120)
[2017-07-10 06:15] LABS: SQUAMOUS EPITHIAL < 1 /hpf (0-5); URINE BILIRUBIN NEGATIVE (NEGATIVE); URINE CLARITY Clear (Clear); URINE COLOR Colorless (YELLOW); URINE GLUCOSE (UA) NORMAL (Normal); URINE LEUKOCYTE ESTERASE NEG Leu/uL (Negative); URINE PROTEIN NEGATIVE (NEGATIVE); URINE UROBILINOGEN NORMAL mg/dL (0.2-1.0)
[2017-07-10 06:25] LABS: URINE BLOOD TRACE (NEGATIVE)
[2017-07-10] MEDS: Nitroglycerin 2% Ointment Foilpak UD TOP SCH ×3 (07:18→17:59)
[2017-07-10] MEDS ORDERED: Nitroglycerin 2% Ointment Foilpak UD TOP ONE (07:20)
[2017-07-10] MEDS: (Novolin R) Insulin Human Regular 100 units/ml vial SC SCH ×4 (08:21→21:54)
--- NOTE | 2017-07-10 08:23 | RAD ---
Chest x-ray single frontal view History: Chest pain. Comparison: 05/29/2017 Findings: Prominent diffuse increased interstitial lung markings which may represent edema versus infiltrate versus venous congestion versus chronic fibrosis. Status post median sternotomy and CABG. Patchy increased markings in the left mid to lower lung zone as well as the right lung base. Degenerative changes in the spine. Mild nodularity at the right costophrenic angle. Impression: Prominent diffuse increased interstitial lung markings which may represent edema versus infiltrate versus venous congestion versus chronic fibrosis. Status post median sternotomy and CABG. Patchy increased markings in the left mid to lower lung zone as well as the right lung base. Degenerative changes in the spine. Mild nodularity at the right costophrenic angle.
[2017-07-10] MEDS ORDERED: Home Med 1 UNIT (Simvastatin [Simvastatin] 20 MG) PO SCH (10:00)
[2017-07-10] MEDS: Metoprolol Succinate 12.5 mg XL PO SCH (11:55)
[2017-07-10 14:55] LABS: CK-MB 2.69 ng/mL (0.0-3.38); TROPONIN I 0.132 ng/mL (0.00-0.120)
--- NOTE | 2017-07-10 21:41 | CARD ---
APPROVED REPORT EKG Measurement Heart [id number] <Conclusion> Normal sinus rhythm Left axis deviation Left ventricular hypertrophy with QRS widening and repolarization abnormality Cannot rule out Septal infarct, age undetermined Abnormal ECG
[2017-07-10] MEDS: Brimonidine 0.2% Opth Sol (5ml) OU SCH (21:58)
--- NOTE | 2017-07-10 22:40 | CP.PCM.CON ---
History of Present Illness - History of Present Illness History of Present Illness: 71 year old female with a history of CAD s/p CABG, HTN, DM, multiple myeloma on treatment, admitted with shortness of breath and chest pain. The patient reports to shortness of breath associated with chest pain and dizziness which prompted her to come to the hospital. She is s/p lasix and reports to feeling better. She denies fevers and chills. In regard to her multiple myeloma, she has been receiving Velcade and Revlimid (reduced dosing). She had been on dexamethasone which was discontinued due to hyperglycemia complications. Past medical history: CAD, HTN, DM, multiple myeloma Past surgical history: CABG Family history: Denies hematologic and oncologic problems Social history: Denies tobacco, alcohol, and illicit drug use. Allergies: NKA Review of systems: All remaining review of systems including HEENT, cardiovascular, respiratory, gastrointestinal, genitourinary, musculoskeletal, dermatologic, neurologic, and psychiatric are negative unless mentioned in the HPI. Past Patient History - Infectious Disease Hx of Infectious Diseases: None - Past Medical History & Family History Past Medical History?: Yes - Past Social History Smoking Status: Never Smoked - CARDIAC Hx Cardiac Disorders: Yes Hx Congestive Heart Failure: Yes Hx Hypercholesterolemia: Yes Hx Hypertension: Yes - PULMONARY Hx Respiratory Disorders: Yes Hx Chronic Obstructive Pulmonary Disease (COPD): Yes - NEUROLOGICAL Hx Neurological Disorder: No - HEENT Hx HEENT Problems: Yes Hx Glaucoma: Yes - RENAL Hx Chronic Kidney Disease: Yes - ENDOCRINE/METABOLIC Hx Endocrine Disorders: Yes Hx Diabetes Mellitus Type 2: Yes - HEMATOLOGICAL/ONCOLOGICAL Hx Blood Disorders: Yes Hx Anemia: Yes Other/Comment: multiple myeloma - INTEGUMENTARY Hx Dermatological Problems: No - MUSCULOSKELETAL/RHEUMATOLOGICAL Hx Falls: No - GASTROINTESTINAL Hx Gastrointestinal Disorders: No - GENITOURINARY/GYNECOLOGICAL Hx Genitourinary Disorders: No - PSYCHIATRIC Hx Substance Use: No - SURGICAL HISTORY Hx Surgeries: Yes Hx Coronary Artery Bypass Graft: Yes - ANESTHESIA Hx Anesthesia: Yes Hx Anesthesia Reactions: No Hx Malignant Hyperthermia: No Has any member of the family had a problem w/ anesthesia?: No Meds Allergies/Adverse Reactions: Allergies Allergy/AdvReac Type Severity Reaction Status Date / Time No Known Allergies Allergy Verified 07/10/17 04:49 - Medications Medications: Current Medications Allopurinol (Zyloprim) 100 mg PO DAILY [facility] Last Admin: 07/10/17 11:55 Dose: 100 mg Aspirin (Ecotrin) 81 mg PO DAILY [facility] Last Admin: 07/10/17 11:54 Dose: 81 mg Brimonidine Tartrate (Alphagan 0.2% Opht) 5 ml OU HS [facility] Last Admin: 07/10/17 21:58 Dose: 1 drop Famotidine (Pepcid) 20 mg PO DAILY [facility] Last Admin: 07/10/17 11:55 Dose: 20 mg Ferrous Sulfate (Feosol) 325 mg PO TID [facility] Last Admin: 07/10/17 18:00 Dose: 325 mg Furosemide (Lasix) 40 mg IVP BID [facility] Last Admin: 07/10/17 17:59 Dose: 40 mg Insulin Human Regular (Novolin R) 0 unit [facility] PRN Reason: Protocol Last Admin: 07/10/17 21:54 Dose: Not Given Metoprolol Succinate (Toprol Xl) 12.5 mg PO DAILY [facility] Last Admin: 07/10/17 11:55 Dose: 12.5 mg Nitroglycerin (Nitro-Bid 2% Oint) 1 ea TOP Q6H [facility] Last Admin: 07/10/17 17:59 Dose: 1 ea Rosuvastatin Calcium (Crestor) 5 mg PO HS [facility] Last Admin: 07/10/17 21:54 Dose: 5 mg Sitagliptin Phosphate (Januvia) 25 mg PO DAILY [facility] Last Admin: 07/10/17 11:55 Dose: 25 mg Physical Exam - Head Exam Head Exam: ATRAUMATIC - Eye Exam Eye Exam: Normal appearance - ENT Exam ENT Exam: Mucous Membranes Dry - Respiratory Exam Respiratory Exam: Decreased Breath Sounds - Cardiovascular Exam Cardiovascular Exam: +S1, +S2 - GI/Abdominal Exam GI & Abdominal Exam: Normal Bowel Sounds - Neurological Exam Neurological exam: Oriented x3 - Psychiatric Exam Psychiatric exam: Normal Affect, Normal Mood - Skin Skin Exam: Warm Results - Vital Signs Recent Vital Signs: Last Vital Signs Temp 97.7 F 07/10/17 16:33 Pulse 70 07/10/17 20:07 Resp 20 07/10/17 16:33 BP 138/68 07/10/17 17:59 Pulse Ox 100 07/10/17 16:33 - Labs Result Diagrams: 07/10/17 04:57 07/10/17 04:57 Labs: Laboratory Results - last 24 hr 07/10/17 07/10/17 07/10/17 04:48 04:57 04:57 WBC 4.5 L RBC 2.38 L Hgb 7.9 L Hct 24.2 L MCV 101.9 H D MCH 33.3 H MCHC 32.6 L RDW 20.2 H Plt Count 61 L MPV 12.9 H Neut % (Auto) 69.6 Lymph % (Auto) 25.6 [place] % (Auto) 3.2 Eos % (Auto) 1.2 Baso % (Auto) 0.4 Neut # (Auto) 3.2 Lymph # (Auto) 1.2 [place] # (Auto) 0.1 Eos # (Auto) 0.1 Baso # (Auto) 0.0 PT INR APTT Sodium 141 Potassium 4.5 Chloride 108 H Carbon Dioxide 24 Anion Gap 13 BUN 18 H Creatinine 1.1 Est GFR ( Amer) 59 Est GFR (Non-Af Amer) 49 POC Glucose (mg/dL) Random Glucose 137 H Calcium 8.2 L Total Bilirubin 0.6 AST 59 H D ALT 24 Alkaline Phosphatase 127 H Total Creatine Kinase CK-MB (Mass) Troponin I 0.1410 H* NT-Pro-B Natriuret Pep 57544 H Total Protein 6.8 Albumin 2.8 L D Globulin 4.1 H Albumin/Globulin Ratio 0.7 L Urine Color Colorless Urine Clarity Clear Urine pH 5.0 Ur Specific [place] 1.005 Urine Protein Negative Urine Glucose (UA) Normal Urine Ketones Negative Urine Blood Trace H Urine Nitrate Negative Urine Bilirubin Negative Urine Urobilinogen Normal Ur Leukocyte Esterase Neg Urine WBC (Auto) 1 Urine RBC (Auto) 2 Ur Squamous Epith Cells < 1 07/10/17 07/10/17 07/10/17 05:16 08:19 11:39 WBC RBC Hgb Hct MCV MCH MCHC RDW Plt Count MPV Neut % (Auto) Lymph % (Auto) [place] % (Auto) Eos % (Auto) Baso % (Auto) Neut # (Auto) Lymph # (Auto) [place] # (Auto) Eos # (Auto) Baso # (Auto) PT 11.2 INR 1.0 APTT 22 Sodium Potassium Chloride Carbon Dioxide Anion Gap BUN Creatinine Est GFR ( Amer) Est GFR (Non-Af Amer) POC Glucose (mg/dL) 105 146 H Random Glucose Calcium Total Bilirubin AST ALT Alkaline Phosphatase Total Creatine Kinase CK-MB (Mass) Troponin I NT-Pro-B Natriuret Pep Total Protein Albumin Globulin Albumin/Globulin Ratio Urine Color Urine Clarity Urine pH Ur Specific [place] Urine Protein Urine Glucose (UA) Urine Ketones Urine Blood Urine Nitrate Urine Bilirubin Urine Urobilinogen Ur Leukocyte Esterase Urine WBC (Auto) Urine RBC (Auto) Ur Squamous Epith Cells 07/10/17 07/10/17 07/10/17 14:20 16:48 21:26 WBC RBC Hgb Hct MCV MCH MCHC RDW Plt Count MPV Neut % (Auto) Lymph % (Auto) [place] % (Auto) Eos % (Auto) Baso % (Auto) Neut # (Auto) Lymph # (Auto) [place] # (Auto) Eos # (Auto) Baso # (Auto) PT INR APTT Sodium Potassium Chloride Carbon Dioxide Anion Gap BUN Creatinine Est GFR ( Amer) Est GFR (Non-Af Amer) POC Glucose (mg/dL) 102 121 H Random Glucose Calcium Total Bilirubin AST ALT Alkaline Phosphatase Total Creatine Kinase 49 CK-MB (Mass) 2.69 Troponin I 0.1320 H* NT-Pro-B Natriuret Pep Total Protein Albumin Globulin Albumin/Globulin Ratio Urine Color Urine Clarity Urine pH Ur Specific [place] Urine Protein Urine Glucose (UA) Urine Ketones Urine Blood Urine Nitrate Urine Bilirubin Urine Urobilinogen Ur Leukocyte Esterase Urine WBC (Auto) Urine RBC (Auto) Ur Squamous Epith Cells 07/10/17 22:10 WBC RBC Hgb Hct MCV MCH MCHC RDW Plt Count MPV Neut % (Auto) Lymph % (Auto) [place] % (Auto) Eos % (Auto) Baso % (Auto) Neut # (Auto) Lymph # (Auto) [place] # (Auto) Eos # (Auto) Baso # (Auto) PT INR APTT Sodium Potassium Chloride Carbon Dioxide Anion Gap BUN Creatinine Est GFR ( Amer) Est GFR (Non-Af Amer) POC Glucose (mg/dL) Random Glucose Calcium Total Bilirubin AST ALT Alkaline Phosphatase Total Creatine Kinase 28 L CK-MB (Mass) Troponin I NT-Pro-B Natriuret Pep Total Protein Albumin Globulin Albumin/Globulin Ratio Urine Color Urine Clarity Urine pH Ur Specific [place] Urine Protein Urine Glucose (UA) Urine Ketones Urine Blood Urine Nitrate Urine Bilirubin Urine Urobilinogen Ur Leukocyte Esterase Urine WBC (Auto) Urine RBC (Auto) Ur Squamous Epith Cells Assessment & Plan (1) Pancytopenia Assessment and Plan: likely secondary to multiple myeloma treatment anemia of ckd Status: Acute (2) Multiple myeloma Assessment and Plan: outpatient treatment Thank you for this interesting consult. Status: Acute
[2017-07-10 22:43] LABS: CK-MB 2.38 ng/mL (0.0-3.38); TROPONIN I 0.186 ng/mL (0.00-0.120)
[2017-07-11] MEDS: Nitroglycerin 2% Ointment Foilpak UD TOP SCH ×5 (00:06→18:11)
--- NOTE | 2017-07-11 00:10 | HP ---
HISTORY OF PRESENT ILLNESS: A 71-year-old female who was brought in with history of shortness of breath and was found to be in congestive heart failure. The patient does have history of coronary artery disease, had a CABG done in 2015 to my recollection at [facility] for severe triple-vessel disease. She has a normal LV systolic function to my recollection. She has been admitted in the past on several occasions with congestive heart failure. She also was recently discovered to have multiple myeloma, being treated with chemotherapy by Dr. Disla. She also has chronic kidney disease. MEDICATIONS AT HOME: Include Lasix 40 mg twice a day and every other day she takes 80 mg in the morning, metoprolol 12.5 mg one a day, Vytorin, valsartan which was discontinued; and she is on Crestor, Januvia 25 mg, nitroglycerin paste. She is also on allopurinol 100 mg p.o. once a day. She was in usual of health up until yesterday when she developed sudden shortness of breath, came to the emergency room where she had chest x-ray showing CHF, and first set of troponin was elevated. She has been recommended admission, telemetry showed sinus rhythm. EKG, I was told to have no acute changes. PAST MEDICAL HISTORY: History of CABG, hypertension, repeated admission for CHF, multiple myeloma. ALLERGIES: DENIED. PERSONAL HISTORY: Does not smoke. Does not drink. EXERCISE: She walks around in the house. She does use walker at times. FAMILY HISTORY: Mother had hypertension. Father had diabetes. Brother of [place] at 45. REVIEW OF SYSTEMS: Generalized weakness is noted. Mild to moderate fatigue. Sleeps on one pillow. No PND up until yesterday. Mouth: No sore throat. Pulmonary: Negative for cough or hemoptysis. She does have mild bronchitis and has been seen and followed by Dr. Turner. Cardiac: History of CAD, dyspnea on minimal exertion, hypertension. GI: Negative for hematemesis or melena. She had a problem swallowing and had endoscopy done and has shown gastritis. The patient is able to eat currently regular food. : Negative for hematuria. She does have a chronic kidney disease. Musculoskeletal: No back pain or knee pain. Neurologic: Dizziness, but no syncope. No TIAs. No CVS. Psych: No evidence of depression. PHYSICAL EXAMINATION: GENERAL: Shows an elderly female who is conscious, alert, chronically sick looking, but in no acute distress. VITAL SIGNS: Her blood pressure is 150/70, heart rate of 68 and regular, sinus in the telemetry, respiratory rate of 14, afebrile. She is 5 feet, weighs 100 pounds. HEENT: Head is normocephalic. Eyes, no pallor, no icterus. Mouth: No exudates. NECK: Supple. LUNGS: Shows coarse rales half the way at the lungs. HEART: PMI is normal. S1, S2 normal. Grade 2/6 early systolic ejection murmur in mitral and aortic area. No gallops. ABDOMEN: Soft and nontender. EXTREMITIES: No cyanosis, clubbing or edema. Distal pulses are intact. NEUROLOGIC: She is awake, alert and oriented x3. No focal signs. PSYCH: No evidence of depression. SKIN: Healed surgical scar of previous CABG in the mid sternotomy line is noted, which is well healed. LABORATORY DATA: White count is 4.5, hemoglobin is 7.9, platelet count of 61,000. BUN is 18, creatinine is 1.1. Troponin is 0.14. Chest x-ray, CHF. ProBNP is 34,500. ASSESSMENT: A 71-year-old female with history of multiple myeloma; chronic kidney disease, which is currently stable; coronary artery disease; previous coronary artery bypass graft; has presented with repeat pulmonary edema. PLAN: Diuretic, nitrates, and calcium beta blockers. May resume LUIS inhibitors, if she can tolerate. We will have Dr. Disla follow up for low hemoglobin and platelets of 61,000 on chemotherapy. Not an ideal candidate for invasive workup including catheterization, and patient was scheduled for Lexiscan as an outpatient. We will discuss with the family. Jeff Alvarado MD
[2017-07-11] MEDS: (Novolin R) Insulin Human Regular 100 units/ml vial SC SCH ×4 (08:03→21:25)
[2017-07-11] MEDS: Metoprolol Succinate 12.5 mg XL PO SCH (10:25)
--- NOTE | 2017-07-11 12:49 | CARD ---
APPROVED REPORT EKG Measurement Heart [id number] <Conclusion> Normal sinus rhythm Left axis deviation Left ventricular hypertrophy with QRS widening and repolarization abnormality Abnormal ECG
[2017-07-11] MEDS: guaiFENesin 100 mg/5 ml Syrup UD PO PRN (14:12)
--- NOTE | 2017-07-11 19:04 | CP.PCM.PN ---
Subjective - Date & Time of Evaluation Date of Evaluation: 07/11/17 Time of Evaluation: 19:03 - Subjective Subjective: weak,fever,chills.bradycardia Objective - Vital Signs/Intake and Output Vital Signs (last 24 hours): Temp Pulse Resp BP Pulse Ox 102 F H 79 20 144/59 L 97 07/11/17 16:21 07/11/17 16:21 07/11/17 16:21 07/11/17 18:11 07/11/17 16:21 - Medications Medications: Current Medications Allopurinol (Zyloprim) 100 mg PO DAILY [facility] Last Admin: 07/11/17 10:25 Dose: 100 mg Aspirin (Ecotrin) 81 mg PO DAILY [facility] Last Admin: 07/11/17 10:25 Dose: 81 mg Brimonidine Tartrate (Alphagan 0.2% Opht) 5 ml OU HS [facility] Last Admin: 07/10/17 21:58 Dose: 1 drop Famotidine (Pepcid) 20 mg PO DAILY [facility] Last Admin: 07/11/17 10:25 Dose: 20 mg Ferrous Sulfate (Feosol) 325 mg PO TID [facility] Last Admin: 07/11/17 18:11 Dose: 325 mg Furosemide (Lasix) 40 mg IVP BID [facility] Last Admin: 07/11/17 18:11 Dose: 40 mg Guaifenesin (Robitussin) 5 mg PO QID PRN PRN Reason: cough Last Admin: 07/11/17 14:12 Dose: 5 mg Azithromycin 250 mg/ Sodium (Chloride) 250 mls @ 250 mls/hr IVPB DAILY [facility] PRN Reason: Protocol Stop: 07/14/17 10:59 Insulin Human Regular (Novolin R) 0 unit SC ACHS [facility] PRN Reason: Protocol Last Admin: 07/11/17 16:40 Dose: Not Given Nitroglycerin (Nitro-Bid 2% Oint) 1 ea TOP Q6H [facility] Last Admin: 07/11/17 18:11 Dose: 1 ea Rosuvastatin Calcium (Crestor) 5 mg PO HS [facility] Last Admin: 07/10/17 21:54 Dose: 5 mg Sitagliptin Phosphate (Januvia) 25 mg PO DAILY [facility] Last Admin: 07/11/17 10:25 Dose: 25 mg - Labs Labs: 07/10/17 04:57 07/11/17 14:24 PT 11.2 SECONDS (9.7-12.2) 07/10/17 05:16 INR 1.0 07/10/17 05:16 APTT 22 SECONDS (21-34) 07/10/17 05:16 - Constitutional Appears: No Acute Distress, Chronically Ill - Head Exam Head Exam: NORMOCEPHALIC - Eye Exam Eye Exam: Normal appearance - ENT Exam ENT Exam: Mucous Membranes Moist - Respiratory Exam Respiratory Exam: Rhonchi, Wheezes - Cardiovascular Exam Cardiovascular Exam: REGULAR RHYTHM, Murmur - GI/Abdominal Exam GI & Abdominal Exam: Soft - Extremities Exam Extremities Exam: absent: Pedal Edema - Neurological Exam Neurological Exam: Alert, Oriented x3 Assessment and Plan - Assessment and Plan (Free Text) Assessment: chf,poss pneumonia. will d/c toprol.add z pack.pul & id consult.diss with .
[2017-07-11] MEDS: Brimonidine 0.2% Opth Sol (5ml) OU SCH (21:48)
[2017-07-12] MEDS: Nitroglycerin 2% Ointment Foilpak UD TOP SCH ×5 (00:23→23:44)
[2017-07-12] MEDS: (Novolin R) Insulin Human Regular 100 units/ml vial SC SCH ×4 (07:48→21:26)
[2017-07-12 08:36] LABS: BASO % 0.2 % (0.0-2.0); LYMPH # 1.1 K/uL (1.0-4.3); LYMPH % 9.5 % (20.0-40.0); MEAN CELL VOLUME 100.3 fL (81.0-99.0); MEAN CORPUSCULAR HEMOGLOBIN 32.8 pg (27.0-31.0); MEAN CORPUSCULAR HGB CONC 32.7 g/dL (33.0-37.0); MEAN PLATELET VOLUME 12.3 fL (7.2-11.7); MONO # 0.4 K/uL (0.0-0.8); MONO % 3.4 % (0.0-10.0); NEUT # 10.1 K/uL (1.8-7.0); NEUT % 86.9 % (50.0-75.0); NRBC % 0.1 % (0.0-2.0); PLATELET COUNT 48 K/uL (130-400); RBC 2.43 Mil/uL (3.80-5.20); RED CELL DISTRIBUTION WIDTH 19.3 % (11.5-14.5)
[2017-07-12 08:39] LABS: WHITE BLOOD COUNT 11.7 K/uL (4.8-10.8)
[2017-07-12 08:55] LABS: CALCIUM 7.9 mg/dl (8.6-10.4)
[2017-07-12 09:56] LABS: BANDS 20 % (0-2); MONOCYTE 5 % (0-10); NUCLEATED RED BLOOD CELL 1 % (0-0); TOTAL CELLS COUNTED 100
[2017-07-12 09:57] LABS: ANISOCYTOSIS SLIGHT; HYPOCHROMIC SLIGHT; LYMPHOCYTE 10 % (20-40); MICROCYTOSIS SLIGHT; NEUTROPHIL 15 % (50-75); OVALOCYTES SLIGHT; PLATELET ESTIMATE DECREASED (NORMAL); POIKILOCYTOSIS SLIGHT; TARGET CELLS SLIGHT
[2017-07-12 09:58] LABS: LARGE PLATELETS PRESENT
--- NOTE | 2017-07-12 10:09 | CP.PCM.PN ---
Subjective - Date & Time of Evaluation Date of Evaluation: 07/12/17 - Subjective Subjective: Hematology- Oncology Progress Note- Dr. Disla's service Objective - Vital Signs/Intake and Output Vital Signs (last 24 hours): Temp Pulse Resp BP Pulse Ox 98.6 F 69 18 107/58 L 100 07/12/17 08:05 07/12/17 08:49 07/12/17 08:05 07/12/17 08:05 07/12/17 08:05 - Medications Medications: Current Medications Allopurinol (Zyloprim) 100 mg PO DAILY [facility] Last Admin: 07/11/17 10:25 Dose: 100 mg Aspirin (Ecotrin) 81 mg PO DAILY [facility] Last Admin: 07/11/17 10:25 Dose: 81 mg Brimonidine Tartrate (Alphagan 0.2% Opht) 5 ml OU HS [facility] Last Admin: 07/11/17 21:48 Dose: 1 drop Famotidine (Pepcid) 20 mg PO DAILY [facility] Last Admin: 07/11/17 10:25 Dose: 20 mg Ferrous Sulfate (Feosol) 325 mg PO TID [facility] Last Admin: 07/11/17 18:11 Dose: 325 mg Furosemide (Lasix) 40 mg IVP BID [facility] Last Admin: 07/11/17 18:11 Dose: 40 mg Guaifenesin (Robitussin) 5 mg PO QID PRN PRN Reason: cough Last Admin: 07/11/17 14:12 Dose: 5 mg Azithromycin 250 mg/ Sodium (Chloride) 250 mls @ 250 mls/hr IVPB DAILY [facility] PRN Reason: Protocol Stop: 07/14/17 10:59 Insulin Human Regular (Novolin R) 0 unit SC ACHS [facility] PRN Reason: Protocol Last Admin: 07/12/17 07:48 Dose: Not Given Nitroglycerin (Nitro-Bid 2% Oint) 1 ea TOP Q6H [facility] Last Admin: 07/12/17 05:49 Dose: Not Given Rosuvastatin Calcium (Crestor) 5 mg PO HS [facility] Last Admin: 07/11/17 21:48 Dose: 5 mg Sitagliptin Phosphate (Januvia) 25 mg PO DAILY [facility] Last Admin: 07/11/17 10:25 Dose: 25 mg - Labs Labs: 07/12/17 08:20 07/12/17 08:20 PT 11.2 SECONDS (9.7-12.2) 07/10/17 05:16 INR 1.0 07/10/17 05:16 APTT 22 SECONDS (21-34) 07/10/17 05:16 Assessment and Plan - Assessment and Plan (Free Text) Assessment: Pancytopenia Assessment and Plan: Status: Acute Multiple myeloma Assessment and Plan: Status: Chronic Prophylactic Measure
[2017-07-12] MEDS: Azithromycin 250 MG in Sodium Chloride 0.9% 250 ML IVPB SCH (10:43)
--- NOTE | 2017-07-12 12:21 | CP.PCM.PN ---
Subjective - Date & Time of Evaluation Date of Evaluation: 07/11/17 Time of Evaluation: 13:00 - Subjective Subjective: No complaints. Objective - Vital Signs/Intake and Output Vital Signs (last 24 hours): Temp Pulse Resp BP Pulse Ox 98.6 F 69 18 108/64 100 07/12/17 08:05 07/12/17 08:49 07/12/17 08:05 07/12/17 10:43 07/12/17 08:05 - Medications Medications: Current Medications Albuterol/Ipratropium (Duoneb 3 Mg/0.5 Mg (3 Ml) Ud) 3 ml INH RQ6 PRN PRN Reason: wheezing Allopurinol (Zyloprim) 100 mg PO DAILY [facility] Last Admin: 07/12/17 10:44 Dose: 100 mg Aspirin (Ecotrin) 81 mg PO DAILY [facility] Last Admin: 07/12/17 10:43 Dose: 81 mg Brimonidine Tartrate (Alphagan 0.2% Opht) 5 ml OU HS [facility] Last Admin: 07/11/17 21:48 Dose: 1 drop Famotidine (Pepcid) 20 mg PO DAILY [facility] Last Admin: 07/12/17 10:43 Dose: 20 mg Ferrous Sulfate (Feosol) 325 mg PO TID [facility] Last Admin: 07/12/17 10:43 Dose: 325 mg Furosemide (Lasix) 40 mg IVP BID [facility] Last Admin: 07/12/17 10:43 Dose: 40 mg Guaifenesin (Robitussin) 5 mg PO QID PRN PRN Reason: cough Last Admin: 07/11/17 14:12 Dose: 5 mg Azithromycin 250 mg/ Sodium (Chloride) 250 mls @ 250 mls/hr IVPB DAILY [facility] PRN Reason: Protocol Stop: 07/14/17 10:59 Last Admin: 07/12/17 10:43 Dose: 250 mls/hr Vancomycin/Sodium Chloride (Vancomycin 1 Gm/Ns 200 Ml) 1 gm in 200 mls @ 133 mls/hr IVPB 1300 [facility] PRN Reason: Protocol Stop: 07/12/17 14:31 Insulin Human Regular (Novolin R) 0 unit SC ACHS [facility] PRN Reason: Protocol Last Admin: 07/12/17 12:13 Dose: Not Given Nitroglycerin (Nitro-Bid 2% Oint) 1 ea TOP Q6H [facility] Last Admin: 07/12/17 05:49 Dose: Not Given Rosuvastatin Calcium (Crestor) 5 mg PO HS [facility] Last Admin: 07/11/17 21:48 Dose: 5 mg Sitagliptin Phosphate (Januvia) 25 mg PO DAILY [facility] Last Admin: 07/12/17 10:43 Dose: 25 mg - Labs Labs: 07/12/17 08:20 07/12/17 08:20 PT 11.2 SECONDS (9.7-12.2) 07/10/17 05:16 INR 1.0 07/10/17 05:16 APTT 22 SECONDS (21-34) 07/10/17 05:16 - Head Exam Head Exam: ATRAUMATIC - Eye Exam Eye Exam: Normal appearance - ENT Exam ENT Exam: Mucous Membranes Dry - Respiratory Exam Respiratory Exam: NORMAL BREATHING PATTERN - Cardiovascular Exam Cardiovascular Exam: +S1, +S2 - GI/Abdominal Exam GI & Abdominal Exam: Normal Bowel Sounds Assessment and Plan (1) Pancytopenia Assessment & Plan: secondary to myeloma treatment; on hold element of anemia of chronic disease repeat CBC in AM Status: Acute (2) Multiple myeloma Assessment & Plan: on outpatient Revlimid and Velcade Status: Acute
--- NOTE | 2017-07-12 12:22 | CP.PCM.PN ---
Subjective - Date & Time of Evaluation Date of Evaluation: 07/12/17 Time of Evaluation: 11:00 - Subjective Subjective: No complaints but audible wheezing Objective - Vital Signs/Intake and Output Vital Signs (last 24 hours): Temp Pulse Resp BP Pulse Ox 98.6 F 69 18 108/64 100 07/12/17 08:05 07/12/17 08:49 07/12/17 08:05 07/12/17 10:43 07/12/17 08:05 - Medications Medications: Current Medications Albuterol/Ipratropium (Duoneb 3 Mg/0.5 Mg (3 Ml) Ud) 3 ml INH RQ6 PRN PRN Reason: wheezing Allopurinol (Zyloprim) 100 mg PO DAILY [facility] Last Admin: 07/12/17 10:44 Dose: 100 mg Aspirin (Ecotrin) 81 mg PO DAILY [facility] Last Admin: 07/12/17 10:43 Dose: 81 mg Brimonidine Tartrate (Alphagan 0.2% Opht) 5 ml OU HS [facility] Last Admin: 07/11/17 21:48 Dose: 1 drop Famotidine (Pepcid) 20 mg PO DAILY [facility] Last Admin: 07/12/17 10:43 Dose: 20 mg Ferrous Sulfate (Feosol) 325 mg PO TID [facility] Last Admin: 07/12/17 10:43 Dose: 325 mg Furosemide (Lasix) 40 mg IVP BID [facility] Last Admin: 07/12/17 10:43 Dose: 40 mg Guaifenesin (Robitussin) 5 mg PO QID PRN PRN Reason: cough Last Admin: 07/11/17 14:12 Dose: 5 mg Azithromycin 250 mg/ Sodium (Chloride) 250 mls @ 250 mls/hr IVPB DAILY [facility] PRN Reason: Protocol Stop: 07/14/17 10:59 Last Admin: 07/12/17 10:43 Dose: 250 mls/hr Vancomycin/Sodium Chloride (Vancomycin 1 Gm/Ns 200 Ml) 1 gm in 200 mls @ 133 mls/hr IVPB 1300 [facility] PRN Reason: Protocol Stop: 07/12/17 14:31 Insulin Human Regular (Novolin R) 0 unit SC ACHS [facility] PRN Reason: Protocol Last Admin: 07/12/17 12:13 Dose: Not Given Nitroglycerin (Nitro-Bid 2% Oint) 1 ea TOP Q6H [facility] Last Admin: 07/12/17 05:49 Dose: Not Given Rosuvastatin Calcium (Crestor) 5 mg PO HS [facility] Last Admin: 07/11/17 21:48 Dose: 5 mg Sitagliptin Phosphate (Januvia) 25 mg PO DAILY [facility] Last Admin: 07/12/17 10:43 Dose: 25 mg - Labs Labs: 07/12/17 08:20 07/12/17 08:20 PT 11.2 SECONDS (9.7-12.2) 07/10/17 05:16 INR 1.0 07/10/17 05:16 APTT 22 SECONDS (21-34) 07/10/17 05:16 - Head Exam Head Exam: ATRAUMATIC - Eye Exam Eye Exam: Normal appearance - ENT Exam ENT Exam: Mucous Membranes Dry - Respiratory Exam Respiratory Exam: Wheezes - Cardiovascular Exam Cardiovascular Exam: +S1, +S2 - GI/Abdominal Exam GI & Abdominal Exam: Normal Bowel Sounds Assessment and Plan (1) Pancytopenia Assessment & Plan: secondary to myeloma treatment WBC rising element of anemia of chronic disease H/H slightly improved Status: Acute (2) Multiple myeloma Assessment & Plan: outpatient treatment Status: Acute
[2017-07-12] MEDS ORDERED: Vancomycin 1 gm/NS 200 ml 1 GM/200 ML BAG IVPB SCH (13:00)
--- NOTE | 2017-07-12 13:54 | CP.PCM.PN ---
Subjective - Date & Time of Evaluation Date of Evaluation: 07/12/17 Time of Evaluation: 13:52 - Subjective Subjective: chest pains when she coughs, Objective - Vital Signs/Intake and Output Vital Signs (last 24 hours): Temp Pulse Resp BP Pulse Ox 98.6 F 69 18 108/64 100 07/12/17 08:05 07/12/17 08:49 07/12/17 08:05 07/12/17 10:43 07/12/17 08:05 - Medications Medications: Current Medications Albuterol/Ipratropium (Duoneb 3 Mg/0.5 Mg (3 Ml) Ud) 3 ml INH RQ6 PRN PRN Reason: wheezing Allopurinol (Zyloprim) 100 mg PO DAILY [facility] Last Admin: 07/12/17 10:44 Dose: 100 mg Aspirin (Ecotrin) 81 mg PO DAILY [facility] Last Admin: 07/12/17 10:43 Dose: 81 mg Brimonidine Tartrate (Alphagan 0.2% Opht) 5 ml OU HS [facility] Last Admin: 07/11/17 21:48 Dose: 1 drop Famotidine (Pepcid) 20 mg PO DAILY [facility] Last Admin: 07/12/17 10:43 Dose: 20 mg Ferrous Sulfate (Feosol) 325 mg PO TID [facility] Last Admin: 07/12/17 10:43 Dose: 325 mg Furosemide (Lasix) 40 mg IVP BID [facility] Last Admin: 07/12/17 10:43 Dose: 40 mg Guaifenesin (Robitussin) 5 mg PO QID PRN PRN Reason: cough Last Admin: 07/11/17 14:12 Dose: 5 mg Azithromycin 250 mg/ Sodium (Chloride) 250 mls @ 250 mls/hr IVPB DAILY [facility] PRN Reason: Protocol Stop: 07/14/17 10:59 Last Admin: 07/12/17 10:43 Dose: 250 mls/hr Vancomycin/Sodium Chloride (Vancomycin 1 Gm/Ns 200 Ml) 1 gm in 200 mls @ 133 mls/hr IVPB 1300 [facility] PRN Reason: Protocol Stop: 07/12/17 14:31 Last Admin: 07/12/17 13:38 Dose: 133 mls/hr Insulin Human Regular (Novolin R) 0 unit SC ACHS [facility] PRN Reason: Protocol Last Admin: 05/09/18 12:13 Dose: Not Given Nitroglycerin (Nitro-Bid 2% Oint) 1 ea TOP Q6H [facility] Last Admin: 07/12/17 13:38 Dose: 1 ea Rosuvastatin Calcium (Crestor) 5 mg PO HS [facility] Last Admin: 07/11/17 21:48 Dose: 5 mg Sitagliptin Phosphate (Januvia) 25 mg PO DAILY [facility] Last Admin: 07/12/17 10:43 Dose: 25 mg - Labs Labs: 07/12/17 08:20 07/12/17 08:20 PT 11.2 SECONDS (9.7-12.2) 07/10/17 05:16 INR 1.0 07/10/17 05:16 APTT 22 SECONDS (21-34) 07/10/17 05:16 - Constitutional Appears: Toxic, Chronically Ill - Head Exam Head Exam: NORMOCEPHALIC - Neck Exam Neck Exam: Normal Inspection - Respiratory Exam Respiratory Exam: Rhonchi, Wheezes - Cardiovascular Exam Cardiovascular Exam: REGULAR RHYTHM - GI/Abdominal Exam GI & Abdominal Exam: Soft - Extremities Exam Extremities Exam: absent: Pedal Edema - Neurological Exam Neurological Exam: Alert, Oriented x3 Assessment and Plan - Assessment and Plan (Free Text) Plan: poss pneumonia.platlets & hb is low.cr is up 1.6.will call pul again.needs nephro f/u. poor prognosis
--- NOTE | 2017-07-12 14:22 | RAD ---
HISTORY: chf COMPARISON: Chest radiograph dated 07/10/2017. FINDINGS: LUNGS: Stable chronic prominence of the bilateral interstitial markings with superimposed pulmonary vascular congestion not excluded. New left midlung opacity may represent new consolidation versus atelectasis. PLEURA: Trace effusions not excluded. No pneumothorax apparent. CARDIOVASCULAR: Sternotomy with sternal wires and surgical clips redemonstrated. Atherosclerotic aortic calcifications. Cardiomediastinal silhouette stably enlarged. OSSEOUS STRUCTURES: Unchanged. VISUALIZED UPPER ABDOMEN: Normal. OTHER FINDINGS: None. IMPRESSION: Stable chronic prominence of the bilateral interstitial markings with superimposed pulmonary vascular congestion not excluded. New left midlung opacity which may represent focal consolidation versus atelectasis.
--- NOTE | 2017-07-12 15:38 | CP.PCM.CON ---
History of Present Illness - History of Present Illness History of Present Illness: 71 year old female with a history of CAD s/p CABG, HTN, DM, multiple myeloma on treatment, admitted with shortness of breath and chest pain. Referred for ID eval fore bacteremia sepsis with positive blood cultures The patient reports to shortness of breath associated with chest pain and dizziness which prompted her to come to the hospital. She is s/p lasix and reports to feeling better. She denies fevers and chills. In regard to her multiple myeloma, she has been receiving Velcade and Revlimid (reduced dosing). She had been on dexamethasone which was discontinued due to hyperglycemia complications. Past medical history: CAD, HTN, DM, multiple myeloma Past surgical history: CABG Family history: Denies hematologic and oncologic problems Social history: Denies tobacco, alcohol, and illicit drug use. Allergies: NKA Review of systems: All remaining review of systems including HEENT, cardiovascular, respiratory, gastrointestinal, genitourinary, musculoskeletal, dermatologic, neurologic, and psychiatric are negative unless mentioned in the HPI. Review of Systems - Review of Systems All systems: reviewed and no additional remarkable complaints except - Constitutional Constitutional: As Per HPI - EENT Eyes: absent: As Per HPI, Blind Spots, Blurred Vision, Change in Vision, Decreased Night Vision, Diplopia, Discharge, Dry Eye, Exophthalmos, Floaters, Irritation, Itchy Eyes, Loss of Peripheral Vision, Pain, Photophobia, Requires Corrective Lenses, Sees Flashes, Spots in Vision, Tunnel Vision, Other Visual Disturbances, Loss of Vision, Other Ears: absent: As Per HPI, Decreased Hearing, Ear Discharge, Ear Pain, Tinnitus, Abnormal Hearing, Disequilibrium, Dizziness, Other Nose/Mouth/Throat: absent: As Per HPI, Epistaxis, Nasal Congestion, Nasal Discharge, Nasal Obstruction, Nasal Trauma, Nose Pain, Post Nasal Drip, Sinus Pain, Sinus Pressure, Bleeding Gums, Change in Voice, Dental Pain, Dry Mouth, Dysphagia, Halitosis, Hoarsness, Lip Swelling, Mouth Lesions, Mouth Pain, Odynophagia, Sore Throat, Throat Swelling, Tongue Swelling, Facial Pain, Neck Pain, Neck Mass, Other - Breasts Breasts: absent: As Per HPI, Change in Shape, Mass, Pain, Nipple Discharge, Nipple Inversion, Skin Changes, Swelling, Other - Cardiovascular Cardiovascular: As Per HPI - Respiratory Respiratory: As Per HPI, Cough, Dyspnea - Gastrointestinal Gastrointestinal: absent: As Per HPI, Abdominal Pain, Belching, Bloating, Change in Bowel Habits, Change in Stool Character, Coffee Ground Emesis, Constipation, Cramping, Diarrhea, Dyspepsia, Dysphagia, Early Satiety, Excessive Flatus, Fecal Incontinence, Heartburn, Hematemesis, Hematochezia, Loose Stools, Melena, Nausea, Odynophagia, Temesmus, Vomiting, Other - Genitourinary Genitourinary: absent: As Per HPI, Change in Urinary Stream, Difficulty Urinating, Dysuria, Flank Pain, Hematuria, Pyuria, Nocturia, Urinary Incontinence, Urinary Frequency, Urinary Hesitance, Urinary Urgency, Voiding Freq/Small Amts, Freq UTI, Hx Renal/Bladder Calculi, Hx /Renal Surgery, Bladder Distension, Other - Reproductive: Female Reproductive:Female: absent: As Per HPI, Amenorrhea, Amenorrhea/ Control, Currently Menstual, Cycle <21 Days, Cycle >35 Days, Cycle Variable, Menses 1-7 Days, Menses >/= 8 Days, Menses Variable, Cycle > 4 Weeks Between, No Menses for 6 Months, Heavy Menses, Light Menses, Normal Menses, Spotting Between Cycles , S/P Hysterectomy, Menopausal, Post Menopausal, Premenarche, Abnormal Vaginal Bleeding, Dysmenorrhea, Dyspareunia, Genital Lesions, Genital Pruritis, Pelvic Pain, Prolapse Symptoms, Sexual Dysfunction, Vaginal Discharge, Vaginal Dryness , Vaginal Odor, Vaginal Pruritis, Other - Menstruation Menstruation: absent: As Per HPI, Amenorrhea, Amenorrhea/ Control, Currently Menstual, Cycle <21 Days, Cycle >35 Days, Cycle Variable, Menses 1-7 Days, Menses >/= 8 Days, Menses Variable, Cycle > 4 Weeks Between, No Menses for 6 Months, Heavy Menses, Light Menses, Normal Menses, Spotting Between Cycles , S/P Hysterectomy, Menopausal, Post Menopausal, Premenarche, Abnormal Vaginal Bleeding, Dysmenorrhea, Other - Musculoskeletal Musculoskeletal: absent: As Per HPI, Abnormal Gait, Arthralgias, Atrophy, Back Pain, Deformity, Joint Swelling, Limited Range of Motion, Loss of Height, Muscle Cramps, Muscle Weakness, Myalgias, Neck Pain, Numbness, Radiating Pain into Limb, Stiffness, Tingling, Other - Integumentary Integumentary: absent: As Per HPI, Acne, Alopecia, Bleeding Lesions, Change in Hair, Change in Nails, Change in Pigmentation, Changing Lesions, Dry Skin, Erythema, Furuncle, Hirsutism, Lesions, New Lesions, Non-Healing Lesions, Photosensitivity, Pruritus, Rash, Skin Pain, Skin Ulcer, Sores, Striae, Swelling , Unusual Bruising, Wounds, Jaundice, Other - Neurological Neurological: absent: As Per HPI, Abnormal Gait, Abnormal Hearing, Abnormal Movements, Abnormal Speech, Behavioral Changes, Burning Sensations, Confusion, Convulsions, Disequilibrium, Dizziness, Numbness, Focal Weakness, Frequent Falls , Headaches, Lack of Coordination, Loss of Vision, Memory Loss, Paresthesias, Radicular Pain, Restless Legs, Sensory Deficit, Syncope, Tingling, Tremor, Vertigo, Weakness, Other Visual Disturbances, Other - Psychiatric Psychiatric: absent: As Per HPI, Abnormal Sleep Pattern, Anhedonia, Anxiety, Auditory Hallucinations, Behavioral Changes, Change in Appetite, Change in Libido, Confusion, Depression, Difficulty Concentrating, Hallucinations, Homicidal Ideation, Hopelessness, Irritability, Memory Loss, Mood Swings, Panic Attacks, Paranoia, Suicidal Ideation, Visual Hallucinations, Tactile Hallucinations, Other - Endocrine Endocrine: absent: As Per HPI, Change in Body Appearance, Change in Libido, Cold Intolorance, Deepening of Voice, Excessive Sweating, Fatigue, Flushing, Heat Intolorance, Increase in Ring/Shoe/Hat Size, Palpitations, Polydipsia, Polyphagia, Polyuria, Other - Hematologic/Lymphatic Hematologic: absent: As Per HPI, Easy Bleeding, Easy Bruising, Lymphadenopathy, Other Past Patient History - Infectious Disease Hx of Infectious Diseases: None - Past Medical History & Family History Past Medical History?: Yes - Past Social History Smoking Status: Never Smoked - CARDIAC Hx Cardiac Disorders: Yes Hx Congestive Heart Failure: Yes Hx Hypercholesterolemia: Yes Hx Hypertension: Yes - PULMONARY Hx Respiratory Disorders: Yes Hx Chronic Obstructive Pulmonary Disease (COPD): Yes - NEUROLOGICAL Hx Neurological Disorder: No - HEENT Hx HEENT Problems: Yes Hx Glaucoma: Yes - RENAL Hx Chronic Kidney Disease: Yes - ENDOCRINE/METABOLIC Hx Endocrine Disorders: Yes Hx Diabetes Mellitus Type 2: Yes - HEMATOLOGICAL/ONCOLOGICAL Hx Blood Disorders: Yes Hx Anemia: Yes Other/Comment: multiple myeloma - INTEGUMENTARY Hx Dermatological Problems: No - MUSCULOSKELETAL/RHEUMATOLOGICAL Hx Falls: No - GASTROINTESTINAL Hx Gastrointestinal Disorders: No - GENITOURINARY/GYNECOLOGICAL Hx Genitourinary Disorders: No - PSYCHIATRIC Hx Substance Use: No - SURGICAL HISTORY Hx Surgeries: Yes Hx Coronary Artery Bypass Graft: Yes - ANESTHESIA Hx Anesthesia: Yes Hx Anesthesia Reactions: No Hx Malignant Hyperthermia: No Has any member of the family had a problem w/ anesthesia?: No Meds Allergies/Adverse Reactions: Allergies Allergy/AdvReac Type Severity Reaction Status Date / Time No Known Allergies Allergy Verified 07/10/17 04:49 - Medications Medications: Current Medications Albuterol/Ipratropium (Duoneb 3 Mg/0.5 Mg (3 Ml) Ud) 3 ml INH RQ6 PRN PRN Reason: wheezing Allopurinol (Zyloprim) 100 mg PO DAILY [facility] Last Admin: 07/12/17 10:44 Dose: 100 mg Aspirin (Ecotrin) 81 mg PO DAILY [facility] Last Admin: 07/12/17 10:43 Dose: 81 mg Brimonidine Tartrate (Alphagan 0.2% Opht) 5 ml OU HS [facility] Last Admin: 07/11/17 21:48 Dose: 1 drop Famotidine (Pepcid) 20 mg PO DAILY [facility] Last Admin: 07/12/17 10:43 Dose: 20 mg Ferrous Sulfate (Feosol) 325 mg PO TID [facility] Last Admin: 07/12/17 10:43 Dose: 325 mg Furosemide (Lasix) 40 mg IVP BID [facility] Last Admin: 07/12/17 10:43 Dose: 40 mg Guaifenesin (Robitussin) 5 mg PO QID PRN PRN Reason: cough Last Admin: 07/11/17 14:12 Dose: 5 mg Azithromycin 250 mg/ Sodium (Chloride) 250 mls @ 250 mls/hr IVPB DAILY [facility] PRN Reason: Protocol Stop: 07/14/17 10:59 Last Admin: 07/12/17 10:43 Dose: 250 mls/hr Insulin Human Regular (Novolin R) 0 unit SC ACHS [facility] PRN Reason: Protocol Last Admin: 07/12/17 12:13 Dose: Not Given Nitroglycerin (Nitro-Bid 2% Oint) 1 ea TOP Q6H [facility] Last Admin: 07/12/17 13:38 Dose: 1 ea Rosuvastatin Calcium (Crestor) 5 mg PO HS [facility] Last Admin: 07/11/17 21:48 Dose: 5 mg Sitagliptin Phosphate (Januvia) 25 mg PO DAILY [facility] Last Admin: 07/12/17 10:43 Dose: 25 mg Physical Exam - Constitutional Appears: Non-toxic, Chronically Ill - Head Exam Head Exam: NORMOCEPHALIC - Eye Exam Eye Exam: PERRL. absent: Scleral icterus - ENT Exam ENT Exam: Mucous Membranes Dry, Normal External Ear Exam - Neck Exam Neck exam: Negative for: Lymphadenopathy - Respiratory Exam Respiratory Exam: Decreased Breath Sounds, Prolonged Expiratory Phase, Rales, Rhonchi - Cardiovascular Exam Cardiovascular Exam: REGULAR RHYTHM, +S1, +S2 - GI/Abdominal Exam GI & Abdominal Exam: Diminished Bowel Sounds, Distended, Soft. absent: Rebound , Rigid, Tenderness - Rectal Exam Rectal Exam: Deferred - Exam Exam: NORMAL INSPECTION - Extremities Exam Extremities exam: Positive for: pedal pulses present. Negative for: calf tenderness, pedal edema, tenderness - Back Exam Back exam: absent: CVA tenderness (L), CVA tenderness (R), paraspinal tenderness - Neurological Exam Neurological exam: Alert, CN II-XII Intact, Oriented x3, Reflexes Normal - Psychiatric Exam Psychiatric exam: Normal Mood - Skin Skin Exam: Dry, Intact Results - Vital Signs Recent Vital Signs: Last Vital Signs Temp 98.6 F 07/12/17 08:05 Pulse 69 07/12/17 08:49 Resp 18 07/12/17 08:05 BP 108/64 07/12/17 10:43 Pulse Ox 100 07/12/17 08:05 - Labs Result Diagrams: 07/12/17 08:20 07/12/17 08:20 Labs: Laboratory Results - last 24 hr 07/11/17 07/11/17 07/12/17 16:07 21:10 06:14 WBC RBC Hgb Hct MCV MCH MCHC RDW Plt Count MPV Neut % (Auto) Lymph % (Auto) [place] % (Auto) Eos % (Auto) Baso % (Auto) Neut # (Auto) Lymph # (Auto) [place] # (Auto) Eos # (Auto) Baso # (Auto) Neutrophils % (Manual) Band Neutrophils % Lymphocytes % (Manual) Monocytes % (Manual) Nucleated RBC % Platelet Estimate Large Platelets Hypochromasia (manual) Poikilocytosis (manual Anisocytosis (manual) Microcytosis (manual) Macrocytosis (manual) Target Cells Ovalocytes Sodium Potassium Chloride Carbon Dioxide Anion Gap BUN Creatinine Est GFR ( Amer) Est GFR (Non-Af Amer) POC Glucose (mg/dL) 136 H 122 H 115 H Random Glucose Calcium 07/12/17 07/12/17 07/12/17 08:20 08:20 10:58 WBC 11.7 H D RBC 2.43 L Hgb 8.0 L Hct 24.4 L MCV 100.3 H MCH 32.8 H MCHC 32.7 L RDW 19.3 H Plt Count 48 L MPV 12.3 H Neut % (Auto) 86.9 H Lymph % (Auto) 9.5 L [place] % (Auto) 3.4 Eos % (Auto) 0.0 Baso % (Auto) 0.2 Neut # (Auto) 10.1 H Lymph # (Auto) 1.1 [place] # (Auto) 0.4 Eos # (Auto) 0.0 Baso # (Auto) 0.0 Neutrophils % (Manual) 15 L Band Neutrophils % 20 H* Lymphocytes % (Manual) 10 L Monocytes % (Manual) 5 Nucleated RBC % 1 H Platelet Estimate Decreased L Large Platelets Present Hypochromasia (manual) Slight Poikilocytosis (manual Slight Anisocytosis (manual) Slight Microcytosis (manual) Slight Macrocytosis (manual) Slight Target Cells Slight Ovalocytes Slight Sodium 135 Potassium 3.9 Chloride 97 L Carbon Dioxide 28 Anion Gap 14 BUN 26 H Creatinine 1.6 H Est GFR ( Amer) 38 Est GFR (Non-Af Amer) 32 POC Glucose (mg/dL) 128 H Random Glucose 106 H Calcium 7.9 L Assessment & Plan (1) Sepsis Status: Acute (2) Bacteremia Status: Acute (3) Chest pain Status: Acute (4) Congestive heart failure Status: Acute - Assessment and Plan (Free Text) Assessment: severe sepsis bacteremia chf [place] myeloma dehydration resp insuff cont IV antibiotics cover for MRSA prognosis guarded
[2017-07-12] MEDS: Cefepime IV 1 gm in Dextrose 1 GM/50 ML BAG IVPB SCH (17:45)
--- NOTE | 2017-07-12 18:58 | CP.PCM.CON ---
History of Present Illness - History of Present Illness History of Present Illness: pt is seen and examined, full consult is dictated #[id number] Past Patient History - Infectious Disease Hx of Infectious Diseases: None - Past Medical History & Family History Past Medical History?: Yes - Past Social History Smoking Status: Never Smoked - CARDIAC Hx Cardiac Disorders: Yes Hx Congestive Heart Failure: Yes Hx Hypercholesterolemia: Yes Hx Hypertension: Yes - PULMONARY Hx Respiratory Disorders: Yes Hx Chronic Obstructive Pulmonary Disease (COPD): Yes - NEUROLOGICAL Hx Neurological Disorder: No - HEENT Hx HEENT Problems: Yes Hx Glaucoma: Yes - RENAL Hx Chronic Kidney Disease: Yes - ENDOCRINE/METABOLIC Hx Endocrine Disorders: Yes Hx Diabetes Mellitus Type 2: Yes - HEMATOLOGICAL/ONCOLOGICAL Hx Blood Disorders: Yes Hx Anemia: Yes Other/Comment: multiple myeloma - INTEGUMENTARY Hx Dermatological Problems: No - MUSCULOSKELETAL/RHEUMATOLOGICAL Hx Falls: No - GASTROINTESTINAL Hx Gastrointestinal Disorders: No - GENITOURINARY/GYNECOLOGICAL Hx Genitourinary Disorders: No - PSYCHIATRIC Hx Substance Use: No - SURGICAL HISTORY Hx Surgeries: Yes Hx Coronary Artery Bypass Graft: Yes - ANESTHESIA Hx Anesthesia: Yes Hx Anesthesia Reactions: No Hx Malignant Hyperthermia: No Has any member of the family had a problem w/ anesthesia?: No Meds Allergies/Adverse Reactions: Allergies Allergy/AdvReac Type Severity Reaction Status Date / Time No Known Allergies Allergy Verified 07/10/17 04:49 - Medications Medications: Current Medications Albuterol/Ipratropium (Duoneb 3 Mg/0.5 Mg (3 Ml) Ud) 3 ml INH RQ6 PRN PRN Reason: wheezing Allopurinol (Zyloprim) 100 mg PO DAILY [facility] Last Admin: 07/12/17 10:44 Dose: 100 mg Aspirin (Ecotrin) 81 mg PO DAILY [facility] Last Admin: 07/12/17 10:43 Dose: 81 mg Brimonidine Tartrate (Alphagan 0.2% Opht) 5 ml OU HS [facility] Last Admin: 07/11/17 21:48 Dose: 1 drop Famotidine (Pepcid) 20 mg PO DAILY [facility] Last Admin: 07/12/17 10:43 Dose: 20 mg Ferrous Sulfate (Feosol) 325 mg PO TID [facility] Last Admin: 07/12/17 17:45 Dose: 325 mg Furosemide (Lasix) 40 mg IVP BID [facility] Last Admin: 07/12/17 17:45 Dose: 40 mg Guaifenesin (Robitussin) 5 mg PO QID PRN PRN Reason: cough Last Admin: 07/11/17 14:12 Dose: 5 mg Azithromycin 250 mg/ Sodium (Chloride) 250 mls @ 250 mls/hr IVPB DAILY [facility] PRN Reason: Protocol Stop: 07/14/17 10:59 Last Admin: 07/12/17 10:43 Dose: 250 mls/hr Linezolid (Zyvox 600mg/300ml D5w) 600 mg in 300 mls @ 200 mls/hr IVPB Q12 [facility] PRN Reason: Protocol Cefepime HCl (Maxipime Iv 1 Gm Premix) 1 gm in 50 mls @ 100 mls/hr IVPB Q12H [facility] PRN Reason: Protocol Last Admin: 07/12/17 17:45 Dose: 100 mls/hr Insulin Human Regular (Novolin R) 0 unit SC ACHS [facility] PRN Reason: Protocol Last Admin: 07/12/17 16:07 Dose: Not Given Nitroglycerin (Nitro-Bid 2% Oint) 1 ea TOP Q6H [facility] Last Admin: 07/12/17 17:45 Dose: 1 ea Rosuvastatin Calcium (Crestor) 5 mg PO HS [facility] Last Admin: 07/11/17 21:48 Dose: 5 mg Sitagliptin Phosphate (Januvia) 25 mg PO DAILY [facility] Last Admin: 07/12/17 10:43 Dose: 25 mg Results - Vital Signs Recent Vital Signs: Last Vital Signs Temp 99.3 F 07/12/17 15:41 Pulse 79 07/12/17 16:43 Resp 20 07/12/17 15:41 BP 103/59 L 07/12/17 17:45 Pulse Ox 98 07/12/17 15:41 - Labs Result Diagrams: 07/12/17 08:20 07/12/17 08:20 Labs: Laboratory Results - last 24 hr 07/11/17 07/12/17 07/12/17 21:10 06:14 08:20 WBC RBC Hgb Hct MCV MCH MCHC RDW Plt Count MPV Neut % (Auto) Lymph % (Auto) [place] % (Auto) Eos % (Auto) Baso % (Auto) Neut # (Auto) Lymph # (Auto) [place] # (Auto) Eos # (Auto) Baso # (Auto) Neutrophils % (Manual) Band Neutrophils % Lymphocytes % (Manual) Monocytes % (Manual) Nucleated RBC % Platelet Estimate Large Platelets Hypochromasia (manual) Poikilocytosis (manual Anisocytosis (manual) Microcytosis (manual) Macrocytosis (manual) Target Cells Ovalocytes Sodium 135 Potassium 3.9 Chloride 97 L Carbon Dioxide 28 Anion Gap 14 BUN 26 H Creatinine 1.6 H Est GFR ( Amer) 38 Est GFR (Non-Af Amer) 32 POC Glucose (mg/dL) 122 H 115 H Random Glucose 106 H Calcium 7.9 L 07/12/17 07/12/17 07/12/17 08:20 10:58 15:50 WBC 11.7 H D RBC 2.43 L Hgb 8.0 L Hct 24.4 L MCV 100.3 H MCH 32.8 H MCHC 32.7 L RDW 19.3 H Plt Count 48 L MPV 12.3 H Neut % (Auto) 86.9 H Lymph % (Auto) 9.5 L [place] % (Auto) 3.4 Eos % (Auto) 0.0 Baso % (Auto) 0.2 Neut # (Auto) 10.1 H Lymph # (Auto) 1.1 [place] # (Auto) 0.4 Eos # (Auto) 0.0 Baso # (Auto) 0.0 Neutrophils % (Manual) 15 L Band Neutrophils % 20 H* Lymphocytes % (Manual) 10 L Monocytes % (Manual) 5 Nucleated RBC % 1 H Platelet Estimate Decreased L Large Platelets Present Hypochromasia (manual) Slight Poikilocytosis (manual Slight Anisocytosis (manual) Slight Microcytosis (manual) Slight Macrocytosis (manual) Slight Target Cells Slight Ovalocytes Slight Sodium Potassium Chloride Carbon Dioxide Anion Gap BUN Creatinine Est GFR ( Amer) Est GFR (Non-Af Amer) POC Glucose (mg/dL) 128 H 141 H Random Glucose Calcium
[2017-07-12] MEDS: Albuterol-Ipratrop 3 mg / 0.5 (3 ml) UD INH PRN (20:06)
[2017-07-12] MEDS: Brimonidine 0.2% Opth Sol (5ml) OU SCH (21:32)
[2017-07-12] MEDS: Linezolid 600 mg in D5W 300 ml 600 MG/300 ML BAG IVPB SCH (21:32)
[2017-07-13] MEDS: Cefepime IV 1 gm in Dextrose 1 GM/50 ML BAG IVPB SCH ×2 (03:49→18:34)
[2017-07-13] MEDS: Nitroglycerin 2% Ointment Foilpak UD TOP SCH ×4 (05:39→23:48)
[2017-07-13] MEDS: (Novolin R) Insulin Human Regular 100 units/ml vial SC SCH ×4 (07:47→22:00)
[2017-07-13 08:36] LABS: BASO # 0.1 K/uL (0.0-0.2); BASO % 0.4 % (0.0-2.0); HEMOGLOBIN 7.5 g/dL (11.0-16.0); LYMPH # 1.2 K/uL (1.0-4.3); LYMPH % 10.1 % (20.0-40.0); MEAN CELL VOLUME 100.5 fL (81.0-99.0); MEAN CORPUSCULAR HEMOGLOBIN 32.9 pg (27.0-31.0); MEAN CORPUSCULAR HGB CONC 32.7 g/dL (33.0-37.0); MEAN PLATELET VOLUME 12.1 fL (7.2-11.7); MONO # 0.6 K/uL (0.0-0.8); MONO % 4.7 % (0.0-10.0); NEUT # 10.1 K/uL (1.8-7.0); NEUT % 84.8 % (50.0-75.0); PLATELET COUNT 58 K/uL (130-400); RBC 2.28 Mil/uL (3.80-5.20); WHITE BLOOD COUNT 11.9 K/uL (4.8-10.8)
[2017-07-13 08:59] LABS: CALCIUM 7.4 mg/dl (8.6-10.4)
--- NOTE | 2017-07-13 09:50 | CON ---
DATE: 07/12/2017 RENAL CONSULTATION LOCATION: The patient is located in [address], bed B. REQUESTED BY: Jeff Alvarado MD REASON FOR FOLLOWUP AND CONSULTATION: Acute renal failure. HISTORY OF PRESENT ILLNESS: Mrs. Alvarado is a 71-year-old elderly female with a past medical history significant for longstanding hypertension, diabetes for more than 20 years, coronary artery disease, status post CABG about 2 years ago, was recently diagnosed with multiple myeloma and presented with hyperproteinemia, anemia, and renal failure. Also, the patient was diagnosed with multiple myeloma and started on chemotherapy. Subsequently, her course was complicated by acute renal failure, requiring admission to the [facility] where the patient underwent emergent hemodialysis for bradycardia and severe hyperkalemia, metabolic acidosis. The patient underwent hemodialysis x1 in [facility] about 2 months ago. Now, the patient was admitted with chief complaints of not feeling well and shortness of breath on admission, and now the patient was found to have positive blood cultures and gram positive sepsis. The patient was also complaining of swelling of the legs and also shortness of breath and cough. The patient is being treated for CHF also with diuretics. The patient is less edematous today. No chest pain. No palpitation. As per the , the patient was also bradycardic on admission. Denies any dysuria or frequency. No headache. No dizziness. 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 PAST SURGICAL HISTORY: Status post CABG about 2 years ago and status post bone marrow biopsy, positive for multiple myeloma. ALLERGIES: NO KNOWN DRUG ALLERGIES. SOCIAL HISTORY: No smoking. No alcohol or drugs. She has a very supportive family, daughter and . FAMILY HISTORY: Not significant. MEDICATIONS: Her current medications include as follows: Alphagan eyedrops, azithromycin 250 mg IV piggyback daily, Crestor 5 mg at bedtime, DuoNeb inhaler 3 mL every 6 hours, aspirin 81 mg daily, ferrous sulfate 325 mg p.o. three times daily, Januvia 25 mg p.o. daily, Lasix 40 mg IV b.i.d., cefepime 1 gm every 12 hours, nitroglycerin ointment topical every 6 hours, Novolin R for sliding scale, Pepcid 20 mg p.o. daily, Robitussin 5 mg p.o. 4 times daily, allopurinol 100 mg p.o. daily, Zyvox 600 mg IV every 12 hours. LABORATORY DATA: Include as follows: As of 07/12/2017, WBC 11.7, hemoglobin 8, hematocrit 24.4, platelets 48. Neutrophils is 15, bands 20, lymphs 10, monos 5, nucleated RBC is 1, sodium 135, potassium 3.9, chloride 97, CO2 of 28, BUN 26, creatinine 1.6, glucose 128, calcium is 7.9. Influenza A and B antibody is negative. Accu-Cheks 141 and 152. Blood culture report is positive for gram-positive cocci, identified as Staph aureus and Staph coag negative. Urine culture as of 07/11/2017 was negative. Other laboratory data, chest x-ray, as of as of 07/10/2017, impression, prominent diffuse increase interstitial markings which may represent edema versus infiltrate versus venous congestion versus chronic fibrosis, status post median sternotomy and CABG, patchy increased markings in the left mid and lower lung zones as well as right lung base, degenerative changes in the spine, mild nodularity at the right costophrenic angle. Other laboratory data as of 07/10/2017, serum creatinine 1.1. As of 07/11/2017, serum creatinine 1.2. As of 07/12/2017, serum creatinine is 1.6. IMPRESSION: In summary, Mrs. Alvarado is a 71-year-old elderly female with a history of hypertension, diabetes, coronary artery disease, hyperlipidemia, status post coronary artery bypass graft, multiple myeloma, on chemotherapy who was admitted with cough, shortness of breath, and edema of the legs. Now blood culture positive for gram-positive cocci 2 out of 2 from 07/11/2017 with bandemia and increased WBC count on admission 4.5, now it is 11.7. 1. Acute renal failure, nonoliguric, most likely secondary to vigorous diuresis and cannot rule out secondary to acute tubular necrosis secondary to sepsis. 2. Hypertension. 3. Diabetes. 4. Multiple myeloma. 5. Rule out congestive heart failure versus pneumonia. Continue gentle diuresis, and continue IV antibiotics as per ID recommendation. We will continue to follow up renal function, and follow up with scientific editor for anemia and thrombocytopenia. We will follow with you. Thank you for allowing me to participate in your patient's care. Overall prognosis is guarded. Continue IV antibiotics, cefepime, Zyvox, and Zithromax. Valerie Rascon MD
--- NOTE | 2017-07-13 10:24 | CP.PCM.PN ---
Subjective - Date & Time of Evaluation Date of Evaluation: 07/13/17 Time of Evaluation: 10:22 - Subjective Subjective: weak & sob.seen by pul,nephro & id.x ray noted. Objective - Vital Signs/Intake and Output Vital Signs (last 24 hours): Temp Pulse Resp BP Pulse Ox 98.0 F 77 20 109/53 L 97 07/13/17 07:15 07/13/17 07:15 07/13/17 07:15 07/13/17 07:15 07/13/17 07:15 Intake and Output: 07/13/17 07/13/17 06:59 18:59 Intake Total 800 Balance 800 - Medications Medications: Current Medications Albuterol/Ipratropium (Duoneb 3 Mg/0.5 Mg (3 Ml) Ud) 3 ml INH RQ6 PRN PRN Reason: wheezing Last Admin: 07/12/17 20:06 Dose: 3 ml Allopurinol (Zyloprim) 100 mg PO DAILY [facility] Last Admin: 07/12/17 10:44 Dose: 100 mg Aspirin (Ecotrin) 81 mg PO DAILY [facility] Last Admin: 07/12/17 10:43 Dose: 81 mg Brimonidine Tartrate (Alphagan 0.2% Opht) 5 ml OU HS [facility] Last Admin: 07/12/17 21:32 Dose: 1 drop Famotidine (Pepcid) 20 mg PO DAILY [facility] Last Admin: 07/12/17 10:43 Dose: 20 mg Ferrous Sulfate (Feosol) 325 mg PO TID [facility] Last Admin: 07/12/17 17:45 Dose: 325 mg Furosemide (Lasix) 40 mg IVP BID [facility] Last Admin: 07/12/17 17:45 Dose: 40 mg Guaifenesin (Robitussin) 5 mg PO QID PRN PRN Reason: cough Last Admin: 07/11/17 14:12 Dose: 5 mg Azithromycin 250 mg/ Sodium (Chloride) 250 mls @ 250 mls/hr IVPB DAILY [facility] PRN Reason: Protocol Stop: 07/14/17 10:59 Last Admin: 07/12/17 10:43 Dose: 250 mls/hr Linezolid (Zyvox 600mg/300ml D5w) 600 mg in 300 mls @ 200 mls/hr IVPB Q12 [facility] PRN Reason: Protocol Last Admin: 07/12/17 21:32 Dose: 200 mls/hr Cefepime HCl (Maxipime Iv 1 Gm Premix) 1 gm in 50 mls @ 100 mls/hr IVPB Q12H [facility] PRN Reason: Protocol Last Admin: 07/13/17 03:49 Dose: 100 mls/hr Insulin Human Regular (Novolin R) 0 unit SC ACHS [facility] PRN Reason: Protocol Last Admin: 07/13/17 07:47 Dose: Not Given Nitroglycerin (Nitro-Bid 2% Oint) 1 ea TOP Q6H [facility] Last Admin: 07/13/17 05:39 Dose: 1 ea Rosuvastatin Calcium (Crestor) 5 mg PO HS [facility] Last Admin: 07/12/17 21:32 Dose: 5 mg Sitagliptin Phosphate (Januvia) 25 mg PO DAILY [facility] Last Admin: 07/12/17 10:43 Dose: 25 mg - Labs Labs: 07/13/17 08:26 07/13/17 08:26 PT 11.2 SECONDS (9.7-12.2) 07/10/17 05:16 INR 1.0 07/10/17 05:16 APTT 22 SECONDS (21-34) 07/10/17 05:16 - Constitutional Appears: No Acute Distress, Chronically Ill - Head Exam Head Exam: NORMOCEPHALIC - Neck Exam Neck Exam: Normal Inspection - Respiratory Exam Respiratory Exam: Rhonchi, Wheezes - Cardiovascular Exam Cardiovascular Exam: REGULAR RHYTHM, Murmur - GI/Abdominal Exam GI & Abdominal Exam: Soft - Extremities Exam Extremities Exam: absent: Pedal Edema - Neurological Exam Neurological Exam: Alert, Oriented x3 Assessment and Plan - Assessment and Plan (Free Text) Plan: pneumonia,acute on chronic diastolic heart failure.ckd. will ct iv antibiotics,pul toilet & iv lasix.
[2017-07-13 10:33] LABS: BANDS 19 % (0-2); LYMPHOCYTE 9 % (20-40); MONOCYTE 7 % (0-10); NEUTROPHIL 65 % (50-75); TOTAL CELLS COUNTED 100
[2017-07-13 10:34] LABS: ANISOCYTOSIS MODERATE; PLATELET ESTIMATE SLIGHTLY DECREASED (NORMAL)
[2017-07-13 10:35] LABS: HYPOCHROMIC SLIGHT; TOXIC GRANULATION PRESENT
[2017-07-13] MEDS: Linezolid 600 mg in D5W 300 ml 600 MG/300 ML BAG IVPB SCH ×2 (11:00→21:56)
--- NOTE | 2017-07-13 11:23 | CP.PCM.PN ---
Subjective - Date & Time of Evaluation Date of Evaluation: 07/13/17 Time of Evaluation: 11:20 - Subjective Subjective: pt is seen and examined, follow up consult is dictated #[id number] Objective - Vital Signs/Intake and Output Vital Signs (last 24 hours): Temp Pulse Resp BP Pulse Ox 98.0 F 77 20 110/72 97 07/13/17 07:15 07/13/17 07:15 07/13/17 07:15 07/13/17 11:00 07/13/17 07:15 Intake and Output: 07/13/17 07/13/17 06:59 18:59 Intake Total 800 Balance 800 - Medications Medications: Current Medications Albuterol/Ipratropium (Duoneb 3 Mg/0.5 Mg (3 Ml) Ud) 3 ml INH RQ6 PRN PRN Reason: wheezing Last Admin: 07/12/17 20:06 Dose: 3 ml Allopurinol (Zyloprim) 100 mg PO DAILY [facility] Last Admin: 07/13/17 11:00 Dose: 100 mg Aspirin (Ecotrin) 81 mg PO DAILY [facility] Last Admin: 07/13/17 11:00 Dose: 81 mg Brimonidine Tartrate (Alphagan 0.2% Opht) 5 ml OU HS [facility] Last Admin: 07/12/17 21:32 Dose: 1 drop Famotidine (Pepcid) 20 mg PO DAILY [facility] Last Admin: 07/13/17 11:00 Dose: 20 mg Ferrous Sulfate (Feosol) 325 mg PO TID [facility] Last Admin: 07/13/17 11:00 Dose: 325 mg Furosemide (Lasix) 40 mg IVP BID [facility] Last Admin: 07/13/17 11:00 Dose: 40 mg Guaifenesin (Robitussin) 5 mg PO QID PRN PRN Reason: cough Last Admin: 07/11/17 14:12 Dose: 5 mg Azithromycin 250 mg/ Sodium (Chloride) 250 mls @ 250 mls/hr IVPB DAILY [facility] PRN Reason: Protocol Stop: 07/14/17 10:59 Last Admin: 07/12/17 10:43 Dose: 250 mls/hr Linezolid (Zyvox 600mg/300ml D5w) 600 mg in 300 mls @ 200 mls/hr IVPB Q12 [facility] PRN Reason: Protocol Last Admin: 07/13/17 11:00 Dose: 200 mls/hr Cefepime HCl (Maxipime Iv 1 Gm Premix) 1 gm in 50 mls @ 100 mls/hr IVPB Q12H [facility] PRN Reason: Protocol Last Admin: 07/13/17 03:49 Dose: 100 mls/hr Insulin Human Regular (Novolin R) 0 unit SC ACHS [facility] PRN Reason: Protocol Last Admin: 07/13/17 07:47 Dose: Not Given Nitroglycerin (Nitro-Bid 2% Oint) 1 ea TOP Q6H [facility] Last Admin: 07/13/17 05:39 Dose: 1 ea Rosuvastatin Calcium (Crestor) 5 mg PO HS [facility] Last Admin: 07/12/17 21:32 Dose: 5 mg Sitagliptin Phosphate (Januvia) 25 mg PO DAILY [facility] Last Admin: 07/13/17 11:00 Dose: 25 mg - Labs Labs: 07/13/17 08:26 07/13/17 08:26 PT 11.2 SECONDS (9.7-12.2) 07/10/17 05:16 INR 1.0 07/10/17 05:16 APTT 22 SECONDS (21-34) 07/10/17 05:16
--- NOTE | 2017-07-13 13:04 | CP.PCM.PN ---
Subjective - Date & Time of Evaluation Date of Evaluation: 07/13/17 Time of Evaluation: 12:05 - Subjective Subjective: Feels weak, at bedside. Objective - Vital Signs/Intake and Output Vital Signs (last 24 hours): Temp Pulse Resp BP Pulse Ox 98.0 F 77 20 96/48 L 97 07/13/17 07:15 07/13/17 07:15 07/13/17 07:15 07/13/17 12:27 07/13/17 07:15 Intake and Output: 07/13/17 07/13/17 06:59 18:59 Intake Total 800 Balance 800 - Medications Medications: Current Medications Albuterol/Ipratropium (Duoneb 3 Mg/0.5 Mg (3 Ml) Ud) 3 ml INH RQ6 PRN PRN Reason: wheezing Last Admin: 07/12/17 20:06 Dose: 3 ml Allopurinol (Zyloprim) 100 mg PO DAILY [facility] Last Admin: 07/13/17 11:00 Dose: 100 mg Aspirin (Ecotrin) 81 mg PO DAILY [facility] Last Admin: 07/13/17 11:00 Dose: 81 mg Brimonidine Tartrate (Alphagan 0.2% Opht) 5 ml OU HS [facility] Last Admin: 07/12/17 21:32 Dose: 1 drop Famotidine (Pepcid) 20 mg PO DAILY [facility] Last Admin: 07/13/17 11:00 Dose: 20 mg Ferrous Sulfate (Feosol) 325 mg PO TID [facility] Last Admin: 07/13/17 11:00 Dose: 325 mg Furosemide (Lasix) 40 mg IVP BID [facility] Last Admin: 07/13/17 11:00 Dose: 40 mg Guaifenesin (Robitussin) 5 mg PO QID PRN PRN Reason: cough Last Admin: 07/11/17 14:12 Dose: 5 mg Azithromycin 250 mg/ Sodium (Chloride) 250 mls @ 250 mls/hr IVPB DAILY [facility] PRN Reason: Protocol Stop: 07/14/17 10:59 Last Admin: 07/12/17 10:43 Dose: 250 mls/hr Linezolid (Zyvox 600mg/300ml D5w) 600 mg in 300 mls @ 200 mls/hr IVPB Q12 [facility] PRN Reason: Protocol Last Admin: 07/13/17 11:00 Dose: 200 mls/hr Cefepime HCl (Maxipime Iv 1 Gm Premix) 1 gm in 50 mls @ 100 mls/hr IVPB Q12H [facility] PRN Reason: Protocol Last Admin: 07/13/17 03:49 Dose: 100 mls/hr Insulin Human Regular (Novolin R) 0 unit SC ACHS [facility] PRN Reason: Protocol Last Admin: 07/13/17 12:27 Dose: Not Given Nitroglycerin (Nitro-Bid 2% Oint) 1 ea TOP Q6H [facility] Last Admin: 07/13/17 12:27 Dose: Not Given Rosuvastatin Calcium (Crestor) 5 mg PO HS [facility] Last Admin: 07/12/17 21:32 Dose: 5 mg Sitagliptin Phosphate (Januvia) 25 mg PO DAILY [facility] Last Admin: 07/13/17 11:00 Dose: 25 mg - Labs Labs: 07/13/17 08:26 07/13/17 08:26 PT 11.2 SECONDS (9.7-12.2) 07/10/17 05:16 INR 1.0 07/10/17 05:16 APTT 22 SECONDS (21-34) 07/10/17 05:16 - Head Exam Head Exam: ATRAUMATIC - Eye Exam Eye Exam: Normal appearance - ENT Exam ENT Exam: Mucous Membranes Dry - Respiratory Exam Respiratory Exam: Decreased Breath Sounds - Cardiovascular Exam Cardiovascular Exam: +S1, +S2 - GI/Abdominal Exam GI & Abdominal Exam: Normal Bowel Sounds Assessment and Plan (1) Pancytopenia Assessment & Plan: secondary to myeloma treatment WBC rising element of anemia of chronic disease for 1U PRBC today Status: Acute (2) Multiple myeloma Assessment & Plan: outpatient treatment Status: Acute
[2017-07-13] MEDS: Azithromycin 250 MG in Sodium Chloride 0.9% 250 ML IVPB SCH (15:02)
--- NOTE | 2017-07-13 17:23 | CP.PCM.PN ---
Subjective - Date & Time of Evaluation Date of Evaluation: 07/13/17 Time of Evaluation: 08:00 - Subjective Subjective: still congested weak and bed bound no fever blood c/s + cocci await ID and sensitivity Objective - Vital Signs/Intake and Output Vital Signs (last 24 hours): Temp Pulse Resp BP Pulse Ox 97.8 F 77 20 99/57 L 97 07/13/17 15:48 07/13/17 15:48 07/13/17 15:48 07/13/17 15:48 07/13/17 07:15 Intake and Output: 07/13/17 07/13/17 06:59 18:59 Intake Total 800 625 Balance 800 625 - Medications Medications: Current Medications Albuterol/Ipratropium (Duoneb 3 Mg/0.5 Mg (3 Ml) Ud) 3 ml INH RQ6 PRN PRN Reason: wheezing Last Admin: 07/12/17 20:06 Dose: 3 ml Allopurinol (Zyloprim) 100 mg PO DAILY [facility] Last Admin: 07/13/17 11:00 Dose: 100 mg Aspirin (Ecotrin) 81 mg PO DAILY [facility] Last Admin: 07/13/17 11:00 Dose: 81 mg Brimonidine Tartrate (Alphagan 0.2% Opht) 5 ml OU HS [facility] Last Admin: 07/12/17 21:32 Dose: 1 drop Famotidine (Pepcid) 20 mg PO DAILY [facility] Last Admin: 07/13/17 11:00 Dose: 20 mg Ferrous Sulfate (Feosol) 325 mg PO TID [facility] Last Admin: 07/13/17 14:22 Dose: 325 mg Furosemide (Lasix) 40 mg IVP BID [facility] Last Admin: 07/13/17 11:00 Dose: 40 mg Guaifenesin (Robitussin) 5 mg PO QID PRN PRN Reason: cough Last Admin: 07/11/17 14:12 Dose: 5 mg Linezolid (Zyvox 600mg/300ml D5w) 600 mg in 300 mls @ 200 mls/hr IVPB Q12 [facility] PRN Reason: Protocol Last Admin: 07/13/17 11:00 Dose: 200 mls/hr Cefepime HCl (Maxipime Iv 1 Gm Premix) 1 gm in 50 mls @ 100 mls/hr IVPB Q12H [facility] PRN Reason: Protocol Last Admin: 07/13/17 03:49 Dose: 100 mls/hr Insulin Human Regular (Novolin R) 0 unit SC ACHS [facility] PRN Reason: Protocol Last Admin: 07/13/17 12:27 Dose: Not Given Nitroglycerin (Nitro-Bid 2% Oint) 1 ea TOP Q6H [facility] Last Admin: 07/13/17 12:27 Dose: Not Given Rosuvastatin Calcium (Crestor) 5 mg PO HS [facility] Last Admin: 07/12/17 21:32 Dose: 5 mg Sitagliptin Phosphate (Januvia) 25 mg PO DAILY [facility] Last Admin: 07/13/17 11:00 Dose: 25 mg - Labs Labs: 07/13/17 08:26 07/13/17 08:26 PT 11.2 SECONDS (9.7-12.2) 07/10/17 05:16 INR 1.0 07/10/17 05:16 APTT 22 SECONDS (21-34) 07/10/17 05:16 - Constitutional Appears: Cachectic, Chronically Ill - Head Exam Head Exam: NORMOCEPHALIC - Eye Exam Eye Exam: PERRL - ENT Exam ENT Exam: Mucous Membranes Dry - Neck Exam Neck Exam: absent: Lymphadenopathy - Respiratory Exam Respiratory Exam: Decreased Breath Sounds - Cardiovascular Exam Cardiovascular Exam: REGULAR RHYTHM - GI/Abdominal Exam GI & Abdominal Exam: Distended, Soft - Rectal Exam Rectal Exam: Deferred - Exam Exam: NORMAL INSPECTION - Extremities Exam Extremities Exam: absent: Pedal Edema - Back Exam Back Exam: absent: CVA tenderness (L), CVA tenderness (R) - Neurological Exam Neurological Exam: Alert, Awake, Oriented x3 Assessment and Plan (1) Sepsis Status: Acute (2) Bacteremia Status: Acute (3) Chest pain Status: Acute (4) Congestive heart failure Status: Acute
--- NOTE | 2017-07-14 03:18 | PN ---
DATE: 07/13/2017 FOLLOWUP RENAL CONSULTATION LOCATION: The patient is located in room 562, Bed B. REQUESTED BY: Jeff Alvarado MD REASON FOR FOLLOWUP: Acute renal failure and gram-positive sepsis. HISTORY OF PRESENT ILLNESS: Mrs. 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 Now, the patient was admitted with the chief complaints of bilateral lower extremity swelling and shortness of breath, and the patient was found to have positive blood and urine cultures. The patient is feeling slightly better, not in acute distress. No chest pain. No palpitation. No fever today. PHYSICAL EXAMINATION: VITAL SIGNS: As follows: Blood pressure this morning is 109/53, pulse 77, respirations 20, temperature 98, saturation 97%. Height 5 feet, weight is 98 pounds. GENERAL: Mrs. Alvarado is a 71-year-old elderly female, thin built, not in distress. HEENT: Pupils normal and reactive to light and accommodation. Conjunctivae pink. Sclerae anicteric. Tongue is moist. Trachea is midline. LUNGS: Symmetric on both sides. Bilateral breath sounds present. Bilateral basal crackles present, left more than the right. CVS: [place] at the fifth intercostal space, midclavicular line. S1, S2 audible. No murmur. No gallop. ABDOMEN: Normal in appearance, soft, tympanic. No guarding. No rigidity. No hepatosplenomegaly. 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 Nonfocal neuro examination. Cranial nerves II through XII grossly intact. Sensory and motor system is within normal limits. EXTREMITIES: No cyanosis, no clubbing, no edema. MEDICATIONS: Her current medications include as follows: Alphagan eyedrops, Crestor 5 mg p.o. at bedtime, DuoNeb inhaler, Ecotrin 81 mg p.o. daily, Feosol 325 mg p.o. three times daily, Januvia 25 mg p.o. daily, Lasix 40 mg IV two times daily, cefepime 1 gm every 12 hours, Nitro-Bid ointment topical every 6 hours, Novolin R for sliding scale, Pepcid 20 mg p.o. daily, Robitussin 5 mg p.o. 4 times daily, allopurinol 100 mg p.o. daily, and Zyvox 600 mg p.o. every 12 hours. LABORATORY DATA: Include as follows: WBC 11.9, hemoglobin 7.5, hematocrit is 22.9, platelets 58. Neutrophils 65, bands 19, lymphs 9, monos 7. Sodium 132, potassium 3.8, chloride 97, CO2 of 26, BUN 42, creatinine 1.9, glucose 112, calcium is 7.4. Blood culture positive for probable streptococcal, negative for enterococci by PNA FISH. Blood culture as of 07/12/2017 is also positive for gram positive cocci. Urine culture as of 07/11/2017 is negative. Blood culture x2 as of 07/11/2017 is positive for gram positive cocci, probable streptococci. IMPRESSION: In summary, Mrs. Alvarado is a 71-year-old elderly female with a history of hypertension, diabetes, coronary artery disease, status post coronary artery bypass graft, hyperlipidemia, pulmonary hypertension, congestive heart failure who was recently diagnosed with multiple myeloma, started on chemotherapy for acute renal failure, and hyperproteinemia who was admitted with creatinine about 1.1, now creatinine went up to 1.9, and baseline creatinine 0.9. 1. Acute renal failure, on chronic kidney disease. 2. Anemia, thrombocytopenia secondary to multiple myeloma. 3. Gram positive cocci sepsis, source is not clear, rule out pneumonia. 4. Hypertension. 5. Diabetes. 6. Pneumonia versus congestive heart failure. PLAN: Continue Lasix. Continue IV antibiotics as per ID recommendations, cefepime and Zyvox. We will continue to monitor renal function, and also the patient is scheduled for 1 unit of packed RBC transfusion today as per Dr. Jeff Alvarado. We will follow with you. Thank you for allowing me to participate in your patient's care. Valerie Rascon MD
[2017-07-14] MEDS: Cefepime IV 1 gm in Dextrose 1 GM/50 ML BAG IVPB SCH ×2 (03:49→16:51)
[2017-07-14] MEDS: Nitroglycerin 2% Ointment Foilpak UD TOP SCH ×4 (05:18→23:58)
[2017-07-14 07:48] LABS: BASO # 0.1 K/uL (0.0-0.2); BASO % 0.7 % (0.0-2.0); EOS % 0.2 % (0.0-4.0); LYMPH % 8.6 % (20.0-40.0); MEAN CORPUSCULAR HEMOGLOBIN 32.4 pg (27.0-31.0); MEAN CORPUSCULAR HGB CONC 34.1 g/dL (33.0-37.0); MEAN PLATELET VOLUME 10.8 fL (7.2-11.7); MONO # 0.6 K/uL (0.0-0.8); MONO % 5.3 % (0.0-10.0); NEUT # 9.5 K/uL (1.8-7.0); NEUT % 85.2 % (50.0-75.0); PLATELET COUNT 63 K/uL (130-400); RBC 3.02 Mil/uL (3.80-5.20); RED CELL DISTRIBUTION WIDTH 20.4 % (11.5-14.5); WHITE BLOOD COUNT 11.1 K/uL (4.8-10.8)
[2017-07-14 07:49] LABS: HEMOGLOBIN 9.8 g/dL (11.0-16.0); MEAN CELL VOLUME 94.9 fL (81.0-99.0)
[2017-07-14 08:06] LABS: CALCIUM 7.5 mg/dl (8.6-10.4)
[2017-07-14] MEDS: (Novolin R) Insulin Human Regular 100 units/ml vial SC SCH ×4 (08:44→21:46)
[2017-07-14] MEDS ORDERED: Potassium Chloride 20 mEq/15 ml LIQ UD PO STA (08:52)
--- NOTE | 2017-07-14 08:53 | CP.PCM.PN ---
Subjective - Date & Time of Evaluation Date of Evaluation: 07/14/17 Time of Evaluation: 08:53 - Subjective Subjective: pt is seen and examined, follow up consult is dictated #[id number] kcl 40 meq po x 1 now Objective - Vital Signs/Intake and Output Vital Signs (last 24 hours): Temp Pulse Resp BP Pulse Ox 97.5 F L 79 20 107/56 L 99 07/14/17 07:00 07/14/17 07:00 07/14/17 07:00 07/14/17 07:00 07/14/17 07:00 Intake and Output: 07/14/17 07/14/17 06:59 18:59 Intake Total 700 Balance 700 - Medications Medications: Current Medications Albuterol/Ipratropium (Duoneb 3 Mg/0.5 Mg (3 Ml) Ud) 3 ml INH RQ6 PRN PRN Reason: wheezing Last Admin: 07/12/17 20:06 Dose: 3 ml Allopurinol (Zyloprim) 100 mg PO DAILY [facility] Last Admin: 07/13/17 11:00 Dose: 100 mg Aspirin (Ecotrin) 81 mg PO DAILY [facility] Last Admin: 07/13/17 11:00 Dose: 81 mg Brimonidine Tartrate (Alphagan 0.2% Opht) 5 ml OU HS [facility] Last Admin: 07/12/17 21:32 Dose: 1 drop Famotidine (Pepcid) 20 mg PO DAILY [facility] Last Admin: 07/13/17 11:00 Dose: 20 mg Ferrous Sulfate (Feosol) 325 mg PO TID [facility] Last Admin: 07/13/17 18:34 Dose: 325 mg Furosemide (Lasix) 40 mg IVP BID [facility] Last Admin: 07/13/17 18:33 Dose: 40 mg Guaifenesin (Robitussin) 5 mg PO QID PRN PRN Reason: cough Last Admin: 07/11/17 14:12 Dose: 5 mg Linezolid (Zyvox 600mg/300ml D5w) 600 mg in 300 mls @ 200 mls/hr IVPB Q12 [facility] PRN Reason: Protocol Last Admin: 07/13/17 21:56 Dose: 200 mls/hr Cefepime HCl (Maxipime Iv 1 Gm Premix) 1 gm in 50 mls @ 100 mls/hr IVPB Q12H [facility] PRN Reason: Protocol Last Admin: 07/14/17 03:49 Dose: 100 mls/hr Insulin Human Regular (Novolin R) 0 unit SC ACHS [facility] PRN Reason: Protocol Last Admin: 07/14/17 08:44 Dose: Not Given Nitroglycerin (Nitro-Bid 2% Oint) 1 ea TOP Q6H [facility] Last Admin: 07/14/17 05:18 Dose: 1 ea Rosuvastatin Calcium (Crestor) 5 mg PO HS [facility] Last Admin: 07/13/17 21:57 Dose: 5 mg Sitagliptin Phosphate (Januvia) 25 mg PO DAILY [facility] Last Admin: 07/13/17 11:00 Dose: 25 mg - Labs Labs: 07/14/17 07:39 07/14/17 07:39 PT 11.2 SECONDS (9.7-12.2) 07/10/17 05:16 INR 1.0 07/10/17 05:16 APTT 22 SECONDS (21-34) 07/10/17 05:16
[2017-07-14 09:31] LABS: BANDS 23 % (0-2); LYMPHOCYTE 3 % (20-40); MONOCYTE 9 % (0-10); NEUTROPHIL 65 % (50-75); TOTAL CELLS COUNTED 100
[2017-07-14 09:32] LABS: ANISOCYTOSIS SLIGHT; HYPOCHROMIC SLIGHT; PLATELET ESTIMATE DECREASED (NORMAL); POIKILOCYTOSIS SLIGHT
[2017-07-14 09:33] LABS: MICROCYTOSIS SLIGHT; OVALOCYTES SLIGHT
[2017-07-14] MEDS: Linezolid 600 mg in D5W 300 ml 600 MG/300 ML BAG IVPB SCH (10:06)
--- NOTE | 2017-07-14 13:22 | CP.PCM.PN ---
Subjective - Date & Time of Evaluation Date of Evaluation: 07/14/17 Time of Evaluation: 12:35 - Subjective Subjective: Has cough Objective - Vital Signs/Intake and Output Vital Signs (last 24 hours): Temp Pulse Resp BP Pulse Ox 97.5 F L 79 20 107/56 L 99 07/14/17 07:00 07/14/17 07:00 07/14/17 07:00 07/14/17 07:00 07/14/17 07:00 Intake and Output: 07/14/17 07/14/17 06:59 18:59 Intake Total 700 Balance 700 - Medications Medications: Current Medications Albuterol/Ipratropium (Duoneb 3 Mg/0.5 Mg (3 Ml) Ud) 3 ml INH RQ6 PRN PRN Reason: wheezing Last Admin: 07/12/17 20:06 Dose: 3 ml Allopurinol (Zyloprim) 100 mg PO DAILY [facility] Last Admin: 07/14/17 10:06 Dose: 100 mg Aspirin (Ecotrin) 81 mg PO DAILY [facility] Last Admin: 07/13/17 11:00 Dose: 81 mg Brimonidine Tartrate (Alphagan 0.2% Opht) 5 ml OU HS [facility] Last Admin: 07/12/17 21:32 Dose: 1 drop Famotidine (Pepcid) 20 mg PO DAILY [facility] Last Admin: 07/14/17 10:06 Dose: 20 mg Ferrous Sulfate (Feosol) 325 mg PO TID [facility] Last Admin: 07/14/17 10:07 Dose: 325 mg Furosemide (Lasix) 40 mg IVP BID [facility] Last Admin: 07/14/17 10:00 Dose: Not Given Guaifenesin (Robitussin) 5 mg PO QID PRN PRN Reason: cough Last Admin: 07/11/17 14:12 Dose: 5 mg Linezolid (Zyvox 600mg/300ml D5w) 600 mg in 300 mls @ 200 mls/hr IVPB Q12 [facility] PRN Reason: Protocol Last Admin: 07/14/17 10:06 Dose: 200 mls/hr Cefepime HCl (Maxipime Iv 1 Gm Premix) 1 gm in 50 mls @ 100 mls/hr IVPB Q12H [facility] PRN Reason: Protocol Last Admin: 07/14/17 03:49 Dose: 100 mls/hr Insulin Human Regular (Novolin R) 0 unit SC ACHS [facility] PRN Reason: Protocol Last Admin: 07/14/17 11:56 Dose: Not Given Nitroglycerin (Nitro-Bid 2% Oint) 1 ea TOP Q6H [facility] Last Admin: 07/14/17 05:18 Dose: 1 ea Rosuvastatin Calcium (Crestor) 5 mg PO HS [facility] Last Admin: 07/13/17 21:57 Dose: 5 mg Sitagliptin Phosphate (Januvia) 25 mg PO DAILY [facility] Last Admin: 07/14/17 10:06 Dose: 25 mg - Labs Labs: 07/14/17 07:39 07/14/17 07:39 PT 11.2 SECONDS (9.7-12.2) 07/10/17 05:16 INR 1.0 07/10/17 05:16 APTT 22 SECONDS (21-34) 07/10/17 05:16 - Head Exam Head Exam: ATRAUMATIC - Eye Exam Eye Exam: Normal appearance - ENT Exam ENT Exam: Mucous Membranes Dry - Respiratory Exam Respiratory Exam: Decreased Breath Sounds - Cardiovascular Exam Cardiovascular Exam: +S1, +S2 - GI/Abdominal Exam GI & Abdominal Exam: Normal Bowel Sounds Assessment and Plan (1) Pancytopenia Assessment & Plan: counts improved s/p PRBC transfusion secondary to chemotherapy; now on hold Status: Acute (2) Multiple myeloma Assessment & Plan: outpatient treatment Status: Acute
[2017-07-14] MEDS: Albuterol-Ipratrop 3 mg / 0.5 (3 ml) UD INH PRN ×2 (13:29→19:22)
[2017-07-14] MEDS: guaiFENesin 100 mg/5 ml Syrup UD PO PRN ×2 (15:25→22:07)
--- NOTE | 2017-07-14 17:37 | CP.PCM.PN ---
Subjective - Date & Time of Evaluation Date of Evaluation: 07/14/17 Time of Evaluation: 09:00 - Subjective Subjective: SLOW PROGRESS HAS PEN RESISTANT PNEUMOCOCCAL PNEUMONIA IN BLOOD MAY NEED [facility] RX CONSIDER ECHO / SIMBA WILL NEED VACCINATION Objective - Vital Signs/Intake and Output Vital Signs (last 24 hours): Temp Pulse Resp BP Pulse Ox 97.6 F 77 20 178/67 H 97 07/14/17 15:24 07/14/17 15:24 07/14/17 15:24 07/14/17 15:24 07/14/17 15:24 Intake and Output: 07/14/17 07/14/17 06:59 18:59 Intake Total 700 Balance 700 - Medications Medications: Current Medications Albuterol/Ipratropium (Duoneb 3 Mg/0.5 Mg (3 Ml) Ud) 3 ml INH RQ6 PRN PRN Reason: wheezing Last Admin: 07/14/17 13:29 Dose: 3 ml Allopurinol (Zyloprim) 100 mg PO DAILY [facility] Last Admin: 07/14/17 10:06 Dose: 100 mg Aspirin (Ecotrin) 81 mg PO DAILY [facility] Last Admin: 07/13/17 11:00 Dose: 81 mg Brimonidine Tartrate (Alphagan 0.2% Opht) 5 ml OU HS [facility] Last Admin: 07/12/17 21:32 Dose: 1 drop Famotidine (Pepcid) 20 mg PO DAILY [facility] Last Admin: 07/14/17 10:06 Dose: 20 mg Ferrous Sulfate (Feosol) 325 mg PO TID [facility] Last Admin: 07/14/17 15:25 Dose: 325 mg Furosemide (Lasix) 40 mg IVP BID [facility] Last Admin: 07/14/17 10:00 Dose: Not Given Guaifenesin (Robitussin) 5 mg PO QID PRN PRN Reason: cough Last Admin: 07/14/17 15:25 Dose: 5 mg Linezolid (Zyvox 600mg/300ml D5w) 600 mg in 300 mls @ 200 mls/hr IVPB Q12 [facility] PRN Reason: Protocol Last Admin: 07/14/17 10:06 Dose: 200 mls/hr Cefepime HCl (Maxipime Iv 1 Gm Premix) 1 gm in 50 mls @ 100 mls/hr IVPB Q12H [facility] PRN Reason: Protocol Last Admin: 07/14/17 16:51 Dose: 100 mls/hr Insulin Human Regular (Novolin R) 0 unit SC ACHS [facility] PRN Reason: Protocol Last Admin: 07/14/17 16:31 Dose: Not Given Nitroglycerin (Nitro-Bid 2% Oint) 1 ea TOP Q6H [facility] Last Admin: 07/14/17 12:15 Dose: Not Given Rosuvastatin Calcium (Crestor) 5 mg PO HS [facility] Last Admin: 07/13/17 21:57 Dose: 5 mg Sitagliptin Phosphate (Januvia) 25 mg PO DAILY [facility] Last Admin: 07/14/17 10:06 Dose: 25 mg - Labs Labs: 07/14/17 07:39 07/14/17 07:39 PT 11.2 SECONDS (9.7-12.2) 07/10/17 05:16 INR 1.0 07/10/17 05:16 APTT 22 SECONDS (21-34) 07/10/17 05:16 - Constitutional Appears: Non-toxic, Cachectic, Chronically Ill - Head Exam Head Exam: NORMOCEPHALIC - Eye Exam Eye Exam: PERRL - ENT Exam ENT Exam: Mucous Membranes Dry - Neck Exam Neck Exam: absent: Lymphadenopathy, Thyromegaly - Respiratory Exam Respiratory Exam: Decreased Breath Sounds, Rales, Rhonchi - Cardiovascular Exam Cardiovascular Exam: REGULAR RHYTHM, +S1, +S2 - GI/Abdominal Exam GI & Abdominal Exam: Distended, Soft. absent: Tenderness - Rectal Exam Rectal Exam: Deferred - Exam Exam: NORMAL INSPECTION - Extremities Exam Extremities Exam: absent: Pedal Edema - Back Exam Back Exam: absent: CVA tenderness (L), CVA tenderness (R) - Neurological Exam Neurological Exam: Alert, Awake, Oriented x3 Neuro motor strength exam: Left Upper Extremity: 3, Right Upper Extremity: 3, Left Lower Extremity: 3, Right Lower Extremity: 3 - Psychiatric Exam Psychiatric exam: Depressed - Skin Skin Exam: Dry Assessment and Plan (1) Sepsis Status: Acute (2) Bacteremia Status: Acute (3) Chest pain Status: Acute (4) Congestive heart failure Status: Acute - Assessment and Plan (Free Text) Assessment: CONT IV RX ORDERED
[2017-07-14] MEDS: Brimonidine 0.2% Opth Sol (5ml) OU SCH (21:37)
[2017-07-15] MEDS: Nitroglycerin 2% Ointment Foilpak UD TOP SCH ×3 (06:14→17:33)
[2017-07-15] MEDS: (Novolin R) Insulin Human Regular 100 units/ml vial SC SCH ×4 (07:36→21:24)
[2017-07-15 07:49] LABS: BASO % 0.4 % (0.0-2.0); EOS % 0.2 % (0.0-4.0); LYMPH # 0.9 K/uL (1.0-4.3); LYMPH % 11.1 % (20.0-40.0); MEAN CELL VOLUME 96.2 fL (81.0-99.0); MEAN CORPUSCULAR HEMOGLOBIN 32.5 pg (27.0-31.0); MEAN CORPUSCULAR HGB CONC 33.8 g/dL (33.0-37.0); MEAN PLATELET VOLUME 11.3 fL (7.2-11.7); MONO # 0.6 K/uL (0.0-0.8); MONO % 6.9 % (0.0-10.0); NEUT # 6.6 K/uL (1.8-7.0); NEUT % 81.4 % (50.0-75.0); RBC 2.77 Mil/uL (3.80-5.20); RED CELL DISTRIBUTION WIDTH 19.8 % (11.5-14.5); WHITE BLOOD COUNT 8.1 K/uL (4.8-10.8)
[2017-07-15 08:23] LABS: ALB/GLOB RATIO 0.7 (1.0-2.1); ALBUMIN 2.4 g/dL (3.5-5.0); CALCIUM 7.7 mg/dl (8.6-10.4)
[2017-07-15] MEDS: Albuterol-Ipratrop 3 mg / 0.5 (3 ml) UD INH PRN (08:23)
[2017-07-15] MEDS ORDERED: Potassium Chloride 20 mEq/15 ml LIQ UD PO ONE (09:15)
[2017-07-15] MEDS ORDERED: Digoxin 500 mcg/2ml (0.5 mg/2ml) Inj IVP ONE (11:03)
[2017-07-15] MEDS: Verapamil 40 MG in Sodium Chloride 0.9% 84 ML IV SCH ×2 (11:44→18:45)
[2017-07-15 11:54] LABS: TROPONIN I 0.57 ng/mL (0.00-0.120)
[2017-07-15 11:58] VITALS: PULSE 168
--- NOTE | 2017-07-15 12:04 | RAD ---
PROCEDURE: CHEST RADIOGRAPH, 1 VIEW HISTORY: pneumonia COMPARISON: Portable chest 11/12/2017. FINDINGS: LUNGS: Diminishing at infiltrate mid left lung zone laterally. PLEURA: No pneumothorax or pleural fluid seen. CARDIOVASCULAR: Cardiomegaly stable. No definite pulmonary vascular congestion appears sternotomy wires reiterated. OSSEOUS STRUCTURES: No significant abnormalities. VISUALIZED UPPER ABDOMEN: Normal. OTHER FINDINGS: None. IMPRESSION: Diminishing mid left pulmonary infiltrate the continued clinical and radiographic follow-up are advised of completion. Stable cardiomegaly.
--- NOTE | 2017-07-15 15:32 | CP.PCM.PN ---
Subjective - Date & Time of Evaluation Date of Evaluation: 07/15/17 Time of Evaluation: 08:00 - Subjective Subjective: developed svt rate better kasey vivas on board iv rx for pneumococcal bacteremia/ sepsis/ pneumonia in progress Objective - Vital Signs/Intake and Output Vital Signs (last 24 hours): Temp Pulse Resp BP Pulse Ox 97.8 F 106 H 19 114/59 L 100 07/15/17 11:15 07/15/17 14:16 07/15/17 14:16 07/15/17 14:16 07/15/17 14:16 Intake and Output: 07/15/17 07/15/17 06:59 18:59 Intake Total 600 162.5 Output Total 650 Balance 600 -487.5 - Medications Medications: Current Medications Albuterol/Ipratropium (Duoneb 3 Mg/0.5 Mg (3 Ml) Ud) 3 ml INH RQ6 PRN PRN Reason: wheezing Last Admin: 07/15/17 08:23 Dose: 3 ml Allopurinol (Zyloprim) 100 mg PO DAILY [facility] Last Admin: 07/15/17 09:18 Dose: 100 mg Aspirin (Ecotrin) 81 mg PO DAILY [facility] Last Admin: 07/15/17 09:18 Dose: 81 mg Brimonidine Tartrate (Alphagan 0.2% Opht) 5 ml OU HS [facility] Last Admin: 07/14/17 21:37 Dose: 1 drop Famotidine (Pepcid) 20 mg PO DAILY [facility] Last Admin: 07/15/17 09:17 Dose: 20 mg Ferrous Sulfate (Feosol) 325 mg PO TID [facility] Last Admin: 07/15/17 14:49 Dose: 325 mg Furosemide (Lasix) 40 mg IVP DAILY [facility] Guaifenesin (Robitussin) 100 mg PO QID PRN PRN Reason: cough Last Admin: 07/14/17 22:07 Dose: 100 mg Ceftriaxone Sodium 1 gm/ (Sodium Chloride) 100 mls @ 100 mls/hr IVPB Q12H [facility] PRN Reason: Protocol Last Admin: 07/15/17 06:13 Dose: 100 mls/hr Verapamil HCl 40 mg/ Sodium (Chloride) 100 mls @ 12.5 mls/hr IV .Q8H [facility]; 5 MG/ HR PRN Reason: Protocol Last Admin: 05/12/18 11:44 Dose: 12.5 mls/hr Insulin Human Regular (Novolin R) 0 unit SC ACHS [facility] PRN Reason: Protocol Last Admin: 07/15/17 12:21 Dose: Not Given Nitroglycerin (Nitro-Bid 2% Oint) 1 ea TOP Q6H [facility] Last Admin: 07/15/17 12:20 Dose: Not Given Rosuvastatin Calcium (Crestor) 5 mg PO HS [facility] Last Admin: 07/14/17 21:35 Dose: 5 mg Sitagliptin Phosphate (Januvia) 25 mg PO DAILY [facility] Last Admin: 07/15/17 09:18 Dose: 25 mg - Labs Labs: 07/15/17 07:40 07/15/17 07:40 PT 11.2 SECONDS (9.7-12.2) 07/10/17 05:16 INR 1.0 07/10/17 05:16 APTT 22 SECONDS (21-34) 07/10/17 05:16 - Constitutional Appears: Non-toxic, Chronically Ill - Head Exam Head Exam: NORMOCEPHALIC - Eye Exam Eye Exam: PERRL. absent: Scleral icterus - ENT Exam ENT Exam: Mucous Membranes Dry - Neck Exam Neck Exam: absent: Lymphadenopathy - Respiratory Exam Respiratory Exam: Decreased Breath Sounds - Cardiovascular Exam Cardiovascular Exam: REGULAR RHYTHM - GI/Abdominal Exam GI & Abdominal Exam: Distended, Soft - Rectal Exam Rectal Exam: Deferred - Exam Exam: NORMAL INSPECTION - Extremities Exam Extremities Exam: absent: Pedal Edema - Back Exam Back Exam: absent: CVA tenderness (L), CVA tenderness (R) - Neurological Exam Neurological Exam: Alert, Awake, Oriented x3 - Psychiatric Exam Psychiatric exam: Depressed - Skin Skin Exam: Dry Assessment and Plan (1) Sepsis Status: Acute (2) Bacteremia Status: Acute (3) Chest pain Status: Acute (4) Congestive heart failure Status: Acute - Assessment and Plan (Free Text) Assessment: cont iv rocephin consider SIMBA
--- NOTE | 2017-07-15 15:36 | CP.PCM.PN ---
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 She was AAO x3 responded to some questions not all due to language barrier. She was lying in bed, not in distress but uncomfortable. Patient was running initially SVTs on monitor/ tele but on EKG noted Atrial Fibrillation at rate of 150s. She was given digoxin 0.25mg and transferred to the ICU for further monitoring. Objective - Vital Signs/Intake and Output Vital Signs (last 24 hours): Temp Pulse Resp BP Pulse Ox 97.8 F 106 H 19 114/59 L 100 07/15/17 11:15 07/15/17 14:16 07/15/17 14:16 07/15/17 14:16 07/15/17 14:16 Intake and Output: 07/15/17 07/15/17 06:59 18:59 Intake Total 600 162.5 Output Total 650 Balance 600 -487.5 - Medications Medications: Current Medications Albuterol/Ipratropium (Duoneb 3 Mg/0.5 Mg (3 Ml) Ud) 3 ml INH RQ6 PRN PRN Reason: wheezing Last Admin: 07/15/17 08:23 Dose: 3 ml Allopurinol (Zyloprim) 100 mg PO DAILY [facility] Last Admin: 07/15/17 09:18 Dose: 100 mg Aspirin (Ecotrin) 81 mg PO DAILY [facility] Last Admin: 07/15/17 09:18 Dose: 81 mg Brimonidine Tartrate (Alphagan 0.2% Opht) 5 ml OU HS [facility] Last Admin: 07/14/17 21:37 Dose: 1 drop Famotidine (Pepcid) 20 mg PO DAILY [facility] Last Admin: 07/15/17 09:17 Dose: 20 mg Ferrous Sulfate (Feosol) 325 mg PO TID [facility] Last Admin: 07/15/17 14:49 Dose: 325 mg Furosemide (Lasix) 40 mg IVP DAILY [facility] Guaifenesin (Robitussin) 100 mg PO QID PRN PRN Reason: cough Last Admin: 07/14/17 22:07 Dose: 100 mg Ceftriaxone Sodium 1 gm/ (Sodium Chloride) 100 mls @ 100 mls/hr IVPB Q12H [facility] PRN Reason: Protocol Last Admin: 07/15/17 06:13 Dose: 100 mls/hr Verapamil HCl 40 mg/ Sodium (Chloride) 100 mls @ 12.5 mls/hr IV .Q8H [facility]; 5 MG/ HR PRN Reason: Protocol Last Admin: 07/15/17 11:44 Dose: 12.5 mls/hr Insulin Human Regular (Novolin R) 0 unit SC ACHS [facility] PRN Reason: Protocol Last Admin: 07/15/17 12:21 Dose: Not Given Nitroglycerin (Nitro-Bid 2% Oint) 1 ea TOP Q6H [facility] Last Admin: 07/15/17 12:20 Dose: Not Given Rosuvastatin Calcium (Crestor) 5 mg PO HS [facility] Last Admin: 07/14/17 21:35 Dose: 5 mg Sitagliptin Phosphate (Januvia) 25 mg PO DAILY [facility] Last Admin: 07/15/17 09:18 Dose: 25 mg - Labs Labs: 07/15/17 07:40 07/15/17 07:40 PT 11.2 SECONDS (9.7-12.2) 07/10/17 05:16 INR 1.0 07/10/17 05:16 APTT 22 SECONDS (21-34) 07/10/17 05:16
--- NOTE | 2017-07-15 16:38 | CP.PCM.PN ---
Subjective - Date & Time of Evaluation Date of Evaluation: 07/14/17 Time of Evaluation: 12:00 - Subjective Subjective: CONDITION SAME. 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 CHART REVIEWED. SEPTIC, MYELOMA. CAD. Objective - Vital Signs/Intake and Output Vital Signs (last 24 hours): Temp Pulse Resp BP Pulse Ox 97.8 F 106 H 19 114/59 L 100 07/15/17 11:15 07/15/17 14:16 07/15/17 14:16 07/15/17 14:16 07/15/17 14:16 Intake and Output: 07/15/17 07/15/17 06:59 18:59 Intake Total 600 162.5 Output Total 650 Balance 600 -487.5 - Medications Medications: Current Medications Albuterol/Ipratropium (Duoneb 3 Mg/0.5 Mg (3 Ml) Ud) 3 ml INH RQ6 PRN PRN Reason: wheezing Last Admin: 07/15/17 08:23 Dose: 3 ml Allopurinol (Zyloprim) 100 mg PO DAILY [facility] Last Admin: 07/15/17 09:18 Dose: 100 mg Aspirin (Ecotrin) 81 mg PO DAILY [facility] Last Admin: 07/15/17 09:18 Dose: 81 mg Brimonidine Tartrate (Alphagan 0.2% Opht) 5 ml OU HS [facility] Last Admin: 07/14/17 21:37 Dose: 1 drop Famotidine (Pepcid) 20 mg PO DAILY [facility] Last Admin: 07/15/17 09:17 Dose: 20 mg Ferrous Sulfate (Feosol) 325 mg PO TID [facility] Last Admin: 07/15/17 14:49 Dose: 325 mg Furosemide (Lasix) 40 mg IVP DAILY [facility] Guaifenesin (Robitussin) 100 mg PO QID PRN PRN Reason: cough Last Admin: 07/14/17 22:07 Dose: 100 mg Ceftriaxone Sodium 1 gm/ (Sodium Chloride) 100 mls @ 100 mls/hr IVPB Q12H [facility] PRN Reason: Protocol Last Admin: 07/15/17 06:13 Dose: 100 mls/hr Verapamil HCl 40 mg/ Sodium (Chloride) 100 mls @ 12.5 mls/hr IV .Q8H [facility]; 5 MG/ HR PRN Reason: Protocol Last Admin: 07/15/17 11:44 Dose: 12.5 mls/hr Insulin Human Regular (Novolin R) 0 unit SC ACHS [facility] PRN Reason: Protocol Last Admin: 07/15/17 16:27 Dose: Not Given Nitroglycerin (Nitro-Bid 2% Oint) 1 ea TOP Q6H [facility] Last Admin: 07/15/17 12:20 Dose: Not Given Rosuvastatin Calcium (Crestor) 5 mg PO HS [facility] Last Admin: 07/14/17 21:35 Dose: 5 mg Sitagliptin Phosphate (Januvia) 25 mg PO DAILY [facility] Last Admin: 07/15/17 09:18 Dose: 25 mg - Labs Labs: 07/15/17 07:40 07/15/17 07:40 PT 11.2 SECONDS (9.7-12.2) 07/10/17 05:16 INR 1.0 07/10/17 05:16 APTT 22 SECONDS (21-34) 07/10/17 05:16 - Constitutional Appears: No Acute Distress, Chronically Ill - Eye Exam Eye Exam: EOMI, Normal appearance, PERRL Pupil Exam: NORMAL ACCOMODATION, PERRL - ENT Exam ENT Exam: Mucous Membranes Moist, Normal Exam - Neck Exam Neck Exam: Full ROM, Normal Inspection. absent: Lymphadenopathy - Respiratory Exam Respiratory Exam: Clear to Ausculation Bilateral, NORMAL BREATHING PATTERN - Cardiovascular Exam Cardiovascular Exam: REGULAR RHYTHM, +S1, +S2. absent: Murmur - GI/Abdominal Exam GI & Abdominal Exam: Soft, Normal Bowel Sounds. absent: Tenderness - Extremities Exam Extremities Exam: Full ROM, Normal Capillary Refill, Normal Inspection. absent : Joint Swelling, Pedal Edema - Back Exam Back Exam: NORMAL INSPECTION - Neurological Exam Neurological Exam: Alert, Awake, CN II-XII Intact, Normal Gait, Oriented x3 Assessment and Plan - Assessment and Plan (Free Text) Assessment: SEPTIC. Plan: CT PRESENT TREATMENT.
--- NOTE | 2017-07-15 16:41 | CP.PCM.PN ---
Subjective - Date & Time of Evaluation Date of Evaluation: 07/15/17 Time of Evaluation: 11:00 - Subjective Subjective: PT LESS RESPONSIVE. TACHYCARDIC. RAPID RESPONSE CALLED. A. FIB WITH RVR. EARLIER PT HAS SHRT RUN OF Edwin PAGAN NOTED. PT TRANSFERED TO ICU. Objective - Vital Signs/Intake and Output Vital Signs (last 24 hours): Temp Pulse Resp BP Pulse Ox 97.8 F 106 H 19 114/59 L 100 07/15/17 11:15 07/15/17 14:16 07/15/17 14:16 07/15/17 14:16 07/15/17 14:16 Intake and Output: 07/15/17 07/15/17 06:59 18:59 Intake Total 600 162.5 Output Total 650 Balance 600 -487.5 - Medications Medications: Current Medications Albuterol/Ipratropium (Duoneb 3 Mg/0.5 Mg (3 Ml) Ud) 3 ml INH RQ6 PRN PRN Reason: wheezing Last Admin: 07/15/17 08:23 Dose: 3 ml Allopurinol (Zyloprim) 100 mg PO DAILY [facility] Last Admin: 07/15/17 09:18 Dose: 100 mg Aspirin (Ecotrin) 81 mg PO DAILY [facility] Last Admin: 07/15/17 09:18 Dose: 81 mg Brimonidine Tartrate (Alphagan 0.2% Opht) 5 ml OU HS [facility] Last Admin: 07/14/17 21:37 Dose: 1 drop Famotidine (Pepcid) 20 mg PO DAILY [facility] Last Admin: 07/15/17 09:17 Dose: 20 mg Ferrous Sulfate (Feosol) 325 mg PO TID [facility] Last Admin: 07/15/17 14:49 Dose: 325 mg Furosemide (Lasix) 40 mg IVP DAILY [facility] Guaifenesin (Robitussin) 100 mg PO QID PRN PRN Reason: cough Last Admin: 07/14/17 22:07 Dose: 100 mg Ceftriaxone Sodium 1 gm/ (Sodium Chloride) 100 mls @ 100 mls/hr IVPB Q12H [facility] PRN Reason: Protocol Last Admin: 07/15/17 06:13 Dose: 100 mls/hr Verapamil HCl 40 mg/ Sodium (Chloride) 100 mls @ 12.5 mls/hr IV .Q8H [facility]; 5 MG/ HR PRN Reason: Protocol Last Admin: 07/15/17 11:44 Dose: 12.5 mls/hr Insulin Human Regular (Novolin R) 0 unit SC ACHS [facility] PRN Reason: Protocol Last Admin: 07/15/17 16:27 Dose: Not Given Nitroglycerin (Nitro-Bid 2% Oint) 1 ea TOP Q6H [facility] Last Admin: 07/15/17 12:20 Dose: Not Given Rosuvastatin Calcium (Crestor) 5 mg PO HS [facility] Last Admin: 07/14/17 21:35 Dose: 5 mg Sitagliptin Phosphate (Januvia) 25 mg PO DAILY [facility] Last Admin: 07/15/17 09:18 Dose: 25 mg - Labs Labs: 07/15/17 07:40 07/15/17 07:40 PT 11.2 SECONDS (9.7-12.2) 07/10/17 05:16 INR 1.0 07/10/17 05:16 APTT 22 SECONDS (21-34) 07/10/17 05:16 - Constitutional Appears: In Acute Distress, Chronically Ill - Eye Exam Eye Exam: EOMI, Normal appearance, PERRL Pupil Exam: NORMAL ACCOMODATION, PERRL - ENT Exam ENT Exam: Mucous Membranes Moist, Normal Exam - Neck Exam Neck Exam: Full ROM, Normal Inspection. absent: Lymphadenopathy - Respiratory Exam Respiratory Exam: Clear to Ausculation Bilateral, NORMAL BREATHING PATTERN - Cardiovascular Exam Cardiovascular Exam: REGULAR RHYTHM, +S1, +S2. absent: Murmur - GI/Abdominal Exam GI & Abdominal Exam: Soft, Normal Bowel Sounds. absent: Tenderness - Extremities Exam Extremities Exam: Full ROM, Normal Capillary Refill, Normal Inspection. absent : Joint Swelling, Pedal Edema - Back Exam Back Exam: NORMAL INSPECTION - Neurological Exam Neurological Exam: Alert, Awake, CN II-XII Intact, Normal Gait, Oriented x3 - Psychiatric Exam Psychiatric exam: Normal Affect, Normal Mood Assessment and Plan - Assessment and Plan (Free Text) Assessment: SAME. Plan: CONDITION POOR. ICU CARE.
--- NOTE | 2017-07-15 17:01 | CP.PCM.PN ---
Subjective - Date & Time of Evaluation Date of Evaluation: 07/15/17 Time of Evaluation: 17:00 - Subjective Subjective: pt is seen and examined, follow up consult is dictated #[id number] Objective - Vital Signs/Intake and Output Vital Signs (last 24 hours): Temp Pulse Resp BP Pulse Ox 98.2 F 109 H 19 115/61 100 07/15/17 16:00 07/15/17 16:50 07/15/17 16:50 07/15/17 16:16 07/15/17 16:50 Intake and Output: 07/15/17 07/15/17 06:59 18:59 Intake Total 600 375.0 Output Total 850 Balance 600 -475.0 - Medications Medications: Current Medications Albuterol/Ipratropium (Duoneb 3 Mg/0.5 Mg (3 Ml) Ud) 3 ml INH RQ6 PRN PRN Reason: wheezing Last Admin: 07/15/17 08:23 Dose: 3 ml Allopurinol (Zyloprim) 100 mg PO DAILY [facility] Last Admin: 07/15/17 09:18 Dose: 100 mg Aspirin (Ecotrin) 81 mg PO DAILY [facility] Last Admin: 07/15/17 09:18 Dose: 81 mg Brimonidine Tartrate (Alphagan 0.2% Opht) 5 ml OU HS [facility] Last Admin: 07/14/17 21:37 Dose: 1 drop Famotidine (Pepcid) 20 mg PO DAILY [facility] Last Admin: 07/15/17 09:17 Dose: 20 mg Ferrous Sulfate (Feosol) 325 mg PO TID [facility] Last Admin: 07/15/17 14:49 Dose: 325 mg Furosemide (Lasix) 40 mg IVP DAILY [facility] Guaifenesin (Robitussin) 100 mg PO QID PRN PRN Reason: cough Last Admin: 07/14/17 22:07 Dose: 100 mg Ceftriaxone Sodium 1 gm/ (Sodium Chloride) 100 mls @ 100 mls/hr IVPB Q12H [facility] PRN Reason: Protocol Last Admin: 07/15/17 06:13 Dose: 100 mls/hr Verapamil HCl 40 mg/ Sodium (Chloride) 100 mls @ 12.5 mls/hr IV .Q8H [facility]; 5 MG/ HR PRN Reason: Protocol Last Admin: 07/15/17 11:44 Dose: 12.5 mls/hr Insulin Human Regular (Novolin R) 0 unit SC ACHS [facility] PRN Reason: Protocol Last Admin: 07/15/17 16:27 Dose: Not Given Nitroglycerin (Nitro-Bid 2% Oint) 1 ea TOP Q6H [facility] Last Admin: 07/15/17 12:20 Dose: Not Given Rosuvastatin Calcium (Crestor) 5 mg PO HS [facility] Last Admin: 07/14/17 21:35 Dose: 5 mg Sitagliptin Phosphate (Januvia) 25 mg PO DAILY [facility] Last Admin: 07/15/17 09:18 Dose: 25 mg - Labs Labs: 07/15/17 07:40 07/15/17 07:40 PT 11.2 SECONDS (9.7-12.2) 07/10/17 05:16 INR 1.0 07/10/17 05:16 APTT 22 SECONDS (21-34) 07/10/17 05:16
--- NOTE | 2017-07-15 19:01 | CP.PCM.CON ---
History of Present Illness - History of Present Illness History of Present Illness: Chief component: Shortness of breath and rapid ventricular rate HPI: Patient is a 71-year-old female with a history of heart disease, status post a CABG, possible chronic lung disease lung fibrosis. Patient recently diagnosed with multiple myeloma receiving the chemotherapy recently. Admitted to the hospital with a fever chills shortness of breath. During the stay in the hospital patient was noted to have a Streptococcus pneumonia bacteremia, and worsening lung pneumonia. Patient was recovering with antibiotic, but suddenly developed tachycardia, and transferred to intensive care unit. Patient now awake and responding. She is not in any distress. But tachycardia noted. She has no chest pain. She is feeling extremely weak and tired. Review of Systems - Review of Systems All systems: reviewed and no additional remarkable complaints except Past Patient History - Infectious Disease Hx of Infectious Diseases: None - Past Medical History & Family History Past Medical History?: Yes - Past Social History Smoking Status: Never Smoked - CARDIAC Hx Cardiac Disorders: Yes (CAD, CABG) Hx Congestive Heart Failure: Yes Hx Hypercholesterolemia: Yes Hx Hypertension: Yes - PULMONARY Hx Chronic Obstructive Pulmonary Disease (COPD): Yes - NEUROLOGICAL Hx Neurological Disorder: No - HEENT Hx HEENT Problems: Yes Hx Glaucoma: Yes - RENAL Hx Chronic Kidney Disease: Yes - ENDOCRINE/METABOLIC Hx Diabetes Mellitus Type 2: Yes - HEMATOLOGICAL/ONCOLOGICAL Hx Blood Disorders: Yes Hx Anemia: Yes Other/Comment: multiple myeloma - INTEGUMENTARY Hx Dermatological Problems: No - MUSCULOSKELETAL/RHEUMATOLOGICAL Hx Falls: No - GASTROINTESTINAL Hx Gastrointestinal Disorders: No - GENITOURINARY/GYNECOLOGICAL Hx Genitourinary Disorders: No - PSYCHIATRIC Hx Substance Use: No - SURGICAL HISTORY Hx Surgeries: Yes Hx Coronary Artery Bypass Graft: Yes - ANESTHESIA Hx Anesthesia: Yes Hx Anesthesia Reactions: No Hx Malignant Hyperthermia: No Has any member of the family had a problem w/ anesthesia?: No Meds Allergies/Adverse Reactions: Allergies Allergy/AdvReac Type Severity Reaction Status Date / Time No Known Allergies Allergy Verified 07/10/17 04:49 - Medications Medications: Current Medications Albuterol/Ipratropium (Duoneb 3 Mg/0.5 Mg (3 Ml) Ud) 3 ml INH RQ6 PRN PRN Reason: wheezing Last Admin: 07/15/17 08:23 Dose: 3 ml Allopurinol (Zyloprim) 100 mg PO DAILY [facility] Last Admin: 07/15/17 09:18 Dose: 100 mg Aspirin (Ecotrin) 81 mg PO DAILY [facility] Last Admin: 07/15/17 09:18 Dose: 81 mg Brimonidine Tartrate (Alphagan 0.2% Opht) 5 ml OU HS [facility] Last Admin: 07/14/17 21:37 Dose: 1 drop Famotidine (Pepcid) 20 mg PO DAILY [facility] Last Admin: 07/15/17 09:17 Dose: 20 mg Ferrous Sulfate (Feosol) 325 mg PO TID [facility] Last Admin: 07/15/17 17:33 Dose: 325 mg Furosemide (Lasix) 40 mg IVP DAILY [facility] Guaifenesin (Robitussin) 100 mg PO QID PRN PRN Reason: cough Last Admin: 07/14/17 22:07 Dose: 100 mg Ceftriaxone Sodium 1 gm/ (Sodium Chloride) 100 mls @ 100 mls/hr IVPB Q12H [facility] PRN Reason: Protocol Last Admin: 07/15/17 18:20 Dose: 100 mls/hr Verapamil HCl 40 mg/ Sodium (Chloride) 100 mls @ 12.5 mls/hr IV .Q8H [facility]; 5 MG/ HR PRN Reason: Protocol Last Admin: 07/15/17 18:45 Dose: 12.5 mls/hr Insulin Human Regular (Novolin R) 0 unit SC ACHS [facility] PRN Reason: Protocol Last Admin: 07/15/17 16:27 Dose: Not Given Nitroglycerin (Nitro-Bid 2% Oint) 1 ea TOP Q6H [facility] Last Admin: 07/15/17 17:33 Dose: 1 ea Rosuvastatin Calcium (Crestor) 5 mg PO HS [facility] Last Admin: 07/14/17 21:35 Dose: 5 mg Sitagliptin Phosphate (Januvia) 25 mg PO DAILY [facility] Last Admin: 07/15/17 09:18 Dose: 25 mg Physical Exam - Constitutional Additional comments: On examination: Vital signs unstable. Tachycardia, SVT, atrial fibrillation with rapid ventricular rate noted. Chest bilateral minimal expiratory rales and wheezing noted irregular heart sound, abdomen soft and nontender extremities 1+ edema noted. 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 Results - Vital Signs Recent Vital Signs: Last Vital Signs Temp 98.2 F 07/15/17 16:00 Pulse 112 H 07/15/17 17:40 Resp 18 07/15/17 17:40 BP 107/63 07/15/17 17:16 Pulse Ox 100 07/15/17 17:40 - Labs Result Diagrams: 07/15/17 07:40 07/15/17 07:40 Labs: Laboratory Results - last 24 hr 07/14/17 07/15/17 07/15/17 21:14 06:16 07:40 WBC 8.1 RBC 2.77 L Hgb 9.0 L Hct 26.7 L MCV 96.2 MCH 32.5 H MCHC 33.8 RDW 19.8 H Plt Count 59 L MPV 11.3 Neut % (Auto) 81.4 H Lymph % (Auto) 11.1 L [place] % (Auto) 6.9 Eos % (Auto) 0.2 Baso % (Auto) 0.4 Neut # (Auto) 6.6 Lymph # (Auto) 0.9 L [place] # (Auto) 0.6 Eos # (Auto) 0.0 Baso # (Auto) 0.0 Sodium Potassium Chloride Carbon Dioxide Anion Gap BUN Creatinine Est GFR ( Amer) Est GFR (Non-Af Amer) POC Glucose (mg/dL) 121 H 75 Random Glucose Lactic Acid Calcium Magnesium Total Bilirubin AST ALT Alkaline Phosphatase Troponin I Total Protein Albumin Globulin Albumin/Globulin Ratio 07/15/17 07/15/17 07/15/17 07:40 11:02 11:02 WBC RBC Hgb Hct MCV MCH MCHC RDW Plt Count MPV Neut % (Auto) Lymph % (Auto) [place] % (Auto) Eos % (Auto) Baso % (Auto) Neut # (Auto) Lymph # (Auto) [place] # (Auto) Eos # (Auto) Baso # (Auto) Sodium 134 Potassium 3.3 L Chloride 100 Carbon Dioxide 27 Anion Gap 11 BUN 36 H Creatinine 1.7 H Est GFR ( Amer) 36 Est GFR (Non-Af Amer) 29 POC Glucose (mg/dL) Random Glucose 97 Lactic Acid 1.1 Calcium 7.7 L Magnesium 2.0 Total Bilirubin 0.6 AST 21 ALT 8 L D Alkaline Phosphatase 91 Troponin I 0.5700 H* Total Protein 6.0 L Albumin 2.4 L Globulin 3.5 Albumin/Globulin Ratio 0.7 L 07/15/17 07/15/17 11:40 16:12 WBC RBC Hgb Hct MCV MCH MCHC RDW Plt Count MPV Neut % (Auto) Lymph % (Auto) [place] % (Auto) Eos % (Auto) Baso % (Auto) Neut # (Auto) Lymph # (Auto) [place] # (Auto) Eos # (Auto) Baso # (Auto) Sodium Potassium Chloride Carbon Dioxide Anion Gap BUN Creatinine Est GFR ( Amer) Est GFR (Non-Af Amer) POC Glucose (mg/dL) 120 H 119 H Random Glucose Lactic Acid Calcium Magnesium Total Bilirubin AST ALT Alkaline Phosphatase Troponin I Total Protein Albumin Globulin Albumin/Globulin Ratio Assessment & Plan (1) Atrial flutter Assessment and Plan: Patient with the acute streptococcal pneumonia. Patient also has immunocompromised, status post chemotherapy for multiple myeloma. Patient is at high risk. Renal insufficiency. History of congestive heart failure Patient now developing acute rapid ventricular rate secondary. A. fib flutter and fibrillation. Will closely monitor. Intravenous ca+ channel trudy drip. Status: Acute (2) Bacteremia Status: Acute (3) Congestive heart failure Status: Acute
[2017-07-15 20:10] LABS: BASO % 0.2 % (0.0-2.0); EOS % 0.3 % (0.0-4.0); HEMOGLOBIN 9.9 g/dL (11.0-16.0); LYMPH # 0.9 K/uL (1.0-4.3); LYMPH % 13.5 % (20.0-40.0); MEAN CELL VOLUME 96.4 fL (81.0-99.0); MEAN CORPUSCULAR HEMOGLOBIN 32.4 pg (27.0-31.0); MEAN CORPUSCULAR HGB CONC 33.6 g/dL (33.0-37.0); MEAN PLATELET VOLUME 9.9 fL (7.2-11.7); MONO # 0.6 K/uL (0.0-0.8); MONO % 8.4 % (0.0-10.0); NEUT # 5.1 K/uL (1.8-7.0); NEUT % 77.6 % (50.0-75.0); RBC 3.04 Mil/uL (3.80-5.20); RED CELL DISTRIBUTION WIDTH 19.6 % (11.5-14.5); WHITE BLOOD COUNT 6.5 K/uL (4.8-10.8)
[2017-07-15 20:25] LABS: ALB/GLOB RATIO 0.7 (1.0-2.1); ALBUMIN 2.6 g/dL (3.5-5.0); CALCIUM 8.2 mg/dl (8.6-10.4)
[2017-07-15] MEDS: Brimonidine 0.2% Opth Sol (5ml) OU SCH (21:44)
--- NOTE | 2017-07-15 22:53 | CP.PCM.PN ---
Subjective - Date & Time of Evaluation Date of Evaluation: 07/15/17 Time of Evaluation: 20:00 - Subjective Subjective: Events noted, transferred to ICU at bedside pt appears comfortable Objective - Vital Signs/Intake and Output Vital Signs (last 24 hours): Temp Pulse Resp BP Pulse Ox 98.3 F 116 H 19 104/62 99 07/15/17 20:00 07/15/17 22:00 07/15/17 22:00 07/15/17 22:16 07/15/17 22:00 Intake and Output: 07/15/17 07/16/17 18:59 06:59 Intake Total 500.0 210.0 Output Total 1000 200 Balance -500.0 10.0 - Medications Medications: Current Medications Albuterol/Ipratropium (Duoneb 3 Mg/0.5 Mg (3 Ml) Ud) 3 ml INH RQ6 PRN PRN Reason: wheezing Last Admin: 07/15/17 08:23 Dose: 3 ml Allopurinol (Zyloprim) 100 mg PO DAILY [facility] Last Admin: 07/15/17 09:18 Dose: 100 mg Aspirin (Ecotrin) 81 mg PO DAILY [facility] Last Admin: 07/15/17 09:18 Dose: 81 mg Brimonidine Tartrate (Alphagan 0.2% Opht) 5 ml OU HS [facility] Last Admin: 07/15/17 21:44 Dose: Not Given Famotidine (Pepcid) 20 mg PO DAILY [facility] Last Admin: 07/15/17 09:17 Dose: 20 mg Ferrous Sulfate (Feosol) 325 mg PO TID [facility] Last Admin: 07/15/17 17:33 Dose: 325 mg Furosemide (Lasix) 40 mg IVP DAILY [facility] Guaifenesin (Robitussin) 100 mg PO QID PRN PRN Reason: cough Last Admin: 07/14/17 22:07 Dose: 100 mg Ceftriaxone Sodium 1 gm/ (Sodium Chloride) 100 mls @ 100 mls/hr IVPB Q12H [facility] PRN Reason: Protocol Last Admin: 07/15/17 18:20 Dose: 100 mls/hr Verapamil HCl 40 mg/ Sodium (Chloride) 100 mls @ 12.5 mls/hr IV .Q8H [facility]; 5 MG/ HR PRN Reason: Protocol Last Admin: 07/15/17 18:45 Dose: 12.5 mls/hr Insulin Human Regular (Novolin R) 0 unit SC ACHS [facility] PRN Reason: Protocol Last Admin: 07/15/17 21:24 Dose: Not Given Nitroglycerin (Nitro-Bid 2% Oint) 1 ea TOP Q6H [facility] Last Admin: 07/15/17 17:33 Dose: 1 ea Rosuvastatin Calcium (Crestor) 5 mg PO HS [facility] Last Admin: 07/15/17 21:38 Dose: 5 mg Sitagliptin Phosphate (Januvia) 25 mg PO DAILY [facility] Last Admin: 07/15/17 09:18 Dose: 25 mg - Labs Labs: 07/15/17 20:07 07/15/17 20:07 PT 11.2 SECONDS (9.7-12.2) 07/10/17 05:16 INR 1.0 07/10/17 05:16 APTT 22 SECONDS (21-34) 07/10/17 05:16 - Head Exam Head Exam: ATRAUMATIC - Eye Exam Eye Exam: Normal appearance - ENT Exam ENT Exam: Mucous Membranes Dry - Respiratory Exam Respiratory Exam: NORMAL BREATHING PATTERN - Cardiovascular Exam Cardiovascular Exam: +S1, +S2 - GI/Abdominal Exam GI & Abdominal Exam: Normal Bowel Sounds Assessment and Plan (1) Pancytopenia Assessment & Plan: improved counts secondary to chemotherapy s/p PRBC transfusion Status: Acute (2) Multiple myeloma Assessment & Plan: outpatient treatment Status: Acute
--- NOTE | 2017-07-16 01:15 | PN ---
DATE: 07/15/2017 FOLLOWUP RENAL CONSULTATION LOCATION: The patient is located in ICU, bed 14A. REQUESTED BY: Sourav Odonnell MD REASON FOR FOLLOWUP: Acute renal failure. SUBJECTIVE: Mrs. Alvarado is a 71-year-old elderly female with a past medical history significant for longstanding hypertension, diabetes, status post CABG, CHF, COPD, chronic left lower lung fibrosis as per the family, who was recently diagnosed with multiple myeloma, started on chemotherapy, now the patient was admitted feeling weak and chest pain and bilateral lower extremity swelling. The patient was found to have a blood culture positive for strep pneumonia. The patient is feeling better, not in distress. The patient had tachycardia, SVT, and the patient was transferred to ICU. The patient is not in acute distress at this time. No chest pain. No shortness of breath. PHYSICAL EXAMINATION: VITAL SIGNS: As follows: Blood pressure 115/61, pulse about 110, respirations 19, temperature is 98.2, height 5 feet 2 inches, weight 91 pounds. GENERAL: Mrs. Alvarado is a 71-year-old elderly female, thin built, not in distress. Slightly tachycardic. HEENT: Pupils normal and reactive to light and accommodation. Conjunctivae pink. Sclerae anicteric. Tongue is moist. NECK: Trachea is midline. LUNGS: Symmetric on both sides. Bilateral breath sounds present. Bilateral basilar crackles present, left more than the right. CVS: [place] at the fifth intercostal space, midclavicular line. S1, S2 audible. No murmur. Slightly tachycardic. ABDOMEN: Normal in appearance, soft, tympanic. No guarding. No rigidity. No hepatosplenomegaly. BODY SANDER: The patient is alert, awake, and oriented x3. Nonfocal neuro examination. Cranial nerves II through XII grossly intact. Sensory and motor system are within normal limits. EXTREMITIES: No cyanosis, no clubbing, no edema. CURRENT MEDICATIONS: Include as follows: Alphagan eye drops, Rocephin 1 gm every 12 hours, Crestor 5 mg at bedtime, DuoNeb inhaler, aspirin, Feosol 325 mg, Januvia 25 mg p.o. daily, Lasix 40 mg IV daily, Nitro-Bid ointment, Novolin R for sliding scale, Pepcid 20 mg p.o. daily, Robitussin 100 mg p.o. 4 times a day, p.r.n. verapamil 40 mg, 100 mL normal saline at 12.5 mL IV, 5 mg per hour, and allopurinol 100 mg p.o. daily. LABORATORY DATA: Include as follows: As of 07/15/2017, WBC 8.1, hemoglobin 9, hematocrit is 26.7, platelets 59. Sodium 134, potassium 3.3, chloride 100, CO2 27, BUN 36, creatinine 1.7, glucose 97, calcium 7.7, magnesium is 2, lactic acid 1.1. Total bili 0.6, AST 21, ALT 18, alkaline phosphatase 91, troponin 0.257, total protein 6, albumin is 2.4 . ASSESSMENT AND PLAN: In summary, Mrs. Alvarado is a 71-year-old elderly female with hypertension, diabetes, multiple myeloma, coronary artery disease, status post coronary artery bypass graft, congestive heart failure, chronic obstructive pulmonary disease, who was admitted with weakness, chest pain, shortness of breath, and lower extremity swelling, and found to have Streptococcus pneumoniae on blood cultures on 07/11/2017 and 07/12/2017 and repeat cultures on 07/13/2017 is negative on day #2. 1. Acute renal failure, most likely secondary to acute tubular necrosis, secondary to Streptococcus pneumoniae sepsis. 2. Anemia. 3. Thrombocytopenia, most likely secondary to multiple myeloma and sepsis. 4. Multiple myeloma. 5. Electrolyte imbalance, hypokalemia secondary to diuretics, and I will treat with potassium supplement 40 mEq this morning. 6. Status post supraventricular tachycardia, continue verapamil as per Intensive Care Unit and Cardiology recommendation. We will follow with you. Thank you for allowing me to participate in your patient's care. Overall prognosis is guarded. Valerie Rascon MD
[2017-07-16] MEDS: Verapamil 40 MG in Sodium Chloride 0.9% 84 ML IV SCH (05:26)
[2017-07-16] MEDS: guaiFENesin 100 mg/5 ml Syrup UD PO PRN ×2 (05:26→15:54)
[2017-07-16] MEDS: Nitroglycerin 2% Ointment Foilpak UD TOP SCH ×4 (06:21→17:41)
[2017-07-16 06:41] LABS: BASO % 0.5 % (0.0-2.0); EOS % 0.6 % (0.0-4.0); HEMOGLOBIN 9.7 g/dL (11.0-16.0); LYMPH # 0.8 K/uL (1.0-4.3); LYMPH % 14.8 % (20.0-40.0); MEAN CELL VOLUME 97.2 fL (81.0-99.0); MEAN CORPUSCULAR HEMOGLOBIN 32.4 pg (27.0-31.0); MEAN CORPUSCULAR HGB CONC 33.3 g/dL (33.0-37.0); MEAN PLATELET VOLUME 10.9 fL (7.2-11.7); MONO # 0.6 K/uL (0.0-0.8); MONO % 11.1 % (0.0-10.0); NRBC % 0.1 % (0.0-2.0); RBC 2.99 Mil/uL (3.80-5.20); RED CELL DISTRIBUTION WIDTH 19.6 % (11.5-14.5); WHITE BLOOD COUNT 5.4 K/uL (4.8-10.8)
[2017-07-16 07:08] LABS: ALB/GLOB RATIO 0.7 (1.0-2.1); ALBUMIN 2.6 g/dL (3.5-5.0); CALCIUM 8.1 mg/dl (8.6-10.4)
[2017-07-16] MEDS: (Novolin R) Insulin Human Regular 100 units/ml vial SC SCH ×5 (07:30→22:18)
[2017-07-16] MEDS: Verapamil 120 mg ER Tab PO SCH (10:17)
--- NOTE | 2017-07-16 12:20 | CP.PCM.PN ---
Subjective - Date & Time of Evaluation Date of Evaluation: 07/16/17 Time of Evaluation: 12:19 - Subjective Subjective: pt is seen and examined, follow up consult is dictated #[id number] Objective - Vital Signs/Intake and Output Vital Signs (last 24 hours): Temp Pulse Resp BP Pulse Ox 97.9 F 66 16 112/64 100 07/16/17 04:00 07/16/17 06:16 07/16/17 06:16 07/16/17 10:13 07/16/17 06:16 Intake and Output: 07/16/17 07/16/17 06:59 18:59 Intake Total 310.0 Output Total 550 Balance -240.0 - Medications Medications: Current Medications Allopurinol (Zyloprim) 100 mg PO DAILY [facility] Last Admin: 07/16/17 10:14 Dose: 100 mg Aspirin (Ecotrin) 81 mg PO DAILY [facility] Last Admin: 07/16/17 10:15 Dose: 81 mg Brimonidine Tartrate (Alphagan 0.2% Opht) 5 ml OU HS [facility] Last Admin: 07/15/17 21:44 Dose: Not Given Famotidine (Pepcid) 20 mg PO DAILY [facility] Last Admin: 07/16/17 10:15 Dose: 20 mg Ferrous Sulfate (Feosol) 325 mg PO TID [facility] Last Admin: 07/16/17 10:16 Dose: 325 mg Furosemide (Lasix) 40 mg IVP DAILY [facility] Last Admin: 07/16/17 10:13 Dose: 40 mg Guaifenesin (Robitussin) 100 mg PO QID PRN PRN Reason: cough Last Admin: 07/16/17 05:26 Dose: 100 mg Ceftriaxone Sodium 1 gm/ (Sodium Chloride) 100 mls @ 100 mls/hr IVPB Q12H [facility] PRN Reason: Protocol Last Admin: 07/16/17 06:15 Dose: 100 mls/hr Verapamil HCl 40 mg/ Sodium (Chloride) 100 mls @ 12.5 mls/hr IV .Q8H [facility]; 5 MG/ HR PRN Reason: Protocol Last Admin: 07/16/17 05:26 Dose: 12.5 mls/hr Insulin Human Regular (Novolin R) 0 unit SC ACHS [facility] PRN Reason: Protocol Last Admin: 07/16/17 08:00 Dose: Not Given Nitroglycerin (Nitro-Bid 2% Oint) 1 ea TOP Q6H [facility] Last Admin: 07/16/17 06:21 Dose: Not Given Rosuvastatin Calcium (Crestor) 5 mg PO HS [facility] Last Admin: 07/15/17 21:38 Dose: 5 mg Sitagliptin Phosphate (Januvia) 25 mg PO DAILY [facility] Last Admin: 07/16/17 10:17 Dose: Not Given Verapamil HCl (Calan Sr Tab) 120 mg PO DAILY [facility] Last Admin: 07/16/17 10:17 Dose: 120 mg - Labs Labs: 07/16/17 06:34 07/16/17 06:37 PT 11.2 SECONDS (9.7-12.2) 07/10/17 05:16 INR 1.0 07/10/17 05:16 APTT 22 SECONDS (21-34) 07/10/17 05:16
--- NOTE | 2017-07-16 15:59 | CP.PCM.PN ---
Subjective - Date & Time of Evaluation Date of Evaluation: 07/16/17 Time of Evaluation: 11:00 - Subjective Subjective: still coughing, no fevers, Blood culture (+)strep pneumonia Objective - Vital Signs/Intake and Output Vital Signs (last 24 hours): Temp Pulse Resp BP Pulse Ox 98.4 F 89 20 118/74 100 07/16/17 12:00 07/16/17 13:16 07/16/17 13:16 07/16/17 13:16 07/16/17 13:16 Intake and Output: 07/16/17 07/16/17 06:59 18:59 Intake Total 310.0 441.3 Output Total 550 700 Balance -240.0 -258.7 - Medications Medications: Current Medications Allopurinol (Zyloprim) 100 mg PO DAILY [facility] Last Admin: 07/16/17 10:14 Dose: 100 mg Aspirin (Ecotrin) 81 mg PO DAILY [facility] Last Admin: 07/16/17 10:15 Dose: 81 mg Brimonidine Tartrate (Alphagan 0.2% Opht) 5 ml OU HS [facility] Last Admin: 07/15/17 21:44 Dose: Not Given Famotidine (Pepcid) 20 mg PO DAILY [facility] Last Admin: 07/16/17 10:15 Dose: 20 mg Ferrous Sulfate (Feosol) 325 mg PO TID [facility] Last Admin: 07/16/17 14:19 Dose: 325 mg Furosemide (Lasix) 20 mg PO DAILY [facility] Guaifenesin (Robitussin) 100 mg PO QID PRN PRN Reason: cough Last Admin: 07/16/17 05:26 Dose: 100 mg Ceftriaxone Sodium 1 gm/ (Sodium Chloride) 100 mls @ 100 mls/hr IVPB Q12H [facility] PRN Reason: Protocol Last Admin: 07/16/17 06:15 Dose: 100 mls/hr Insulin Human Regular (Novolin R) 0 unit SC ACHS [facility] PRN Reason: Protocol Last Admin: 07/16/17 11:30 Dose: Not Given Nitroglycerin (Nitro-Bid 2% Oint) 1 ea TOP Q6H [facility] Last Admin: 07/16/17 12:58 Dose: 1 ea Rosuvastatin Calcium (Crestor) 5 mg PO HS [facility] Last Admin: 07/15/17 21:38 Dose: 5 mg Sitagliptin Phosphate (Januvia) 25 mg PO DAILY [facility] Last Admin: 07/16/17 10:17 Dose: Not Given Verapamil HCl (Calan Sr Tab) 120 mg PO DAILY [facility] Last Admin: 07/16/17 10:17 Dose: 120 mg - Labs Labs: 07/16/17 06:34 07/16/17 06:37 PT 11.2 SECONDS (9.7-12.2) 07/10/17 05:16 INR 1.0 07/10/17 05:16 APTT 22 SECONDS (21-34) 07/10/17 05:16 - Constitutional Appears: Non-toxic, No Acute Distress - Head Exam Head Exam: ATRAUMATIC, NORMAL INSPECTION, NORMOCEPHALIC - Eye Exam Eye Exam: EOMI - ENT Exam ENT Exam: Mucous Membranes Moist, Normal Exam - Respiratory Exam Respiratory Exam: NORMAL BREATHING PATTERN. absent: Rhonchi, Respiratory Distress - Cardiovascular Exam Cardiovascular Exam: Tachycardia, REGULAR RHYTHM, +S1, +S2 - GI/Abdominal Exam GI & Abdominal Exam: Normal Bowel Sounds - Neurological Exam Neurological Exam: Alert, Awake, Oriented x3 - Skin Skin Exam: Normal Color Assessment and Plan - Assessment and Plan (Free Text) Assessment: 71 y/o female s/p CABG ([place]), h/o DM, presents to [facility] with c/o cough dx with strep pneumonia bacteremia -Strep pneumonia bacteremia: continue ceftriaxone, lactic normalizing -Chronic systolic/diastolic heart failure: avoid fluid overloaded states, continue asa, statin (AV david trudy) verapamil po d/c IV verapamil -h/o Obstructive lung disease: no history of smoking or exposure to any smoke, symptomatic rx with robitussin, atrovent PRN wheezing -CYNDEE: improving avoid nephrotoxic drugs -MM: heme/onc follow up, -OOB to chair -continue dvt ppx -continue pud ppx -PT/OT Patient came off verapamil ggt, WBC improving no scales/no central line d/w nursing
[2017-07-16] MEDS ORDERED: Ipratropium 0.02% Inhal Soln (0.5 mg/2.5 ml) UD IH PRN (16:03)
[2017-07-16] MEDS: Acetylcysteine 20% Inhal Soln (4ml) PO SCH (17:12)
[2017-07-16] MEDS: Brimonidine 0.2% Opth Sol (5ml) OU SCH (22:37)
[2017-07-17] MEDS: Nitroglycerin 2% Ointment Foilpak UD TOP SCH ×5 (00:01→23:54)
[2017-07-17] MEDS: Acetylcysteine 20% Inhal Soln (4ml) PO SCH ×2 (05:10→16:41)
[2017-07-17 06:43] LABS: BASO % 1.2 % (0.0-2.0); EOS # 0.1 K/uL (0.0-0.7); HEMOGLOBIN 9.1 g/dL (11.0-16.0); LYMPH # 1.1 K/uL (1.0-4.3); LYMPH % 27.8 % (20.0-40.0); MEAN CELL VOLUME 97.1 fL (81.0-99.0); MEAN CORPUSCULAR HEMOGLOBIN 32.5 pg (27.0-31.0); MEAN CORPUSCULAR HGB CONC 33.4 g/dL (33.0-37.0); MONO # 0.5 K/uL (0.0-0.8); MONO % 12.9 % (0.0-10.0); NEUT # 2.1 K/uL (1.8-7.0); NEUT % 56.1 % (50.0-75.0); NRBC % 0.2 % (0.0-2.0); RBC 2.81 Mil/uL (3.80-5.20); RED CELL DISTRIBUTION WIDTH 18.8 % (11.5-14.5); WHITE BLOOD COUNT 3.8 K/uL (4.8-10.8)
[2017-07-17 06:50] LABS: ALB/GLOB RATIO 0.7 (1.0-2.1); ALBUMIN 2.5 g/dL (3.5-5.0); CALCIUM 7.6 mg/dl (8.6-10.4)
[2017-07-17] MEDS: (Novolin R) Insulin Human Regular 100 units/ml vial SC SCH ×4 (07:30→21:36)
--- NOTE | 2017-07-17 09:24 | PN ---
DATE: 07/16/2017 FOLLOWUP RENAL CONSULTATION LOCATION: ICU bed 14A. REQUESTED BY: Dr. Sourav Odonnell MD. REASON FOR FOLLOWUP: Acute renal failure, strep pneumoniae . HISTORY OF PRESENT ILLNESS: Mrs. Alvarado is 71 years old elderly female with a past medical history significant for longstanding hypertension, diabetes, coronary artery disease, status post CABG, COPD, CHF, chronic left lower lobe fibrosis, recently diagnosed multiple myeloma, status post acute renal failure, on chemotherapy with improvement with renal function from 2.5 to 0.9 to 1 recently. Now, the patient was admitted with shortness of breath, leg swelling and chills. The patient was found to have blood culture positive for strep pneumoniae and hospital course complicated by SVT and transfer to ICU. The patient is feeling better and not in distress. No chest pain. No palpitation. No fever. No cough. No abdominal pain. No nausea, vomiting or diarrhea. PHYSICAL EXAMINATION: VITAL SIGNS: Blood pressure 118/64, pulse 102, respirations 20, saturation 100% and temperature is 98.4. GENERAL: Mrs. Alvarado is a 71 years old elderly female, thin built, not in any distress. HEENT: Pupils normal and reactive to light and accommodation. Conjunctivae pink. Sclerae anicteric. Tongue is moist and trachea is midline. LUNGS: Symmetric on both sides. Bilateral breath sounds present. Bilateral crackles present, left more than the right. CVS: [place] at the fifth intercostal space, midclavicular line. S1 and S2 audible. Slightly tachycardic. ABDOMEN: Normal in appearance, soft, tympanic. No guarding. No rigidity. No hepatosplenomegaly. FINANCIAL SUPERVISOR: The patient is alert, awake, oriented x3. Nonfocal neuro examination. Cranial nerves II through XII grossly intact. Sensory and motor system is within normal limits. EXTREMITIES: No cyanosis, no clubbing, no edema. CURRENT MEDICATIONS: Acetylcysteine 6 mL p.o. every 6 hours, Alphagan eye drops, Atrovent, verapamil 120 mg p.o. daily, Rocephin 1 gm every 12 hours, Crestor 5 mg p.o. at bed time, aspirin 81 mg p.o. daily, Feosol 325 mg p.o. t.i.d., Januvia 25 mg p.o. daily, Lasix 20 mg p.o. daily, Nitro-Bid ointment optical and Pepcid 20 mg p.o. daily, Robitussin 100 mg p.o. q.i.d., and allopurinol 100 mg p.o. daily. LABORATORY DATA: As on 07/16/2017; WBC 5.4, hemoglobin 9, hematocrit is 29.1 and platelets 74. Sodium 140, potassium 3.6, chloride 101, CO2 29, BUN 29, creatinine 1.5, glucose 74, calcium 8.1, phosphorous 2.8, magnesium 2.1, total patt 0.4, AST 26, ALT 11, alkaline phosphatase 119, total protein 6.5, albumin is 2.6, free thyroxine is 1.93, TSH is 1.67. Repeat blood culture as of 07/13/2017 was negative day #3 and MRSA screening was negative. Blood culture from 07/11/2017 and 07/12/2017 was positive for strep pneumoniae. ASSESSMENT: In summary, Mrs. Alvarado is a 71 years old elderly female with history of hypertension, diabetes, coronary artery disease status post coronary artery bypass grafting about 2 years ago, hyperlipemia, congestive heart failure, chronic obstructive pulmonary disease, multiple myeloma, status post acute renal failure on chemotherapy, was admitted with chest pain, shortness of breath, chills, and found to have streptococcus pneumoniae with worsening renal function in the hospital. 1. Nonoliguric acute renal failure on chronic kidney disease. Renal function is slowly improving. 2. Streptococcus pneumoniae. 3. Status post supraventricular tachycardia. 4. Hypertension. 5. Coronary artery disease, status post coronary artery bypass grafting. PLAN: Continue IV antibiotics as per ID recommendations. Continue verapamil and will followup electrolytes in a.m. Thank you for allowing me to participate in your patient's care. Valerie Rascon MD
[2017-07-17] MEDS: Verapamil 120 mg ER Tab PO SCH (09:26)
--- NOTE | 2017-07-17 09:29 | PN ---
DATE: 07/14/2017 FOLLOWUP RENAL CONSULTATION LOCATION: The patient is located room 562, Bed B. REQUESTED BY: Jeff Alvarado MD, and Sourav Odonnell MD REASON FOR FOLLOWUP: Acute renal failure. HISTORY OF PRESENT ILLNESS: Mrs. Alvarado is a 71-year-old elderly female with a history of longstanding hypertension, diabetes, hyperlipidemia, coronary artery disease, status post CABG, COPD, pulmonary hypertension, CHF, recently diagnosed multiple myeloma, acute renal failure on chemotherapy, and her creatinine improved back to her baseline from 2.5 to 0.9 after the initiation of chemotherapy, now the patient was admitted with shortness of breath, bilateral leg swelling and chills, and not feeling well and chest pain. The patient was found to have positive blood cultures, GPC on admission on, 07/11/2017, and identified as a Strep pneumonia. Blood culture positive from 07/11 and also 07/12 Strep pneumonia, and blood culture from 07/13 is negative day 1. The patient is feeling slightly weak today. No chest pain. No palpitation, occasional cough. PHYSICAL EXAMINATION: VITAL SIGNS: As follows, blood pressure this morning 107/56, pulse 79, respirations 20, temperature 97.5, saturation 99%. Height 5 feet, weight is 98 pounds. GENERAL: Mrs. Alvarado is a 71-year-old elderly female, thin built, not in distress, on nasal cannula. HEENT: Pupils normal and reactive to light and accommodation. Conjunctivae pink. Sclerae anicteric. Tongue is moist. Trachea is midline. LUNGS: Symmetric on both sides. Bilateral crackles present, left more than the right. CVS: [place] at the fifth intercostal space, midclavicular line. S1, S2 audible. No murmur, gallop. ABDOMEN: Normal in appearance, soft, tympanic. No guarding. No rigidity. No hepatosplenomegaly. PULLING UNIT FLOORHAND: The patient is alert, awake, oriented x3. Nonfocal neuro examination. Cranial nerves II through XII grossly intact. Sensory and motor system is within normal limits. EXTREMITIES: No cyanosis, no clubbing, no edema. MEDICATIONS: Her current medications include as follows, Alphagan eyedrops, Rocephin 1 gm every 12 hours, Crestor 5 mg p.o. at bedtime, DuoNeb inhaler, aspirin 81 mg daily, Feosol 325 g p.o. three times daily, Januvia 25 mg p.o. daily, Lasix 40 mg IV two times daily, Nitro-Bid ointment topical every 6 hours, Novolin R for sliding scale, Pepcid 20 mg p.o. daily, Robitussin 5 mg p.o. three times daily, allopurinol 100 mg p.o. daily. LABORATORY DATA: Her laboratory data include as follows, as of 07/14/2017, WBC 11.1, hemoglobin 9.8, hematocrit is 28.7, platelets 204, neutrophils 65, bands 23, lymph 3, monos 9. Sodium 133, potassium 3.1, chloride 97, CO2 of 26, BUN 46, creatinine 1.9, glucose 77, calcium 7.5. Blood culture as of 07/11/2017 and 07/12/2017 positive for Strep pneumonia; sensitive to ceftriaxone, moxifloxacin, and penicillin resistant, sensitive to moxifloxacin and ceftriaxone, and also sensitive to chloramphenicol and also vancomycin. IMPRESSION: In summary, Mrs. Alvarado is a 71-year-old elderly female with a history of hypertension, diabetes, coronary artery disease, status post coronary artery bypass graft, pulmonary hypertension, chronic obstructive pulmonary disease, multiple myeloma, on chemotherapy with cough, shortness of breath, bilateral leg swelling, and chills and found to have a blood culture positive for streptococcal pneumonia and increased bandemia and increased WBC count, increased BUN and creatinine. 1. Nonoliguric acute renal failure, most likely secondary to acute tubular necrosis secondary to streptococcal pneumonia. 2. Sepsis secondary to streptococcal pneumonia. 3. Anemia secondary to multiple myeloma. 4. Thrombocytopenia secondary to chemotherapy and multiple myeloma. Continue IV antibiotics, Rocephin as per ID recommendations, and we will continue to monitor renal function. 6. Hypokalemia. We will give KCl 40 mEq p.o. x1 dose this morning. We will continue to follow with you. Thank you for allowing me to participate in your patient's care. Overall prognosis is guarded. Valerie Rascon MD
--- NOTE | 2017-07-17 12:09 | CARD ---
APPROVED REPORT EKG Measurement Heart [id number] <Conclusion> Atrial fibrillation with rapid ventricular response intraventricular conduction delay, left bundle branch block pattern Left anterior fascicular block Moderate voltage criteria for LVH, may be normal variant ST & T wave abnormality, consider lateral ischemia Abnormal ECG
--- NOTE | 2017-07-17 12:30 | CP.PCM.PN ---
Subjective - Date & Time of Evaluation Date of Evaluation: 07/17/17 Time of Evaluation: 12:29 - Subjective Subjective: pt is seen and examined, follow up consult is dictated #[id number] Objective - Vital Signs/Intake and Output Vital Signs (last 24 hours): Temp Pulse Resp BP Pulse Ox 97.8 F 67 20 107/50 L 100 07/17/17 11:59 07/17/17 11:17 07/17/17 11:17 07/17/17 11:17 07/17/17 11:17 Intake and Output: 07/17/17 07/17/17 06:59 18:59 Intake Total 100 360 Output Total 150 1 Balance -50 359 - Medications Medications: Current Medications Acetylcysteine (Acetylcysteine 20%) 6 ml PO Q12H [facility] Stop: 07/18/17 04:16 Last Admin: 07/17/17 05:10 Dose: 6 ml Allopurinol (Zyloprim) 100 mg PO DAILY [facility] Last Admin: 07/17/17 09:25 Dose: 100 mg Aspirin (Ecotrin) 81 mg PO DAILY [facility] Last Admin: 07/17/17 09:25 Dose: 81 mg Brimonidine Tartrate (Alphagan 0.2% Opht) 5 ml OU HS [facility] Last Admin: 07/16/17 22:37 Dose: 1 drop Famotidine (Pepcid) 20 mg PO DAILY [facility] Last Admin: 07/17/17 09:23 Dose: 20 mg Ferrous Sulfate (Feosol) 325 mg PO TID [facility] Last Admin: 07/17/17 09:24 Dose: 325 mg Furosemide (Lasix) 20 mg PO DAILY [facility] Last Admin: 07/17/17 09:24 Dose: 20 mg Guaifenesin (Robitussin) 100 mg PO QID PRN PRN Reason: cough Last Admin: 07/16/17 15:54 Dose: 100 mg Heparin Sodium (Porcine) (Heparin) 5,000 units SC Q12 [facility] Last Admin: 07/17/17 09:25 Dose: 5,000 units Ceftriaxone Sodium 1 gm/ (Sodium Chloride) 100 mls @ 100 mls/hr IVPB Q12H [facility] PRN Reason: Protocol Last Admin: 07/17/17 06:36 Dose: 100 mls/hr Insulin Human Regular (Novolin R) 0 unit SC ACHS [facility] PRN Reason: Protocol Last Admin: 07/17/17 12:01 Dose: Not Given Ipratropium [place] (Atrovent) 0.5 mg IH RQ6 PRN PRN Reason: Shortness of Breath Nitroglycerin (Nitro-Bid 2% Oint) 1 ea TOP Q6H [facility] Last Admin: 07/17/17 06:37 Dose: Not Given Rosuvastatin Calcium (Crestor) 5 mg PO HS [facility] Last Admin: 07/16/17 22:18 Dose: 5 mg Sitagliptin Phosphate (Januvia) 25 mg PO DAILY [facility] Last Admin: 07/17/17 09:24 Dose: 25 mg Verapamil HCl (Calan Sr Tab) 120 mg PO DAILY [facility] Last Admin: 07/17/17 09:26 Dose: 120 mg - Labs Labs: 07/17/17 06:14 07/17/17 06:14 PT 11.2 SECONDS (9.7-12.2) 07/10/17 05:16 INR 1.0 07/10/17 05:16 APTT 22 SECONDS (21-34) 07/10/17 05:16
--- NOTE | 2017-07-17 12:38 | CP.PCM.PN ---
Subjective - Date & Time of Evaluation Date of Evaluation: 07/17/17 Time of Evaluation: 12:37 - Subjective Subjective: Patient is sitting up comfortably. But still having some shortness of breath. Heartbeat is better. No fever or chills. Objective - Vital Signs/Intake and Output Vital Signs (last 24 hours): Temp Pulse Resp BP Pulse Ox 97.8 F 67 20 107/50 L 100 07/17/17 11:59 07/17/17 11:17 07/17/17 11:17 07/17/17 11:17 07/17/17 11:17 Intake and Output: 07/17/17 07/17/17 06:59 18:59 Intake Total 100 360 Output Total 150 1 Balance -50 359 Chest good air entry, minimal expiratory wheezing, regular, Pedal Edema 1+. - Medications Medications: Current Medications Acetylcysteine (Acetylcysteine 20%) 6 ml PO Q12H [facility] Stop: 07/18/17 04:16 Last Admin: 07/17/17 05:10 Dose: 6 ml Allopurinol (Zyloprim) 100 mg PO DAILY [facility] Last Admin: 07/17/17 09:25 Dose: 100 mg Aspirin (Ecotrin) 81 mg PO DAILY [facility] Last Admin: 07/17/17 09:25 Dose: 81 mg Brimonidine Tartrate (Alphagan 0.2% Opht) 5 ml OU HS [facility] Last Admin: 07/16/17 22:37 Dose: 1 drop Famotidine (Pepcid) 20 mg PO DAILY [facility] Last Admin: 07/17/17 09:23 Dose: 20 mg Ferrous Sulfate (Feosol) 325 mg PO TID [facility] Last Admin: 07/17/17 09:24 Dose: 325 mg Furosemide (Lasix) 20 mg PO DAILY [facility] Last Admin: 07/17/17 09:24 Dose: 20 mg Guaifenesin (Robitussin) 100 mg PO QID PRN PRN Reason: cough Last Admin: 07/16/17 15:54 Dose: 100 mg Heparin Sodium (Porcine) (Heparin) 5,000 units SC Q12 [facility] Last Admin: 07/17/17 09:25 Dose: 5,000 units Ceftriaxone Sodium 1 gm/ (Sodium Chloride) 100 mls @ 100 mls/hr IVPB Q12H [facility] PRN Reason: Protocol Last Admin: 07/17/17 06:36 Dose: 100 mls/hr Insulin Human Regular (Novolin R) 0 unit SC ACHS [facility] PRN Reason: Protocol Last Admin: 07/17/17 12:01 Dose: Not Given Ipratropium [place] (Atrovent) 0.5 mg IH RQ6 PRN PRN Reason: Shortness of Breath Nitroglycerin (Nitro-Bid 2% Oint) 1 ea TOP Q6H [facility] Last Admin: 07/17/17 06:37 Dose: Not Given Rosuvastatin Calcium (Crestor) 5 mg PO HS [facility] Last Admin: 07/16/17 22:18 Dose: 5 mg Sitagliptin Phosphate (Januvia) 25 mg PO DAILY [facility] Last Admin: 07/17/17 09:24 Dose: 25 mg Verapamil HCl (Calan Sr Tab) 120 mg PO DAILY [facility] Last Admin: 07/17/17 09:26 Dose: 120 mg - Labs Labs: 07/17/17 06:14 07/17/17 06:14 PT 11.2 SECONDS (9.7-12.2) 07/10/17 05:16 INR 1.0 07/10/17 05:16 APTT 22 SECONDS (21-34) 07/10/17 05:16 Assessment and Plan (1) Atrial flutter Status: Acute (2) Bacteremia Assessment & Plan: Patient with a pneumococcal pneumonia and bacteremia. Currently on antibiotic. Improving. Multiple myeloma. Atrial flutter and fibrillation stable. Status: Acute (3) Congestive heart failure Status: Acute
--- NOTE | 2017-07-17 13:06 | CP.PCM.PN ---
Subjective - Date & Time of Evaluation Date of Evaluation: 07/17/17 Time of Evaluation: 13:04 - Subjective Subjective: CONDITION STABLE. HR CONTROLLED. SEPTIC. CAD. Objective - Vital Signs/Intake and Output Vital Signs (last 24 hours): Temp Pulse Resp BP Pulse Ox 97.8 F 67 20 107/50 L 100 07/17/17 11:59 07/17/17 11:17 07/17/17 11:17 07/17/17 11:17 07/17/17 11:17 Intake and Output: 07/17/17 07/17/17 06:59 18:59 Intake Total 100 360 Output Total 150 1 Balance -50 359 - Medications Medications: Current Medications Acetylcysteine (Acetylcysteine 20%) 6 ml PO Q12H [facility] Stop: 07/18/17 04:16 Last Admin: 07/17/17 05:10 Dose: 6 ml Allopurinol (Zyloprim) 100 mg PO DAILY [facility] Last Admin: 07/17/17 09:25 Dose: 100 mg Aspirin (Ecotrin) 81 mg PO DAILY [facility] Last Admin: 07/17/17 09:25 Dose: 81 mg Brimonidine Tartrate (Alphagan 0.2% Opht) 5 ml OU HS [facility] Last Admin: 07/16/17 22:37 Dose: 1 drop Famotidine (Pepcid) 20 mg PO DAILY [facility] Last Admin: 07/17/17 09:23 Dose: 20 mg Ferrous Sulfate (Feosol) 325 mg PO TID [facility] Last Admin: 07/17/17 09:24 Dose: 325 mg Furosemide (Lasix) 20 mg PO DAILY [facility] Last Admin: 07/17/17 09:24 Dose: 20 mg Guaifenesin (Robitussin) 100 mg PO QID PRN PRN Reason: cough Last Admin: 07/16/17 15:54 Dose: 100 mg Heparin Sodium (Porcine) (Heparin) 5,000 units SC Q12 [facility] Last Admin: 07/17/17 09:25 Dose: 5,000 units Ceftriaxone Sodium 1 gm/ (Sodium Chloride) 100 mls @ 100 mls/hr IVPB Q12H [facility] PRN Reason: Protocol Last Admin: 07/17/17 06:36 Dose: 100 mls/hr Insulin Human Regular (Novolin R) 0 unit SC ACHS [facility] PRN Reason: Protocol Last Admin: 07/17/17 12:01 Dose: Not Given Ipratropium [place] (Atrovent) 0.5 mg IH RQ6 PRN PRN Reason: Shortness of Breath Nitroglycerin (Nitro-Bid 2% Oint) 1 ea TOP Q6H [facility] Last Admin: 07/17/17 06:37 Dose: Not Given Rosuvastatin Calcium (Crestor) 5 mg PO HS [facility] Last Admin: 07/16/17 22:18 Dose: 5 mg Sitagliptin Phosphate (Januvia) 25 mg PO DAILY [facility] Last Admin: 07/17/17 09:24 Dose: 25 mg Verapamil HCl (Calan Sr Tab) 120 mg PO DAILY [facility] Last Admin: 07/17/17 09:26 Dose: 120 mg - Labs Labs: 07/17/17 06:14 07/17/17 06:14 PT 11.2 SECONDS (9.7-12.2) 07/10/17 05:16 INR 1.0 07/10/17 05:16 APTT 22 SECONDS (21-34) 07/10/17 05:16 - Constitutional Appears: No Acute Distress, Chronically Ill - Eye Exam Eye Exam: EOMI, Normal appearance, PERRL Pupil Exam: NORMAL ACCOMODATION, PERRL - ENT Exam ENT Exam: Mucous Membranes Moist, Normal Exam - Neck Exam Neck Exam: Full ROM, Normal Inspection. absent: Lymphadenopathy - Respiratory Exam Respiratory Exam: Clear to Ausculation Bilateral, NORMAL BREATHING PATTERN - Cardiovascular Exam Cardiovascular Exam: REGULAR RHYTHM, +S1, +S2. absent: Murmur - GI/Abdominal Exam GI & Abdominal Exam: Soft, Normal Bowel Sounds. absent: Tenderness - Extremities Exam Extremities Exam: Full ROM, Normal Capillary Refill, Normal Inspection. absent : Joint Swelling, Pedal Edema - Back Exam Back Exam: NORMAL INSPECTION - Neurological Exam Neurological Exam: Alert, Awake, CN II-XII Intact, Normal Gait, Oriented x3 Assessment and Plan - Assessment and Plan (Free Text) Assessment: SEPSIS. Plan: CT PRESENT TREATMENT. ICU CARE.
--- NOTE | 2017-07-17 13:37 | CP.PCM.PN ---
Subjective - Date & Time of Evaluation Date of Evaluation: 07/17/17 Time of Evaluation: 08:00 - Subjective Subjective: no fever awake alert less SOB Objective - Vital Signs/Intake and Output Vital Signs (last 24 hours): Temp Pulse Resp BP Pulse Ox 97.8 F 67 20 107/50 L 100 07/17/17 11:59 07/17/17 11:17 07/17/17 11:17 07/17/17 11:17 07/17/17 11:17 Intake and Output: 07/17/17 07/17/17 06:59 18:59 Intake Total 100 360 Output Total 150 1 Balance -50 359 - Medications Medications: Current Medications Acetylcysteine (Acetylcysteine 20%) 6 ml PO Q12H [facility] Stop: 07/18/17 04:16 Last Admin: 07/17/17 05:10 Dose: 6 ml Allopurinol (Zyloprim) 100 mg PO DAILY [facility] Last Admin: 07/17/17 09:25 Dose: 100 mg Aspirin (Ecotrin) 81 mg PO DAILY [facility] Last Admin: 07/17/17 09:25 Dose: 81 mg Brimonidine Tartrate (Alphagan 0.2% Opht) 5 ml OU HS [facility] Last Admin: 07/16/17 22:37 Dose: 1 drop Famotidine (Pepcid) 20 mg PO DAILY [facility] Last Admin: 07/17/17 09:23 Dose: 20 mg Ferrous Sulfate (Feosol) 325 mg PO TID [facility] Last Admin: 07/17/17 09:24 Dose: 325 mg Furosemide (Lasix) 20 mg PO DAILY [facility] Last Admin: 07/17/17 09:24 Dose: 20 mg Guaifenesin (Robitussin) 100 mg PO QID PRN PRN Reason: cough Last Admin: 07/16/17 15:54 Dose: 100 mg Heparin Sodium (Porcine) (Heparin) 5,000 units SC Q12 [facility] Last Admin: 07/17/17 09:25 Dose: 5,000 units Ceftriaxone Sodium 1 gm/ (Sodium Chloride) 100 mls @ 100 mls/hr IVPB Q12H [facility] PRN Reason: Protocol Last Admin: 07/17/17 06:36 Dose: 100 mls/hr Insulin Human Regular (Novolin R) 0 unit SC ACHS [facility] PRN Reason: Protocol Last Admin: 07/17/17 12:01 Dose: Not Given Ipratropium [place] (Atrovent) 0.5 mg IH RQ6 PRN PRN Reason: Shortness of Breath Nitroglycerin (Nitro-Bid 2% Oint) 1 ea TOP Q6H [facility] Last Admin: 07/17/17 06:37 Dose: Not Given Rosuvastatin Calcium (Crestor) 5 mg PO HS [facility] Last Admin: 07/16/17 22:18 Dose: 5 mg Sitagliptin Phosphate (Januvia) 25 mg PO DAILY [facility] Last Admin: 07/17/17 09:24 Dose: 25 mg Verapamil HCl (Calan Sr Tab) 120 mg PO DAILY [facility] Last Admin: 07/17/17 09:26 Dose: 120 mg - Labs Labs: 07/17/17 06:14 07/17/17 06:14 PT 11.2 SECONDS (9.7-12.2) 07/10/17 05:16 INR 1.0 07/10/17 05:16 APTT 22 SECONDS (21-34) 07/10/17 05:16 - Constitutional Appears: Non-toxic, Chronically Ill - Head Exam Head Exam: NORMOCEPHALIC - Eye Exam Eye Exam: PERRL - ENT Exam ENT Exam: Mucous Membranes Dry - Neck Exam Neck Exam: absent: Lymphadenopathy - Respiratory Exam Respiratory Exam: Decreased Breath Sounds - Cardiovascular Exam Cardiovascular Exam: REGULAR RHYTHM - GI/Abdominal Exam GI & Abdominal Exam: Distended - Rectal Exam Rectal Exam: Deferred - Exam Exam: NORMAL INSPECTION Assessment and Plan (1) Sepsis Status: Acute (2) Bacteremia Status: Acute (3) Chest pain Status: Acute (4) Congestive heart failure Status: Acute
[2017-07-17] MEDS: Brimonidine 0.2% Opth Sol (5ml) OU SCH (21:53)
[2017-07-18] MEDS: Acetylcysteine 20% Inhal Soln (4ml) PO SCH (04:45)
[2017-07-18] MEDS: Nitroglycerin 2% Ointment Foilpak UD TOP SCH ×3 (06:06→17:50)
[2017-07-18] MEDS: guaiFENesin 100 mg/5 ml Syrup UD PO PRN (06:14)
--- NOTE | 2017-07-18 07:30 | PN ---
DATE: 07/17/2017 FOLLOWUP RENAL CONSULTATION LOCATION: The patient is located in ICU, bed 14 A. REQUESTED BY: Sourav Odonnell MD, and Jeff Alvarado MD. REASON FOR FOLLOWUP: Acute renal failure, streptococcal pneumonia. HISTORY OF PRESENT ILLNESS: Mrs. Alvarado is a 71-year-old elderly female with a past medical history significant for longstanding hypertension, diabetes, coronary artery disease, status post CABG, hyperlipidemia, COPD, CHF, status post acute renal failure few months ago, diagnosed with multiple myeloma, started on chemotherapy and renal function improved to back to her baseline 0.9. Now the patient was admitted last week with the chief complaints of shortness of breath and bilateral leg swelling, chills. The patient was found to have a Strep pneumonia and blood cultures from 07/11 and 07/12, and the patient is on Rocephin 1 gm b.i.d. The patient was transferred from medical floor to ICU for SVT. The patient is feeling much better today, not in acute distress. Denies any chest pain or palpitation. Denies any fever or cough. No abdominal pain. No nausea, vomiting, diarrhea. PHYSICAL EXAMINATION: VITAL SIGNS: This morning as follows, blood pressure 123/44, pulse about 63, respirations 22, saturation 100%, and temperature is 98.6. GENERAL: Mrs. Alvarado is a 71-year-old elderly female, thin-built, not in distress. HEENT: Pupils normal and reactive to light and accommodation. Conjunctivae pink. Sclerae anicteric. Tongue is moist. Trachea is midline. LUNGS: Symmetry on both sides. Bilateral breath sounds present. Bilateral basal crackles present up to one-third of the chest lower. CVS: [place] at the fifth intercostal space, midclavicular line. S1, S2 audible. No murmur or gallop. ABDOMEN: Normal in appearance. Soft. Tympanic. No guarding. No rigidity. No hepatosplenomegaly. PEST CONTROLLER ASSISTANT: The patient is alert, awake, oriented x3. Nonfocal neuro examination. Cranial nerves II through XII grossly intact. Sensory and motor system is within normal limits. EXTREMITIES: No cyanosis, no clubbing, no edema. MEDICATIONS: Current medications include as follows: Acetylcysteine 6 mL p.o. every 12 hours, Alphagan eyedrops, Atrovent, Verapamil 120 mg p.o. daily, Rocephin 1 gm every 12 hours, Crestor 5 mg p.o. at bedtime, aspirin 81 mg daily, Feosol 325 mg p.o. t.i.d., heparin 5000 units subcu every 12 hours, Januvia 25 mg p.o. daily, Lasix 20 mg p.o. daily, Nitro-Bid ointment topical 1 inch every 6 hours, Pepcid 20 mg daily, Robitussin 100 mg p.o. 4 times daily, and allopurinol 100 mg p.o. daily. LABORATORY DATA: Include as follows: WBC 3.8, hemoglobin 9.1, hematocrit is 27.3, platelets 77. Sodium 140, potassium 3.8, chloride 102, CO2 of 28, BUN 27, creatinine 1.3, glucose 130, calcium is 7.6, phosphorus 3.1, magnesium is 2, total bili 0.4. AST 20, ALT 9, alkaline phosphatase 108, LDH is 536, total protein 6, albumin is 2.5. IMPRESSION: In summary, the patient is a 71-year-old elderly female with history of hypertension, diabetes, coronary artery disease, hyperlipidemia, congestive heart failure, chronic obstructive pulmonary disease, multiple myeloma, on chemotherapy who was admitted with chest discomfort, shortness of breath, and bilateral leg swelling and is found to have strep pneumonia, blood culture with increased . 1. Nonoliguric acute renal failure, most likely secondary to acute tubular necrosis secondary to Strep pneumonia. 2. Anemia secondary to multiple myeloma. 3. Thrombocytopenia, most likely secondary to multiple myeloma. 4. Status post supraventricular tachycardia, now heart rate is under control with verapamil. Continue to monitor renal function. Continue IV antibiotics as per ID recommendations. We will follow with you. Thank you for allowing me to participate in your patient's care. Valerie Rascon MD
[2017-07-18] MEDS: (Novolin R) Insulin Human Regular 100 units/ml vial SC SCH ×4 (08:00→21:40)
[2017-07-18] MEDS: Verapamil 120 mg ER Tab PO SCH (09:57)
--- NOTE | 2017-07-18 11:29 | CP.PCM.PN ---
Subjective - Date & Time of Evaluation Date of Evaluation: 07/18/17 Time of Evaluation: 11:29 - Subjective Subjective: pt is seen and examined, follow up consult is dictated #[id number] Objective - Vital Signs/Intake and Output Vital Signs (last 24 hours): Temp Pulse Resp BP Pulse Ox 98.4 F 56 L 20 136/66 98 07/18/17 07:00 07/18/17 07:00 07/18/17 07:00 07/18/17 09:57 07/18/17 07:00 Intake and Output: 07/18/17 07/18/17 06:59 18:59 Intake Total 210 Output Total 201 Balance 9 - Medications Medications: Current Medications Allopurinol (Zyloprim) 100 mg PO DAILY [facility] Last Admin: 07/18/17 09:57 Dose: 100 mg Aspirin (Ecotrin) 81 mg PO DAILY [facility] Last Admin: 07/18/17 09:57 Dose: 81 mg Brimonidine Tartrate (Alphagan 0.2% Opht) 5 ml OU HS [facility] Last Admin: 07/17/17 21:53 Dose: 1 drop Famotidine (Pepcid) 20 mg PO DAILY [facility] Last Admin: 07/18/17 09:57 Dose: 20 mg Ferrous Sulfate (Feosol) 325 mg PO TID [facility] Last Admin: 07/18/17 09:57 Dose: 325 mg Furosemide (Lasix) 20 mg PO DAILY [facility] Last Admin: 07/18/17 09:57 Dose: 20 mg Guaifenesin (Robitussin) 100 mg PO QID PRN PRN Reason: cough Last Admin: 07/18/17 06:14 Dose: 100 mg Heparin Sodium (Porcine) (Heparin) 5,000 units SC Q12 [facility] Last Admin: 07/18/17 09:57 Dose: 5,000 units Ceftriaxone Sodium 1 gm/ (Sodium Chloride) 100 mls @ 100 mls/hr IVPB Q12H [facility] PRN Reason: Protocol Last Admin: 07/18/17 06:09 Dose: 100 mls/hr Insulin Human Regular (Novolin R) 0 unit SC ACHS [facility] PRN Reason: Protocol Last Admin: 07/18/17 08:00 Dose: Not Given Ipratropium [place] (Atrovent) 0.5 mg IH RQ6 PRN PRN Reason: Shortness of Breath Nitroglycerin (Nitro-Bid 2% Oint) 1 ea TOP Q6H [facility] Last Admin: 07/18/17 06:06 Dose: 1 ea Rosuvastatin Calcium (Crestor) 5 mg PO HS [facility] Last Admin: 07/17/17 21:50 Dose: 5 mg Sitagliptin Phosphate (Januvia) 25 mg PO DAILY [facility] Last Admin: 07/17/17 09:24 Dose: 25 mg Verapamil HCl (Calan Sr Tab) 120 mg PO DAILY [facility] Last Admin: 07/18/17 09:57 Dose: 120 mg - Labs Labs: 07/17/17 06:14 07/17/17 06:14 PT 11.2 SECONDS (9.7-12.2) 07/10/17 05:16 INR 1.0 07/10/17 05:16 APTT 22 SECONDS (21-34) 07/10/17 05:16
--- NOTE | 2017-07-18 12:29 | CP.PCM.PN ---
Subjective - Date & Time of Evaluation Date of Evaluation: 07/18/17 Time of Evaluation: 09:00 - Subjective Subjective: no fever awake breathing not labored Objective - Vital Signs/Intake and Output Vital Signs (last 24 hours): Temp Pulse Resp BP Pulse Ox 98.4 F 56 L 20 136/66 98 07/18/17 07:00 07/18/17 07:00 07/18/17 07:00 07/18/17 09:57 07/18/17 07:00 Intake and Output: 07/18/17 07/18/17 06:59 18:59 Intake Total 210 Output Total 201 Balance 9 - Medications Medications: Current Medications Allopurinol (Zyloprim) 100 mg PO DAILY [facility] Last Admin: 07/18/17 09:57 Dose: 100 mg Aspirin (Ecotrin) 81 mg PO DAILY [facility] Last Admin: 07/18/17 09:57 Dose: 81 mg Brimonidine Tartrate (Alphagan 0.2% Opht) 5 ml OU HS [facility] Last Admin: 07/17/17 21:53 Dose: 1 drop Famotidine (Pepcid) 20 mg PO DAILY [facility] Last Admin: 07/18/17 09:57 Dose: 20 mg Ferrous Sulfate (Feosol) 325 mg PO TID [facility] Last Admin: 07/18/17 09:57 Dose: 325 mg Furosemide (Lasix) 20 mg PO DAILY [facility] Last Admin: 07/18/17 09:57 Dose: 20 mg Guaifenesin (Robitussin) 100 mg PO QID PRN PRN Reason: cough Last Admin: 07/18/17 06:14 Dose: 100 mg Heparin Sodium (Porcine) (Heparin) 5,000 units SC Q12 [facility] Last Admin: 07/18/17 09:57 Dose: 5,000 units Ceftriaxone Sodium 1 gm/ (Sodium Chloride) 100 mls @ 100 mls/hr IVPB Q12H [facility] PRN Reason: Protocol Last Admin: 07/18/17 06:09 Dose: 100 mls/hr Insulin Human Regular (Novolin R) 0 unit SC ACHS [facility] PRN Reason: Protocol Last Admin: 07/18/17 12:17 Dose: 1 unit Ipratropium [place] (Atrovent) 0.5 mg IH RQ6 PRN PRN Reason: Shortness of Breath Nitroglycerin (Nitro-Bid 2% Oint) 1 ea TOP Q6H [facility] Last Admin: 07/18/17 12:17 Dose: 1 ea Rosuvastatin Calcium (Crestor) 5 mg PO HS [facility] Last Admin: 07/17/17 21:50 Dose: 5 mg Sitagliptin Phosphate (Januvia) 25 mg PO DAILY [facility] Last Admin: 07/18/17 10:05 Dose: Not Given Verapamil HCl (Calan Sr Tab) 120 mg PO DAILY [facility] Last Admin: 07/18/17 09:57 Dose: 120 mg - Labs Labs: 07/17/17 06:14 07/17/17 06:14 PT 11.2 SECONDS (9.7-12.2) 07/10/17 05:16 INR 1.0 07/10/17 05:16 APTT 22 SECONDS (21-34) 07/10/17 05:16 - Constitutional Appears: Non-toxic, Chronically Ill - Head Exam Head Exam: NORMOCEPHALIC - Eye Exam Eye Exam: PERRL - ENT Exam ENT Exam: Mucous Membranes Dry - Neck Exam Neck Exam: absent: Lymphadenopathy - Respiratory Exam Respiratory Exam: Decreased Breath Sounds - Cardiovascular Exam Cardiovascular Exam: REGULAR RHYTHM - GI/Abdominal Exam GI & Abdominal Exam: Distended - Rectal Exam Rectal Exam: Deferred - Exam Exam: NORMAL INSPECTION - Extremities Exam Extremities Exam: absent: Pedal Edema - Back Exam Back Exam: absent: CVA tenderness (L), CVA tenderness (R) - Neurological Exam Neurological Exam: Alert, Awake Assessment and Plan (1) Sepsis Status: Acute (2) Bacteremia Status: Acute (3) Chest pain Status: Acute (4) Congestive heart failure Status: Acute - Assessment and Plan (Free Text) Assessment: cont iv rx for 14 days
--- NOTE | 2017-07-18 12:40 | CP.PCM.PN ---
Subjective - Date & Time of Evaluation Date of Evaluation: 07/18/17 Time of Evaluation: 12:37 - Subjective Subjective: MORE AWAKE. COMFORTABLE. VS WNL. PT HAS EPISODE OF 9 BEAT SHORT RUN OF NON SUSTAINED V. TACH. SEPSIS STREP. PNEUMONIE. Objective - Vital Signs/Intake and Output Vital Signs (last 24 hours): Temp Pulse Resp BP Pulse Ox 98.4 F 59 L 20 136/66 98 07/18/17 07:00 07/18/17 08:00 07/18/17 07:00 07/18/17 09:57 07/18/17 07:00 Intake and Output: 07/18/17 07/18/17 06:59 18:59 Intake Total 210 Output Total 201 Balance 9 - Medications Medications: Current Medications Allopurinol (Zyloprim) 100 mg PO DAILY [facility] Last Admin: 07/18/17 09:57 Dose: 100 mg Aspirin (Ecotrin) 81 mg PO DAILY [facility] Last Admin: 07/18/17 09:57 Dose: 81 mg Brimonidine Tartrate (Alphagan 0.2% Opht) 5 ml OU HS [facility] Last Admin: 07/17/17 21:53 Dose: 1 drop Famotidine (Pepcid) 20 mg PO DAILY [facility] Last Admin: 07/18/17 09:57 Dose: 20 mg Ferrous Sulfate (Feosol) 325 mg PO TID [facility] Last Admin: 07/18/17 09:57 Dose: 325 mg Furosemide (Lasix) 20 mg PO DAILY [facility] Last Admin: 07/18/17 09:57 Dose: 20 mg Guaifenesin (Robitussin) 100 mg PO QID PRN PRN Reason: cough Last Admin: 07/18/17 06:14 Dose: 100 mg Heparin Sodium (Porcine) (Heparin) 5,000 units SC Q12 [facility] Last Admin: 07/18/17 09:57 Dose: 5,000 units Ceftriaxone Sodium 1 gm/ (Sodium Chloride) 100 mls @ 100 mls/hr IVPB Q12H [facility] PRN Reason: Protocol Last Admin: 07/18/17 06:09 Dose: 100 mls/hr Insulin Human Regular (Novolin R) 0 unit SC ACHS [facility] PRN Reason: Protocol Last Admin: 07/18/17 12:17 Dose: 1 unit Ipratropium [place] (Atrovent) 0.5 mg IH RQ6 PRN PRN Reason: Shortness of Breath Nitroglycerin (Nitro-Bid 2% Oint) 1 ea TOP Q6H [facility] Last Admin: 07/18/17 12:17 Dose: 1 ea Rosuvastatin Calcium (Crestor) 5 mg PO HS [facility] Last Admin: 07/17/17 21:50 Dose: 5 mg Sitagliptin Phosphate (Januvia) 25 mg PO DAILY [facility] Last Admin: 07/18/17 10:05 Dose: Not Given Verapamil HCl (Calan Sr Tab) 120 mg PO DAILY [facility] Last Admin: 07/18/17 09:57 Dose: 120 mg - Labs Labs: 07/17/17 06:14 07/17/17 06:14 PT 11.2 SECONDS (9.7-12.2) 07/10/17 05:16 INR 1.0 07/10/17 05:16 APTT 22 SECONDS (21-34) 07/10/17 05:16 - Constitutional Appears: No Acute Distress, Chronically Ill - Eye Exam Eye Exam: EOMI, Normal appearance, PERRL Pupil Exam: NORMAL ACCOMODATION, PERRL - ENT Exam ENT Exam: Mucous Membranes Moist, Normal Exam - Neck Exam Neck Exam: Full ROM, Normal Inspection. absent: Lymphadenopathy - Respiratory Exam Respiratory Exam: Clear to Ausculation Bilateral, NORMAL BREATHING PATTERN - Cardiovascular Exam Cardiovascular Exam: REGULAR RHYTHM, +S1, +S2. absent: Murmur - GI/Abdominal Exam GI & Abdominal Exam: Soft, Normal Bowel Sounds. absent: Tenderness - Extremities Exam Extremities Exam: Full ROM, Normal Capillary Refill, Normal Inspection. absent : Joint Swelling, Pedal Edema - Neurological Exam Neurological Exam: Alert, Awake, CN II-XII Intact, Normal Gait, Oriented x3 - Psychiatric Exam Psychiatric exam: Normal Affect, Normal Mood Assessment and Plan - Assessment and Plan (Free Text) Assessment: SEPSIS. V. TACH SHORT RUN. Plan: ADD AMIODORONE PO. CT PRESENT TREATMENT.
--- NOTE | 2017-07-18 13:39 | CARD ---
APPROVED REPORT EXAM: Two-dimensional and M-mode echocardiogram with Doppler and color Doppler. Other Information Quality : GoodRhythm : INDICATION Infection:Rule out subacute bacterial endocarditis Mitral Valve E/A ratio0.0 TDI E/Lateral E'0.0E/Medial E'0.0 LEFT VENTRICLE The left ventricle is normal size. There is mild to moderate concentric left ventricular hypertrophy. The systolic function is moderately impaired. There is global hypokinesis of the left ventricle. RIGHT VENTRICLE The right ventricle is normal size. There is normal right ventricular wall thickness. ATRIA The left atrium is moderately dilated. The right atrium size is normal. AORTIC VALVE The aortic valve is calcified but opens well. No aortic regurgitation is present. There is no aortic valvular vegetation. MITRAL VALVE Mitral annular calcification is mild. Mitral regurgitation is trace to mild. TRICUSPID VALVE The tricuspid valve is normal in structure. There is no tricuspid valve regurgitation noted. PULMONIC VALVE The pulmonary valve is normal in structure. There is trace to mild pulmonic valvular regurgitation. PERICARDIAL EFFUSION There is no pericardial effusion. <Conclusion> There is mild to moderate concentric left ventricular hypertrophy. The systolic function is moderately impaired. There is global hypokinesis of the left ventricle. The left atrium is moderately dilated. There is trace to mild pulmonic valvular regurgitation. no vegetations are noted on visualised valves.
[2017-07-18 16:17] VITALS: RESP 20
[2017-07-18] MEDS: Brimonidine 0.2% Opth Sol (5ml) OU SCH (21:20)
--- NOTE | 2017-07-18 21:35 | CP.PCM.PN ---
Subjective - Date & Time of Evaluation Date of Evaluation: 07/17/17 Time of Evaluation: 09:05 - Subjective Subjective: Feeling better, still with cough. Objective - Vital Signs/Intake and Output Vital Signs (last 24 hours): Temp Pulse Resp BP Pulse Ox 99.2 F 67 20 114/63 96 07/18/17 15:00 07/18/17 16:00 07/18/17 15:00 07/18/17 15:00 07/18/17 15:00 Intake and Output: 07/18/17 07/19/17 18:59 06:59 Intake Total 740 Balance 740 - Medications Medications: Current Medications Allopurinol (Zyloprim) 100 mg PO DAILY [facility] Last Admin: 07/18/17 09:57 Dose: 100 mg Amiodarone HCl (Cordarone) 100 mg PO BID [facility] Last Admin: 07/18/17 17:50 Dose: 100 mg Aspirin (Ecotrin) 81 mg PO DAILY [facility] Last Admin: 07/18/17 09:57 Dose: 81 mg Brimonidine Tartrate (Alphagan 0.2% Opht) 5 ml OU HS [facility] Last Admin: 07/18/17 21:20 Dose: 1 drop Famotidine (Pepcid) 20 mg PO DAILY [facility] Last Admin: 07/18/17 09:57 Dose: 20 mg Ferrous Sulfate (Feosol) 325 mg PO TID [facility] Last Admin: 07/18/17 17:50 Dose: 325 mg Furosemide (Lasix) 20 mg PO DAILY [facility] Last Admin: 07/18/17 09:57 Dose: 20 mg Guaifenesin (Robitussin) 100 mg PO QID PRN PRN Reason: cough Last Admin: 07/18/17 06:14 Dose: 100 mg Heparin Sodium (Porcine) (Heparin) 5,000 units SC Q12 [facility] Last Admin: 07/18/17 21:19 Dose: 5,000 units Ceftriaxone Sodium 1 gm/ (Sodium Chloride) 100 mls @ 100 mls/hr IVPB Q12H [facility] PRN Reason: Protocol Last Admin: 07/18/17 18:00 Dose: 100 mls/hr Insulin Human Regular (Novolin R) 0 unit SC ACHS [facility] PRN Reason: Protocol Last Admin: 07/18/17 12:17 Dose: 1 unit Ipratropium [place] (Atrovent) 0.5 mg IH RQ6 PRN PRN Reason: Shortness of Breath Nitroglycerin (Nitro-Bid 2% Oint) 1 ea TOP Q6H [facility] Last Admin: 07/18/17 17:50 Dose: 1 ea Rosuvastatin Calcium (Crestor) 5 mg PO HS [facility] Last Admin: 07/18/17 21:20 Dose: 5 mg Sitagliptin Phosphate (Januvia) 25 mg PO DAILY [facility] Last Admin: 07/18/17 10:05 Dose: Not Given - Labs Labs: 07/17/17 06:14 07/17/17 06:14 PT 11.2 SECONDS (9.7-12.2) 07/10/17 05:16 INR 1.0 07/10/17 05:16 APTT 22 SECONDS (21-34) 07/10/17 05:16 - Head Exam Head Exam: ATRAUMATIC - Eye Exam Eye Exam: Normal appearance - ENT Exam ENT Exam: Mucous Membranes Dry - Respiratory Exam Respiratory Exam: NORMAL BREATHING PATTERN - Cardiovascular Exam Cardiovascular Exam: +S1, +S2 - GI/Abdominal Exam GI & Abdominal Exam: Normal Bowel Sounds Assessment and Plan (1) Pancytopenia Assessment & Plan: improved counts secondary to chemotherapy s/p PRBC transfusion Status: Acute (2) Multiple myeloma Assessment & Plan: outpatient treatment Status: Acute
--- NOTE | 2017-07-18 21:36 | CP.PCM.PN ---
Subjective - Date & Time of Evaluation Date of Evaluation: 07/18/17 Time of Evaluation: 16:00 - Subjective Subjective: Has some cough. Objective - Vital Signs/Intake and Output Vital Signs (last 24 hours): Temp Pulse Resp BP Pulse Ox 99.2 F 67 20 114/63 96 07/18/17 15:00 07/18/17 16:00 07/18/17 15:00 07/18/17 15:00 07/18/17 15:00 Intake and Output: 07/18/17 07/19/17 18:59 06:59 Intake Total 740 Balance 740 - Medications Medications: Current Medications Allopurinol (Zyloprim) 100 mg PO DAILY [facility] Last Admin: 07/18/17 09:57 Dose: 100 mg Amiodarone HCl (Cordarone) 100 mg PO BID [facility] Last Admin: 07/18/17 17:50 Dose: 100 mg Aspirin (Ecotrin) 81 mg PO DAILY [facility] Last Admin: 07/18/17 09:57 Dose: 81 mg Brimonidine Tartrate (Alphagan 0.2% Opht) 5 ml OU HS [facility] Last Admin: 07/18/17 21:20 Dose: 1 drop Famotidine (Pepcid) 20 mg PO DAILY [facility] Last Admin: 07/18/17 09:57 Dose: 20 mg Ferrous Sulfate (Feosol) 325 mg PO TID [facility] Last Admin: 07/18/17 17:50 Dose: 325 mg Furosemide (Lasix) 20 mg PO DAILY [facility] Last Admin: 07/18/17 09:57 Dose: 20 mg Guaifenesin (Robitussin) 100 mg PO QID PRN PRN Reason: cough Last Admin: 07/18/17 06:14 Dose: 100 mg Heparin Sodium (Porcine) (Heparin) 5,000 units SC Q12 [facility] Last Admin: 07/18/17 21:19 Dose: 5,000 units Ceftriaxone Sodium 1 gm/ (Sodium Chloride) 100 mls @ 100 mls/hr IVPB Q12H [facility] PRN Reason: Protocol Last Admin: 07/18/17 18:00 Dose: 100 mls/hr Insulin Human Regular (Novolin R) 0 unit SC ACHS [facility] PRN Reason: Protocol Last Admin: 07/18/17 12:17 Dose: 1 unit Ipratropium [place] (Atrovent) 0.5 mg IH RQ6 PRN PRN Reason: Shortness of Breath Nitroglycerin (Nitro-Bid 2% Oint) 1 ea TOP Q6H [facility] Last Admin: 07/18/17 17:50 Dose: 1 ea Rosuvastatin Calcium (Crestor) 5 mg PO HS [facility] Last Admin: 07/18/17 21:20 Dose: 5 mg Sitagliptin Phosphate (Januvia) 25 mg PO DAILY [facility] Last Admin: 07/18/17 10:05 Dose: Not Given - Labs Labs: 07/17/17 06:14 07/17/17 06:14 PT 11.2 SECONDS (9.7-12.2) 07/10/17 05:16 INR 1.0 07/10/17 05:16 APTT 22 SECONDS (21-34) 07/10/17 05:16 - Head Exam Head Exam: ATRAUMATIC - Eye Exam Eye Exam: Normal appearance - ENT Exam ENT Exam: Mucous Membranes Dry - Respiratory Exam Respiratory Exam: NORMAL BREATHING PATTERN - Cardiovascular Exam Cardiovascular Exam: +S1, +S2 - GI/Abdominal Exam GI & Abdominal Exam: Normal Bowel Sounds Assessment and Plan (1) Pancytopenia Assessment & Plan: improved counts secondary to chemotherapy s/p PRBC transfusion Status: Acute (2) Multiple myeloma Assessment & Plan: outpatient treatment Status: Acute
[2017-07-19] MEDS: Nitroglycerin 2% Ointment Foilpak UD TOP SCH ×4 (00:25→17:40)
[2017-07-19] MEDS: guaiFENesin 100 mg/5 ml Syrup UD PO PRN ×2 (00:25→09:09)
--- NOTE | 2017-07-19 01:16 | PN ---
DATE: SUBJECTIVE: The patient was seen by me with the patient's next to the bed, also with oncologist. The patient is currently lying down comfortably, not in any distress. She is feeling much better than before. She is able to eat better. She is still having dry cough, unable to produce any mucus. PHYSICAL EXAMINATION: VITAL SIGNS: Temperature 99.2, pulse 71, blood pressure 114/63, respirations 20, saturation is 96% on room air. HEENT: PERRLA. NECK: Supple. CHEST: Bilateral good air entry. Minimal expiratory wheezing, rales, and rhonchi noted. ABDOMEN: Soft, nontender. EXTREMITIES: No pedal edema. HIGHWAY TRAFFIC CONTROL TECHNICIAN: Alert, awake, oriented x3. No functional neurological deficits. LABORATORY DATA: The patient did not have any recent blood work except yesterday creatinine was 1.3. CBC noted platelet is 77, hemoglobin is 9.1. Chest x-ray in the past revealed localized infiltrate. ASSESSMENT AND RECOMMENDATIONS: A 71-year-old female with a history of multiple myeloma, heart disease, congestive heart failure, admitted to the intensive care unit recently with atrial fibrillation and flutter, currently controlled heart rate and also having pneumonia from Streptococcus pneumoniae. So far the patient is stable, we will continue to monitor. We will repeat the labs and chest x-ray in the morning and we will follow up the patient. Meredith Turner MD
--- NOTE | 2017-07-19 03:26 | PN ---
DATE: 07/18/2017 FOLLOWUP RENAL CONSULTATION LOCATION: Room 656, bed A. REQUESTED BY: Dr. Sourav Odonnell. REASON FOR FOLLOWUP: Acute renal failure, multiple myeloma. HISTORY OF PRESENT ILLNESS: Mrs. Alvarado is a 71 years old elderly female with history of longstanding hypertension, diabetes, coronary artery disease status post CABG, CHF, COPD, was recently diagnosed with multiple myeloma, started on chemotherapy for acute renal failure. Now, the patient was admitted with chest discomfort and shortness of breath and bilateral leg swelling and weakness and chills and the patient was found to have a pneumonia. Blood culture positive for Strep pneumoniae from 07/11/2017 and also 07/12/2017. The patient is feeling much better now, renal function is slowly improving. No chest pain, no palpitation. No fever. No cough. No abdominal pain. No nausea, vomiting, diarrhea. PHYSICAL EXAMINATION: VITAL SIGNS: This morning as follows, blood pressure 136/66, pulse 78, respirations 20, temperature 99.2, saturation 96%. Height 5 feet, weight is 83 pounds. GENERAL: Mrs. Alvarado is a 71 years old elderly female, thin-built, not in acute distress. HEENT: Pupils normal, react to light and accommodation. Conjunctivae pink. Sclerae anicteric. Tongue is moist and trachea is midline. LUNGS: Symmetric on both sides. Bilateral breath sounds present. Bilateral crackles present left more than the right and improving gradually. CVS: [place] at the fifth intercostal space, midclavicular line. S1 and S2 audible. No murmur or gallop. The patient has a midsternal scar present from the previous CABG. ABDOMEN: Normal in appearance, soft, tympanic. No guarding, no rigidity. No hepatosplenomegaly. FINANCIAL AID COORDINATOR: The patient is alert, awake, oriented x3. Nonfocal neuro examination. Cranial nerves II through XII grossly intact. Sensory and motor system is within normal limits. EXTREMITIES: No cyanosis, no clubbing, no edema. CURRENT MEDICATIONS: Alphagan eyedrops, Atrovent inhaler every 6 hours, Rocephin 1 gm every 12 hours, amiodarone 100 mg p.o. b.i.d., Crestor 5 mg p.o. at bedtime, aspirin 81 mg daily, Feosol 325 mg p.o. three times daily., subcu heparin 5000 every 12 hours, Januvia 25 mg p.o. daily, Lasix 20 mg p.o. daily, Nitro-Bid ointment topical every 6 hours, Novolin R for sliding scale, Pepcid 20 mg p.o. daily, Robitussin 100 mg p.o. four times a day. p.r.n., allopurinol 100 mg p.o. daily. LABORATORY DATA: Her Accu-Cheks 179, 109 and 153.. Labs as of 07/17/2017: Sodium 140, potassium 3.8, chloride 102, CO2 28, BUN 27, creatinine 1.3, glucose 93, calcium 7.6 and phosphorus 3.1, total protein 6, albumin is 2.5 and globulin is 3.5. ASSESSMENT: In summary, Mrs. Alvarado is a 71-year-old elderly female with a history of hypertension, diabetes, coronary artery disease status post coronary artery bypass graft, multiple myeloma on chemotherapy with chest discomfort, cough and shortness of breath and bilateral edema, now blood culture positive for Streptococcus pneumoniae on Rocephin. 1. Streptococcus pneumoniae. 2. Acute renal failure most likely secondary to acute tubular necrosis secondary to Streptococcus pneumoniae. 3. Anemia. 4. Thrombocytopenia, most likely secondary to multiple myeloma. 5. Coronary artery disease status post coronary artery bypass graft with slightly elevated troponin, most likely demand ischemia. PLAN: Continue antibiotics as per ID recommendations. Continue to monitor CBC, BMP and follow up with Hematology. We will follow with you. Overall prognosis is guarded. Thank you for allowing me to participate in your patient's care. Valerie Rascon MD
[2017-07-19 07:23] LABS: EOS % 0.3 % (0.0-4.0); HEMOGLOBIN 8.6 g/dL (11.0-16.0); LYMPH # 1.4 K/uL (1.0-4.3); LYMPH % 38.2 % (20.0-40.0); MEAN CELL VOLUME 97.1 fL (81.0-99.0); MEAN CORPUSCULAR HEMOGLOBIN 32.8 pg (27.0-31.0); MEAN CORPUSCULAR HGB CONC 33.8 g/dL (33.0-37.0); MEAN PLATELET VOLUME 9.9 fL (7.2-11.7); MONO # 0.3 K/uL (0.0-0.8); MONO % 8.8 % (0.0-10.0); NEUT # 1.9 K/uL (1.8-7.0); NEUT % 51.7 % (50.0-75.0); NRBC % 0.1 % (0.0-2.0); RBC 2.62 Mil/uL (3.80-5.20); RED CELL DISTRIBUTION WIDTH 18.8 % (11.5-14.5); WHITE BLOOD COUNT 3.7 K/uL (4.8-10.8)
[2017-07-19] MEDS: (Novolin R) Insulin Human Regular 100 units/ml vial SC SCH ×3 (07:30→17:20)
[2017-07-19 07:39] LABS: ALB/GLOB RATIO 0.7 (1.0-2.1); ALBUMIN 2.5 g/dL (3.5-5.0); CALCIUM 8.5 mg/dl (8.6-10.4)
--- NOTE | 2017-07-19 09:31 | RAD ---
HISTORY: pneumoinia COMPARISON: Chest radiograph dated 07/15/2017. FINDINGS: LUNGS: Persistent peripheral left midlung opacity. Pulmonary vascular congestion. Left basilar atelectasis. PLEURA: Questionable small left pleural effusion. No pneumothorax apparent. CARDIOVASCULAR: Prior sternotomy with sternal wires and surgical clips redemonstrated. Atherosclerotic aortic calcifications. Cardiomediastinal silhouette stably enlarged. OSSEOUS STRUCTURES: No significant abnormalities. VISUALIZED UPPER ABDOMEN: Normal. OTHER FINDINGS: None. IMPRESSION: No significant change in appearance of persistent peripheral left midlung opacity. Questionable small left pleural effusion.
--- NOTE | 2017-07-19 12:46 | CP.PCM.PN ---
Subjective - Date & Time of Evaluation Date of Evaluation: 07/19/17 Time of Evaluation: 12:43 - Subjective Subjective: CONDITION STABLE. HR WNL RSR. SEPTIC. PT NEEDS IV ABTS FOR ABOUT 9 DAYS. Objective - Vital Signs/Intake and Output Vital Signs (last 24 hours): Temp Pulse Resp BP Pulse Ox 98.2 F 77 20 120/63 100 07/19/17 07:00 07/19/17 07:00 07/19/17 07:00 07/19/17 09:09 07/19/17 07:00 Intake and Output: 07/19/17 07/19/17 06:59 18:59 Intake Total 210 Output Total 100 Balance 110 - Medications Medications: Current Medications Allopurinol (Zyloprim) 100 mg PO DAILY [facility] Last Admin: 07/19/17 09:09 Dose: 100 mg Amiodarone HCl (Cordarone) 100 mg PO BID [facility] Last Admin: 07/19/17 09:26 Dose: 100 mg Aspirin (Ecotrin) 81 mg PO DAILY [facility] Last Admin: 07/19/17 09:10 Dose: 81 mg Brimonidine Tartrate (Alphagan 0.2% Opht) 5 ml OU HS [facility] Last Admin: 07/18/17 21:20 Dose: 1 drop Famotidine (Pepcid) 20 mg PO DAILY [facility] Last Admin: 07/19/17 09:09 Dose: 20 mg Ferrous Sulfate (Feosol) 325 mg PO TID [facility] Last Admin: 07/19/17 09:09 Dose: 325 mg Furosemide (Lasix) 20 mg PO DAILY [facility] Last Admin: 07/19/17 09:09 Dose: 20 mg Guaifenesin (Robitussin) 100 mg PO QID PRN PRN Reason: cough Last Admin: 07/19/17 09:09 Dose: 100 mg Heparin Sodium (Porcine) (Heparin) 5,000 units SC Q12 [facility] Last Admin: 07/19/17 09:09 Dose: 5,000 units Ceftriaxone Sodium 1 gm/ (Sodium Chloride) 100 mls @ 100 mls/hr IVPB Q12H [facility] PRN Reason: Protocol Last Admin: 07/19/17 06:11 Dose: 100 mls/hr Insulin Human Regular (Novolin R) 0 unit SC ACHS [facility] PRN Reason: Protocol Last Admin: 07/19/17 07:30 Dose: Not Given Ipratropium [place] (Atrovent) 0.5 mg IH RQ6 PRN PRN Reason: Shortness of Breath Nitroglycerin (Nitro-Bid 2% Oint) 1 ea TOP Q6H [facility] Last Admin: 07/19/17 06:11 Dose: 1 ea Rosuvastatin Calcium (Crestor) 5 mg PO HS [facility] Last Admin: 07/18/17 21:20 Dose: 5 mg Sitagliptin Phosphate (Januvia) 25 mg PO DAILY [facility] Last Admin: 07/19/17 09:09 Dose: 25 mg - Labs Labs: 07/19/17 07:06 07/19/17 07:06 PT 11.2 SECONDS (9.7-12.2) 07/10/17 05:16 INR 1.0 07/10/17 05:16 APTT 22 SECONDS (21-34) 07/10/17 05:16 - Constitutional Appears: No Acute Distress, Chronically Ill - Eye Exam Eye Exam: EOMI, Normal appearance, PERRL Pupil Exam: NORMAL ACCOMODATION, PERRL - ENT Exam ENT Exam: Mucous Membranes Moist, Normal Exam - Neck Exam Neck Exam: Full ROM, Normal Inspection. absent: Lymphadenopathy - Respiratory Exam Respiratory Exam: Clear to Ausculation Bilateral, NORMAL BREATHING PATTERN - Cardiovascular Exam Cardiovascular Exam: REGULAR RHYTHM, +S1, +S2. absent: Murmur - GI/Abdominal Exam GI & Abdominal Exam: Soft, Normal Bowel Sounds. absent: Tenderness - Extremities Exam Extremities Exam: Full ROM, Normal Capillary Refill, Normal Inspection. absent : Joint Swelling, Pedal Edema - Back Exam Back Exam: NORMAL INSPECTION - Neurological Exam Neurological Exam: Alert, Awake, CN II-XII Intact, Normal Gait, Oriented x3 Assessment and Plan - Assessment and Plan (Free Text) Assessment: STABLE. Plan: DISCUSSED WITH AND WOULD LIKE TO GO FOR [facility] [place]. CT OTHER TREATMENT.
--- NOTE | 2017-07-19 15:55 | CP.PCM.PN ---
Subjective - Date & Time of Evaluation Date of Evaluation: 07/19/17 Time of Evaluation: 15:55 - Subjective Subjective: pt is seen and examined, follow up consult is dictated #[id number] Objective - Vital Signs/Intake and Output Vital Signs (last 24 hours): Temp Pulse Resp BP Pulse Ox 98.2 F 84 20 120/63 100 07/19/17 07:00 07/19/17 14:00 07/19/17 07:00 07/19/17 09:09 07/19/17 07:00 Intake and Output: 07/19/17 07/19/17 06:59 18:59 Intake Total 210 430 Output Total 100 Balance 110 430 - Medications Medications: Current Medications Allopurinol (Zyloprim) 100 mg PO DAILY [facility] Last Admin: 07/19/17 09:09 Dose: 100 mg Amiodarone HCl (Cordarone) 100 mg PO BID [facility] Last Admin: 07/19/17 09:26 Dose: 100 mg Aspirin (Ecotrin) 81 mg PO DAILY [facility] Last Admin: 07/19/17 09:10 Dose: 81 mg Brimonidine Tartrate (Alphagan 0.2% Opht) 5 ml OU HS [facility] Last Admin: 07/18/17 21:20 Dose: 1 drop Famotidine (Pepcid) 20 mg PO DAILY [facility] Last Admin: 07/19/17 09:09 Dose: 20 mg Ferrous Sulfate (Feosol) 325 mg PO TID [facility] Last Admin: 07/19/17 12:59 Dose: 325 mg Furosemide (Lasix) 20 mg PO DAILY [facility] Last Admin: 07/19/17 09:09 Dose: 20 mg Guaifenesin (Robitussin) 100 mg PO QID PRN PRN Reason: cough Last Admin: 07/19/17 09:09 Dose: 100 mg Heparin Sodium (Porcine) (Heparin) 5,000 units SC Q12 [facility] Last Admin: 07/19/17 09:09 Dose: 5,000 units Ceftriaxone Sodium 1 gm/ (Sodium Chloride) 100 mls @ 100 mls/hr IVPB Q12H [facility] PRN Reason: Protocol Last Admin: 07/19/17 06:11 Dose: 100 mls/hr Insulin Human Regular (Novolin R) 0 unit SC ACHS [facility] PRN Reason: Protocol Last Admin: 07/19/17 11:30 Dose: Not Given Ipratropium [place] (Atrovent) 0.5 mg IH RQ6 PRN PRN Reason: Shortness of Breath Nitroglycerin (Nitro-Bid 2% Oint) 1 ea TOP Q6H [facility] Last Admin: 07/19/17 12:57 Dose: 1 ea Rosuvastatin Calcium (Crestor) 5 mg PO HS [facility] Last Admin: 07/18/17 21:20 Dose: 5 mg Sitagliptin Phosphate (Januvia) 25 mg PO DAILY [facility] Last Admin: 07/19/17 09:09 Dose: 25 mg - Labs Labs: 07/19/17 07:06 07/19/17 07:06 PT 11.2 SECONDS (9.7-12.2) 07/10/17 05:16 INR 1.0 07/10/17 05:16 APTT 22 SECONDS (21-34) 07/10/17 05:16
[2017-07-19 16:08] VITALS: PULSE 89
[2017-07-19 16:27] VITALS: BP 163/74; TEMP 97.6; O2SAT 93
--- NOTE | 2017-07-19 19:34 | CP.PCM.PN ---
Subjective - Date & Time of Evaluation Date of Evaluation: 07/19/17 Time of Evaluation: 09:00 - Subjective Subjective: repeat cultures so far neg slow progress to cont IV rx at TCU Objective - Vital Signs/Intake and Output Vital Signs (last 24 hours): Temp Pulse Resp BP Pulse Ox 97.6 F 89 20 163/74 H 93 L 07/19/17 16:00 07/19/17 16:06 07/19/17 16:00 07/19/17 16:00 07/19/17 16:00 Intake and Output: 07/19/17 07/20/17 18:59 06:59 Intake Total 430 Balance 430 - Medications Medications: Current Medications Allopurinol (Zyloprim) 100 mg PO DAILY [facility] Last Admin: 07/19/17 09:09 Dose: 100 mg Amiodarone HCl (Cordarone) 100 mg PO BID [facility] Last Admin: 07/19/17 17:39 Dose: 100 mg Aspirin (Ecotrin) 81 mg PO DAILY [facility] Last Admin: 07/19/17 09:10 Dose: 81 mg Brimonidine Tartrate (Alphagan 0.2% Opht) 5 ml OU HS [facility] Last Admin: 07/18/17 21:20 Dose: 1 drop Famotidine (Pepcid) 20 mg PO DAILY [facility] Last Admin: 07/19/17 09:09 Dose: 20 mg Ferrous Sulfate (Feosol) 325 mg PO TID [facility] Last Admin: 07/19/17 17:40 Dose: 325 mg Furosemide (Lasix) 20 mg PO DAILY [facility] Last Admin: 07/19/17 09:09 Dose: 20 mg Guaifenesin (Robitussin) 100 mg PO QID PRN PRN Reason: cough Last Admin: 07/19/17 09:09 Dose: 100 mg Heparin Sodium (Porcine) (Heparin) 5,000 units SC Q12 [facility] Last Admin: 07/19/17 09:09 Dose: 5,000 units Ceftriaxone Sodium 1 gm/ (Sodium Chloride) 100 mls @ 100 mls/hr IVPB Q12H [facility] PRN Reason: Protocol Last Admin: 07/19/17 19:10 Dose: 100 mls/hr Insulin Human Regular (Novolin R) 0 unit SC ACHS [facility] PRN Reason: Protocol Last Admin: 07/19/17 17:20 Dose: Not Given Ipratropium [place] (Atrovent) 0.5 mg IH RQ6 PRN PRN Reason: Shortness of Breath Nitroglycerin (Nitro-Bid 2% Oint) 1 ea TOP Q6H [facility] Last Admin: 07/19/17 17:40 Dose: 1 ea Rosuvastatin Calcium (Crestor) 5 mg PO HS [facility] Last Admin: 07/18/17 21:20 Dose: 5 mg Sitagliptin Phosphate (Januvia) 25 mg PO DAILY [facility] Last Admin: 07/19/17 09:09 Dose: 25 mg - Labs Labs: 07/19/17 07:06 07/19/17 07:06 PT 11.2 SECONDS (9.7-12.2) 07/10/17 05:16 INR 1.0 07/10/17 05:16 APTT 22 SECONDS (21-34) 07/10/17 05:16 - Constitutional Appears: Non-toxic, Chronically Ill - Head Exam Head Exam: NORMOCEPHALIC - Eye Exam Eye Exam: PERRL - ENT Exam ENT Exam: Mucous Membranes Dry - Neck Exam Neck Exam: absent: Lymphadenopathy - Respiratory Exam Respiratory Exam: Decreased Breath Sounds - Cardiovascular Exam Cardiovascular Exam: REGULAR RHYTHM - GI/Abdominal Exam GI & Abdominal Exam: Distended - Rectal Exam Rectal Exam: Deferred - Exam Exam: NORMAL INSPECTION - Extremities Exam Extremities Exam: absent: Pedal Edema - Back Exam Back Exam: absent: CVA tenderness (L), CVA tenderness (R) Assessment and Plan (1) Sepsis Status: Acute (2) Bacteremia Status: Acute (3) Chest pain Status: Acute (4) Congestive heart failure Status: Acute
--- NOTE | 2017-07-19 22:16 | CP.PCM.PN ---
Subjective - Date & Time of Evaluation Date of Evaluation: 07/19/17 Time of Evaluation: 12:00 - Subjective Subjective: Has some cough. Objective - Vital Signs/Intake and Output Vital Signs (last 24 hours): Temp Pulse Resp BP Pulse Ox 97.6 F 89 20 163/74 H 93 L 07/19/17 16:00 07/19/17 16:06 07/19/17 16:00 07/19/17 16:00 07/19/17 16:00 Intake and Output: 07/19/17 07/20/17 18:59 06:59 Intake Total 430 Balance 430 - Labs Labs: 07/19/17 07:06 07/19/17 07:06 PT 11.2 SECONDS (9.7-12.2) 07/10/17 05:16 INR 1.0 07/10/17 05:16 APTT 22 SECONDS (21-34) 07/10/17 05:16 - Head Exam Head Exam: ATRAUMATIC - Eye Exam Eye Exam: Normal appearance - ENT Exam ENT Exam: Mucous Membranes Dry - Respiratory Exam Respiratory Exam: NORMAL BREATHING PATTERN - Cardiovascular Exam Cardiovascular Exam: +S1, +S2 - GI/Abdominal Exam GI & Abdominal Exam: Normal Bowel Sounds Assessment and Plan (1) Pancytopenia Assessment & Plan: improved counts secondary to chemotherapy s/p PRBC transfusion Status: Acute (2) Multiple myeloma Assessment & Plan: outpatient treatment Status: Acute
--- NOTE | 2017-07-20 00:33 | PN ---
DATE: _07/19/2017____ SUBJECTIVE: The patient was seen by me at 6:58 p.m. The patient is currently lying down with oxygen [place], 2 L. The patient is very comfortable. She is able to communicate without any difficulty. No distress noted. The patient is able to eat better. She is able to stand up and walk few steps. Oxygen in room air 93%. PHYSICAL EXAMINATION: VITAL SIGNS: Temperature 97.6, pulse 89, blood pressure is 163/74. HEENT: PERRLA. NECK: Supple. CHEST: Minimal bilateral rales, wheezing noted. Regular heart sound. ABDOMEN: Soft, nontender. EXTREMITIES: No pedal edema. SENIOR DIRECTOR CREATIVE SERVICES: Alert, awake and oriented x3. No functional neurological deficit. LABORATORY DATA: Today chest x-ray showing slight worsening left lung pneumonia and effusion noted, mild congestive changes compared to old x-ray. The patient also has labs done today which was actually nonspecific. Hemoglobin is 8.6, platelets 74, WBC 3.7, BUN 27, creatinine 1.3. Blood sugar is normal. Recent blood culture is negative. MEDICATIONS: Currently patient is receiving antibiotics including ceftriaxone 1 gm every 12 hours. The patient is also taking amiodarone twice a day 100 mg, aspirin 81 mg, ferrous sulfate, heparin subcu, Januvia 25 mg, Lasix 20 daily, famotidine 20 daily, bronchodilator, and allopurinol 100 mg. ASSESSMENT AND RECOMMENDATION: A 71-year-old female admitted to the hospital with acute pneumococcal pneumonia associated with pleural effusion, mild, less likely any complication at this time. The patient is responding with antibiotics. The patient will need ten more days of antibiotic. At this time, there is no evidence of any signs of loculation or any effusions causing pneumonia or empyema as the patient is responding to the treatment, but in x-ray, there is slight worsening congestion noted. In my opinion, the patient needs to continue with antibiotic, repeat chest x-ray in a few days, monitor for any worsening pleural effusion, continue the physical therapy, bronchodilator, and we will follow up with the patient. I spoke to the patient's in detail. Meredith Turner MD [facility] # [id number] [place]
--- NOTE | 2017-07-20 03:14 | PN ---
DATE: 07/19/2017 FOLLOWUP RENAL CONSULTATION LOCATION: Room 656, bed A. REQUESTED BY: Requested by Dr. Suorav Odonnell and Dr. Jeff Alvarado. REASON FOR FOLLOWUP: Acute renal failure, Strep pneumonia and sepsis. SUBJECTIVE: Mrs. Alvarado is a 71 years elderly female with a past medical history significant for longstanding hypertension, diabetes, coronary artery disease status post CABG, COPD, CHF, multiple myeloma status post acute renal failure, started on chemotherapy, subsequently her renal function improved from 2.2 to 2.5 to 0.9, now the patient was admitted with chest discomfort and chills and also shortness of breath and bilateral leg swelling and found to have a Strep pneumoniae, sepsis on IV antibiotic Rocephin 1 gm every 12 hours. The patient was also found to have acute renal failure on admission. The patient is feeling much better, not in acute distress. Slight shortness of breath and dyspnea on exertion is present. No chest pain. No nausea, no vomiting. Appetite is improving and increasing p.o. intake. PHYSICAL EXAMINATION: VITAL SIGNS: Blood pressure this morning 120/63, pulse 83, respiration 20, temperature 97.6, saturation 93% on room air. Height 5 feet, weight is 84 pounds. GENERAL: Mrs. Alvarado is a 71 years old elderly female, thin built, not in acute distress. HEENT: Pupils normal, react to light and accommodation. Conjunctivae pink. Sclerae anicteric. Tongue is moist and trachea is midline. LUNGS: Symmetric on both sides. Bilateral breath sounds present. Bilateral basal crackles present at bases, left more than right. CVS: Berino at the fifth intercostal space, half inch midclavicular line. S1 and S2 audible. No murmur or gallop. ABDOMEN: Normal in appearance, soft, tympanic. No guarding, no rigidity. No hepatosplenomegaly. 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 Nonfocal neuro examination. Cranial nerves II through XII grossly intact. Sensory and motor system is within normal limits. EXTREMITIES: No cyanosis, no clubbing, no edema. CURRENT MEDICATIONS: Alphagan eyedrops, Rocephin 1 gm every 12 hours, amiodarone 100 mg p.o. b.i.d., DuoNeb inhaler, aspirin 81 mg daily, ferrous sulfate 325 mg p.o. t.i.d., Humulin R for sliding scale, Januvia 25 mg p.o. daily, Lasix 20 mg p.o. daily, Lovenox 30 mg subcu daily, Nitro-Bid ointment 1 inch topical every 6 hours, Pepcid 20 mg p.o. daily, Robitussin 100 mg p.o. q.i.d., allopurinol 100 mg p.o. daily. LABORATORY DATA: This morning as follows; WBC 3.7, hemoglobin 8.6, hematocrit is 25.4, platelets 74, sodium 140, potassium 3.7, chloride 102, CO2 27, BUN 27, creatinine 1.3, glucose 104, calcium 8.5. Total bili 0.4, AST 20, ALT 18, alkaline phos 134, total protein 6.1, albumin is 2.5. Blood culture from 07/13/2017 negative day #5. MRSA screen was negative from 07/15/2017 and 07/18/2017. Chest x-ray as of 07/19/2017, impression; no significant change in appearance of persistent perihilar left mid lung opacity, questionable small left pleural effusion. ASSESSMENT: In summary, Mrs. Alvarado is a 71 years elderly female with history of hypertension, diabetes, coronary artery disease status post coronary artery bypass graft, chronic obstructive pulmonary disease, congestive heart failure, multiple myeloma, status post acute renal failure, started on chemotherapy with no improvement in the renal function now admitted with chest discomfort and also cough, shortness of breath and bilateral leg swelling and found to have a Streptococcus pneumoniae, sepsis with acute renal failure now renal function is slowly improving. Repeat blood cultures are negative. 1. Acute renal failure most likely secondary to acute tubular necrosis secondary to Streptococcus pneumoniae, sepsis. 2. Anemia secondary to multiple myeloma. 3. Thrombocytopenia secondary to multiple myeloma, most likely. 4. Hypertension. Blood pressure is stable. 5. Diabetes. Sugars are under control. PLAN: Continue antibiotics as per ID recommendations and followup with technical support director for further management. We will follow with you. For possible transfer to transitional care unit in [place]. Thank you for allowing me to participate in your patient's care. Valerie Rascon MD [facility] # [id number]
--- NOTE | 2017-07-21 09:28 | PCM.HF ---
Heart Failure Core Measure - Heart Failure Ejection Fraction: 40 % or Greater LUIS Inhibitor Prescribed: No Contraindication/Reason for not providing: on arb Beta-Kristian Prescribed: Metoprolol Succinate Angiotensin II Receptor Kristian Prescribed: Yes AnticoagulationTherapy for Atrial Fibrillation/Atrialflutter: No Contraindication/Reason for not providing: no afib Aldosterone Antagonist Prescribed: No Contraindication/Reason for not providing: EF > 40 Hydralazine Nitrate Prescribed: No Contraindication/Reason for not providing: EF > 40 Implantable Cardioverter Defibrillator Therapy: No Contraindication/Reason for not providing: EF > 40 Cardiac Resynchronization Therapy Prescribed: No Contraindication/Reason for not providing: EF > 40 - Follow up Will be discharged to: Long Term Facility ([facility]) Follow Up Date (must be within 7 days from discharge): 07/20/17 Follow Up Time: 09:00
--- NOTE | 2017-07-26 10:42 | DS ---
HISTORY OF PRESENT ILLNESS: This is a 71-year-old [place] female who came to the emergency room with history of increasing shortness of breath, cough, fever, and chills. The patient was lethargic with altered mental status. The patient has history of anemia, congestive heart failure, COPD, hypertension, and hypercholesterolemia. PHYSICAL EXAMINATION: VITAL SIGNS: In the emergency room, the patient was confused with altered mental status with temperature 97.7 and normal vital signs. Pulse oximetry was 100% at room air. HEENT: ____ flat. Carotids, no bruits. LUNGS: No rales, no wheezing. HEART: S1, S2. Normal. No gallop. No murmur. ABDOMEN: Soft. Nontender. No organomegaly. LINEN GRADER: No focal neurological deficit. LABORATORY DATA: On admission, the patient was anemic with hemoglobin 7.9. The patient's BUN was 18 and creatinine was 1.1. Chest x-ray showed cardiomegaly. HOSPITAL COURSE: During the hospital course, the patient was treated for possible pneumonia. The patient also has her all medications continued. The patient was treated for congestive heart failure by Dr. Gurvinder Alvarado. The patient's blood culture was positive for gram positive Staph pneumonia. Dr. Holm was consulted and was given IV antibiotic. During the hospital course, the patient has episode of atrial fibrillation with rapid ventricular rate for which he was transferred down to ICU and was stabilized. Upon stabilization and repeat cultures negative, the patient was transferred to [facility] for further IV antibiotic therapy for about 8 to 9 days. FINAL DIAGNOSES: Sepsis. Pneumonia. Congestive heart failure. Systolic and diastolic dysfunction. Severe anemia. Sourav Odonnell MD
== END 2017-07-19 19:56 | disposition home or self-care (01) | DRG 871 ==
LOC: C.ER 04:39 → C.9E 05:53 → C.5S 12:26 → C.9I 07-15 11:07 → C.6T 07-17 17:19
PROVIDERS: ADMIT Internal Medicine Cardiovascular Disease; ATTEND Internal Medicine Cardiovascular Disease
DX: A40.3 Sepsis due to Streptococcus pneumoniae (principal); A41.89 Other specified sepsis; J13 Pneumonia due to Streptococcus pneumoniae; N17.0 Acute kidney failure with tubular necrosis; R65.20 Severe sepsis without septic shock; C90.00 Multiple myeloma not having achieved remission; D61.818 Other pancytopenia; E87.2 Acidosis; I13.0 Hypertensive heart and chronic kidney disease with heart failure and stage 1 through stage 4 chronic kidney disease, or unspecified chronic kidney disease; I47.1 Supraventricular tachycardia; I47.2 Ventricular tachycardia; I48.92 Unspecified atrial flutter; I50.42 Chronic combined systolic (congestive) and diastolic (congestive) heart failure; Z68.1 Body mass index [BMI] 19.9 or less, adult; D63.0 Anemia in neoplastic disease; D63.1 Anemia in chronic kidney disease; D69.59 Other secondary thrombocytopenia; E11.22 Type 2 diabetes mellitus with diabetic chronic kidney disease; E78.5 Hyperlipidemia, unspecified; E86.0 Dehydration; E87.5 Hyperkalemia; E87.6 Hypokalemia; H40.9 Unspecified glaucoma; I25.10 Atherosclerotic heart disease of native coronary artery without angina pectoris; I27.20 Pulmonary hypertension, unspecified; I48.91 Unspecified atrial fibrillation; N18.9 Chronic kidney disease, unspecified; Z74.01 Bed confinement status; Z79.84 Long term (current) use of oral hypoglycemic drugs; Z95.1 Presence of aortocoronary bypass graft

== ENCOUNTER 2017-09-17 20:44 | Emergency (ER) | payer MEDICARE, BC ==
[2017-09-17 20:44] VITALS: PULSE 168; BMI 15.8
--- NOTE | 2017-09-17 21:11 | C.PDOC ---
History Of Present Illness 71 year old female with PMHx of CHF, CAD, open heart surgery and pacemaker is sent to the ED by Dr. Alvarado for evaluation of chest pain. As per patient's patient has been having continuous chest pain for the past 2 weeks. Patient reports pain is not related to any activity, no associated symptoms, no SOB, no diaphoretic. Patient also reports having some abdominal pain radiating to her back, patient has history of frequent constipation and thought symptoms were related. Patient was referred to powdered metal supervisor and was seen by Dr. Alvarado twice in his office for chest pain both times with normal EKGs. Today patient's called Dr. Alvarado stating patient still feeling chest pain and was referred here for evaluation. Patient had new onset AFib in August when she had her pacemaker placed following several syncopal episodes. She was also treated for pleural effusion. Patient was seen in [place] ED 2 weeks ago and was admitted there. Patient denies recent injury, fall, trauma, fever, chills, SOB, nausea, vomit, diarrhea, weakness, numbness. Time Seen by Provider: 09/17/17 20:56 Chief Complaint (Nursing): Chest Pain History Per: Patient History/Exam Limitations: no limitations Onset/Duration Of Symptoms: Days Current Symptoms Are (Timing): Still Present Quality: "Pain" Associated Symptoms: denies: Nausea, Dyspnea, Diaphoresis Recent travel outside of the [place]: No Additional History Per: Patient Past Medical History Reviewed: Historical Data, Nursing Documentation, Vital Signs Vital Signs: Last Vital Signs Temp 98.2 F 09/17/17 20:58 Pulse 61 09/17/17 22:02 Resp 24 09/17/17 22:02 BP 168/81 H 09/17/17 22:02 Pulse Ox 98 09/17/17 22:02 - Medical History PMH: Anemia, Atrial Fibrillation (new onset), CAD, CHF, COPD, HTN, Hypercholesterolemia, Pneumonia, Chronic Kidney Disease Denies: HIV Surgical History: Appendectomy, CABG, Pacemaker (August) - [facility] Procedures DRAINAGE OF LEFT PLEURAL CAVITY, PERCUTANEOUS APPROACH (07/22/17) EXCISION OF STOMACH, ENDO, DIAGN (05/29/17) EXERCISE TREATMENT OF MUSCULOSK WHOLE USING ASSIST EQUIPMENT (07/26/17) EXTRACTION OF ILIAC BONE MARROW, PERC APPROACH, DIAGN (04/10/17) GAIT TRAINING/AMBULAT TREATMENT USING ASSIST EQUIPMENT (07/19/17) HOME MANAGEMENT TREATMENT USING ASSIST EQUIPMENT (07/19/17) INTRODUCE OF OTH ANTI-INFECT INTO PERIPH VEIN, PERC APPROACH (07/26/17) Family History: States: Unknown Family Hx - Social History Hx Alcohol Use: No Hx Substance Use: No - Immunization History Hx Tetanus Toxoid Vaccination: No Hx Influenza Vaccination: Yes Hx Pneumococcal Vaccination: No Review Of Systems Constitutional: Negative for: Fever, Chills Cardiovascular: Positive for: Chest Pain. Negative for: Palpitations Respiratory: Negative for: Cough, Shortness of Breath Gastrointestinal: Negative for: Nausea, Vomiting, Abdominal Pain Skin: Negative for: Rash Neurological: Negative for: Weakness, Numbness, Headache Physical Exam - Physical Exam Appears: Non-toxic, No Acute Distress Skin: Normal Color, Warm, Dry, No Diaphoretic Head: Atraumatic, Normacephalic Eye(s): bilateral: Normal Inspection Oral Mucosa: Moist Neck: Normal ROM, Supple Chest: Symmetrical Cardiovascular: Rhythm Regular Respiratory: Normal Breath Sounds, No Rales, No Rhonchi, No Wheezing Gastrointestinal/Abdominal: Soft, No Tenderness, No Guarding, No Rebound Extremity: Normal ROM, No Tenderness, No Swelling Neurological/Psych: Oriented x3, Normal Speech Gait: Steady ED Course And Treatment - Laboratory Results Result Diagrams: 09/17/17 21:35 09/17/17 21:35 Lab Interpretation: No Acute Changes ECG: Interpreted By Wa ECG Rhythm: Sinus Rhythm, AV Paced ECG Interpretation: No Acute Changes O2 Sat by Pulse Oximetry: 99 (ON RA) Pulse Ox Interpretation: Normal - Radiology CXR: Interpreted by Wa CXR Interpretation: Yes: No Acute Disease, Cardiomegaly Reevaluation Time: 22:29 Reassessment Condition: Improved (Patient remains comfortable after Tylenol) - Physician Consult Information Physician Contacted: Jeff Alvarado Outcome Of Conversation: Patient is well known to him. Advised if cardiac screening is normal she can be discharged and he will follow up in the office this week. Medical Decision Making Medical Decision Making: Impression: persistent chest pain 2 weeks Plan: * EKG * Labs * CXR Disposition Counseled Patient/Family Regarding: Studies Performed, Diagnosis, Need For Followup - Disposition Referrals: Jeff Alvarado MD [Primary Care Provider] - Disposition: HOME/ ROUTINE Disposition Time: 22:30 Condition: STABLE Instructions: Chest Pain That Is Not Caused by the Heart (DC) Forms: [employer] (Lithuanian) - Clinical Impression Clinical Impression: Chest discomfort - Scribe Statement The provider has reviewed the documentation as recorded by the Scribe Gaudencio Valdovinos All medical record entries made by the Scribe were at my direction and personally dictated by me. I have reviewed the chart and agree that the record accurately reflects my personal performance of the history, physical exam, medical decision making, and the department course for this patient. I have also personally directed, reviewed, and agree with the discharge instructions and disposition.
[2017-09-17 21:39] LABS: BASO % 0.3 % (0.0-2.0); EOS % 0.3 % (0.0-4.0); HEMOGLOBIN 12.5 g/dL (11.0-16.0); LYMPH # 1.1 K/uL (1.0-4.3); LYMPH % 20.3 % (20.0-40.0); MEAN CELL VOLUME 98.5 fL (81.0-99.0); MEAN CORPUSCULAR HEMOGLOBIN 32.4 pg (27.0-31.0); MEAN CORPUSCULAR HGB CONC 32.9 g/dL (33.0-37.0); MEAN PLATELET VOLUME 11.7 fL (7.2-11.7); MONO # 0.3 K/uL (0.0-0.8); MONO % 5.1 % (0.0-10.0); NEUT # 4.1 K/uL (1.8-7.0); NRBC % 0.1 % (0.0-2.0); RBC 3.85 Mil/uL (3.80-5.20); RED CELL DISTRIBUTION WIDTH 18.2 % (11.5-14.5); WHITE BLOOD COUNT 5.6 K/uL (4.8-10.8)
[2017-09-17 21:52] LABS: PLATELET COUNT 90 K/uL (130-400)
[2017-09-17 22:03] VITALS: BP 168/81; PULSE 61; RESP 24
[2017-09-17 22:04] LABS: ALB/GLOB RATIO 1.1 (1.0-2.1); ALBUMIN 4.2 g/dL (3.5-5.0); CALCIUM 8.8 mg/dl (8.6-10.4)
[2017-09-17 22:15] LABS: TROPONIN I 0.104 ng/mL (0.00-0.120)
[2017-09-17 22:30] VITALS: O2SAT 99
[2017-09-17 22:33] VITALS: TEMP 98.1
--- NOTE | 2017-09-18 12:40 | RAD ---
Date of service: 09/17/2017 PROCEDURE: CHEST RADIOGRAPH, 1 VIEW HISTORY: chest pain COMPARISON: Chest radiograph dated 07/19/2017. FINDINGS: LUNGS: Stable chronic prominence of the bilateral interstitial markings with superimposed pulmonary vascular congestion. PLEURA: Tenting of the left hemidiaphragm. No pleural effusion or appreciable pneumothorax. CARDIOVASCULAR: Left subclavian access pacemaker redemonstrated. Prior sternotomy with sternal wires and surgical clips redemonstrated. Atherosclerotic aortic calcifications. Cardiomediastinal silhouette stably enlarged. OSSEOUS STRUCTURES: Scoliosis. Unchanged. VISUALIZED UPPER ABDOMEN: Normal. OTHER FINDINGS: None. IMPRESSION: Stable chronic prominence of the bilateral interstitial markings with superimposed pulmonary vascular congestion. No focal consolidation or pleural effusion.
== END 2017-09-17 22:36 | disposition home or self-care (01) ==
LOC: C.ER 20:44 → SUPCPDRO 20:44 → C.ER 22:36
DX: R07.89 Other chest pain (principal); I48.91 Unspecified atrial fibrillation; I50.9 Heart failure, unspecified; I25.10 Atherosclerotic heart disease of native coronary artery without angina pectoris; I12.9 Hypertensive chronic kidney disease with stage 1 through stage 4 chronic kidney disease, or unspecified chronic kidney disease; N18.9 Chronic kidney disease, unspecified; Z95.0 Presence of cardiac pacemaker

== ENCOUNTER 2017-09-22 22:34 | Inpatient (IN) | payer MEDICARE, BC ==
[2017-09-22 22:34] VITALS: PULSE 168; BMI 15.8
[2017-09-22] MEDS ORDERED: Nitroglycerin 2% Ointment Foilpak UD TOP STA (23:05)
[2017-09-22 23:12] LABS: BASO % 0.2 % (0.0-2.0); EOS % 0.2 % (0.0-4.0); LYMPH % 21.4 % (20.0-40.0); MEAN CELL VOLUME 97.3 fL (81.0-99.0); MEAN CORPUSCULAR HEMOGLOBIN 32.8 pg (27.0-31.0); MEAN CORPUSCULAR HGB CONC 33.7 g/dL (33.0-37.0); MEAN PLATELET VOLUME 12.5 fL (7.2-11.7); MONO # 0.3 K/uL (0.0-0.8); NEUT # 3.3 K/uL (1.8-7.0); NEUT % 72.2 % (50.0-75.0); NRBC % 0.7 % (0.0-2.0); RBC 3.96 Mil/uL (3.80-5.20); RED CELL DISTRIBUTION WIDTH 17.5 % (11.5-14.5); WHITE BLOOD COUNT 4.6 K/uL (4.8-10.8)
[2017-09-22] MEDS ORDERED: Nitroglycerin 2% Ointment Foilpak UD TOP ONE (23:17)
[2017-09-22 23:21] LABS: PROTHROMBIN TIME 11.1 SECONDS (9.7-12.2)
[2017-09-22 23:31] LABS: ALBUMIN 4.3 g/dL (3.5-5.0)
[2017-09-22 23:36] LABS: TROPONIN I 0.088 ng/mL (0.00-0.120)
[2017-09-22 23:54] LABS: SQUAMOUS EPITHIAL 3 /hpf (0-5); URINE BILIRUBIN NEGATIVE (NEGATIVE); URINE BLOOD 2+ (NEGATIVE); URINE CLARITY Clear (Clear); URINE COLOR Yellow (YELLOW); URINE GLUCOSE (UA) NORMAL (Normal); URINE LEUKOCYTE ESTERASE 1+ Leu/uL (Negative); URINE PROTEIN 1+ mg/dL (NEGATIVE); URINE UROBILINOGEN NORMAL mg/dL (0.2-1.0)
[2017-09-23 00:06] LABS: ALB/GLOB RATIO 1.1 (1.0-2.1)
[2017-09-23 00:11] LABS: CALCIUM 9.4 mg/dl (8.6-10.4)
--- NOTE | 2017-09-23 00:38 | C.PDOC ---
Time Seen by Provider: 09/22/17 22:48 Chief Complaint (Nursing): Chest Pain History Per: Patient, Family Onset/Duration Of Symptoms: Days, Waxing/Waning Current Symptoms Are (Timing): Still Present Severity: Moderate Quality: "Pain" Associated Symptoms: Dyspnea Modifying Factors: Other Indicated Below Alleviating Factors: None Nitro Therapy Administered: 1, Per Own Supply, No Relief Additional History Per: Prior Records Past Medical History Reviewed: Historical Data, Nursing Documentation, Vital Signs Vital Signs: Last Vital Signs Temp 97.8 F 09/22/17 22:37 Pulse 60 09/23/17 00:11 Resp 18 09/23/17 00:11 BP 182/86 H 09/23/17 00:11 Pulse Ox 98 09/23/17 00:39 - Medical History PMH: Anemia, Atrial Fibrillation (new onset), CAD, CHF, COPD, HTN, Hypercholesterolemia, Pneumonia, Chronic Kidney Disease Surgical History: Appendectomy, CABG, Pacemaker (August) - [facility] Procedures DRAINAGE OF LEFT PLEURAL CAVITY, PERCUTANEOUS APPROACH (07/22/17) EXCISION OF STOMACH, ENDO, DIAGN (05/29/17) EXERCISE TREATMENT OF MUSCULOSK WHOLE USING ASSIST EQUIPMENT (07/26/17) EXTRACTION OF ILIAC BONE MARROW, PERC APPROACH, DIAGN (04/10/17) GAIT TRAINING/AMBULAT TREATMENT USING ASSIST EQUIPMENT (07/19/17) HOME MANAGEMENT TREATMENT USING ASSIST EQUIPMENT (07/19/17) INTRODUCE OF OTH ANTI-INFECT INTO PERIPH VEIN, PERC APPROACH (07/26/17) Family History: States: Unknown Family Hx - Social History Hx Tobacco Use: No Hx Alcohol Use: No Hx Substance Use: No - Immunization History Hx Tetanus Toxoid Vaccination: No Hx Influenza Vaccination: Yes Hx Pneumococcal Vaccination: No Review Of Systems Except As Marked, All Systems Reviewed And Found Negative. Constitutional: Negative for: Fever Cardiovascular: Positive for: Chest Pain Respiratory: Negative for: Hemoptysis Gastrointestinal: Positive for: Abdominal Pain, Constipation. Negative for: Vomiting Genitourinary: Negative for: Dysuria Musculoskeletal: Positive for: Back Pain. Negative for: Neck Pain Skin: Negative for: Rash Neurological: Negative for: Weakness, Numbness Physical Exam - Physical Exam Appears: No Acute Distress, Chronically Ill Skin: Normal Color, Warm, Dry Head: Atraumatic, Normacephalic Eye(s): bilateral: PERRL, EOMI Neck: Normal ROM, Supple Cardiovascular: Rhythm Regular Respiratory: No Accessory Muscle Use, Rales (at bases) Gastrointestinal/Abdominal: Soft, Tenderness (nonspecific), No Guarding, No Rebound Extremity: Normal ROM, No Pedal Edema, No Calf Tenderness Neurological/Psych: Oriented x3, Normal Motor, Normal Sensation ED Course And Treatment - Laboratory Results Result Diagrams: 09/22/17 23:09 09/22/17 23:09 Lab Interpretation: Abnormal Interpretation Of Abnormal: Thrombocytopenia. Elevated BNP. Positive DDimer. ECG: Interpreted By Me, Viewed By Me ECG Rhythm: Sinus Rhythm, 1st Degree HB, Nonspecific Changes ECG Interpretation: Abnormal Interpretation Of ECG: LVH with strain pattern Rate From EC O2 Sat by Pulse Oximetry: 98 Pulse Ox Interpretation: Normal - Radiology CXR: Interpreted by Me, Viewed By Me CXR Interpretation: Yes: Cardiomegaly Disposition - Disposition Disposition Time: 00:51 Condition: GUARDED - Clinical Impression Clinical Impression: Chest pain, Abdominal pain Physician Patient Turnover Patient Signed Over To: Rikki Cifuentes Handoff Comments: to f/up CT scan results and reassess/dispo pt.
[2017-09-23] MEDS ORDERED: Iodixanol 320 MG/ML 100 ML BOTTLE IV ONE (00:55)
[2017-09-23] MEDS ORDERED: Morphine 4 MG/ML VIAL ONE (03:01)
[2017-09-23] MEDS: Pantoprazole 40 mg EC Tab PO SCH (09:07)
--- NOTE | 2017-09-23 10:02 | RAD ---
Date of service: 09/22/2017 PROCEDURE: CHEST RADIOGRAPH, 1 VIEW HISTORY: Chest pain COMPARISON: Portable chest 09/17/2017. FINDINGS: LUNGS: No airspace disease identified bilaterally. However, mild chronic interstitial pulmonary changes are reiterated with mild persistent pulmonary vascular congestion evident. PLEURA: No pneumothorax or pleural fluid seen. CARDIOVASCULAR: Cardiomegaly and mild pulmonary vascular congestion reiterated. No significant interval change. Pacemaker now identified inserted with the generator the left pectoralis region and 2 leads identified extending through the left subclavian region terminating in the heart. Sternotomy wires and mediastinal surgical clips are reiterated. OSSEOUS STRUCTURES: No significant abnormalities. VISUALIZED UPPER ABDOMEN: Scoliotic lumbar spinal deformity identified. OTHER FINDINGS: None. IMPRESSION: Interval permanent cardiac pacemaker deployment as discussed above a stable cardiomegaly with mild pulmonary vascular congestion reiterated. Underlying limited chronic interstitial pulmonary changes again evident.
[2017-09-23 10:26] LABS: CK-MB 1.4 ng/mL (0.0-3.38); TROPONIN I 0.084 ng/mL (0.00-0.120)
[2017-09-23] MEDS: Brimonidine 0.2% Opth Sol (5ml) OU SCH ×2 (11:10→17:45)
--- NOTE | 2017-09-23 12:59 | CT ---
Date of service: 09/23/2017 PROCEDURE: CT Chest with contrast (Pulmonary Angiogram) HISTORY: Chest pain, r/o PE COMPARISON: Noncontrast chest CT 04/24/2017. TECHNIQUE: Axial computed tomography images were obtained of the chest in the pulmonary arterial phase of enhancement. Coronal and sagittal reformatted images were created and reviewed. Intravenous contrast dose: Visipaque 320, 100 cc Radiation dose: Total exam DLP = 110.60 mGy-cm. This CT exam was performed using one or more of the following dose reduction techniques: Automated exposure control, adjustment of the mA and/or kV according to patient size, and/or use of iterative reconstruction technique. FINDINGS: PULMONARY ARTERIES: Unremarkable. No pulmonary embolism. AORTA: No acute findings. No thoracic aortic aneurysm. LUNGS: Diffuse interlobular septal thickening is appreciate as well as scattered ground-glass opacity bilaterally, relatively diffuse in distribution and increased in the interval. A 4 mm noncalcified solid nodule is stable at the right upper lobe and image 37 series 4. PLEURAL SPACES: Trace left pleural effusion identified. No right pleural effusion. No pneumothorax bilaterally. HEART: Cardiomegaly. Post CABG changes. There is reflux of IV contrast into the inferior vena cava which may indicate an element of right heart failure. Clinically correlate. Main pulmonary artery appears normal caliber. Pleura vascular pattern appears somewhat prominent in terms of pulmonary veins and this may represent pulmonary edema given interlobular septal thickening and ground-glass opacity discussed above. Finally, prior cardiac pacemaker is now identified placed via left subclavian approach with the generator the left pectoralis region and leads identified extending into the right heart. LYMPH NODES: No lymphadenopathy. BONES, CHEST WALL: Median sternotomy identified. No fracture or destructive lesion OTHER FINDINGS: Unremarkable. IMPRESSION: 1. No CT evidence of pulmonary embolus bilaterally. 2. Mild pulmonary venous congestion/pulmonary edema suspected. Clinically correlate further. 3. 4 mm nodule anterior segment right upper lobe reiterated, stable compared to 04/24/2017 CT. Follow-up CT advised in 12 months using low-dose chest CT protocol. Lung rads 2. 4. Interval pacemaker deployment.
--- NOTE | 2017-09-23 13:05 | CT ---
Date of service: 09/23/2017 PROCEDURE: CT Abdomen and Pelvis with contrast HISTORY: Abdominal pain. COMPARISON: None. TECHNIQUE: Following the intravenous administration of iodinated contrast material, a CT examination of the abdomen and pelvis performed from the domes of the diaphragms to the symphysis pubis with reformatted datasets provided in axial, sagittal and coronal planes. Oral contrast was not administered as per referring physician request. Contrast dose: Visipaque 320, 100 cc Radiation dose: Total exam DLP = 208.26 mGy-cm. This CT exam was performed using one or more of the following dose reduction techniques: Automated exposure control, adjustment of the mA and/or kV according to patient size, and/or use of iterative reconstruction technique. FINDINGS: LOWER THORAX: Cardiomegaly is identified with right-sided pacemaker leads identified as well as sternotomy wires anteriorly. Mild left pleural effusion identified. LIVER: Unremarkable. No gross lesion or ductal dilatation. GALLBLADDER AND BILE DUCTS: Unremarkable. PANCREAS: Unremarkable. No gross lesion or ductal dilatation. SPLEEN: Unremarkable. ADRENALS: Mild bilateral adrenal hyperplasia is suspected. No discrete mass identified bilaterally. KIDNEYS AND URETERS: Unremarkable. No hydronephrosis. No solid mass. VASCULATURE: Unremarkable. No aortic aneurysm. BOWEL: Unremarkable. No obstruction. No gross mural thickening. APPENDIX: Normal appendix. PERITONEUM: Unremarkable. No free fluid. No free air. LYMPH NODES: Unremarkable. No enlarged lymph nodes. BLADDER: Unremarkable. REPRODUCTIVE: Limited uterine fibroid changes posterior fundus. BONES: Marked levoscoliotic lumbar spinal deformity. No acute fracture appreciable. OTHER FINDINGS: None. IMPRESSION: Nonacute abdomen and pelvis CT examination as discussed above. Mild bilateral adrenal hyperplasia suspected without focal mass related. Scoliotic lumbar spinal deformity identified. Concordant preliminary report from [facility], 09/23/2017.
[2017-09-23 16:08] LABS: CK-MB 1.55 ng/mL (0.0-3.38); TROPONIN I 0.092 ng/mL (0.00-0.120)
[2017-09-24 08:10] LABS: BASO % 0.3 % (0.0-2.0); EOS % 0.5 % (0.0-4.0); HEMOGLOBIN 11.8 g/dL (11.0-16.0); LYMPH # 0.9 K/uL (1.0-4.3); LYMPH % 17.1 % (20.0-40.0); MEAN CELL VOLUME 96.5 fL (81.0-99.0); MEAN CORPUSCULAR HEMOGLOBIN 32.8 pg (27.0-31.0); MEAN PLATELET VOLUME 12.2 fL (7.2-11.7); MONO # 0.3 K/uL (0.0-0.8); MONO % 6.9 % (0.0-10.0); NEUT # 3.8 K/uL (1.8-7.0); NEUT % 75.2 % (50.0-75.0); NRBC % 0.2 % (0.0-2.0); RBC 3.61 Mil/uL (3.80-5.20); RED CELL DISTRIBUTION WIDTH 17.6 % (11.5-14.5)
[2017-09-24 08:27] LABS: ALB/GLOB RATIO 1.1 (1.0-2.1); ALBUMIN 3.4 g/dL (3.5-5.0); CALCIUM 8.7 mg/dl (8.6-10.4)
[2017-09-24] MEDS: Pantoprazole 40 mg EC Tab PO SCH (09:22)
[2017-09-24] MEDS: Brimonidine 0.2% Opth Sol (5ml) OU SCH ×2 (09:23→17:20)
[2017-09-24] MEDS ORDERED: POLYETHYLENE GLYCOL 3350 17 GM/Dose PACKET PO PRN (12:21)
--- NOTE | 2017-09-24 13:19 | CP.PCM.CON ---
History of Present Illness - History of Present Illness History of Present Illness: COVERING DR BENITEZ 72 yo [place] female well known to Dr Benitez admitted due to diffuse upper abdominal pain and chest pain/pressure for the past 24 hours. Patient has had similar epigastric pain in the past. EGD in 05/21 showed reflux esophagitis and non-specific gastritis biopsy negative for Barretts, Hpylori or intestinal metaplasia. She denies N/V. Was seen by Dr Benitez as outpatient and was scheduled for Mesenteric Doppler and UGI/sbs. reports Doppler was done at [facility] and was reported to be negative for ischemic changes. No bleeding, melena, N/V/D/C. Review of Systems - Cardiovascular Cardiovascular: Chest Pain, Dyspnea - Respiratory Respiratory: absent: Cough, Snoring, Stridor - Gastrointestinal Gastrointestinal: As Per HPI Past Patient History - Infectious Disease Hx of Infectious Diseases: None - Tetanus Immunizations Tetanus Immunization: Unknown - Past Medical History & Family History Past Medical History?: Yes - Past Social History Smoking Status: Never Smoked Alcohol: None Drugs: Denies - CARDIAC Hx Cardiac Disorders: Yes (CAD, CABG, Pacemaker,) Hx Congestive Heart Failure: Yes Hx Hypercholesterolemia: Yes Hx Hypertension: Yes - PULMONARY Hx Chronic Obstructive Pulmonary Disease (COPD): Yes - NEUROLOGICAL Hx Neurological Disorder: Yes Hx Syncope: Yes - HEENT Hx HEENT Problems: Yes Hx Glaucoma: Yes - RENAL Hx Chronic Kidney Disease: Yes - ENDOCRINE/METABOLIC Hx Diabetes Mellitus Type 2: Yes - HEMATOLOGICAL/ONCOLOGICAL Hx Blood Disorders: Yes Hx Anemia: Yes Hx Cirrhosis: No Hx Hepatitis A: No Hx Hepatitis B: No Hx Hepatitis C: No Hx Human Immunodeficiency Virus (HIV): No - INTEGUMENTARY Hx Dermatological Problems: No - MUSCULOSKELETAL/RHEUMATOLOGICAL Hx Musculoskeletal Disorders: Yes Hx Falls: Yes Hx Gout: Yes - GASTROINTESTINAL Hx Gastrointestinal Disorders: Yes Hx Bowel Surgery: No Hx Clostridium Difficile: No Hx Colitis: No Hx Colostomy: No Hx Constipation: No Hx Crohn's Disease: No Hx Diarrhea: No Hx Diverticulitis: No Hx Esophageal Varices: No Hx Fatty Liver Disease: No Hx Gall Bladder Disease: No Hx Gastritis: Yes Hx Gastroesophageal Reflux: Yes Hx Hemorrhoids: No Hx Ileostomy: No Hx Irritable Bowel: No Hx Liver Failure: No Hx Nausea: No Hx Pancreatitis: No HX Swallowing Problems: No Hx Ulcer: No Hx Vomiting: No - GENITOURINARY/GYNECOLOGICAL Hx Genitourinary Disorders: No - PSYCHIATRIC Hx Psychophysiologic Disorder: No Hx Substance Use: No - SURGICAL HISTORY Hx Surgeries: Yes Hx Appendectomy: Yes Hx Coronary Artery Bypass Graft: Yes - ANESTHESIA Hx Anesthesia: Yes Hx Anesthesia Reactions: No Hx Malignant Hyperthermia: No Has any member of the family had a problem w/ anesthesia?: No Meds Allergies/Adverse Reactions: Allergies Allergy/AdvReac Type Severity Reaction Status Date / Time No Known Allergies Allergy Verified 09/22/17 22:47 - Medications Medications: Current Medications Allopurinol (Zyloprim) 100 mg PO DAILY [facility] Last Admin: 09/24/17 09:23 Dose: 100 mg Aspirin (Ecotrin) 81 mg PO DAILY [facility] Last Admin: 09/24/17 09:22 Dose: 81 mg Brimonidine Tartrate (Alphagan 0.2% Opht) 3 ml OU BID [facility] Last Admin: 09/24/17 09:23 Dose: 1 drop Lisinopril (Zestril) 10 mg PO DAILY [facility] Last Admin: 09/24/17 09:22 Dose: 10 mg Metoprolol Tartrate (Lopressor) 25 mg PO Q12 [facility] Last Admin: 09/24/17 09:23 Dose: 25 mg Pantoprazole Sodium (Protonix Ec Tab) 40 mg PO DAILY [facility] Last Admin: 09/24/17 09:22 Dose: 40 mg Polyethylene Glycol (Miralax) 17 gm PO Q12 PRN PRN Reason: Constipation Sitagliptin Phosphate (Januvia) 25 mg PO DAILY [facility] Last Admin: 09/24/17 09:22 Dose: 25 mg Physical Exam - Constitutional Appears: No Acute Distress - Head Exam Head Exam: ATRAUMATIC, NORMOCEPHALIC - Eye Exam Eye Exam: EOMI, PERRL - Respiratory Exam Respiratory Exam: NORMAL BREATHING PATTERN - Cardiovascular Exam Cardiovascular Exam: REGULAR RHYTHM, +S1 - GI/Abdominal Exam GI & Abdominal Exam: Normal Bowel Sounds, Soft, Tenderness. absent: Distended, Guarding, Mass, Rebound, Rigid Additional comments: mild epigastric tenderness. - Rectal Exam Rectal Exam: Deferred - Extremities Exam Extremities exam: Positive for: normal inspection. Negative for: pedal edema - Neurological Exam Neurological exam: Alert, Oriented x3 - Psychiatric Exam Psychiatric exam: Normal Affect, Normal Mood - Skin Skin Exam: Dry, Warm Results - Vital Signs Recent Vital Signs: Last Vital Signs Temp 97.4 F L 09/24/17 07:00 Pulse 60 09/24/17 12:00 Resp 20 09/24/17 07:00 BP 175/80 H 09/24/17 07:00 Pulse Ox 96 09/24/17 07:00 - Labs Result Diagrams: 09/24/17 07:58 09/24/17 07:58 Labs: Laboratory Results - last 24 hr 09/23/17 09/24/17 09/24/17 15:24 07:58 07:58 WBC 5.0 RBC 3.61 L Hgb 11.8 Hct 34.9 MCV 96.5 MCH 32.8 H MCHC 34.0 RDW 17.6 H Plt Count 45 L MPV 12.2 H Neut % (Auto) 75.2 H Lymph % (Auto) 17.1 L Crawford % (Auto) 6.9 Eos % (Auto) 0.5 Baso % (Auto) 0.3 Neut # (Auto) 3.8 Lymph # (Auto) 0.9 L Crawford # (Auto) 0.3 Eos # (Auto) 0.0 Baso # (Auto) 0.0 Sodium 131 L Potassium 3.7 Chloride 95 L Carbon Dioxide 28 Anion Gap 12 BUN 26 H Creatinine 1.4 H Est GFR ( Amer) 44 Est GFR (Non-Af Amer) 37 Random Glucose 103 Calcium 8.7 Total Bilirubin 0.5 AST 17 ALT 20 Alkaline Phosphatase 63 Total Creatine Kinase 28 L CK-MB (Mass) 1.55 Troponin I 0.0920 Total Protein 6.5 Albumin 3.4 L D Globulin 3.1 Albumin/Globulin Ratio 1.1 Assessment & Plan (1) Epigastric pain Assessment and Plan: Patient with reflux and gastritis by EGD. Work up in progress to r/o mesenteric ischemia. Patient admitted with CHF. Contiue PPI Will order UGI/sbs as per Dr Benitez's requisition Obtain Mesenteric Doppler report, ?need for CTA? Status: Acute (2) Reflux esophagitis Assessment and Plan: Continue Protonix Status: Acute (3) Gastritis Assessment and Plan: as above Status: Acute (4) CHF exacerbation Assessment and Plan: Treatment per Dr Kehinde Alvarado. Status: Acute
[2017-09-25] MEDS ORDERED: Simethicone 80 mg Chewtab PO STA (01:59)
[2017-09-25 02:57] LABS: CK-MB 1.28 ng/mL (0.0-3.38); TROPONIN I 0.082 ng/mL (0.00-0.120)
[2017-09-25 06:56] LABS: BASO % 0.3 % (0.0-2.0); EOS % 0.3 % (0.0-4.0); HEMOGLOBIN 11.5 g/dL (11.0-16.0); LYMPH # 0.8 K/uL (1.0-4.3); LYMPH % 15.6 % (20.0-40.0); MEAN CELL VOLUME 97.1 fL (81.0-99.0); MEAN CORPUSCULAR HEMOGLOBIN 32.9 pg (27.0-31.0); MEAN CORPUSCULAR HGB CONC 33.9 g/dL (33.0-37.0); MEAN PLATELET VOLUME 12.5 fL (7.2-11.7); MONO # 0.3 K/uL (0.0-0.8); MONO % 6.2 % (0.0-10.0); NEUT # 3.8 K/uL (1.8-7.0); NEUT % 77.6 % (50.0-75.0); NRBC % 0.1 % (0.0-2.0); RBC 3.49 Mil/uL (3.80-5.20); RED CELL DISTRIBUTION WIDTH 17.5 % (11.5-14.5); WHITE BLOOD COUNT 4.9 K/uL (4.8-10.8)
[2017-09-25 08:13] LABS: ALB/GLOB RATIO 1.1 (1.0-2.1); ALBUMIN 3.3 g/dL (3.5-5.0); CALCIUM 8.5 mg/dl (8.6-10.4)
--- NOTE | 2017-09-25 09:49 | HP ---
Date: 09/23/2017 HISTORY OF PRESENT ILLNESS: This is 71-year-old female, who was brought in with history of chest pain and generalized weakness. The patient has a longstanding history of hypertension, anemia, coronary artery disease, status post CABG recurrent, diastolic heart failure, high cholesterol, recently found to have multiple myeloma being followed by oncologist, Dr. Disla. MEDICATIONS AT HOME: She has been on multiple medications that includes lisinopril 10 mg, Lasix 40 mg p.o. once a day, nebulizer treatment, lisinopril 10 mg one a day, and Lipitor 10 mg p.o once a day. She was also on Vitamin D and Januvia 25 mg p.o. once a day. She is also seen by Dr. Crain for diabetes. She has been evaluated by Dr. Salcido in the past for pulmonary. PAST MEDICAL HISTORY: History of CABG in 2014 in [facility]. The patient has multiple myeloma and heart failure, status post appendectomy and cataract surgery. REVIEW OF SYSTEMS: Generalized weakness as noted. No fever. No chills. Pains in the chest and the back. Also abdominal pain. She was recently and evaluated by Dr. Cruz and had a colonoscopy done. Denies any urinary complaints. GI: Abdominal pain. No hematemesis. No melena. Neurologic: No TIAs or CVAs. Psychiatric: No history of depression. Musculoskeletal: Pain all over the body. More so in the back. FAMILY HISTORY: Unremarkable. PHYSICAL EXAMINATION: GENERAL: Shows elderly female, who is conscious, alert, chronically sick-looking, but in no acute distress. VITAL SIGNS: She has 4 feet and 10 inches and weighs 87 pulse. Blood pressure is 164/80, heart rate of 60 and regular, respiratory rate of 20, afebrile. HEENT: Head is normocephalic. Eyes, no pallor, no icterus. NECK: Supple. LUNGS: Shows few basal rales. HEART: PMI is normal. S1 and S2 normal. Grade 2/6 early systolic murmur in mitral area. ABDOMEN: Soft. EXTREMITIES: No cyanosis, clubbing, or edema. SKIN: Shows healed surgical scar of previous surgery in the midsternal line. Also pacemaker is noted to main area. She had a pacemaker implantation done about 6 months ago at [facility] by Dr. Chandler. PSYCH: No evidence of depression. LABORATORY DATA: CBC shows hemoglobin of 13 g, INR is 1, platelet count is 55,000, potassium is 4. ProBNP is elevated to 34,000. Chest x-ray shown CHF. CAT scan of the chest done in the ER had shown CHF. EKG done had shown sinus rhythm with a well functioned pacemaker. Jeff Alvarado MD
[2017-09-25] MEDS ORDERED: Barium Sulfate for Susp 98% w/w 340g Bottle ONE (10:06)
[2017-09-25] MEDS ORDERED: Barium Sulfate for Susp 96% w/w 176g Bottle PR ONE (10:06)
--- NOTE | 2017-09-25 10:22 | CP.PCM.PN ---
Subjective - Date & Time of Evaluation Date of Evaluation: 09/25/17 Time of Evaluation: 10:20 - Subjective Subjective: Patient continues to complain of abdominal pain. She denies having nausea and vomiting. Recent EGD 05/06/2017 showed hiatal hernia and erosive gastritis. UGI and small bowel series is scheduled for this morning. Objective - Vital Signs/Intake and Output Vital Signs (last 24 hours): Temp Pulse Resp BP Pulse Ox 98.1 F 60 20 106/57 L 100 09/25/17 07:30 09/25/17 08:14 09/25/17 07:30 09/25/17 07:30 09/25/17 07:30 - Medications Medications: Current Medications Allopurinol (Zyloprim) 100 mg PO DAILY [facility] Last Admin: 09/24/17 09:23 Dose: 100 mg Aspirin (Ecotrin) 81 mg PO DAILY [facility] Last Admin: 09/24/17 09:22 Dose: 81 mg Brimonidine Tartrate (Alphagan 0.2% Opht) 3 ml OU BID [facility] Last Admin: 09/24/17 17:20 Dose: 1 drop Lisinopril (Zestril) 10 mg PO DAILY [facility] Last Admin: 09/24/17 09:22 Dose: 10 mg Metoprolol Tartrate (Lopressor) 25 mg PO Q12 [facility] Last Admin: 09/24/17 21:12 Dose: 25 mg Pantoprazole Sodium (Protonix Ec Tab) 40 mg PO DAILY [facility] Last Admin: 09/24/17 09:22 Dose: 40 mg Polyethylene Glycol (Miralax) 17 gm PO Q12 PRN PRN Reason: Constipation Sitagliptin Phosphate (Januvia) 25 mg PO DAILY [facility] Last Admin: 09/24/17 09:22 Dose: 25 mg - Labs Labs: 09/25/17 06:32 09/25/17 06:32 PT 11.1 SECONDS (9.7-12.2) 09/22/17 23:09 INR 1.0 09/22/17 23:09 APTT 27 SECONDS (21-34) 09/22/17 23:09 - Constitutional Appears: No Acute Distress - Head Exam Head Exam: ATRAUMATIC, NORMOCEPHALIC - Eye Exam Eye Exam: EOMI, PERRL - Neck Exam Neck Exam: absent: Lymphadenopathy, Thyromegaly - Respiratory Exam Respiratory Exam: NORMAL BREATHING PATTERN. absent: Rales, Rhonchi, Wheezes - Cardiovascular Exam Cardiovascular Exam: REGULAR RHYTHM, +S1, +S2. absent: Gallop, Rubs, Murmur - GI/Abdominal Exam GI & Abdominal Exam: Soft, Normal Bowel Sounds. absent: Tenderness, Mass, Organomegaly - Rectal Exam Rectal Exam: Deferred - Extremities Exam Extremities Exam: absent: Calf Tenderness, Pedal Edema Assessment and Plan (1) Epigastric pain Assessment & Plan: Patient continues to complain of epigastric pain. CT scan was non-diagnostic. She had EGD recently. Will check results of the UGI with small bowel. Plan is for colonoscopy when stable; the procedure may be performed as an outpatient. Status: Acute
[2017-09-25] MEDS: Brimonidine 0.2% Opth Sol (5ml) OU SCH ×2 (10:33→17:11)
[2017-09-25] MEDS: Pantoprazole 40 mg EC Tab PO SCH (10:37)
--- NOTE | 2017-09-25 13:37 | CP.PCM.PN ---
Subjective - Date & Time of Evaluation Date of Evaluation: 09/25/17 Time of Evaluation: 13:36 - Subjective Subjective: weak,sob Objective - Vital Signs/Intake and Output Vital Signs (last 24 hours): Temp Pulse Resp BP Pulse Ox 98.1 F 60 20 175/82 H 100 09/25/17 07:30 09/25/17 12:07 09/25/17 07:30 09/25/17 12:07 09/25/17 07:30 - Medications Medications: Current Medications Allopurinol (Zyloprim) 100 mg PO DAILY [facility] Last Admin: 09/25/17 10:35 Dose: Not Given Aspirin (Ecotrin) 81 mg PO DAILY [facility] Last Admin: 09/25/17 10:37 Dose: Not Given Brimonidine Tartrate (Alphagan 0.2% Opht) 3 ml OU BID [facility] Last Admin: 09/25/17 10:33 Dose: Not Given Furosemide (Lasix) 40 mg IVP DAILY [facility] Lisinopril (Zestril) 10 mg PO DAILY [facility] Last Admin: 09/25/17 12:07 Dose: 10 mg Metoprolol Tartrate (Lopressor) 25 mg PO Q12 [facility] Last Admin: 09/25/17 12:06 Dose: 25 mg Pantoprazole Sodium (Protonix Ec Tab) 40 mg PO DAILY [facility] Last Admin: 09/25/17 10:37 Dose: Not Given Polyethylene Glycol (Miralax) 17 gm PO Q12 PRN PRN Reason: Constipation Sitagliptin Phosphate (Januvia) 25 mg PO DAILY [facility] Last Admin: 09/25/17 10:36 Dose: Not Given - Labs Labs: 09/25/17 06:32 09/25/17 06:32 PT 11.1 SECONDS (9.7-12.2) 09/22/17 23:09 INR 1.0 09/22/17 23:09 APTT 27 SECONDS (21-34) 09/22/17 23:09 - Constitutional Appears: No Acute Distress, Chronically Ill - Head Exam Head Exam: NORMOCEPHALIC - ENT Exam ENT Exam: Mucous Membranes Moist - Respiratory Exam Respiratory Exam: Rales - Cardiovascular Exam Cardiovascular Exam: REGULAR RHYTHM, Murmur - GI/Abdominal Exam GI & Abdominal Exam: Soft - Extremities Exam Extremities Exam: absent: Pedal Edema - Neurological Exam Neurological Exam: Alert, Oriented x3 Assessment and Plan - Assessment and Plan (Free Text) Assessment: chf,diastolic,copd.myeloma iv lasix,pul eval.gi f/u.
--- NOTE | 2017-09-25 16:36 | RAD ---
Date of service: 09/25/2017 PROCEDURE: Upper GI with small bowel series. HISTORY: Abdominal pain COMPARISON: None available. TECHNIQUE: Fluoroscopic evaluation of the stomach and small bowel was performed following administration of oral contrast. FINDINGS: Esophagus: The esophagus is normal in caliber and contour without gross mucosal abnormality, mass lesion, stricture or obstruction. Hiatal hernia: None. Reflux: None observed. Stomach: The stomach is normal in size, shape and position without gross mucosal abnormality, ulceration, mass lesion or outlet obstruction. Small bowel: The jejunal and ileal loops are normal in caliber. There is delayed transit into the colon with flocculation of barium in the jejunal loops. The terminal ileum and ileocecal junction are normal. Other Findings The total fluoroscopic time was 3.7 minutes. IMPRESSION: 1. Normal upper GI series. No evidence of hiatal hernia or gastroesophageal reflux. 2. Normal appearance of the small bowel loops and ileocecal junction. Delayed transit of barium from the small bowel to the colon with flocculation of barium in the jejunal loops.
--- NOTE | 2017-09-25 19:42 | CP.PCM.CON ---
History of Present Illness - History of Present Illness History of Present Illness: [facility] complaint: Shortness of breath History of present illness: 71-year-old female with a history of CAD, status post CABG, hypertension, diabetes 2 weeks ago patient was hospitalized with anemia and renal failure, found to have multiple myeloma confirmed after the biopsy including bone marrow biopsy, being seen by oncologist. The patient initial skeletal survey was negative for any lytic lesions. Patient now admitted with increasing shortness of breath. Complaining of weakness, easy fatigability, and minimal exertion causes SOB. She denies any chest pain. sob noted Weight loss present. Muscle mass increasingly decreasing. Patient is mostly lying down now. Denies any chest pain. Cough is minimally noted. She has no fever or chills. Past medical history: CAD, status post CABG, hypertension, diabetes, anemia. Surgical history coronary a bypass grafting. Family history significant for anemia and hypertension. Nonalcoholic, nonsmoker. Review of systems: Currently patient is having no headache, but his weakness and generalized fatigability noted. poor appetite present. No sore throat. Minimally cough noted. Exertional dyspnea noted. Chest pain negative No nausea or vomiting. Leg swelling negative Vital signs reviewed No neck vein distention noted minimal bilateral wheezing and as noted CVS regular heart sound, no murmur noted Abdomen soft, nontender. Extremities no pedal edema [employer] alert awake oriented -3, no functional neurological deficit Recent labs reviewed in Hemoglobin is better Chest x-ray showing increasing bronchovascular markings. Initial chest x-ray showing infiltrative pattern, but the current x-ray significant improvement noted Assessment and recommendation: 70-year-old female with a history of CAD, status post CABG, hypertension and diabetes admitted with shortness of breath. Recently diagnosed with multiple myeloma, plasmacytoma. Given the changes in the chest x-ray patient may have infiltrative disease in the lungs secondary to multiple myeloma We'll get a CT of the chest without contrast. Bronchodilators. Follow-up the patient Past Patient History - Infectious Disease Hx of Infectious Diseases: None - Tetanus Immunizations Tetanus Immunization: Unknown - Past Medical History & Family History Past Medical History?: Yes - Past Social History Smoking Status: Never Smoked Alcohol: None Drugs: Denies - CARDIAC Hx Cardiac Disorders: Yes (CAD, CABG, Pacemaker,) Hx Congestive Heart Failure: Yes Hx Hypercholesterolemia: Yes Hx Hypertension: Yes - PULMONARY Hx Chronic Obstructive Pulmonary Disease (COPD): Yes - NEUROLOGICAL Hx Neurological Disorder: Yes Hx Syncope: Yes - HEENT Hx HEENT Problems: Yes Hx Glaucoma: Yes - RENAL Hx Chronic Kidney Disease: Yes - ENDOCRINE/METABOLIC Hx Diabetes Mellitus Type 2: Yes - HEMATOLOGICAL/ONCOLOGICAL Hx Blood Disorders: Yes Hx Anemia: Yes Hx Cirrhosis: No Hx Hepatitis A: No Hx Hepatitis B: No Hx Hepatitis C: No Hx Human Immunodeficiency Virus (HIV): No - INTEGUMENTARY Hx Dermatological Problems: No - MUSCULOSKELETAL/RHEUMATOLOGICAL Hx Musculoskeletal Disorders: Yes Hx Falls: Yes Hx Gout: Yes - GASTROINTESTINAL Hx Gastrointestinal Disorders: Yes Hx Bowel Surgery: No Hx Clostridium Difficile: No Hx Colitis: No Hx Colostomy: No Hx Constipation: No Hx Crohn's Disease: No Hx Diarrhea: No Hx Diverticulitis: No Hx Esophageal Varices: No Hx Fatty Liver Disease: No Hx Gall Bladder Disease: No Hx Gastritis: Yes Hx Gastroesophageal Reflux: Yes Hx Hemorrhoids: No Hx Ileostomy: No Hx Irritable Bowel: No Hx Liver Failure: No Hx Nausea: No Hx Pancreatitis: No HX Swallowing Problems: No Hx Ulcer: No Hx Vomiting: No - GENITOURINARY/GYNECOLOGICAL Hx Genitourinary Disorders: No - PSYCHIATRIC Hx Psychophysiologic Disorder: No Hx Substance Use: No - SURGICAL HISTORY Hx Surgeries: Yes Hx Appendectomy: Yes Hx Coronary Artery Bypass Graft: Yes - ANESTHESIA Hx Anesthesia: Yes Hx Anesthesia Reactions: No Hx Malignant Hyperthermia: No Has any member of the family had a problem w/ anesthesia?: No Meds Allergies/Adverse Reactions: Allergies Allergy/AdvReac Type Severity Reaction Status Date / Time No Known Allergies Allergy Verified 09/22/17 22:47 - Medications Medications: Current Medications Allopurinol (Zyloprim) 100 mg PO DAILY [facility] Last Admin: 09/25/17 10:35 Dose: Not Given Aspirin (Ecotrin) 81 mg PO DAILY [facility] Last Admin: 09/25/17 10:37 Dose: Not Given Brimonidine Tartrate (Alphagan 0.2% Opht) 3 ml OU BID [facility] Last Admin: 09/25/17 17:11 Dose: 1 drop Furosemide (Lasix) 40 mg IVP DAILY [facility] Last Admin: 09/25/17 14:02 Dose: 40 mg Lisinopril (Zestril) 10 mg PO DAILY [facility] Last Admin: 09/25/17 12:07 Dose: 10 mg Metoprolol Tartrate (Lopressor) 25 mg PO Q12 [facility] Last Admin: 09/25/17 12:06 Dose: 25 mg Pantoprazole Sodium (Protonix Ec Tab) 40 mg PO DAILY [facility] Last Admin: 09/25/17 10:37 Dose: Not Given Polyethylene Glycol (Miralax) 17 gm PO Q12 PRN PRN Reason: Constipation Sitagliptin Phosphate (Januvia) 25 mg PO DAILY [facility] Last Admin: 09/25/17 10:36 Dose: Not Given Results - Vital Signs Recent Vital Signs: Last Vital Signs Temp 97.3 F L 09/25/17 15:06 Pulse 59 L 09/25/17 15:06 Resp 20 09/25/17 15:06 BP 162/84 H 09/25/17 15:06 Pulse Ox 98 09/25/17 15:06 - Labs Result Diagrams: 09/25/17 06:32 09/25/17 06:32 Labs: Laboratory Results - last 24 hr 09/23/17 09/23/17 09/23/17 11:07 16:46 21:49 WBC RBC Hgb Hct MCV MCH MCHC RDW Plt Count MPV Neut % (Auto) Lymph % (Auto) Iron % (Auto) Eos % (Auto) Baso % (Auto) Neut # (Auto) Lymph # (Auto) Iron # (Auto) Eos # (Auto) Baso # (Auto) Sodium Potassium Chloride Carbon Dioxide Anion Gap BUN Creatinine Est GFR ( Amer) Est GFR (Non-Af Amer) POC Glucose (mg/dL) 97 122 H 115 H Random Glucose Calcium Total Bilirubin AST ALT Alkaline Phosphatase Total Creatine Kinase CK-MB (Mass) Troponin I Total Protein Albumin Globulin Albumin/Globulin Ratio Stool Occult Blood 09/24/17 09/24/17 09/24/17 06:11 11:14 12:09 WBC RBC Hgb Hct MCV MCH MCHC RDW Plt Count MPV Neut % (Auto) Lymph % (Auto) Iron % (Auto) Eos % (Auto) Baso % (Auto) Neut # (Auto) Lymph # (Auto) Iron # (Auto) Eos # (Auto) Baso # (Auto) Sodium Potassium Chloride Carbon Dioxide Anion Gap BUN Creatinine Est GFR ( Amer) Est GFR (Non-Af Amer) POC Glucose (mg/dL) 105 126 H 135 H Random Glucose Calcium Total Bilirubin AST ALT Alkaline Phosphatase Total Creatine Kinase CK-MB (Mass) Troponin I Total Protein Albumin Globulin Albumin/Globulin Ratio Stool Occult Blood 09/24/17 09/24/17 09/24/17 16:33 20:28 21:26 WBC RBC Hgb Hct MCV MCH MCHC RDW Plt Count MPV Neut % (Auto) Lymph % (Auto) Iron % (Auto) Eos % (Auto) Baso % (Auto) Neut # (Auto) Lymph # (Auto) Iron # (Auto) Eos # (Auto) Baso # (Auto) Sodium Potassium Chloride Carbon Dioxide Anion Gap BUN Creatinine Est GFR ( Amer) Est GFR (Non-Af Amer) POC Glucose (mg/dL) 117 H 125 H Random Glucose Calcium Total Bilirubin AST ALT Alkaline Phosphatase Total Creatine Kinase CK-MB (Mass) Troponin I Total Protein Albumin Globulin Albumin/Globulin Ratio Stool Occult Blood Negative 09/25/17 09/25/17 09/25/17 02:05 02:27 06:07 WBC RBC Hgb Hct MCV MCH MCHC RDW Plt Count MPV Neut % (Auto) Lymph % (Auto) Iron % (Auto) Eos % (Auto) Baso % (Auto) Neut # (Auto) Lymph # (Auto) Iron # (Auto) Eos # (Auto) Baso # (Auto) Sodium Potassium Chloride Carbon Dioxide Anion Gap BUN Creatinine Est GFR ( Amer) Est GFR (Non-Af Amer) POC Glucose (mg/dL) 120 H 137 H Random Glucose Calcium Total Bilirubin AST ALT Alkaline Phosphatase Total Creatine Kinase 39 CK-MB (Mass) 1.28 Troponin I 0.0820 Total Protein Albumin Globulin Albumin/Globulin Ratio Stool Occult Blood 09/25/17 09/25/17 09/25/17 06:32 06:32 16:19 WBC 4.9 RBC 3.49 L Hgb 11.5 Hct 33.9 L MCV 97.1 MCH 32.9 H MCHC 33.9 RDW 17.5 H Plt Count 41 L MPV 12.5 H Neut % (Auto) 77.6 H Lymph % (Auto) 15.6 L Iron % (Auto) 6.2 Eos % (Auto) 0.3 Baso % (Auto) 0.3 Neut # (Auto) 3.8 Lymph # (Auto) 0.8 L Iron # (Auto) 0.3 Eos # (Auto) 0.0 Baso # (Auto) 0.0 Sodium 130 L Potassium 3.9 Chloride 95 L Carbon Dioxide 25 Anion Gap 13 BUN 28 H Creatinine 1.3 H Est GFR ( Amer) 48 Est GFR (Non-Af Amer) 40 POC Glucose (mg/dL) 130 H Random Glucose 114 H Calcium 8.5 L Total Bilirubin 0.5 AST 20 ALT 18 Alkaline Phosphatase 67 Total Creatine Kinase CK-MB (Mass) Troponin I Total Protein 6.5 Albumin 3.3 L Globulin 3.1 Albumin/Globulin Ratio 1.1 Stool Occult Blood
[2017-09-26 07:48] LABS: BASO % 0.2 % (0.0-2.0); EOS % 0.2 % (0.0-4.0); HEMOGLOBIN 11.8 g/dL (11.0-16.0); LYMPH # 0.7 K/uL (1.0-4.3); LYMPH % 15.7 % (20.0-40.0); MEAN CELL VOLUME 96.2 fL (81.0-99.0); MEAN CORPUSCULAR HEMOGLOBIN 32.7 pg (27.0-31.0); MEAN PLATELET VOLUME 12.3 fL (7.2-11.7); MONO # 0.3 K/uL (0.0-0.8); MONO % 5.4 % (0.0-10.0); NEUT # 3.7 K/uL (1.8-7.0); NEUT % 78.5 % (50.0-75.0); NRBC % 0.3 % (0.0-2.0); RBC 3.61 Mil/uL (3.80-5.20); RED CELL DISTRIBUTION WIDTH 17.7 % (11.5-14.5); WHITE BLOOD COUNT 4.8 K/uL (4.8-10.8)
[2017-09-26 08:26] LABS: ALB/GLOB RATIO 1.2 (1.0-2.1); CALCIUM 9.1 mg/dl (8.6-10.4)
[2017-09-26] MEDS: Potassium Chloride 20 mEq ER Tab PO SCH (09:42)
[2017-09-26] MEDS: Pantoprazole 40 mg EC Tab PO SCH (09:42)
[2017-09-26] MEDS: Brimonidine 0.2% Opth Sol (5ml) OU SCH ×2 (09:43→17:01)
--- NOTE | 2017-09-26 10:58 | CP.PCM.PN ---
Subjective - Date & Time of Evaluation Date of Evaluation: 09/26/17 Time of Evaluation: 10:55 - Subjective Subjective: Patient continues to complain of abdominal pain. She denies having nausea and vomiting. Recent EGD 05/06/2017 showed hiatal hernia and erosive gastritis. UGI and small bowel series from yesterday showed delayed transit, otherwise no significant abnormalitiy. She was seen by pulmonary who will schedule CT scan of the chest without contrast. Hemoglobin is stable at 11.0, and platelet count remains low at 50,000. Objective - Vital Signs/Intake and Output Vital Signs (last 24 hours): Temp Pulse Resp BP Pulse Ox 97.3 F L 65 20 179/88 H 94 L 09/26/17 07:00 09/26/17 08:24 09/26/17 07:00 09/26/17 09:44 09/26/17 07:00 - Medications Medications: Current Medications Allopurinol (Zyloprim) 100 mg PO DAILY [facility] Last Admin: 09/26/17 09:42 Dose: 100 mg Aspirin (Ecotrin) 81 mg PO DAILY [facility] Last Admin: 09/26/17 09:41 Dose: 81 mg Brimonidine Tartrate (Alphagan 0.2% Opht) 3 ml OU BID [facility] Last Admin: 09/26/17 09:43 Dose: 1 drop Furosemide (Lasix) 40 mg IVP DAILY [facility] Last Admin: 09/26/17 09:44 Dose: 40 mg Lisinopril (Zestril) 10 mg PO DAILY [facility] Last Admin: 09/26/17 09:43 Dose: 10 mg Metoprolol Tartrate (Lopressor) 25 mg PO Q12 [facility] Last Admin: 09/26/17 09:43 Dose: 25 mg Pantoprazole Sodium (Protonix Ec Tab) 40 mg PO DAILY [facility] Last Admin: 09/26/17 09:42 Dose: 40 mg Polyethylene Glycol (Miralax) 17 gm PO Q12 PRN PRN Reason: Constipation Potassium Chloride (K-Dur 20 Meq Er Tab) 20 meq PO DAILY [facility] Stop: 09/29/17 10:01 Last Admin: 09/26/17 09:42 Dose: 20 meq Sitagliptin Phosphate (Januvia) 25 mg PO DAILY [facility] Last Admin: 09/26/17 09:42 Dose: 25 mg - Labs Labs: 09/26/17 07:37 09/26/17 07:37 PT 11.1 SECONDS (9.7-12.2) 09/22/17 23:09 INR 1.0 09/22/17 23:09 APTT 27 SECONDS (21-34) 09/22/17 23:09 - Constitutional Appears: No Acute Distress - Head Exam Head Exam: ATRAUMATIC, NORMOCEPHALIC - Eye Exam Eye Exam: EOMI, PERRL - Neck Exam Neck Exam: absent: Lymphadenopathy, Thyromegaly - Respiratory Exam Respiratory Exam: NORMAL BREATHING PATTERN. absent: Rales, Rhonchi, Wheezes - Cardiovascular Exam Cardiovascular Exam: REGULAR RHYTHM, +S1, +S2. absent: Gallop, Rubs, Murmur - GI/Abdominal Exam GI & Abdominal Exam: Soft, Normal Bowel Sounds. absent: Tenderness, Mass, Organomegaly - Rectal Exam Rectal Exam: Deferred - Extremities Exam Extremities Exam: absent: Calf Tenderness, Pedal Edema Assessment and Plan (1) Epigastric pain Assessment & Plan: Patient continues to complain of abdominal pain. CT scan of abdomen and pelvis and UGI series have not revealed the cause of the pain. She is not bleeding, and the HGB has been stable. A stool for occult blood was negative. Will check CT scan of the chest without contrast. Colonoscopy should still be performed; it can be done this weekend if she remains in hospital and is cleared for the procedure - or as an outpatient. Status: Acute
--- NOTE | 2017-09-26 12:18 | CP.PCM.PN ---
Subjective - Date & Time of Evaluation Date of Evaluation: 09/26/17 Time of Evaluation: 12:17 - Subjective Subjective: weak,bp is high.ugi is normal. Objective - Vital Signs/Intake and Output Vital Signs (last 24 hours): Temp Pulse Resp BP Pulse Ox 97.3 F L 65 20 179/88 H 94 L 09/26/17 07:00 09/26/17 08:24 09/26/17 07:00 09/26/17 09:44 09/26/17 07:00 - Medications Medications: Current Medications Allopurinol (Zyloprim) 100 mg PO DAILY [facility] Last Admin: 09/26/17 09:42 Dose: 100 mg Aspirin (Ecotrin) 81 mg PO DAILY [facility] Last Admin: 09/26/17 09:41 Dose: 81 mg Brimonidine Tartrate (Alphagan 0.2% Opht) 3 ml OU BID [facility] Last Admin: 09/26/17 09:43 Dose: 1 drop Carvedilol (Coreg) 6.25 mg PO BID [facility] Furosemide (Lasix) 40 mg IVP DAILY [facility] Last Admin: 09/26/17 09:44 Dose: 40 mg Lisinopril (Zestril) 10 mg PO DAILY [facility] Last Admin: 09/26/17 09:43 Dose: 10 mg Pantoprazole Sodium (Protonix Ec Tab) 40 mg PO DAILY [facility] Last Admin: 09/26/17 09:42 Dose: 40 mg Polyethylene Glycol (Miralax) 17 gm PO Q12 PRN PRN Reason: Constipation Potassium Chloride (K-Dur 20 Meq Er Tab) 20 meq PO DAILY [facility] Stop: 09/29/17 10:01 Last Admin: 09/26/17 09:42 Dose: 20 meq Sitagliptin Phosphate (Januvia) 25 mg PO DAILY [facility] Last Admin: 09/26/17 09:42 Dose: 25 mg - Labs Labs: 09/26/17 07:37 09/26/17 07:37 PT 11.1 SECONDS (9.7-12.2) 09/22/17 23:09 INR 1.0 09/22/17 23:09 APTT 27 SECONDS (21-34) 09/22/17 23:09 - Constitutional Appears: No Acute Distress, Chronically Ill - Head Exam Head Exam: NORMOCEPHALIC - Eye Exam Eye Exam: Normal appearance - Neck Exam Neck Exam: Normal Inspection - Respiratory Exam Respiratory Exam: Rales - Cardiovascular Exam Cardiovascular Exam: REGULAR RHYTHM, Murmur - GI/Abdominal Exam GI & Abdominal Exam: Soft - Extremities Exam Extremities Exam: absent: Pedal Edema - Neurological Exam Neurological Exam: Alert, Oriented x3 Assessment and Plan - Assessment and Plan (Free Text) Assessment: chf,pul consult laurie.recheck chest x ray. d/c toprol.add coreg.
--- NOTE | 2017-09-26 13:05 | RAD ---
Date of service: 09/26/2017 HISTORY: chf COMPARISON: 09/22/2017 FINDINGS: LUNGS: No consolidation. Interstitial pulmonary edema suggested -similar-appearing PLEURA: No significant pleural effusion identified, no pneumothorax apparent. CARDIOVASCULAR: Cardiomegaly and pulmonary venous congestion -both similar. Position/ configuration of pacemaker device: Satisfactory. Midline sternotomy. Coronary artery bypass surgery clips present. OSSEOUS STRUCTURES: Thoracic spondylosis. Bilateral shoulder arthrosis. Upper lumbar spine leftward convexity-as before. VISUALIZED UPPER ABDOMEN: Normal. OTHER FINDINGS: None. IMPRESSION: Cardiomegaly with mild moderate pulmonary venous congestion-compatible with CHF -similar to prior study. Other findings -as above.
--- NOTE | 2017-09-26 20:18 | CP.PCM.PN ---
Subjective - Date & Time of Evaluation Date of Evaluation: 09/26/17 Time of Evaluation: 20:17 - Subjective Subjective: Patient today feeling slightly better. But weakness present. Cough minimally noted. No shortness of breath at rest. No chest pain Vital signs currently stable. Temperature 97.3 blood pressure 181/76 96% nasal cannula Chest good air entry regular heart sounds nontender abdomen. Pedal edema negative Assessment and recommendation: 72-year-old female with a history of multiple myeloma CAD CABG. Admitted with shortness of breath. Possibly related to mild fluid overload status. Renal insufficiency. Improving now. We will continue the current treatment. Bronchodilators will follow the patient Objective - Vital Signs/Intake and Output Vital Signs (last 24 hours): Temp Pulse Resp BP Pulse Ox 97.3 F L 62 20 181/76 H 96 09/26/17 15:00 09/26/17 15:22 09/26/17 15:00 09/26/17 15:00 09/26/17 15:00 Intake and Output: 09/26/17 09/27/17 18:59 06:59 Intake Total 350 Balance 350 - Medications Medications: Current Medications Allopurinol (Zyloprim) 100 mg PO DAILY [facility] Last Admin: 09/26/17 09:42 Dose: 100 mg Aspirin (Ecotrin) 81 mg PO DAILY [facility] Last Admin: 09/26/17 09:41 Dose: 81 mg Brimonidine Tartrate (Alphagan 0.2% Opht) 3 ml OU BID [facility] Last Admin: 09/26/17 17:01 Dose: 1 drop Carvedilol (Coreg) 6.25 mg PO BID [facility] Last Admin: 09/26/17 17:02 Dose: 6.25 mg Furosemide (Lasix) 40 mg IVP DAILY [facility] Last Admin: 09/26/17 09:44 Dose: 40 mg Lisinopril (Zestril) 10 mg PO DAILY [facility] Last Admin: 09/26/17 09:43 Dose: 10 mg Pantoprazole Sodium (Protonix Ec Tab) 40 mg PO DAILY [facility] Last Admin: 09/26/17 09:42 Dose: 40 mg Polyethylene Glycol (Miralax) 17 gm PO Q12 PRN PRN Reason: Constipation Potassium Chloride (K-Dur 20 Meq Er Tab) 20 meq PO DAILY [facility] Stop: 09/29/17 10:01 Last Admin: 09/26/17 09:42 Dose: 20 meq Sitagliptin Phosphate (Januvia) 25 mg PO DAILY [facility] Last Admin: 09/26/17 09:42 Dose: 25 mg - Labs Labs: 09/26/17 07:37 09/26/17 07:37 PT 11.1 SECONDS (9.7-12.2) 09/22/17 23:09 INR 1.0 09/22/17 23:09 APTT 27 SECONDS (21-34) 09/22/17 23:09
[2017-09-27 07:31] LABS: BASO % 0.5 % (0.0-2.0); EOS % 0.3 % (0.0-4.0); LYMPH # 1.1 K/uL (1.0-4.3); LYMPH % 20.1 % (20.0-40.0); MEAN CELL VOLUME 95.2 fL (81.0-99.0); MEAN CORPUSCULAR HEMOGLOBIN 32.7 pg (27.0-31.0); MEAN CORPUSCULAR HGB CONC 34.4 g/dL (33.0-37.0); MEAN PLATELET VOLUME 12.5 fL (7.2-11.7); MONO # 0.3 K/uL (0.0-0.8); MONO % 6.1 % (0.0-10.0); NEUT # 3.9 K/uL (1.8-7.0); NRBC % 0.3 % (0.0-2.0); RBC 3.66 Mil/uL (3.80-5.20); RED CELL DISTRIBUTION WIDTH 17.5 % (11.5-14.5); WHITE BLOOD COUNT 5.3 K/uL (4.8-10.8)
[2017-09-27 07:33] LABS: CALCIUM 9.1 mg/dl (8.6-10.4)
[2017-09-27] MEDS: Brimonidine 0.2% Opth Sol (5ml) OU SCH ×2 (10:07→18:21)
[2017-09-27] MEDS: Potassium Chloride 20 mEq ER Tab PO SCH (10:08)
[2017-09-27] MEDS: Pantoprazole 40 mg EC Tab PO SCH (10:08)
--- NOTE | 2017-09-27 10:24 | CARD ---
APPROVED REPORT Date of service: 09/25/2017 EKG Measurement Heart [id number] <Conclusion> Atrial-paced rhythm with prolonged AV conduction Left anterior fascicular block Left ventricular hypertrophy with QRS widening and repolarization abnormality Cannot rule out Septal infarct, age undetermined Abnormal ECG
--- NOTE | 2017-09-27 12:13 | CP.PCM.PN ---
Subjective - Date & Time of Evaluation Date of Evaluation: 09/27/17 Time of Evaluation: 12:12 - Subjective Subjective: weak,sleepy.labs,chest x ray noted. Objective - Vital Signs/Intake and Output Vital Signs (last 24 hours): Temp Pulse Resp BP Pulse Ox 97.5 F L 63 20 169/80 H 96 09/27/17 03:22 09/27/17 07:00 09/26/17 23:15 09/27/17 10:07 09/26/17 23:15 Intake and Output: 09/27/17 09/27/17 06:59 18:59 Intake Total 470 Balance 470 - Medications Medications: Current Medications Allopurinol (Zyloprim) 100 mg PO DAILY [facility] Last Admin: 09/27/17 10:08 Dose: 100 mg Aspirin (Ecotrin) 81 mg PO DAILY [facility] Last Admin: 09/27/17 10:07 Dose: 81 mg Brimonidine Tartrate (Alphagan 0.2% Opht) 3 ml OU BID [facility] Last Admin: 09/27/17 10:07 Dose: 1 drop Carvedilol (Coreg) 6.25 mg PO BID [facility] Last Admin: 09/27/17 10:08 Dose: 6.25 mg Furosemide (Lasix) 40 mg IVP Q12 [facility] Lisinopril (Zestril) 10 mg PO DAILY [facility] Last Admin: 09/27/17 10:08 Dose: 10 mg Pantoprazole Sodium (Protonix Ec Tab) 40 mg PO DAILY [facility] Last Admin: 09/27/17 10:08 Dose: 40 mg Polyethylene Glycol (Miralax) 17 gm PO Q12 PRN PRN Reason: Constipation Potassium Chloride (K-Dur 20 Meq Er Tab) 20 meq PO DAILY [facility] Stop: 09/29/17 10:01 Last Admin: 09/27/17 10:08 Dose: 20 meq Sitagliptin Phosphate (Januvia) 25 mg PO DAILY [facility] Last Admin: 09/27/17 10:07 Dose: 25 mg - Labs Labs: 09/27/17 07:11 09/27/17 07:11 PT 11.1 SECONDS (9.7-12.2) 09/22/17 23:09 INR 1.0 09/22/17 23:09 APTT 27 SECONDS (21-34) 09/22/17 23:09 - Constitutional Appears: No Acute Distress, Chronically Ill - Head Exam Head Exam: NORMOCEPHALIC - Neck Exam Neck Exam: Normal Inspection - Respiratory Exam Respiratory Exam: Rales - Cardiovascular Exam Cardiovascular Exam: REGULAR RHYTHM, Murmur - GI/Abdominal Exam GI & Abdominal Exam: Soft - Extremities Exam Extremities Exam: absent: Pedal Edema - Neurological Exam Neurological Exam: Alert, Oriented x3 Assessment and Plan - Assessment and Plan (Free Text) Assessment: will increase lasix to bid.onco f/u.phy therapy.
--- NOTE | 2017-09-27 20:32 | CP.PCM.PN ---
Subjective - Date & Time of Evaluation Date of Evaluation: 09/27/17 Time of Evaluation: 20:32 Objective - Vital Signs/Intake and Output Vital Signs (last 24 hours): Temp Pulse Resp BP Pulse Ox 97.4 F L 62 18 168/75 H 98 09/27/17 15:06 09/27/17 16:16 09/27/17 15:06 09/27/17 15:06 09/27/17 15:06 Intake and Output: 09/27/17 09/28/17 18:59 06:59 Intake Total 300 Output Total 2 Balance 298 - Medications Medications: Current Medications Allopurinol (Zyloprim) 100 mg PO DAILY [facility] Last Admin: 09/27/17 10:08 Dose: 100 mg Aspirin (Ecotrin) 81 mg PO DAILY [facility] Last Admin: 09/27/17 10:07 Dose: 81 mg Brimonidine Tartrate (Alphagan 0.2% Opht) 3 ml OU BID [facility] Last Admin: 09/27/17 18:21 Dose: 1 drop Carvedilol (Coreg) 6.25 mg PO BID [facility] Last Admin: 09/27/17 18:21 Dose: 6.25 mg Furosemide (Lasix) 40 mg IVP Q12 [facility] Lisinopril (Zestril) 10 mg PO DAILY [facility] Last Admin: 09/27/17 10:08 Dose: 10 mg Pantoprazole Sodium (Protonix Ec Tab) 40 mg PO DAILY [facility] Last Admin: 09/27/17 10:08 Dose: 40 mg Polyethylene Glycol (Miralax) 17 gm PO Q12 PRN PRN Reason: Constipation Potassium Chloride (K-Dur 20 Meq Er Tab) 20 meq PO DAILY [facility] Stop: 09/29/17 10:01 Last Admin: 09/27/17 10:08 Dose: 20 meq Sitagliptin Phosphate (Januvia) 25 mg PO DAILY [facility] Last Admin: 09/27/17 10:07 Dose: 25 mg - Labs Labs: 09/27/17 07:11 09/27/17 07:11 PT 11.1 SECONDS (9.7-12.2) 09/22/17 23:09 INR 1.0 09/22/17 23:09 APTT 27 SECONDS (21-34) 09/22/17 23:09
--- NOTE | 2017-09-27 21:42 | CP.PCM.CON ---
History of Present Illness - History of Present Illness History of Present Illness: 72 year old female with a history of CAD s/p CABG, HTN, DM, ISS stage III IgG lambda multiple myeloma on Velcade, admitted with abdominal/chest pain. The patient has been complaining of intermittent abdominal/chest pain. Her reports to worsening of her pain which is episodic. In regard to her multiple myeloma, she has been receiving single agent Velcade with improvement in her monoclonal protein. She had been on dexamethasone and Revlimid which were discontinued due to hyperglycemia and diminished performance status. Past medical history: CAD, HTN, DM, multiple myeloma Past surgical history: CABG Family history: Denies hematologic and oncologic problems Social history: Denies tobacco, alcohol, and illicit drug use. Allergies: NKA Review of systems: All remaining review of systems including HEENT, cardiovascular, respiratory, gastrointestinal, genitourinary, musculoskeletal, dermatologic, neurologic, and psychiatric are negative unless mentioned in the HPI. Past Patient History - Infectious Disease Hx of Infectious Diseases: None - Tetanus Immunizations Tetanus Immunization: Unknown - Past Medical History & Family History Past Medical History?: Yes - Past Social History Smoking Status: Never Smoked Alcohol: None Drugs: Denies - CARDIAC Hx Cardiac Disorders: Yes (CAD, CABG, Pacemaker,) Hx Congestive Heart Failure: Yes Hx Hypercholesterolemia: Yes Hx Hypertension: Yes - PULMONARY Hx Chronic Obstructive Pulmonary Disease (COPD): Yes - NEUROLOGICAL Hx Neurological Disorder: Yes Hx Syncope: Yes - HEENT Hx HEENT Problems: Yes Hx Glaucoma: Yes - RENAL Hx Chronic Kidney Disease: Yes - ENDOCRINE/METABOLIC Hx Diabetes Mellitus Type 2: Yes - HEMATOLOGICAL/ONCOLOGICAL Hx Blood Disorders: Yes Hx Anemia: Yes Hx Cirrhosis: No Hx Hepatitis A: No Hx Hepatitis B: No Hx Hepatitis C: No Hx Human Immunodeficiency Virus (HIV): No - INTEGUMENTARY Hx Dermatological Problems: No - MUSCULOSKELETAL/RHEUMATOLOGICAL Hx Musculoskeletal Disorders: Yes Hx Falls: Yes Hx Gout: Yes - GASTROINTESTINAL Hx Gastrointestinal Disorders: Yes Hx Bowel Surgery: No Hx Clostridium Difficile: No Hx Colitis: No Hx Colostomy: No Hx Constipation: No Hx Crohn's Disease: No Hx Diarrhea: No Hx Diverticulitis: No Hx Esophageal Varices: No Hx Fatty Liver Disease: No Hx Gall Bladder Disease: No Hx Gastritis: Yes Hx Gastroesophageal Reflux: Yes Hx Hemorrhoids: No Hx Ileostomy: No Hx Irritable Bowel: No Hx Liver Failure: No Hx Nausea: No Hx Pancreatitis: No HX Swallowing Problems: No Hx Ulcer: No Hx Vomiting: No - GENITOURINARY/GYNECOLOGICAL Hx Genitourinary Disorders: No - PSYCHIATRIC Hx Psychophysiologic Disorder: No Hx Substance Use: No - SURGICAL HISTORY Hx Surgeries: Yes Hx Appendectomy: Yes Hx Coronary Artery Bypass Graft: Yes - ANESTHESIA Hx Anesthesia: Yes Hx Anesthesia Reactions: No Hx Malignant Hyperthermia: No Has any member of the family had a problem w/ anesthesia?: No Meds Allergies/Adverse Reactions: Allergies Allergy/AdvReac Type Severity Reaction Status Date / Time No Known Allergies Allergy Verified 09/22/17 22:47 - Medications Medications: Current Medications Allopurinol (Zyloprim) 100 mg PO DAILY [facility] Last Admin: 09/27/17 10:08 Dose: 100 mg Aspirin (Ecotrin) 81 mg PO DAILY [facility] Last Admin: 09/27/17 10:07 Dose: 81 mg Brimonidine Tartrate (Alphagan 0.2% Opht) 3 ml OU BID [facility] Last Admin: 09/27/17 18:21 Dose: 1 drop Carvedilol (Coreg) 6.25 mg PO BID [facility] Last Admin: 09/27/17 18:21 Dose: 6.25 mg Furosemide (Lasix) 40 mg IVP Q12 [facility] Lisinopril (Zestril) 10 mg PO DAILY [facility] Last Admin: 09/27/17 10:08 Dose: 10 mg Pantoprazole Sodium (Protonix Ec Tab) 40 mg PO DAILY [facility] Last Admin: 09/27/17 10:08 Dose: 40 mg Polyethylene Glycol (Miralax) 17 gm PO Q12 PRN PRN Reason: Constipation Potassium Chloride (K-Dur 20 Meq Er Tab) 20 meq PO DAILY [facility] Stop: 09/29/17 10:01 Last Admin: 09/27/17 10:08 Dose: 20 meq Sitagliptin Phosphate (Januvia) 25 mg PO DAILY [facility] Last Admin: 09/27/17 10:07 Dose: 25 mg Physical Exam - Head Exam Head Exam: ATRAUMATIC - Eye Exam Eye Exam: Normal appearance - ENT Exam ENT Exam: Mucous Membranes Dry - Respiratory Exam Respiratory Exam: NORMAL BREATHING PATTERN - Cardiovascular Exam Cardiovascular Exam: +S1, +S2 - GI/Abdominal Exam GI & Abdominal Exam: Normal Bowel Sounds - Extremities Exam Extremities exam: Positive for: pedal edema - Psychiatric Exam Psychiatric exam: Depressed - Skin Skin Exam: Warm Results - Vital Signs Recent Vital Signs: Last Vital Signs Temp 97.4 F L 09/27/17 15:06 Pulse 62 09/27/17 16:16 Resp 18 09/27/17 15:06 BP 168/75 H 09/27/17 15:06 Pulse Ox 98 09/27/17 15:06 - Labs Result Diagrams: 09/27/17 07:11 09/27/17 07:11 Labs: Laboratory Results - last 24 hr 09/27/17 09/27/17 09/27/17 06:11 07:11 07:11 WBC 5.3 RBC 3.66 L Hgb 12.0 Hct 34.8 MCV 95.2 MCH 32.7 H MCHC 34.4 RDW 17.5 H Plt Count 49 L MPV 12.5 H Neut % (Auto) 73.0 Lymph % (Auto) 20.1 [place] % (Auto) 6.1 Eos % (Auto) 0.3 Baso % (Auto) 0.5 Neut # (Auto) 3.9 Lymph # (Auto) 1.1 [place] # (Auto) 0.3 Eos # (Auto) 0.0 Baso # (Auto) 0.0 Sodium 132 Potassium 3.8 Chloride 94 L Carbon Dioxide 26 Anion Gap 16 BUN 22 H Creatinine 1.1 Est GFR ( Amer) 59 Est GFR (Non-Af Amer) 49 POC Glucose (mg/dL) 120 H Random Glucose 117 H Calcium 9.1 Stool Occult Blood 09/27/17 09/27/17 09/27/17 09:28 11:05 16:21 WBC RBC Hgb Hct MCV MCH MCHC RDW Plt Count MPV Neut % (Auto) Lymph % (Auto) [place] % (Auto) Eos % (Auto) Baso % (Auto) Neut # (Auto) Lymph # (Auto) [place] # (Auto) Eos # (Auto) Baso # (Auto) Sodium Potassium Chloride Carbon Dioxide Anion Gap BUN Creatinine Est GFR ( Amer) Est GFR (Non-Af Amer) POC Glucose (mg/dL) 132 H 111 H Random Glucose Calcium Stool Occult Blood Negative Assessment & Plan (1) Thrombocytopenia Assessment and Plan: secondary to multiple myeloma and Velcade no current transfusion indication Status: Acute (2) Multiple myeloma Assessment and Plan: ISS stage III IgG lambda responding well to single agent Velcade outpatient treatment Thank you for this interesting consult. Status: Acute
[2017-09-28] MEDS: Brimonidine 0.2% Opth Sol (5ml) OU SCH ×2 (10:23→17:51)
[2017-09-28] MEDS: Pantoprazole 40 mg EC Tab PO SCH (10:23)
[2017-09-28] MEDS: Potassium Chloride 20 mEq ER Tab PO SCH (10:26)
--- NOTE | 2017-09-28 12:16 | CP.PCM.PN ---
Subjective - Date & Time of Evaluation Date of Evaluation: 09/28/17 Time of Evaluation: 12:14 - Subjective Subjective: better today.non sustain v tach noted. Objective - Vital Signs/Intake and Output Vital Signs (last 24 hours): Temp Pulse Resp BP Pulse Ox 97.7 F 60 18 164/78 H 96 09/28/17 07:10 09/28/17 11:43 09/28/17 07:10 09/28/17 11:43 09/28/17 07:10 - Medications Medications: Current Medications Acetaminophen (Tylenol 325mg Tab) 650 mg PO Q6 PRN PRN Reason: Pain, moderate (4-7) Last Admin: 09/28/17 04:12 Dose: 650 mg Allopurinol (Zyloprim) 100 mg PO DAILY [facility] Last Admin: 09/28/17 10:23 Dose: 100 mg Aspirin (Ecotrin) 81 mg PO DAILY [facility] Last Admin: 09/28/17 10:23 Dose: 81 mg Brimonidine Tartrate (Alphagan 0.2% Opht) 3 ml OU BID [facility] Last Admin: 09/28/17 10:23 Dose: 1 drop Furosemide (Lasix) 40 mg IVP Q12 [facility] Last Admin: 09/28/17 10:26 Dose: 40 mg Lisinopril (Zestril) 10 mg PO DAILY [facility] Last Admin: 09/28/17 10:23 Dose: 10 mg Metoprolol Tartrate (Lopressor) 50 mg PO BIDCC [facility] Pantoprazole Sodium (Protonix Ec Tab) 40 mg PO DAILY [facility] Last Admin: 09/28/17 10:23 Dose: 40 mg Polyethylene Glycol (Miralax) 17 gm PO Q12 PRN PRN Reason: Constipation Potassium Chloride (K-Dur 20 Meq Er Tab) 20 meq PO DAILY [facility] Stop: 09/29/17 10:01 Last Admin: 09/28/17 10:26 Dose: 20 meq Sitagliptin Phosphate (Januvia) 25 mg PO DAILY [facility] Last Admin: 09/28/17 10:23 Dose: 25 mg - Labs Labs: 09/27/17 07:11 09/28/17 06:38 PT 11.1 SECONDS (9.7-12.2) 09/22/17 23:09 INR 1.0 09/22/17 23:09 APTT 27 SECONDS (21-34) 09/22/17 23:09 - Constitutional Appears: No Acute Distress, Chronically Ill - Head Exam Head Exam: NORMOCEPHALIC - Eye Exam Eye Exam: Normal appearance - Neck Exam Neck Exam: Normal Inspection - Respiratory Exam Respiratory Exam: Clear to Ausculation Bilateral - Cardiovascular Exam Cardiovascular Exam: REGULAR RHYTHM, Murmur - GI/Abdominal Exam GI & Abdominal Exam: Soft - Extremities Exam Extremities Exam: absent: Pedal Edema - Neurological Exam Neurological Exam: Alert, Oriented x3 Assessment and Plan - Assessment and Plan (Free Text) Assessment: chf,non sustain v tach.hemato f/u noted. will change back to toprol 50 bid.ct iv lasix. oob.
--- NOTE | 2017-09-28 14:46 | CP.PCM.PN ---
Subjective - Date & Time of Evaluation Date of Evaluation: 09/28/17 Time of Evaluation: 14:42 - Subjective Subjective: Patient states that the hypogastric pain is less severe today. Her appetitie is poor. She denies having nausea and vomiting. Three stool specimens for occult blood have been requested, and all three are negative. Objective - Vital Signs/Intake and Output Vital Signs (last 24 hours): Temp Pulse Resp BP Pulse Ox 97.7 F 60 18 164/78 H 96 09/28/17 07:10 09/28/17 11:43 09/28/17 07:10 09/28/17 11:43 09/28/17 07:10 Intake and Output: 09/28/17 09/28/17 06:59 18:59 Intake Total 350 Balance 350 - Medications Medications: Current Medications Acetaminophen (Tylenol 325mg Tab) 650 mg PO Q6 PRN PRN Reason: Pain, moderate (4-7) Last Admin: 09/28/17 04:12 Dose: 650 mg Allopurinol (Zyloprim) 100 mg PO DAILY [facility] Last Admin: 09/28/17 10:23 Dose: 100 mg Aspirin (Ecotrin) 81 mg PO DAILY [facility] Last Admin: 09/28/17 10:23 Dose: 81 mg Brimonidine Tartrate (Alphagan 0.2% Opht) 3 ml OU BID [facility] Last Admin: 09/28/17 10:23 Dose: 1 drop Furosemide (Lasix) 40 mg IVP Q12 [facility] Last Admin: 09/28/17 10:26 Dose: 40 mg Lisinopril (Zestril) 10 mg PO DAILY [facility] Last Admin: 09/28/17 10:23 Dose: 10 mg Metoprolol [facility]) [facility] Last Admin: 09/28/17 12:21 Dose: 50 mg Pantoprazole Sodium (Protonix Ec Tab) 40 mg PO DAILY [facility] Last Admin: 09/28/17 10:23 Dose: 40 mg Polyethylene Glycol (Miralax) 17 gm PO Q12 PRN PRN Reason: Constipation Potassium Chloride (K-Dur 20 Meq Er Tab) 20 meq PO DAILY [facility] Stop: 09/29/17 10:01 Last Admin: 09/28/17 10:26 Dose: 20 meq Sitagliptin Phosphate (Januvia) 25 mg PO DAILY [facility] Last Admin: 09/28/17 10:23 Dose: 25 mg - Labs Labs: 09/27/17 07:11 09/28/17 06:38 PT 11.1 SECONDS (9.7-12.2) 09/22/17 23:09 INR 1.0 09/22/17 23:09 APTT 27 SECONDS (21-34) 09/22/17 23:09 - Constitutional Appears: No Acute Distress - Head Exam Head Exam: ATRAUMATIC, NORMOCEPHALIC - Eye Exam Eye Exam: EOMI, PERRL - Neck Exam Neck Exam: absent: Lymphadenopathy, Thyromegaly - Respiratory Exam Respiratory Exam: NORMAL BREATHING PATTERN. absent: Rales, Rhonchi, Wheezes - Cardiovascular Exam Cardiovascular Exam: REGULAR RHYTHM, +S1, +S2. absent: Gallop, Rubs, Murmur - GI/Abdominal Exam GI & Abdominal Exam: Soft, Normal Bowel Sounds. absent: Tenderness, Mass, Organomegaly - Rectal Exam Rectal Exam: Deferred - Extremities Exam Extremities Exam: absent: Calf Tenderness, Pedal Edema Assessment and Plan (1) Epigastric pain Assessment & Plan: Pain, is actually located in the lower abdomen today. Stool occult blood was negative x three. Colonoscopy may be performed this weekend or as an outpatient. Since there was a recent arrhythmia, non-sustained V tach, we will need a formal clearance before scheduling the colonoscopy. Status: Acute
--- NOTE | 2017-09-29 08:03 | CP.PCM.PN ---
Subjective - Date & Time of Evaluation Date of Evaluation: 09/29/17 Time of Evaluation: 08:01 - Subjective Subjective: Patient states that she now feels the pain in the left flank. She denies having nausea and vomiting. She had one formed bowel movement overnight. Objective - Vital Signs/Intake and Output Vital Signs (last 24 hours): Temp Pulse Resp BP Pulse Ox 98.1 F 59 L 20 104/59 L 97 09/28/17 23:15 09/28/17 23:15 09/28/17 23:15 09/28/17 23:15 09/28/17 23:15 Intake and Output: 09/29/17 09/29/17 06:59 18:59 Output Total 650 Balance -650 - Medications Medications: Current Medications Acetaminophen (Tylenol 325mg Tab) 650 mg PO Q6 PRN PRN Reason: Pain, moderate (4-7) Last Admin: 09/29/17 00:25 Dose: 650 mg Allopurinol (Zyloprim) 100 mg PO DAILY [facility] Last Admin: 09/28/17 10:23 Dose: 100 mg Aspirin (Ecotrin) 81 mg PO DAILY [facility] Last Admin: 09/28/17 10:23 Dose: 81 mg Brimonidine Tartrate (Alphagan 0.2% Opht) 3 ml OU BID [facility] Last Admin: 09/28/17 17:51 Dose: 1 drop Furosemide (Lasix) 40 mg IVP Q12 [facility] Last Admin: 09/28/17 21:20 Dose: 40 mg Lisinopril (Zestril) 10 mg PO DAILY [facility] Last Admin: 09/28/17 10:23 Dose: 10 mg Metoprolol [facility] ([facility]) [facility] Last Admin: 09/28/17 17:51 Dose: 50 mg Pantoprazole Sodium (Protonix Ec Tab) 40 mg PO DAILY [facility] Last Admin: 09/28/17 10:23 Dose: 40 mg Polyethylene Glycol (Miralax) 17 gm PO Q12 PRN PRN Reason: Constipation Potassium Chloride (K-Dur 20 Meq Er Tab) 20 meq PO DAILY [facility] Stop: 09/29/17 10:01 Last Admin: 09/28/17 10:26 Dose: 20 meq Sitagliptin Phosphate (Januvia) 25 mg PO DAILY [facility] Last Admin: 09/28/17 10:23 Dose: 25 mg - Labs Labs: 09/27/17 07:11 09/28/17 06:38 PT 11.1 SECONDS (9.7-12.2) 09/22/17 23:09 INR 1.0 09/22/17 23:09 APTT 27 SECONDS (21-34) 09/22/17 23:09 - Constitutional Appears: No Acute Distress - Head Exam Head Exam: ATRAUMATIC, NORMOCEPHALIC - Eye Exam Eye Exam: EOMI, PERRL - Neck Exam Neck Exam: absent: Lymphadenopathy, Thyromegaly - Respiratory Exam Respiratory Exam: NORMAL BREATHING PATTERN. absent: Rales, Rhonchi, Wheezes - Cardiovascular Exam Cardiovascular Exam: REGULAR RHYTHM, +S1, +S2. absent: Gallop, Rubs, Murmur - GI/Abdominal Exam GI & Abdominal Exam: Soft, Normal Bowel Sounds. absent: Tenderness, Mass, Organomegaly - Rectal Exam Rectal Exam: Deferred - Extremities Exam Extremities Exam: absent: Calf Tenderness, Pedal Edema Assessment and Plan (1) Epigastric pain Assessment & Plan: Pain continues to shift, from epigastrium to hypogastrium to left flank. Stools for occult blood were negative. CT scan and UGI/SBFT were essentially normal. Plan is for colonoscopy when stable and cleared by cardiology. Status: Acute
[2017-09-29 09:12] LABS: INR 1.1; PROTHROMBIN TIME 11.9 SECONDS (9.7-12.2)
[2017-09-29 09:15] LABS: BASO % 0.4 % (0.0-2.0); EOS % 0.6 % (0.0-4.0); HEMOGLOBIN 12.4 g/dL (11.0-16.0); LYMPH % 20.3 % (20.0-40.0); MEAN CELL VOLUME 96.3 fL (81.0-99.0); MEAN CORPUSCULAR HEMOGLOBIN 32.7 pg (27.0-31.0); MEAN CORPUSCULAR HGB CONC 33.9 g/dL (33.0-37.0); MEAN PLATELET VOLUME 11.7 fL (7.2-11.7); MONO # 0.3 K/uL (0.0-0.8); MONO % 7.2 % (0.0-10.0); NEUT # 3.5 K/uL (1.8-7.0); NEUT % 71.5 % (50.0-75.0); NRBC % 0.1 % (0.0-2.0); RBC 3.79 Mil/uL (3.80-5.20); RED CELL DISTRIBUTION WIDTH 17.4 % (11.5-14.5); WHITE BLOOD COUNT 4.9 K/uL (4.8-10.8)
[2017-09-29] MEDS: Potassium Chloride 20 mEq ER Tab PO SCH (10:51)
[2017-09-29] MEDS: Pantoprazole 40 mg EC Tab PO SCH (10:52)
[2017-09-29] MEDS: Brimonidine 0.2% Opth Sol (5ml) OU SCH ×2 (10:58→21:52)
[2017-09-29 11:35] LABS: ALB/GLOB RATIO 1.2 (1.0-2.1); ALBUMIN 3.9 g/dL (3.5-5.0); CALCIUM 9.2 mg/dl (8.6-10.4)
--- NOTE | 2017-09-29 12:46 | CP.PCM.PN ---
Subjective - Date & Time of Evaluation Date of Evaluation: 09/28/17 Time of Evaluation: 15:00 - Subjective Subjective: Has abdominal pain, at bedside. Objective - Vital Signs/Intake and Output Vital Signs (last 24 hours): Temp Pulse Resp BP Pulse Ox 98.2 F 61 20 156/82 H 96 09/29/17 07:00 09/29/17 07:40 09/29/17 07:00 09/29/17 10:52 09/29/17 07:00 Intake and Output: 09/29/17 09/29/17 06:59 18:59 Output Total 650 Balance -650 - Medications Medications: Current Medications Acetaminophen (Tylenol 325mg Tab) 650 mg PO Q6 PRN PRN Reason: Pain, moderate (4-7) Last Admin: 09/29/17 00:25 Dose: 650 mg Allopurinol (Zyloprim) 100 mg PO DAILY [facility] Last Admin: 09/29/17 10:52 Dose: 100 mg Aspirin (Ecotrin) 81 mg PO DAILY [facility] Last Admin: 09/29/17 10:51 Dose: 81 mg Brimonidine Tartrate (Alphagan 0.2% Opht) 3 ml OU BID [facility] Last Admin: 09/29/17 10:58 Dose: 1 drop Furosemide (Lasix) 40 mg IVP Q12 [facility] Last Admin: 09/29/17 10:52 Dose: 40 mg Lisinopril (Zestril) 10 mg PO DAILY [facility] Last Admin: 09/29/17 10:51 Dose: 10 mg Metoprolol [facility]artrate ([facility]) [facility] Last Admin: 09/29/17 10:52 Dose: 50 mg Pantoprazole Sodium (Protonix Ec Tab) 40 mg PO DAILY [facility] Last Admin: 09/29/17 10:52 Dose: 40 mg Polyethylene Glycol (Miralax) 17 gm PO Q12 PRN PRN Reason: Constipation Sitagliptin Phosphate (Januvia) 25 mg PO DAILY [facility] Last Admin: 09/29/17 10:52 Dose: 25 mg - Labs Labs: 09/29/17 09:00 09/29/17 09:00 PT 11.9 SECONDS (9.7-12.2) 09/29/17 09:00 INR 1.1 09/29/17 09:00 APTT 27 SECONDS (21-34) 09/22/17 23:09 - Head Exam Head Exam: ATRAUMATIC - Eye Exam Eye Exam: Normal appearance - ENT Exam ENT Exam: Mucous Membranes Dry - Respiratory Exam Respiratory Exam: NORMAL BREATHING PATTERN - Cardiovascular Exam Cardiovascular Exam: +S1, +S2 - GI/Abdominal Exam GI & Abdominal Exam: Normal Bowel Sounds Assessment and Plan (1) Thrombocytopenia Assessment & Plan: secondary to Velcade cont. to monitor Status: Acute (2) Multiple myeloma Assessment & Plan: on single agent Velcade monoclonal protein declining Status: Acute
--- NOTE | 2017-09-29 12:47 | CP.PCM.PN ---
Subjective - Date & Time of Evaluation Date of Evaluation: 09/29/17 Time of Evaluation: 12:30 - Subjective Subjective: Has abdominal pain, for possible colonoscopy Objective - Vital Signs/Intake and Output Vital Signs (last 24 hours): Temp Pulse Resp BP Pulse Ox 98.2 F 61 20 156/82 H 96 09/29/17 07:00 09/29/17 07:40 09/29/17 07:00 09/29/17 10:52 09/29/17 07:00 Intake and Output: 09/29/17 09/29/17 06:59 18:59 Output Total 650 Balance -650 - Medications Medications: Current Medications Acetaminophen (Tylenol 325mg Tab) 650 mg PO Q6 PRN PRN Reason: Pain, moderate (4-7) Last Admin: 09/29/17 00:25 Dose: 650 mg Allopurinol (Zyloprim) 100 mg PO DAILY [facility] Last Admin: 09/29/17 10:52 Dose: 100 mg Aspirin (Ecotrin) 81 mg PO DAILY [facility] Last Admin: 09/29/17 10:51 Dose: 81 mg Brimonidine Tartrate (Alphagan 0.2% Opht) 3 ml OU BID [facility] Last Admin: 09/29/17 10:58 Dose: 1 drop Furosemide (Lasix) 40 mg IVP Q12 [facility] Last Admin: 09/29/17 10:52 Dose: 40 mg Lisinopril (Zestril) 10 mg PO DAILY [facility] Last Admin: 09/29/17 10:51 Dose: 10 mg Metoprolol [facility] ([facility]) [facility] Last Admin: 09/29/17 10:52 Dose: 50 mg Pantoprazole Sodium (Protonix Ec Tab) 40 mg PO DAILY [facility] Last Admin: 09/29/17 10:52 Dose: 40 mg Polyethylene Glycol (Miralax) 17 gm PO Q12 PRN PRN Reason: Constipation Sitagliptin Phosphate (Januvia) 25 mg PO DAILY [facility] Last Admin: 09/29/17 10:52 Dose: 25 mg - Labs Labs: 09/29/17 09:00 09/29/17 09:00 PT 11.9 SECONDS (9.7-12.2) 09/29/17 09:00 INR 1.1 09/29/17 09:00 APTT 27 SECONDS (21-34) 09/22/17 23:09 - Head Exam Head Exam: ATRAUMATIC - Eye Exam Eye Exam: Normal appearance - ENT Exam ENT Exam: Mucous Membranes Dry - Respiratory Exam Respiratory Exam: NORMAL BREATHING PATTERN - Cardiovascular Exam Cardiovascular Exam: +S1, +S2 - GI/Abdominal Exam GI & Abdominal Exam: Normal Bowel Sounds Assessment and Plan (1) Thrombocytopenia Assessment & Plan: improved secondary to Velcade Status: Acute (2) Multiple myeloma Assessment & Plan: on single agent Velcade monoclonal protein declining Status: Acute
--- NOTE | 2017-09-29 13:05 | CP.PCM.PN ---
Subjective - Date & Time of Evaluation Date of Evaluation: 09/29/17 Time of Evaluation: 13:04 - Subjective Subjective: ok.absominal paoins + Objective - Vital Signs/Intake and Output Vital Signs (last 24 hours): Temp Pulse Resp BP Pulse Ox 98.2 F 61 20 156/82 H 96 09/29/17 07:00 09/29/17 07:40 09/29/17 07:00 09/29/17 10:52 09/29/17 07:00 Intake and Output: 09/29/17 09/29/17 06:59 18:59 Output Total 650 Balance -650 - Medications Medications: Current Medications Acetaminophen (Tylenol 325mg Tab) 650 mg PO Q6 PRN PRN Reason: Pain, moderate (4-7) Last Admin: 09/29/17 00:25 Dose: 650 mg Allopurinol (Zyloprim) 100 mg PO DAILY [facility] Last Admin: 09/29/17 10:52 Dose: 100 mg Aspirin (Ecotrin) 81 mg PO DAILY [facility] Last Admin: 09/29/17 10:51 Dose: 81 mg Brimonidine Tartrate (Alphagan 0.2% Opht) 3 ml OU BID [facility] Last Admin: 09/29/17 10:58 Dose: 1 drop Furosemide (Lasix) 40 mg IVP Q12 [facility] Last Admin: 09/29/17 10:52 Dose: 40 mg Lisinopril (Zestril) 10 mg PO DAILY [facility] Last Admin: 09/29/17 10:51 Dose: 10 mg Metoprolol [facility]) [facility] Last Admin: 09/29/17 10:52 Dose: 50 mg Pantoprazole Sodium (Protonix Ec Tab) 40 mg PO DAILY [facility] Last Admin: 09/29/17 10:52 Dose: 40 mg Polyethylene Glycol (Miralax) 17 gm PO Q12 PRN PRN Reason: Constipation Sitagliptin Phosphate (Januvia) 25 mg PO DAILY [facility] Last Admin: 09/29/17 10:52 Dose: 25 mg - Labs Labs: 09/29/17 09:00 09/29/17 09:00 PT 11.9 SECONDS (9.7-12.2) 09/29/17 09:00 INR 1.1 09/29/17 09:00 APTT 27 SECONDS (21-34) 09/22/17 23:09 - Constitutional Appears: No Acute Distress, Chronically Ill - Head Exam Head Exam: NORMOCEPHALIC - Eye Exam Eye Exam: Normal appearance - Neck Exam Neck Exam: Normal Inspection - Respiratory Exam Respiratory Exam: Clear to Ausculation Bilateral - Cardiovascular Exam Cardiovascular Exam: REGULAR RHYTHM, Murmur - GI/Abdominal Exam GI & Abdominal Exam: Soft - Extremities Exam Extremities Exam: absent: Pedal Edema - Neurological Exam Neurological Exam: Alert, Oriented x3 Assessment and Plan - Assessment and Plan (Free Text) Assessment: overall stable cardiac powell. chf is cleared up. ok for colon.diss with .
[2017-09-30 08:08] LABS: CALCIUM 8.8 mg/dl (8.6-10.4)
[2017-09-30] MEDS: Pantoprazole 40 mg EC Tab PO SCH (10:39)
[2017-09-30] MEDS: Brimonidine 0.2% Opth Sol (5ml) OU SCH ×2 (10:40→18:07)
--- NOTE | 2017-09-30 10:50 | CP.PCM.PN ---
Subjective - Date & Time of Evaluation Date of Evaluation: 09/30/17 Time of Evaluation: 10:48 - Subjective Subjective: Patient has no new complaints. She denies having nausea and vomiting. She was cleared for colonoscopy by cardiology. Objective - Vital Signs/Intake and Output Vital Signs (last 24 hours): Temp Pulse Resp BP Pulse Ox 97.5 F L 60 20 161/76 H 97 09/30/17 08:00 09/30/17 08:00 09/30/17 08:00 09/30/17 10:40 09/30/17 08:00 Intake and Output: 09/30/17 09/30/17 06:59 18:59 Intake Total 120 Output Total 750 Balance -630 - Medications Medications: Current Medications Acetaminophen (Tylenol 325mg Tab) 650 mg PO Q6 PRN PRN Reason: Pain, moderate (4-7) Last Admin: 09/29/17 21:53 Dose: 650 mg Allopurinol (Zyloprim) 100 mg PO DAILY [facility] Last Admin: 09/30/17 10:39 Dose: 100 mg Aspirin (Ecotrin) 81 mg PO DAILY [facility] Last Admin: 09/30/17 10:39 Dose: 81 mg Bisacodyl (Dulcolax) 10 mg PO ONCE ONE Stop: 09/30/17 17:01 Brimonidine Tartrate (Alphagan 0.2% Opht) 3 ml OU BID [facility] Last Admin: 09/30/17 10:40 Dose: 1 drop Furosemide (Lasix) 40 mg IVP Q12 [facility] Last Admin: 09/30/17 10:40 Dose: 40 mg Lisinopril (Zestril) 10 mg PO DAILY [facility] Last Admin: 09/30/17 10:45 Dose: 10 mg Metoprolol Tartrate (Lopressor) 50 mg PO BIDCC [facility] Last Admin: 09/30/17 10:42 Dose: 50 mg Pantoprazole Sodium (Protonix Ec Tab) 40 mg PO DAILY [facility] Last Admin: 09/30/17 10:39 Dose: 40 mg Polyethylene Glycol (Miralax) 17 gm PO Q12 PRN PRN Reason: Constipation Last Admin: 09/30/17 10:39 Dose: 17 gm Polyethylene Glycol/Electrolytes (Golytely) 4,000 ml PO ONCE ONE Stop: 09/30/17 19:01 Sitagliptin Phosphate (Januvia) 25 mg PO DAILY [facility] Last Admin: 09/30/17 10:39 Dose: 25 mg - Labs Labs: 09/29/17 09:00 09/30/17 06:55 PT 11.9 SECONDS (9.7-12.2) 09/29/17 09:00 INR 1.1 09/29/17 09:00 APTT 27 SECONDS (21-34) 09/22/17 23:09 - Constitutional Appears: No Acute Distress - Head Exam Head Exam: ATRAUMATIC, NORMOCEPHALIC - Eye Exam Eye Exam: EOMI, PERRL - Neck Exam Neck Exam: absent: Lymphadenopathy, Thyromegaly - Respiratory Exam Respiratory Exam: NORMAL BREATHING PATTERN. absent: Decreased Breath Sounds, Rhonchi, Wheezes - Cardiovascular Exam Cardiovascular Exam: REGULAR RHYTHM, +S1, +S2. absent: Gallop, Rubs, Murmur - GI/Abdominal Exam GI & Abdominal Exam: Soft, Normal Bowel Sounds. absent: Tenderness, Mass, Organomegaly - Rectal Exam Rectal Exam: Deferred - Extremities Exam Extremities Exam: absent: Calf Tenderness, Pedal Edema Assessment and Plan (1) Epigastric pain Assessment & Plan: Patient was cleared by cardiology for colonoscopy. Will order prep for tonight and schedule procedure for tomorrow. Status: Acute
--- NOTE | 2017-09-30 12:53 | CP.PCM.PN ---
Subjective - Date & Time of Evaluation Date of Evaluation: 09/30/17 Time of Evaluation: 12:51 - Subjective Subjective: feels ok.no chest pains or sob.labs,vitals noted.gi f/u noted. Objective - Vital Signs/Intake and Output Vital Signs (last 24 hours): Temp Pulse Resp BP Pulse Ox 97.5 F L 60 20 161/76 H 97 09/30/17 08:00 09/30/17 08:00 09/30/17 08:00 09/30/17 10:40 09/30/17 08:00 Intake and Output: 09/30/17 09/30/17 06:59 18:59 Intake Total 120 Output Total 750 Balance -630 - Medications Medications: Current Medications Acetaminophen (Tylenol 325mg Tab) 650 mg PO Q6 PRN PRN Reason: Pain, moderate (4-7) Last Admin: 09/29/17 21:53 Dose: 650 mg Allopurinol (Zyloprim) 100 mg PO DAILY [facility] Last Admin: 09/30/17 10:39 Dose: 100 mg Aspirin (Ecotrin) 81 mg PO DAILY [facility] Last Admin: 09/30/17 10:39 Dose: 81 mg Bisacodyl (Dulcolax) 10 mg PO ONCE ONE Stop: 09/30/17 17:01 Brimonidine Tartrate (Alphagan 0.2% Opht) 3 ml OU BID [facility] Last Admin: 09/30/17 10:40 Dose: 1 drop Furosemide (Lasix) 40 mg IVP Q12 [facility] Last Admin: 09/30/17 10:40 Dose: 40 mg Lisinopril (Zestril) 10 mg PO DAILY [facility] Last Admin: 09/30/17 10:45 Dose: 10 mg Metoprolol Tartrate (Lopressor) 50 mg PO BIDCC [facility] Last Admin: 09/30/17 10:42 Dose: 50 mg Pantoprazole Sodium (Protonix Ec Tab) 40 mg PO DAILY [facility] Last Admin: 09/30/17 10:39 Dose: 40 mg Polyethylene Glycol (Miralax) 17 gm PO Q12 PRN PRN Reason: Constipation Last Admin: 09/30/17 10:39 Dose: 17 gm Polyethylene Glycol/Electrolytes (Golytely) 4,000 ml PO ONCE ONE Stop: 09/30/17 19:01 Sitagliptin Phosphate (Januvia) 25 mg PO DAILY [facility] Last Admin: 09/30/17 10:39 Dose: 25 mg - Labs Labs: 09/29/17 09:00 09/30/17 06:55 PT 11.9 SECONDS (9.7-12.2) 09/29/17 09:00 INR 1.1 09/29/17 09:00 APTT 27 SECONDS (21-34) 09/22/17 23:09 - Constitutional Appears: No Acute Distress, Chronically Ill - Head Exam Head Exam: NORMOCEPHALIC - Neck Exam Neck Exam: Normal Inspection - Respiratory Exam Respiratory Exam: Clear to Ausculation Bilateral - Cardiovascular Exam Cardiovascular Exam: REGULAR RHYTHM - GI/Abdominal Exam GI & Abdominal Exam: Soft - Extremities Exam Extremities Exam: absent: Pedal Edema - Neurological Exam Neurological Exam: Alert, Oriented x3 Assessment and Plan - Assessment and Plan (Free Text) Assessment: chf resolved.overall stable.ok for colon at low risk.will ct all bp meds pre op.
[2017-09-30] MEDS ORDERED: Bisacodyl 5mg EC Tab PO ONE (17:00)
[2017-09-30] MEDS ORDERED: Peg-Electrolyte Oral Soln 4L (Golytely) PO ONE (19:00)
[2017-10-01] MEDS ORDERED: Propofol 10 mg/ml Inj (20 ML) ONE (08:40)
[2017-10-01] MEDS ORDERED: Phenylephrine 10 mg/ml Inj ONE (09:00)
[2017-10-01] MEDS: Hydrocortisone 2.5% Rectal Cream(30 gm) PR SCH ×2 (09:00→21:36)
[2017-10-01] MEDS: Brimonidine 0.2% Opth Sol (5ml) OU SCH ×2 (09:00→17:47)
[2017-10-01] MEDS: Pantoprazole 40 mg EC Tab PO SCH (10:51)
[2017-10-01 16:52] VITALS: RESP 20
--- NOTE | 2017-10-01 22:06 | CP.PCM.PN ---
Subjective - Date & Time of Evaluation Date of Evaluation: 09/30/17 Time of Evaluation: 18:00 - Subjective Subjective: No complaints, for colonoscopy in AM Objective - Vital Signs/Intake and Output Vital Signs (last 24 hours): Temp Pulse Resp BP Pulse Ox 97.5 F L 62 20 90/45 L 96 10/01/17 15:00 10/01/17 15:00 10/01/17 15:00 10/01/17 21:37 10/01/17 15:00 Intake and Output: 10/01/17 10/02/17 18:59 06:59 Intake Total 450 Balance 450 - Medications Medications: Current Medications Acetaminophen (Tylenol 325mg Tab) 650 mg PO Q6 PRN PRN Reason: Pain, moderate (4-7) Last Admin: 10/01/17 08:14 Dose: 650 mg Allopurinol (Zyloprim) 100 mg PO DAILY [facility] Last Admin: 10/01/17 09:00 Dose: Not Given Aspirin (Ecotrin) 81 mg PO DAILY [facility] Last Admin: 10/01/17 09:00 Dose: Not Given Brimonidine Tartrate (Alphagan 0.2% Opht) 3 ml OU BID [facility] Last Admin: 10/01/17 17:47 Dose: 1 drop Furosemide (Lasix) 40 mg IVP Q12 [facility] Last Admin: 10/01/17 21:37 Dose: Not Given Hydrocortisone (Anusol-Hc) 0 gm [place] BID [facility] Last Admin: 10/01/17 21:36 Dose: 1 applic Lisinopril (Zestril) 10 mg PO DAILY [facility] Last Admin: 10/01/17 10:00 Dose: Not Given Metoprolol [facility] ([facility]) [facility] Last Admin: 10/01/17 17:47 Dose: 50 mg Pantoprazole Sodium (Protonix Ec Tab) 40 mg PO DAILY [facility] Last Admin: 10/01/17 10:51 Dose: 40 mg Polyethylene Glycol (Miralax) 17 gm PO Q12 PRN PRN Reason: Constipation Last Admin: 09/30/17 10:39 Dose: 17 gm Sitagliptin Phosphate (Januvia) 25 mg PO DAILY [facility] Last Admin: 10/01/17 09:00 Dose: Not Given - Labs Labs: 09/29/17 09:00 09/30/17 06:55 PT 11.9 SECONDS (9.7-12.2) 09/29/17 09:00 INR 1.1 09/29/17 09:00 APTT 27 SECONDS (21-34) 09/22/17 23:09 - Head Exam Head Exam: ATRAUMATIC - Eye Exam Eye Exam: Normal appearance - ENT Exam ENT Exam: Mucous Membranes Dry - Respiratory Exam Respiratory Exam: NORMAL BREATHING PATTERN - Cardiovascular Exam Cardiovascular Exam: +S1, +S2 - GI/Abdominal Exam GI & Abdominal Exam: Normal Bowel Sounds Assessment and Plan (1) Thrombocytopenia Assessment & Plan: secondary to chemotherapy Status: Acute (2) Multiple myeloma Assessment & Plan: responding to single agent Velcade outpatient treatment Status: Acute
[2017-10-02 08:26] VITALS: BP 118/67; PULSE 61; TEMP 97.5; O2SAT 99
[2017-10-02] MEDS: Pantoprazole 40 mg EC Tab PO SCH (09:38)
[2017-10-02] MEDS: Brimonidine 0.2% Opth Sol (5ml) OU SCH (09:39)
[2017-10-02] MEDS: Hydrocortisone 2.5% Rectal Cream(30 gm) PR SCH (09:40)
--- NOTE | 2017-10-02 09:42 | RAD ---
Date of service: 10/01/2017 HISTORY: Abdominal pain COMPARISON: No prior. FINDINGS: BOWEL: Normal. No obstruction. No free air. BONES: Normal. OTHER FINDINGS: Permanent pacemaker. CABG. IMPRESSION: No active disease.
--- NOTE | 2017-10-02 10:58 | CARD ---
APPROVED REPORT Date of service: 09/22/2017 EKG Measurement Heart [id number] <Conclusion> Sinus rhythm with 1st degree AV block Left anterior fascicular block Left ventricular hypertrophy with QRS widening and repolarization abnormality Cannot rule out Septal infarct, age undetermined Abnormal ECG
[2017-10-02 11:53] LABS: BASO % 0.2 % (0.0-2.0); EOS % 0.3 % (0.0-4.0); HEMOGLOBIN 11.6 g/dL (11.0-16.0); LYMPH % 23.5 % (20.0-40.0); MEAN CELL VOLUME 96.6 fL (81.0-99.0); MEAN CORPUSCULAR HEMOGLOBIN 33.1 pg (27.0-31.0); MEAN CORPUSCULAR HGB CONC 34.2 g/dL (33.0-37.0); MEAN PLATELET VOLUME 9.3 fL (7.2-11.7); MONO # 0.3 K/uL (0.0-0.8); MONO % 7.5 % (0.0-10.0); NEUT # 2.8 K/uL (1.8-7.0); NEUT % 68.5 % (50.0-75.0); RBC 3.5 Mil/uL (3.80-5.20); RED CELL DISTRIBUTION WIDTH 16.9 % (11.5-14.5); WHITE BLOOD COUNT 4.1 K/uL (4.8-10.8)
[2017-10-02 12:02] LABS: CALCIUM 8.6 mg/dl (8.6-10.4)
--- NOTE | 2017-10-03 12:41 | DS ---
CHIEF COMPLAINT: A 72-year-old female was brought in with congestive heart failure. HISTORY OF PRESENT ILLNESS: The patient has known history of hypertension, status post permanent pacemaker implantation, CABG, diabetes, and recently found to have multiple myeloma, under care of Dr. Disla. She was admitted to telemetry floor, IV diuretics was given with improvement. Pulmonary followup was obtained with Dr. Turner for chronic basal rales. She was also seen in followup with Dr. Disla. The patient has done well. Because of chronic abdominal pain and anemia, the patient also had a colonoscopy done by Dr. Cruz and hemorrhoids were noted, nothing major. Biopsies were done for a small polyp. At this point, the patient is stable to be discharged. She will be on metoprolol 50 mg p.o. twice a day, Lasix 40 mg p.o. once a day. Continue with eyedrops, Anusol or hydrocortisone suppository, Januvia 25 mg, Protonix, lisinopril 10 mg, and allopurinol 100 mg daily. The patient had nonsustained ventricular tachycardia, so the Coreg was discontinued and she was placed on metoprolol 50 mg p.o. twice a day and she is in sinus rhythm. Pulmonary congestion has resolved. CHF is resolved. Previous echocardiogram had shown normal LV systolic function, was not repeated. FINAL DIAGNOSES: Congestive heart failure, hypertension, recurrent chest pains, anemia, multiple myeloma. DISCHARGE DIET: 2 g sodium, 1800 ADA vegetarian diet. ACTIVITY: As tolerated. Care of plan was explained to the patient. I will see her back in 10 days' time. Jeff Alvarado MD
--- NOTE | 2017-10-03 15:25 | CARD ---
APPROVED REPORT Date of service: 09/25/2017 EKG Measurement Heart [id number] <Conclusion> Atrial-paced rhythm with prolonged AV conduction Left anterior fascicular block Left ventricular hypertrophy with QRS widening Cannot rule out Septal infarct, age undetermined ST & T wave abnormality, consider lateral ischemia Abnormal ECG
== END 2017-10-02 13:35 | disposition short-term general hospital (02) | DRG 292 ==
LOC: C.ER 22:34 → C.6T 09-23 03:14
PROVIDERS: ADMIT Internal Medicine Cardiovascular Disease; ATTEND Internal Medicine Cardiovascular Disease
PROC: 0DBP8ZX Excision of Rectum, Via Natural or Artificial Opening Endoscopic, Diagnostic (ICD-10-PCS; principal; 2017-10-01 08:30)
DX: I13.0 Hypertensive heart and chronic kidney disease with heart failure and stage 1 through stage 4 chronic kidney disease, or unspecified chronic kidney disease (principal); I47.2 Ventricular tachycardia; C90.00 Multiple myeloma not having achieved remission; I50.32 Chronic diastolic (congestive) heart failure; Z68.1 Body mass index [BMI] 19.9 or less, adult; I25.10 Atherosclerotic heart disease of native coronary artery without angina pectoris; H40.9 Unspecified glaucoma; I48.91 Unspecified atrial fibrillation; G89.29 Other chronic pain; E11.22 Type 2 diabetes mellitus with diabetic chronic kidney disease; D69.6 Thrombocytopenia, unspecified; J44.9 Chronic obstructive pulmonary disease, unspecified; K29.70 Gastritis, unspecified, without bleeding; K64.9 Unspecified hemorrhoids; N18.9 Chronic kidney disease, unspecified; Z79.84 Long term (current) use of oral hypoglycemic drugs; Z95.0 Presence of cardiac pacemaker; Z95.1 Presence of aortocoronary bypass graft; K62.89 Other specified diseases of anus and rectum